=== PATIENT | female | born 1955 | race Caucasian/White ===

== ENCOUNTER → 2019-09-13 13:07 | Outpatient (BNVA) | payer MEDICARE, MEDICAID, SELFPAY | PROVIDERS: Family Provider Nurse Practitioner Family; PCP Nurse Practitioner Family; Visit Provider Internal Medicine Rheumatology | DX: M33.20 Polymyositis, organ involvement unspecified (principal); B99.9 Unspecified infectious disease; J44.9 Chronic obstructive pulmonary disease, unspecified; Z87.891 Personal history of nicotine dependence; I12.9 Hypertensive chronic kidney disease with stage 1 through stage 4 chronic kidney disease, or unspecified chronic kidney disease; N18.9 Chronic kidney disease, unspecified | CPT/HCPCS: 36415; 80053; 82085; 82550; 82553; 82784; 85007; 85027; 85651; 86140; 99214 ==

== ENCOUNTER 2019-09-26 10:09 | Outpatient (CLI) | payer MEDICARE, MEDICAID, SELFPAY ==
--- NOTE | 2019-09-26 10:22 | CT_ITS ---
WS: [id number] CT scan of the chest, lung windows, inspiration and expiration, additional prone imaging. 09/26/2019 Clinical Data: SHORTNESS OF BREATH Comparison: CT chest, 03/15/2019. DLP: 269.[address] scans at [facility] use at least one of these dose optimization techniques: automat ed exposure control; mA and/or kV adjustment per patient size (includes targeted exams where dose is matched to clinical indication); or iterative reconstruction. Findings: There are atelectatic changes at both lung bases and groundglass infiltrate in the right middle lobe. There are changes of chronic lung disease with restriction of airflow during expiration. No large ma sses or nodules are seen. There are no effusions, pneumonia or pneumothorax. Trachea bifurcates into the bronchi. The heart size is normal. The thoracic aorta shows calcification in the wall. There is c alcification in the left coronary artery. No pericardial effusion is seen. There is a hiatal hernia. Vertebroplasty contrast is seen in the T10, T11 and T12 vertebral bodies. The upper abdomen is not re markable. CT/CT chest wo con [id number] Impression: 1. Chronic lung changes at both bases and groundglass infiltrate in the right m iddle lobe which have been seen before. 2. Airflow restriction during expiration.
== END 2019-09-26 10:10 | disposition home or self-care (01) ==
LOC: RAD 10:16
PROVIDERS: Family Provider Nurse Practitioner Family; PCP Nurse Practitioner Family; Visit Provider Internal Medicine Critical Care Medicine
DX: R91.8 Other nonspecific abnormal finding of lung field (principal); R06.02 Shortness of breath
CPT/HCPCS: 71250

== ENCOUNTER → 2019-10-03 17:34 | Outpatient (BNVA) | payer MEDICARE, MEDICAID, SELFPAY | PROVIDERS: Visit Provider Nurse Practitioner Family | DX: R19.7 Diarrhea, unspecified (principal) | CPT/HCPCS: 80053; 85025 ==

== ENCOUNTER → 2019-10-04 10:32 | Outpatient (BNVA) | payer MEDICARE, MEDICAID, SELFPAY | PROVIDERS: Visit Provider Nurse Practitioner Family | DX: R19.7 Diarrhea, unspecified (principal) | CPT/HCPCS: 87493; 87505 ==

== ENCOUNTER 2019-11-01 07:00 | Outpatient (CLI) | payer MEDICARE, MEDICAID, SELFPAY ==
--- NOTE | 2019-11-01 16:15 | PFTS_ITS ---
Date of Study:11/01/2019 Date of Dictation: MECHANICS: Forced vital capacity (FVC) is normal. Forced expiratory volume in one second (FEV1) is normal. FEV1/FVC is reduced. FLOW VOLUME LOOP: Reduced flow at all lung volumes with scooping. LUNG VOLUMES: The total lung volume and residual volumes were not measured. DIFFUSING CAPACITY FOR CARBON MONOXIDE: Mildly reduced. INTERPRETATION: The pulmonary function tests are consistent with mild airflow obstruction. The gas exchange is moderately reduced. MTDD
== END 2019-11-01 07:01 | disposition home or self-care (01) ==
LOC: RT 07:02
PROVIDERS: Family Provider Nurse Practitioner Family; Visit Provider Internal Medicine Critical Care Medicine
DX: J43.9 Emphysema, unspecified (principal)
CPT/HCPCS: 94010; 94729

== ENCOUNTER → 2019-11-02 14:15 | Outpatient (BNVA) | payer MEDICARE, MEDICAID, SELFPAY | PROVIDERS: Family Provider Nurse Practitioner Family; Visit Provider Nurse Practitioner Family | DX: R05 Cough (principal); J44.9 Chronic obstructive pulmonary disease, unspecified; E84.9 Cystic fibrosis, unspecified; R06.02 Shortness of breath | CPT/HCPCS: 71046; 81003; 85025; 87804 ==

== ENCOUNTER 2019-11-15 09:30 | Outpatient (CLI) | payer MEDICARE, MEDICAID, SELFPAY ==
[2019-11-15 10:06] LABS: Creatine Phosphokinase 273 U/L (26-192)
[2019-11-15 10:44] LABS: Erythrocyte Sedimentation Rate 18 mm/hr (0-15)
[2019-11-16 11:31] LABS: Aldolase 3.6 U/L (< OR = 8.1)
== END 2019-11-15 09:31 | disposition home or self-care (01) ==
LOC: LAB 09:35
PROVIDERS: Family Provider Nurse Practitioner Family; PCP Nurse Practitioner Family; Visit Provider Internal Medicine Critical Care Medicine
DX: M33.20 Polymyositis, organ involvement unspecified (principal); R06.02 Shortness of breath; R09.89 Other specified symptoms and signs involving the circulatory and respiratory systems; I10 Essential (primary) hypertension; J44.9 Chronic obstructive pulmonary disease, unspecified; N18.9 Chronic kidney disease, unspecified
CPT/HCPCS: 36415; 82085; 82550; 85651; 86141

== ENCOUNTER → 2019-11-16 16:32 | Outpatient (BNVA) | payer MEDICARE, MEDICAID, SELFPAY | PROVIDERS: Family Provider Nurse Practitioner Family; PCP Nurse Practitioner Family; Visit Provider Nurse Practitioner Family | DX: R09.89 Other specified symptoms and signs involving the circulatory and respiratory systems (principal); J32.9 Chronic sinusitis, unspecified | CPT/HCPCS: 87400 ==

== ENCOUNTER 2019-12-29 16:06 | Outpatient (CLI) | payer MEDICARE, MEDICAID, SELFPAY ==
--- NOTE | 2019-12-29 16:30 | USCV_ITS ---
Shanita Saleh Age: 64 Gender: F : 1955 Exam Date: 12/29/2019 16:12 Ordering Phys: Jimbo Watkins MD Technologist: Exam Location: [facility] [place] Indication: SOB BP: 114 / 56 HR: 70 Rhythm: Sinus Technical Quality: Good MEASUREMENTS (Male / Female) Normal Values 2D ECHO LV Diastolic Diameter PLAX 4.2 cm 4.2 - 5.9 / 3.9 - 5.3 cm LV Systolic Diameter PLAX 2.2 cm IVS Diastolic Thickness 0.9 cm 0.6 - 1.0 / 0.6 - 0.9 cm IVS Systolic Thickness 1.4 cm LVPW Diastolic Thickness 0.9 cm 0.6 - 1.0 / 0.6 - 0.9 cm LVPW Systolic Thickness 1.3 cm LVOT Diameter 2.0 cm LV Ejection Fraction 2D Teich 79.3 % LV Ejection Fraction MOD 2C 79.1 % LV Ejection Fraction 2C AL 81.5 % LA Diameter 3.0 cm LA Width 3.1 cm LA Height 5.1 cm RA Width 3.6 cm RA Height 4.8 cm Aorta at Sinotubular Diameter 2.8 cm M-MODE LV Diastolic Diameter MM 5.3 cm 4.2 - 5.9 / 3.9 - 5.3 cm LV Systolic Diameter MM 3.3 cm LV Ejection Fraction MM Teich 67.6 % IVS Diastolic Thickness MM 0.8 cm 0.6 - 1.0 / 0.6 - 0.9 cm IVS Systolic Thickness MM 1.4 cm LVPW Diastolic Thickness MM 1.0 cm 0.6 - 1.0 / 0.6 - 0.9 cm LVPW Systolic Thickness MM 1.3 cm Aortic Annulus Diameter 2.5 cm LA Ao Ratio MM 1.2 MV E Point Septal Separation 0.3 cm DOPPLER AV Peak Velocity 149.0 cm/s LVOT Peak Velocity 79.0 cm/s AV Area Cont Eq vti 1.7 cm squared AV Area Cont Eq pk 1.7 cm squared MV Area PHT 2.7 cm squared Mitral E to A Ratio 0.8 MV E' Velocity 11.0 cm/s Mitral E to MV E' Ratio 8.2 Mitral E to LV E' Lateral Ratio 7.0 Mitral E to LV E' Septal Ratio 10.1 TR Peak Velocity 207.9 cm/s TR Peak Gradient 17.3 mmHg TR Mean Velocity 155.6 cm/s TR Mean Gradient 10.4 mmHg TR Velocity Time Integral 53.2 cm TV Peak E Velocity 52.0 cm/s Right Atrial Pressure 3.0 mmHg Pulmonary Artery Systolic Pressu 20.3 mmHg PV Peak Velocity 93.0 cm/s RV Acceleration Time 0.1 s RV Ejection Time 0.3 s RV AcT/ET 0.5 FINDINGS Left Ventricle Normal left ventricular cavity size. Normal left ventricular systolic function. No regional wall motion abnormalities. Left ventricular ejection fraction is estimated at 67 %. Grade I/IV diastolic dysfunction (abnormal relaxation filling pattern), normal to mildly elevated filling pressures. Right Ventricle The right ventricle is normal in size and function. Right Atrium The right atrium is normal in size. Left Atrium Mildly increased left atrial size. Mitral Valve Structurally normal mitral valve without significant stenosis or prolapse. There is no mitral regurgitation. Aortic Valve Mild aortic valve calcification. No aortic valve stenosis. No aortic valve regurgitation. Tricuspid Valve Trace tricuspid valve regurgitation. Pulmonic Valve Structurally normal pulmonic valve without significant stenosis. There is no pulmonic regurgitation. Pericardium Normal pericardium without effusion. Aorta Normal ascending aorta dimension. CONCLUSIONS 1-Normal left ventricular cavity size. Normal left ventricular systolic function. No regional wall motion abnormalities. Left ventricular ejection fraction is estimated at 67 %. Grade I/IV diastolic dysfunction (abnormal relaxation filling pattern), normal to mildly elevated filling pressures. 2-There is no pericardial effusion. 3-Trace tricuspid valve regurgitation. 4-Right atrial pressure is around 5 mm of mercury. 5-No significant change since the prior echocardiogram study of 02/07/2018. Rhiannon Eastman MD (Electronically Signed) Final Date: 29 Dec 2019 17:38 S
== END 2019-12-29 16:07 | disposition home or self-care (01) ==
LOC: RAD 16:08
PROVIDERS: Family Provider Nurse Practitioner Family; PCP Nurse Practitioner Family; Visit Provider Internal Medicine Critical Care Medicine
DX: R06.02 Shortness of breath (principal); I07.1 Rheumatic tricuspid insufficiency
CPT/HCPCS: 93306

== ENCOUNTER → 2020-01-03 11:50 | Outpatient (BNVA) | payer MEDICARE, MEDICAID, SELFPAY | PROVIDERS: Family Provider Nurse Practitioner Family; PCP Nurse Practitioner Family; Visit Provider Nurse Practitioner Family | DX: M81.0 Age-related osteoporosis without current pathological fracture (principal) | CPT/HCPCS: 80048 ==

== ENCOUNTER → 2020-03-21 08:42 | Outpatient (BNVA) | payer MEDICARE, MEDICAID, SELFPAY | PROVIDERS: Family Provider Nurse Practitioner Family; PCP Nurse Practitioner Family; Visit Provider Internal Medicine | DX: M33.20 Polymyositis, organ involvement unspecified (principal); M81.0 Age-related osteoporosis without current pathological fracture; J44.9 Chronic obstructive pulmonary disease, unspecified; Z87.891 Personal history of nicotine dependence; E55.9 Vitamin D deficiency, unspecified | CPT/HCPCS: 36415; 80053; 81003; 82550; 84100; 85025; 85651; 86140; 99214 ==

== ENCOUNTER → 2020-04-16 08:00 | Outpatient (BNVA) | payer MEDICARE, MEDICAID, SELFPAY | PROVIDERS: Family Provider Nurse Practitioner Family; PCP Nurse Practitioner Family; Visit Provider Nurse Practitioner Family | DX: I10 Essential (primary) hypertension (principal); K21.9 Gastro-esophageal reflux disease without esophagitis; M81.0 Age-related osteoporosis without current pathological fracture; L30.9 Dermatitis, unspecified; J44.9 Chronic obstructive pulmonary disease, unspecified; Z68.25 Body mass index [BMI] 25.0-25.9, adult; F17.211 Nicotine dependence, cigarettes, in remission | CPT/HCPCS: 80053; 80061; 84443; 85025 ==

== ENCOUNTER 2020-04-22 10:01 | Emergency (ER) | payer MEDICARE, MEDICAID, SELFPAY ==
[2020-04-22 10:04] VITALS: BP 153/68; PULSE 65; RESP 16; TEMP 36.8; O2SAT 95; BMI 25.6
--- NOTE | 2020-04-22 10:35 | XRR_ITS ---
PROCEDURE INFORMATION: Exam: XR Lumbosacral Spine, 2 or 3 Views Exam date and time: 04/22/2020 11:07 AM Age: 64 years old Clinical indication: Low back pain; Prior surgery; Surgery type: Kypho; Patient HX: Mid back pain after jumping TECHNIQUE: Imaging protocol: XR of the lumbosacral spine, 2 or 3 views. COMPARISON: MRI Lumbar Spine w/o [id number] 09/03/2016 3:21 PM FINDINGS: Vertebrae: Severe diffuse degenerative disc disease reflected as severe decrease in disc space height and anterior endplate osteophytosis. No spondylolisthesis No pars defect. Multi-level facet hypertrophic changes. Compression fracture involving L2 and likely L1 and T12. Prior vertebroplasty T11-T10 and T9. Soft tissues: Unremarkable. XR/XR lumbar spine 2-3V* [id number] IMPRESSION: Severe degenerative disc disease. Numerous compression fractures as described above.
--- NOTE | 2020-04-22 10:35 | XRR_ITS ---
PROCEDURE INFORMATION: Exam: XR Thoracic Spine, 3 Views Exam date and time: 04/22/2020 11:07 AM Age: 64 years old Clinical indication: Pain in thoracic spine; Other: Not specified; Prior surgery; Surgery type: Kypho; Patient HX: Mid back pain after jumping TECHNIQUE: Imaging protocol: XR of the thoracic spine, 3 views. COMPARISON: No relevant prior studies available. FINDINGS: Vertebrae: The alignment is normal. . Degenerative changes, mild, throughout much of the thoracic spine No subluxation-no perched or jumped facets. The facets are without acute process. Mild compression fracture involving the anterior and middle columns of T12. Prior vertebroplasty T11, T10 and T9. Mild compression fractures involving the anterior columns of T8 and T7 and likely T6. Soft tissues: Unremarkable. XR/XR thoracic spine 3V* [id number] IMPRESSION: Mild compression fracture involving the anterior and middle columns of T12. Prior vertebroplasty T11, T10 and T9. Mild compression fractures involving the anterior columns of T8 and T7 and likely T6. Consider CT or MRI if indicated.
--- NOTE | 2020-04-22 10:44 | ED_ITS ---
HPI - Back Pain/Injury General: Chief Complaint: Back Pain/Injury Stated Complaint: RIGHT RIB AND BACK PAIN Time Seen by Provider: 04/22/20 10:05 History of Present Illness: HPI Narrative: 64-year-old female who presents emergency room with complete night of severe back pain. She was playing with her daughter yesterday and crouched behind an object while they are playing hide and seek type game she jumped up to surprise the granddaughter and when she walked away experienced severe lower back pain in the lumbar region pain is worse with any movement it did not improve overnight she is complaining of severe muscle spasms as well she did take a cyclobenzaprine before she came in she has a known history of osteoporosis and has had compression fractures treated with kyphoplasty in the past. MD elicited complaint: back pain Pertinent past history: prior back pain Onset (ago): hour(s) Timing: constant Severity: severe Similar Symptoms Previously: Yes Quality: stabbing Location: lumbar spine Radiation: none Exacerbating factors: movement Relieving factors: immobilization Context: other (Crouching down and standing suddenly) Associated symptoms: Reports difficulty walking; Deny abdominal pain, arthralgias, chills, change in bowel habits, dysuria, fatigue, fecal incontinence, fever(s), hematuria, myalgias, nausea, numbness, syncope, tingling/numbness/burning, urinary frequency, urinary urgency, vomiting or weakness Work related injury: No Review of Systems Const: Denies: fever(s), chills or fatigue ENMT: Denies: throat pain, ear or mastoid pain, nasal discharge or nasal congestion Card: Denies: syncope Resp: Denies: dyspnea, productive cough or non-productive cough GI: Denies: abdominal pain, nausea, vomiting, fecal incontinence or change in bowel habits : Denies: dysuria, urinary urgency or hematuria Skin/Breast: Denies: rash or pruritus Neuro: Reports: difficulty walking PFSH ED PFSH: Medical History Age related osteoporosis Anxiety CKD (chronic kidney disease) Compression fx, lumbar spine Compression fx, thoracic spine COPD (chronic obstructive pulmonary disease) Diverticulitis Generalized osteoarthritis GERD (gastroesophageal reflux disease) Hypertension Immunosuppression Medication monitoring encounter Osteoporosis Osteoporosis Polymyositis PUD (peptic ulcer disease) Surgical History H/O colonoscopy 2017 H/O wrist surgery History of appendectomy History of back surgery History of lumpectomy of both breasts History of tubal ligation Family History Father Hypertension Cancer Alzheimer disease Mother Hypertension Dementia Grandmother Cancer Sister Cancer Social History Smoking and tobacco status: former smoker Quit status (tobacco): has quit using tobacco Year quit tobacco: 2009 - 1.5 x 35 Years Second hand smoke exposure: No Alcohol intake: never Lives independently: Yes Household members: spouse Marital status: Number of children: 2 Current occupational status: retired History of recent travel: No Current gender identity: Female Physical Exam Const: COMMON NORMALS: no acute distress GENERAL APPEARANCE: cooperative and comfortable ORIENTATION/CONSCIOUSNESS: Yes awake, Yes oriented to person, Yes oriented to place and Yes oriented to time HENMT: COMMON NORMALS: normocephalic, atraumatic and hearing grossly normal b ilaterally HEAD & SCALP: normocephalic and atraumatic Eye: COMMON NORMALS: Equal, round and reactive pupils present, EOMs intact bilaterally, conjunctivae normal and no scleral icterus CONJUNCTIVA: Yes conjunctivae normal PUPIL: Yes Equal, round and reactive pupils present Neck/C-Spine: COMMON NORMALS: full ROM, no lymphadenopathy, supple and no JVD Lymph: LYMPHATIC: no lymphadenopathy noted and no lymphedema noted Resp: COMMON NORMALS: normal respiratory effort, No retractions, No use of accessory muscles and clear to auscultation bilaterally AUSCULTATION: clear to auscultation bilaterally Cardio: COMMON NORMALS: no JVD, regular rate, regular rhythm and No murmurs present (Cardio) RATE: regular rate RHYTHM: regular rhythm GI: COMMON NORMALS: Soft to palpation and No hepatosplenomegaly present AUSCULTATION: Yes normoactive bowel sounds PALPATION: Yes Soft to palpation, No Tenderness to palpation present (GI), No Guarding due to palpation present (GI) and Yes No hepatosplenomegaly present Extremity: COMMON NORMALS: normal to inspection, capillary refill normal, no clubbing, cyanosis or edema, no calf tenderness and no pedal edema Neuro: SENSORIUM/ORIENTATION: Yes oriented to person, Yes oriented to place and Yes oriented to time Skin: COMMON NORMALS: no rashes or lesions noted GENERAL SKIN EXAM: no rashes or lesions noted Course Vital Signs: Vital signs: Vital Signs Temperature 98.3 F 04/22/20 10:04 Pulse Rate 87 04/22/20 12:49 Respiratory Rate 18 04/22/20 12:49 Blood Pressure 153/68 04/22/20 12:49 Pulse Oximetry 94 04/22/20 12:49 MDM - Back Pain/Injury MDM Narrative: Medical decision making narrative: Plain films are a few areas are suspicious for acute compression fracture versus old compression fracture CT does not show anything acute reviewed with the patient treat her back pain follow-up with her primary care doctor return if has problems Discharge Plan Discharge Patient Disposition: Home Clinical Impression: Back pain Condition: Stable Prescriptions: New hydrocodone-acetaminophen 5-325 mg tablet 1 tab PO Q6H PRN (Reason: pain) Qty: 20 RF: 0 diclofenac sodium 75 mg tablet,delayed release (DR/EC) 75 mg PO Q12H PRN (Reason: pain) Qty: 20 RF: 0 cyclobenzaprine 10 mg tablet 10 mg PO TID PRN (Reason: muscle spasm) Qty: 30 RF: 0 No Action metoprolol tartrate 25 mg tablet 25 mg PO BID Qty: 60 RF: 5 methylprednisolone [Medrol (Derrick)] 4 mg tablets,dose pack See Rx Instructions PO PER PKG DIR Qty: 21 RF: 0 cyclobenzaprine 5 mg tablet 5 mg PO QID PRN (Reason: Muscle Spasm) RF: 0 albuterol sulfate [ProAir HFA] 90 mcg/actuation HFA aerosol inhaler 2 puff INHALATION QID PRN (Reason: shortness of breath) RF: 0 Rituxan 10 mg/mL concentrate See Rx Instructions .ROUTE .COMPLEX RF: 0 folic acid 1 mg tablet 1 mg PO DAILY RF: 0 aspirin [Adult Aspirin Regimen] 81 mg tablet,delayed release (DR/EC) 81 mg PO DAILY RF: 0 albuterol sulfate 2.5 mg /3 mL (0.083 %) solution for nebulization 2.5 mg INHALATION Q4H PRN (Reason: shortness of breath or wheezing) Qty: 180 RF: 0 Anoro Ellipta 62.5-25 mcg/actuation blister with device 1 inh INHALATION DAILY Qty: 60 RF: 3 Claritin 10 mg Tablet 10 mg PO DAILY RF: 0 Probiotic 1 cap PO QPM RF: 0 Vitamin D3 1 tab PO DAILY RF: 0 triamcinolone acetonide 0.1 % cream 1 applic TOPICAL BID RF: 0 pantoprazole 40 mg tablet,delayed release (DR/EC) 40 mg PO BID RF: 0 losartan 25 mg tablet 25 mg PO DAILY RF: 0 fluticasone propionate 50 mcg/actuation spray,suspension 1 spray intranasal BID PRN (Reason: unknown) RF: 0 Prolia 60 mg/mL syringe See Rx Instructions .ROUTE .COMPLEX RF: 0 Multiple Vitamins Tablet 1 tab PO DAILY RF: 0 Discharge Orders: Discharge Order (Routine); Ordered 04/22/20 Ordered By: Marcelino Payton Referrals: Mercedez Loco FNP [Primary Care Provider] - Discharge Diet: Usual diet Discharge Activity: Increase activity as tolerated Discharge Date/Time: 04/22/20 12:50 Coding Level of Care Code ED Workers Compensation Consultant for Chg Fwd Exam Comprehensive
[2020-04-22 10:53] VITALS: RESP 18; O2SAT 94
[2020-04-22] MEDS: morphine 4 mg/mL SDV 1 mL 6 MG IVP (10:53)
[2020-04-22] MEDS: ondansetron 2 mg/ML SDV 2 mL 4 MG IVP (10:54)
--- NOTE | 2020-04-22 11:45 | CT_ITS ---
WS: [id number] CT THORACIC SPINE TECHNIQUE: Noncontrast CT of the thoracic spine with coronal and sagittal reformatted images. CLINICAL INFORMATION: new compression fractures COMPARISON: CT 6 6016 and September 21, 2016 DLP: 1183.[address] scans at [facility] use at least one of these dose optimization techniques: automat ed exposure control; mA and/or kV adjustment per patient size (includes targeted exams where dose is matched to clinical indication); or iterative reconstruction. FINDINGS: Moderate thoracic kyphosis. Mild thoracic curve. Thoracic curve convex left. Prior vertebroplasty latha nges T9, T10, T11 with anterior wedging chronic compression unchanged. Chronic anterior wedging at T6 , T7, and T8 unchanged. No high-grade central canal stenosis. Mild compression superior endplate T12 unchanged Subsegmental atelectasis in the lung bases. Moderate chronic emphysematous changes. Thoracic aortic c alcification. Small esophageal hiatal hernia. CT/CT thoracic spin wo con* [id number] IMPRESSION: 1. Moderate thoracic kyphosis with chronic vertebroplasty changes at T9-T11 un changed. 2. Chronic anterior wedging at T6-T8 unchanged. 3. No new thoracic compression fractures. 4. Mild compression superior endplate T12 unchanged
--- NOTE | 2020-04-22 11:46 | CT_ITS ---
WS: [id number] CT LUMBAR SPINE TECHNIQUE: Noncontrast CT of the lumbar spine with coronal and sagittal reformatted images. CLINICAL INFORMATION: pain - compression fractures COMPARISON: MRI 1 DLP: 2156.[address] scans at [facility] use at least one of these dose optimization techniques: automat ed exposure control; mA and/or kV adjustment per patient size (includes targeted exams where dose is matched to clinical indication); or iterative reconstruction. FINDINGS: Mild lumbar curve. No high-grade central canal stenosis. Mild compression superior endplates T12 L1,L 2, L3 and L5 unchanged from previous. No new compression fractures. L1-L2: Normal. L2-L3: Normal. L3-L4: Mild annular bulging with slight effacement of ventral thecal sac. Spinal canal and foramen ar e patent. Moderate facet arthropathy ligament flavum hypertrophy. L4-L5: Mild annular bulging with mild central canal stenosis. Mild left and no significant right fora quentin narrowing. Mild to moderate central canal stenosis with moderate facet arthropathy. Ligament fl avum hypertrophy. L5-S1: Mild annular bulging eccentric to the left. Slight encroachment on the left S1 nerve root. Mil d left foraminal narrowing. Visualized pelvic bony structures: Normal. Paravertebral soft tissues: Normal. Notified Marcelino Payton DO at 04/22/2020 12:[address]/CT lumbar spine wo con* [id number] IMPRESSION: 1. No new lumbar compression fractures. 2. Mild/moderate central canal stenosis L4-5 due to disc bulging with facet ar thropathy and ligament flavum hypertrophy. 3. Mild left L4-5 foraminal narrowing. 4. Disc bulge L5-S1 slightly contacts the left S1 nerve root.
[2020-04-22 12:49] VITALS: BP 153/68; PULSE 87; RESP 18; O2SAT 94
== END 2020-04-22 12:50 | disposition home or self-care (01) ==
PROVIDERS: Emergency Provider Family Medicine; PCP Nurse Practitioner Family
DX: M54.9 Dorsalgia, unspecified (principal); Z79.82 Long term (current) use of aspirin; J44.9 Chronic obstructive pulmonary disease, unspecified; I10 Essential (primary) hypertension; Z87.891 Personal history of nicotine dependence
CPT/HCPCS: 12345; 72072; 72100; 72128; 72131; 96374; 96375; 99281; 99283; J2270; J2405

== ENCOUNTER → 2020-05-09 13:04 | Outpatient (BNVA) | payer MEDICARE, MEDICAID, SELFPAY | PROVIDERS: PCP Nurse Practitioner Family; Visit Provider Internal Medicine | DX: M33.20 Polymyositis, organ involvement unspecified (principal); Z79.899 Other long term (current) drug therapy; M81.0 Age-related osteoporosis without current pathological fracture; E55.9 Vitamin D deficiency, unspecified | CPT/HCPCS: 36415; 80053; 82550; 85025; 85651; 86140; 99214 ==

== ENCOUNTER 2020-05-13 09:23 | Outpatient (CLI) | payer MEDICARE, MEDICAID, SELFPAY ==
[2020-05-13 09:30] VITALS: BP 137/72; PULSE 58; RESP 16; TEMP 36.6; O2SAT 97
[2020-05-13] MEDS: acetaminophen 325 mg Tablet 975 MG PO (09:58)
[2020-05-13] MEDS: diphenhydrAMINE 25 mg Capsule PO (09:58)
[2020-05-13] MEDS: rituximab 1,000 MG in sodium chloride 0.9% 250 ML, primary tubing onc 1 EACH 70 MG IV (10:13)
--- NOTE | 2020-05-13 10:13 | PC.NURSE ---
Rituxan infusion started at rate per orders. Will increase rate per orders and as pt tolerates.
--- NOTE | 2020-05-13 12:19 | PC.NURSE ---
1200 Assisted to restroom and back to recliner after restroom. Denies complaints. Pt brought snacks and drink. Offered drinks and minerva crackers.
[2020-05-13 15:25] VITALS: BP 144/75; PULSE 76; RESP 16; O2SAT 96
== END 2020-05-13 09:24 | disposition home or self-care (01) ==
LOC: RHEOACUTE 09:26
PROVIDERS: PCP Nurse Practitioner Family; Visit Provider Internal Medicine
DX: M33.20 Polymyositis, organ involvement unspecified (principal)
CPT/HCPCS: 96365; 96366; 96375; J2930; J7050; J9312

== ENCOUNTER → 2020-05-22 10:39 | Outpatient (BNVA) | payer MEDICARE, MEDICAID, SELFPAY | PROVIDERS: PCP Nurse Practitioner Family; Visit Provider Nurse Practitioner Family | DX: E03.9 Hypothyroidism, unspecified (principal) | CPT/HCPCS: 84439; 84443; 84481 ==

== ENCOUNTER 2020-05-28 08:41 | Outpatient (CLI) | payer MEDICARE, MEDICAID, SELFPAY ==
[2020-05-28 09:00] VITALS: BP 146/70; PULSE 62; RESP 16; TEMP 36.6; O2SAT 98
[2020-05-28] MEDS: acetaminophen 325 mg Tablet 975 MG PO (09:19)
[2020-05-28] MEDS: diphenhydrAMINE 25 mg Capsule PO (09:19)
[2020-05-28] MEDS: rituximab 1,000 MG in sodium chloride 0.9% 250 ML, primary tubing onc 1 EACH 70 MG IV (09:32)
--- NOTE | 2020-05-28 09:33 | PC.NURSE ---
Rituxan infusion started at 13ml/hr for 30 min. Will increase rate per orders.
--- NOTE | 2020-05-28 09:34 | PC.NURSE ---
Prior to infusion screened pt for COVID 19 exposure. Denied. Discussed she is at risk for infection and COVID 19 due to Rituxan. Pt verbalized understanding.
--- NOTE | 2020-05-28 11:59 | PC.NURSE ---
Restly with eyes closed. Resp even and unlabored. Continuing to increase rate every 30 min per orders. Offered pt bathroom break, declines at this time.
--- NOTE | 2020-05-28 12:15 | PC.NURSE ---
Assisted to restroom and back. Denies c/o pain or needs. Drink given. Pt has snacks she brought.
[2020-05-28 15:00] VITALS: BP 129/66; PULSE 92; RESP 16; O2SAT 95
== END 2020-05-28 08:42 | disposition home or self-care (01) ==
LOC: RHEOACUTE 08:42
PROVIDERS: PCP Nurse Practitioner Family; Visit Provider Internal Medicine Rheumatology
DX: M33.21 Polymyositis with respiratory involvement (principal); M33.20 Polymyositis, organ involvement unspecified
CPT/HCPCS: 96365; 96366; 96375; J2930; J7050; J9312

== ENCOUNTER → 2020-08-01 08:46 | Outpatient (BNVA) | payer MEDICARE, MEDICAID, SELFPAY | PROVIDERS: PCP Nurse Practitioner Family; Visit Provider Internal Medicine | DX: M33.20 Polymyositis, organ involvement unspecified (principal); Z79.899 Other long term (current) drug therapy; M81.0 Age-related osteoporosis without current pathological fracture; Z87.891 Personal history of nicotine dependence | CPT/HCPCS: 36415; 80053; 81003; 82550; 84100; 85025; 85651; 86140; 99214 ==

== ENCOUNTER 2020-09-06 08:13 | Outpatient (CLI) | payer MEDICARE, MEDICAID, SELFPAY ==
[2020-09-06 08:41] VITALS: BMI 27.3
--- NOTE | 2020-09-06 08:42 | ECG_ITS ---
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 Interpretive Statements NAME OF STUDY: EXERCISE SESTAMIBI STRESS TEST INDICATION: [Chest Pain] EXERCISE DATA: The patient was exercised by Zain protocol. Baseline heart rate was 92 beats per minute. Baseline blood pressure was 172/98 millimeters of mercury. Target heart rate was 130 beats per minute. Maximum heart rate achieved was 155 bpm, which was 101% of the maximum predicted heart rate. Maximum blood pressure was 249/66 millimeters of mercury. Total exercise time was 5 minutes 30 seconds. Maximum METs achieved was 7, maximum VO2 was 24.5 the reason for ending the test was completion of protocol and target heart rate achieved. The patient complained of shortness of breath during the stress test, which then resolved at the end of the test. ELECTROCARDIOGRAM: BASELINE: Showed sinus rhythm, normal axis, no significant ST-T changes at the baseline noted. [] EXERCISE: At the peak exercise level, [] horizontal ST depressions were seen in inferior leads at exercise levels. [] RECOVERY: During the recovery period, heart rate dropped appropriately. No significant ST-T changes in the recovery suggestive of ischemia noted. [] CONCLUSION: 1. Exercise capacity good 2. Heart rate response was appropriate 3. Blood pressure response was hypertensive 4. Symptoms not suggestive of ischemia. 5. Electrocardiogram portion of the stress test suggested possible ischemia. Nuclear perfusion images and report will be finalized separately. Correlation between the two is needed. Electronically Signed On 09-14-2020 10:16:08 PARCEL POST ORDER CLERK by Arnulfo Deal M.D. [email or web address]
--- NOTE | 2020-09-06 08:42 | NMCV_ITS ---
NM jr perf SPECT r/s* [id number] Shanita Saleh Age: 65 Gender: F : 1955 Exam Date: 09/06/2020 09:26 Ordering Phys: Arnulfo Deal M.D ([email or web address]) Technologist: NASRIN Simental Exam Location: [facility] Indications: CHEST PAIN STRESS TEST Please see separate stress test report in [facility] for full findings IMAGE PROTOCOL Rest/Stress 1 Exercise Day Radiopharmaceutical Dose (mCi) Administration Site Administered by Rest: Tc-99m 10.8 IV NASRIN Vasquez Sestamibi Stress:Tc-99m 32.4 IV NASRIN Simental Sestamigem Rest: 06-Sep-2020 60 Discovery 630 Stress: 06-Sep-2020 30 Discovery 630 Radiopharmaceutical was injected at 98 % maximum heart rate. Images obtained in supine and prone position. SPECT RESULTS Technical Quality: Excellent Raw Data Analysis: Normal Image Corrections: No attenuation or motion correction applied Summed Stress Score: 1 Summed Rest Score: 3 Summed Difference Score: 0 PERFUSION FINDINGS There is homogenous uptake of radiotracer throughout the myocardium. Normal myocardial perfusion imaging with no evidence of ischemia. FUNCTIONAL RESULTS (calculated via Gated SPECT) Stress Image LV EF (%): 93 Stress EDV (mL):46 TID: 0.7 Stress ESV (mL):3 FUNCTIONAL FINDINGS: There is normal left ventricular systolic function. IMPRESSIONS 1. Normal myocardial perfusion imaging without any evidence of ischemia. 2. Normal LV systolic function. Arnulfo Deal MD (Electronically Signed) Final Date: 07 September 2020 18:26 S
[2020-09-06 10:25] VITALS: BP 174/95; PULSE 96
== END 2020-09-06 08:14 | disposition home or self-care (01) ==
LOC: RAD 08:19 → CDL 08:37
PROVIDERS: PCP Nurse Practitioner Family; Visit Provider Internal Medicine
DX: R07.9 Chest pain, unspecified (principal)
CPT/HCPCS: 78452; 93017; A9500

== ENCOUNTER → 2020-09-23 09:01 | Outpatient (BNVA) | payer MEDICARE, MEDICAID, SELFPAY | PROVIDERS: PCP Nurse Practitioner Family; Visit Provider Internal Medicine | DX: M33.20 Polymyositis, organ involvement unspecified (principal); Z79.899 Other long term (current) drug therapy; Z11.1 Encounter for screening for respiratory tuberculosis; Z11.59 Encounter for screening for other viral diseases; M81.0 Age-related osteoporosis without current pathological fracture; M15.9 Polyosteoarthritis, unspecified; Z87.891 Personal history of nicotine dependence; M32.9 Systemic lupus erythematosus, unspecified | CPT/HCPCS: 36415; 71046; 80053; 81003; 82306; 82550; 83735; 84100; 85025; 85651; 86480; 86704; 86803; 87340; 99214; J1030 ==

== ENCOUNTER 2020-09-23 11:02 | Outpatient (CLI) | payer MEDICARE, MEDICAID, SELFPAY ==
--- NOTE | 2020-09-23 11:15 | XR_ITS ---
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 The lungs are hyperinflated and clear. Heart size is normal. The mediastinum is not widened. Signs of vertebral plasty involving several lower thoracic vertebra. XR/XR chest 2V* [id number] IMPRESSION: 1. Pulmonary hyperinflation which may indicate obstructive lung disease. No acu te cardiopulmonary finding.
== END 2020-09-23 11:03 | disposition home or self-care (01) ==
LOC: RAD 11:13
PROVIDERS: PCP Nurse Practitioner Family; Visit Provider Internal Medicine
DX: Z79.899 Other long term (current) drug therapy (principal); M33.20 Polymyositis, organ involvement unspecified; M32.9 Systemic lupus erythematosus, unspecified
CPT/HCPCS: 71046; 80053; 81003; 82306; 82550; 83735; 84100; 85025; 85651; 86480; 86704; 86803; 87340

== ENCOUNTER → 2020-09-27 09:16 | Outpatient (BNVA) | payer MEDICARE, MEDICAID, SELFPAY | PROVIDERS: PCP Nurse Practitioner Family; Visit Provider Internal Medicine | DX: M33.20 Polymyositis, organ involvement unspecified (principal); Z79.899 Other long term (current) drug therapy; Z51.81 Encounter for therapeutic drug level monitoring | CPT/HCPCS: 86160 ==

== ENCOUNTER 2020-10-13 10:10 | Emergency (ER) | payer MEDICARE, MEDICAID, SELFPAY ==
[2020-10-13 10:24] VITALS: BP 141/89; PULSE 70; RESP 18; TEMP 36.8; O2SAT 99; BMI 27.8
--- NOTE | 2020-10-13 10:33 | XRR_ITS ---
PROCEDURE INFORMATION: Exam: XR Chest, 1 View Exam date and time: 10/13/2020 10:57 AM Age: 65 years old Clinical indication: Other: Not feeling well; Additional info: Chest pain TECHNIQUE: Imaging protocol: XR of the chest Views: 1 view. COMPARISON: CR XR chest 2V* [id number] 09/23/2020 11:26 AM FINDINGS: Lungs: Unremarkable. No consolidation. Pleural spaces: Unremarkable. No pleural effusion. No pneumothorax. Heart/Mediastinum: Unremarkable. No cardiomegaly. Bones/joints: Patient has undergone 3 levels of vertebroplasty in the thoracic spine. XR/XR chest 1V portable [id number] IMPRESSION: No acute findings.
--- NOTE | 2020-10-13 10:33 | ECG_ITS ---
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 Measurements Intervals [place] Rate: 57 P: 13 AR: 136 QRS: 23 QRSD: 67 T: 16 QT: 417 QTc: 407 Interpretive Statements SINUS BRADYCARDIA No previous ECG available for comparison Electronically Signed On 10-13-2020 15:20:42 SENIOR MATERIALS SCIENTIST by Rena Victoria M.D. [id number]
--- NOTE | 2020-10-13 10:48 | W.ED.GENADLT ---
HPI - General Adult General: Chief complaint: General Medical Stated complaint: general unwellness Time Seen by Provider: 10/13/20 10:42 History of Present Illness: HPI narrative: Presents the ER today because she started feeling bad yesterday. She has had this noted come this weekend and will get caught at home. Since she states that she usually gets steroid to help her with her COPD and she felt that she might need that because she took a couple puffs on her inhaler yesterday and it helped her. She says she just feels weak muscles ache she denies fever chills diarrhea has felt little nauseous. Relates that her granddaughter that usually lives with them tested positive last week has left the house so she would work around them. Patient denies loss of taste or smell. Denies headache. Are sore throat. Patient is an immunosuppressed patient treated for polymyositis. Denies chest pain. Does have chronic joint and muscle pain. MD complaint: Malaise Onset (ago): day(s) (Since yesterday) Severity: mild Severity scale (1-10): 1 Quality: aching Associated symptoms: Reports malaise and nausea; Deny chest pain, dyspnea, headache(s) or rash Review of Systems Narrative: Did have positive Covid exposure greater than week ago Const: Reports: malaise Eyes: Denies: change in vision or blurry vision ENMT: Denies: throat pain or nasal congestion Card: Denies: chest pain or dyspnea on exertion Resp: Denies: dyspnea, productive cough or non-productive cough GI: Reports: nausea Musc: Reports: other (Myalgias); Denies: extremity pain Skin/Breast: Denies: rash Neuro: Denies: headache(s) Psych: Denies: anxiety or depression Luis/Lymph: Denies: easy bruising PFSH ED PFSH: Medical History Age related osteoporosis Anxiety CKD (chronic kidney disease) Compression fx, lumbar spine Compression fx, thoracic spine COPD (chronic obstructive pulmonary disease) Diverticulitis Family history of melanoma Generalized osteoarthritis GERD (gastroesophageal reflux disease) Hypertension Immunosuppression Medication monitoring encounter Osteoporosis Osteoporosis Polymyositis PUD (peptic ulcer disease) Surgical History H/O colonoscopy 2016 H/O wrist surgery History of appendectomy History of back surgery History of lumpectomy of both breasts History of tubal ligation Family History Father Hypertension Cancer Alzheimer disease Mother Hypertension Dementia Grandmother Cancer Sister Cancer Social History Smoking and tobacco status: former smoker Quit status (tobacco): has quit using tobacco Year quit tobacco: 2009 - 1.5 PPD x 35 Years Second hand smoke exposure: No Alcohol intake: never Lives independently: Yes Household members: spouse Marital status: Number of children: 2 Current occupational status: retired and disabled History of recent travel: No Current gender identity: Female Physical Exam Const: COMMON NORMALS: no acute distress, average body habitus and patient oriented x3 HENMT: COMMON NORMALS: normocephalic HEAD & SCALP: normal to inspection and normocephalic FACE & SINUS: normal facial exam Eye: COMMON NORMALS: conjunctivae normal GENERAL EYE: appearance normal, both eyes and all related structures CONJUNCTIVA: Yes conjunctivae normal Neck/C-Spine: COMMON NORMALS: no JVD Chest: COMMONS NORMALS: normal inspection of the chest Resp: COMMON NORMALS: normal respiratory effort and clear to auscultation bilaterally AUSCULTATION: clear to auscultation bilaterally Cardio: COMMON NORMALS: no JVD, regular rate and regular rhythm RATE: regular rate RHYTHM: regular rhythm GI: COMMON NORMALS: Normal to inspection, nondistended, normoactive bowel sounds present Extremity: COMMON NORMALS: normal to inspection and full ROM Neuro: COMMON NORMALS: patient oriented x3 Course Vital Signs: Vital signs: Vital Signs Temperature 98.2 F 10/13/20 10:24 Pulse Rate 65 10/13/20 12:17 Respiratory Rate 18 10/13/20 12:17 Blood Pressure 157/76 10/13/20 12:17 Pulse Oximetry 98 10/13/20 12:17 MDM - General Adult MDM Narrative: Medical decision making narrative: Patient's work-up showed normal CBC BMP x-ray. Patient is feeling better says now that he thinks she just got anxious and that she is a flareup of her poliomyelitis. Covid was negative. Did administer 125 Solu-Medrol. 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 Lab Data: Labs: Lab Results 10/13/20 10/13/20 10/13/20 Range/Units 10:47 10:47 10:47 WBC 8.1 (4.0-10.0) 10^3/ uL RBC 5.22 (4.1-5.3) 10^6/u L Hgb 13.7 (11.5-15.3) g/dL Hct 43.8 (37.0-47.0) % MCV 83.9 (81-99) fL MCH 26.2 L (28.0-34.0) pg MCHC 31.3 (30.0-36.0) g/dL RDW 13.9 (12.1-15.1) % Plt Count 278 (130-400) 10^3/c mm MPV 10.2 (7.4-10.4) fL Neut % (Auto) 49.1 % Lymph % (Auto) 37.3 % [place] % (Auto) 8.3 % Eos % (Auto) 4.1 % Baso % (Auto) 1.0 % Neut # (Auto) 3.95 (1.8-7.7) 10^3/u L Lymph # (Auto) 3.0 (0.8-4.8) 10^3/u L [place] # (Auto) 0.7 (0.2-0.9) 10^3/u L Eos # (Auto) 0.3 (0.0-0.8) 10^3/u L Baso # (Auto) 0.1 (0.0-0.1) 10^3/u L Nucleated RBC % (a uto) 0 % Nucleated RBCs # 0.0 /100WBC PT 13.90 (12.1-14.9) SECO NDS INR 1.04 (0.8-1.2) APTT 28.5 (23.9-36.7) SECO NDS Sodium 139 (136-145) mmol/L Potassium 4.2 (3.5-5.1) mmol/L Chloride 106 (98-107) mmol/L Carbon Dioxide 24 (22-29) mmol/L Anion Gap 13.2 (5-19) BUN 12 (8-23) mg/dL Creatinine 0.8 (0.5-0.9) mg/dL GFR Calculation 71.5 L (90-130) mL/min Glucose 86 (65-115) mg/dL Calculated Osmolal ity 287 (285-295) mOsm/k g Calcium 9.5 (8.5-10.5) mg/dL Total Bilirubin 0.3 (0.15-1.2) mg/dL AST 21 (0-32) U/L ALT 17 (0-33) U/L Alkaline Phosphata se 61 (35-105) IU/L Troponin T Gen 5 n g/L (0-10) ng/L NT-Pro-B Natriuret Pep 148 H (0-125) pg/mL Total Protein 6.7 (6.6-8.7) g/dL Albumin 4.4 (3.5-5.2) g/dL Globulin 2.3 (1.3-4.6) g/dL SARS-CoV-2 Ag (Rap id) (Negative) 10/13/20 10/13/20 Range/Units 10:47 10:54 WBC (4.0-10.0) 10^3/ uL RBC (4.1-5.3) 10^6/u L Hgb (11.5-15.3) g/dL Hct (37.0-47.0) % MCV (81-99) fL MCH (28.0-34.0) pg MCHC (30.0-36.0) g/dL RDW (12.1-15.1) % Plt Count (130-400) 10^3/c mm MPV (7.4-10.4) fL Neut % (Auto) % Lymph % (Auto) % [place] % (Auto) % Eos % (Auto) % Baso % (Auto) % Neut # (Auto) (1.8-7.7) 10^3/u L Lymph # (Auto) (0.8-4.8) 10^3/u L [place] # (Auto) (0.2-0.9) 10^3/u L Eos # (Auto) (0.0-0.8) 10^3/u L Baso # (Auto) (0.0-0.1) 10^3/u L Nucleated RBC % (a uto) % Nucleated RBCs # /100WBC PT (12.1-14.9) SECO NDS INR (0.8-1.2) APTT (23.9-36.7) SECO NDS Sodium (136-145) mmol/L Potassium (3.5-5.1) mmol/L Chloride (98-107) mmol/L Carbon Dioxide (22-29) mmol/L Anion Gap (5-19) BUN (8-23) mg/dL Creatinine (0.5-0.9) mg/dL GFR Calculation (90-130) mL/min Glucose (65-115) mg/dL Calculated Osmolal ity (285-295) mOsm/k g Calcium (8.5-10.5) mg/dL Total Bilirubin (0.15-1.2) mg/dL AST (0-32) U/L ALT (0-33) U/L Alkaline Phosphata se (35-105) IU/L Troponin T Gen 5 n g/L 9 (0-10) ng/L NT-Pro-B Natriuret Pep (0-125) pg/mL Total Protein (6.6-8.7) g/dL Albumin (3.5-5.2) g/dL Globulin (1.3-4.6) g/dL SARS-CoV-2 Ag (Rap id) Negative (Negative) Discharge Plan Discharge Patient Disposition: Home Clinical Impression: Polymyositis, Close exposure to 2019 novel coronavirus Condition: Stable Prescriptions: No Action cyclobenzaprine 5 mg tablet 10 mg PO TID PRN (Reason: Muscle Spasm) RF: 0 albuterol sulfate [ProAir HFA] 90 mcg/actuation HFA aerosol inhaler 2 puff INHALATION QID PRN (Reason: shortness of breath) RF: 0 Rituxan 10 mg/mL concentrate See Rx Instructions .ROUTE .COMPLEX RF: 0 folic acid 1 mg tablet 1 mg PO QAM RF: 0 aspirin [Adult Aspirin Regimen] 81 mg tablet,delayed release (DR/EC) 81 mg PO QAM RF: 0 albuterol sulfate 2.5 mg /3 mL (0.083 %) solution for nebulization 2.5 mg INHALATION Q4H PRN (Reason: shortness of breath or wheezing) Qty: 180 RF: 0 Probiotic 1 cap PO QPM RF: 0 Vitamin D3 1 tab PO QPM RF: 0 fluticasone propionate 50 mcg/actuation spray,suspension 1 - 2 spray intranasal DAILY PRN (Reason: Allergy Symptoms) RF: 0 Vitamin C 500 mg Tablet 500 mg PO DAILY RF: 0 pantoprazole 40 mg tablet,delayed release (DR/EC) 40 mg PO BID RF: 0 losartan 25 mg tablet 25 mg PO QPM RF: 0 metoprolol tartrate 25 mg tablet 25 mg PO BID RF: 0 Voltaren 1 % gel 2 g topical QID PRN (Reason: Pain) RF: 0 Anoro Ellipta 62.5-25 mcg/actuation blister with device 1 inh inhalation DAILY RF: 0 Discharge Orders: Discharge ED (Routine); Ordered 10/13/20 Ordered By: Phil Roy Referrals: Mercedez Loco FNP [Primary Care Provider] - Discharge Diet: Usual diet Discharge Activity: Increase activity as tolerated Patient Instructions: Myalgia Activity Restrictions/Additional Instructions: Follow-up your primary care provider as necessary. Take your medication that you are prescribed as directed by your primary care provider and spray gun operator. Follow back up as needed. Quarantine for at least another 4 to 5 days due to your Covid exposure. Coding Level of Care Code ED Rn Maternal Child for Sloaneg Fwd Exam Comprehensive
[2020-10-13] MEDS: sodium chloride 0.9% 500 ML IV (10:50)
[2020-10-13 11:11] LABS: Basophils # 0.1 10^3/uL (0.0-0.1); Eosinophils # 0.3 10^3/uL (0.0-0.8); Eosinophils % 4.1 %; Hematocrit 43.8 % (37.0-47.0); Hemoglobin 13.7 g/dL (11.5-15.3); Lymphocytes % 37.3 %; Mean Corpuscular HGB Conc 31.3 g/dL (30.0-36.0); Mean Corpuscular Hemoglobin 26.2 pg (28.0-34.0); Mean Corpuscular Volume 83.9 fL (81-99); Mean Platelet Volume 10.2 fL (7.4-10.4); Monocytes # 0.7 10^3/uL (0.2-0.9); Monocytes % 8.3 %; Neutrophils # 3.95 10^3/uL (1.8-7.7); Neutrophils % 49.1 %; Nucleated Red Blood Cells % 0 %; Platelet Count 278 10^3/cmm (130-400); Red Blood Count 5.22 10^6/uL (4.1-5.3); Red Cell Distribution Width 13.9 % (12.1-15.1); White Blood Count 8.1 10^3/uL (4.0-10.0)
[2020-10-13 11:26] LABS: Troponin T (5th) Once 9 ng/L (0-10)
[2020-10-13 11:33] LABS: INR 1.04 (0.8-1.2)
[2020-10-13 11:34] LABS: Alanine Aminotransferase 17 U/L (0-33); Albumin Level 4.4 g/dL (3.5-5.2); Alkaline Phosphatase 61 IU/L (35-105); Anion Gap 13.2 (5-19); Aspartate Amino Transferase 21 U/L (0-32); Blood Urea Nitrogen 12 mg/dL (8-23); Calcium 9.5 mg/dL (8.5-10.5); Carbon Dioxide 24 mmol/L (22-29); Chloride 106 mmol/L (98-107); Globulin 2.3 g/dL (1.3-4.6); Glomerular Filtration Rate 71.5 mL/min (90-130); Glucose 86 mg/dL (65-115); NT Pro B Type Natriuretic Pept 148 pg/mL (0-125); Osmolality Calculated 287 mOsm/kg (285-295); Partial Thromboplastin Time 28.5 SECONDS (23.9-36.7); Potassium 4.2 mmol/L (3.5-5.1); Sodium 139 mmol/L (136-145); Total Bilirubin 0.3 mg/dL (0.15-1.2); Total Protein 6.7 g/dL (6.6-8.7)
[2020-10-13 11:42] LABS: SARS Covid-2 Antigen Negative (Negative)
[2020-10-13 12:17] VITALS: BP 157/76; PULSE 65; RESP 18; O2SAT 98
== END 2020-10-13 12:20 | disposition home or self-care (01) ==
PROVIDERS: Emergency Medicine; Emergency Provider Nurse Practitioner Family; PCP Nurse Practitioner Family
DX: M33.20 Polymyositis, organ involvement unspecified (principal); J44.9 Chronic obstructive pulmonary disease, unspecified; I10 Essential (primary) hypertension; Z87.891 Personal history of nicotine dependence; Z79.82 Long term (current) use of aspirin; R07.9 Chest pain, unspecified
CPT/HCPCS: 71045; 80053; 83880; 84484; 85025; 85610; 85730; 87426; 93005; 96361; 96374; 99283; J2930; J7040

== ENCOUNTER → 2020-10-29 14:48 | Outpatient (BNVA) | payer MEDICARE, MEDICAID, SELFPAY | PROVIDERS: PCP Nurse Practitioner Family; Visit Provider Internal Medicine | DX: M33.20 Polymyositis, organ involvement unspecified (principal); D89.9 Disorder involving the immune mechanism, unspecified; Z79.899 Other long term (current) drug therapy; M81.0 Age-related osteoporosis without current pathological fracture; R06.00 Dyspnea, unspecified; Z87.891 Personal history of nicotine dependence | CPT/HCPCS: 36415; 80053; 81003; 82550; 85025; 85651; 86140; 99214 ==

== ENCOUNTER 2020-10-29 16:02 | Outpatient (CLI) | payer MEDICARE, MEDICAID, SELFPAY ==
[2020-10-29 16:34] LABS: Basophils # 0.1 10^3/uL (0.0-0.1); Eosinophils # 0.4 10^3/uL (0.0-0.8); Eosinophils % 4.9 %; Hematocrit 41.1 % (37.0-47.0); Hemoglobin 12.9 g/dL (11.5-15.3); Lymphocytes # 3.8 10^3/uL (0.8-4.8); Lymphocytes % 46.9 %; Mean Corpuscular HGB Conc 31.4 g/dL (30.0-36.0); Mean Corpuscular Hemoglobin 26.8 pg (28.0-34.0); Mean Corpuscular Volume 85.3 fL (81-99); Mean Platelet Volume 9.6 fL (7.4-10.4); Monocytes # 0.7 10^3/uL (0.2-0.9); Monocytes % 9.2 %; Neutrophils # 3.04 10^3/uL (1.8-7.7); Neutrophils % 37.8 %; Nucleated Red Blood Cells % 0 %; Platelet Count 281 10^3/cmm (130-400); Red Blood Count 4.82 10^6/uL (4.1-5.3); Red Cell Distribution Width 14.2 % (12.1-15.1)
[2020-10-29 16:34] LABS: Add Urine Microscopic? NO
[2020-10-29 16:46] LABS: Bilirubin Urine Neg (Negative); Blood Urine Neg (Negative); Glucose Urine UA Norm (Normal); Ketones Urine Negative (Negative); Leukocyte Esterase Urine Negative (Negative); Nitrate Urine Negative (Negative); Protein Urine Neg (Negative); Urine Appearance Clear (CLEAR); Urine Color Straw (Yellow); Urobilinogen Urine Norm (Negative); pH Urine 7 (5-7)
[2020-10-29 16:54] LABS: Alanine Aminotransferase 17 U/L (0-33); Albumin Level 4.1 g/dL (3.5-5.2); Alkaline Phosphatase 52 IU/L (35-105); Aspartate Amino Transferase 22 U/L (0-32); Blood Urea Nitrogen 14 mg/dL (8-23); Calcium 9.1 mg/dL (8.5-10.5); Carbon Dioxide 25 mmol/L (22-29); Chloride 106 mmol/L (98-107); Globulin 2.6 g/dL (1.3-4.6); Glomerular Filtration Rate 55.3 mL/min (90-130); Glucose 90 mg/dL (65-115); Osmolality Calculated 290 mOsm/kg (285-295); Sodium 140 mmol/L (136-145); Total Bilirubin 0.2 mg/dL (0.15-1.2); Total Protein 6.7 g/dL (6.6-8.7)
[2020-10-29 17:54] LABS: Erythrocyte Sedimentation Rate 14 mm/hr (0-15)
[2020-10-29 18:01] LABS: Creatine Phosphokinase 381 U/L (26-192)
== END 2020-10-29 16:03 | disposition home or self-care (01) ==
PROVIDERS: PCP Nurse Practitioner Family; Visit Provider Internal Medicine
DX: M33.20 Polymyositis, organ involvement unspecified (principal); D86.9 Sarcoidosis, unspecified
CPT/HCPCS: 36415; 80053; 81003; 82550; 85025; 85651; 86140

== ENCOUNTER 2020-11-27 06:33 | Outpatient (CLI) | payer MEDICARE, MEDICAID, SELFPAY ==
[2020-11-27] MEDS: sodium chloride 0.9% 250 ML 75 ML IV (10:40)
[2020-11-27] MEDS: acetaminophen 325 mg Tablet 650 MG PO (10:40)
[2020-11-27] MEDS: diphenhydrAMINE 50 mg/mL SDV 1mL 25 MG IV (10:50)
[2020-11-27 11:14] VITALS: BP 134/70; PULSE 67; RESP 16; TEMP 36.7; O2SAT 95
[2020-11-27 11:33] VITALS: BP 121/62; PULSE 61; RESP 16; TEMP 36.7; O2SAT 98
[2020-11-27 11:53] LABS: Basophils # 0.1 10^3/uL (0.0-0.1); Basophils % 1.1 %; Eosinophils # 0.5 10^3/uL (0.0-0.8); Eosinophils % 5.7 %; Hematocrit 42.1 % (37.0-47.0); Hemoglobin 12.9 g/dL (11.5-15.3); Lymphocytes # 3.8 10^3/uL (0.8-4.8); Lymphocytes % 46.7 %; Mean Corpuscular HGB Conc 30.6 g/dL (30.0-36.0); Mean Corpuscular Hemoglobin 26.3 pg (28.0-34.0); Mean Corpuscular Volume 85.7 fL (81-99); Mean Platelet Volume 10.3 fL (7.4-10.4); Monocytes # 0.7 10^3/uL (0.2-0.9); Monocytes % 8.6 %; Neutrophils # 3.08 10^3/uL (1.8-7.7); Neutrophils % 37.7 %; Nucleated Red Blood Cells % 0 %; Platelet Count 323 10^3/cmm (130-400); Red Blood Count 4.91 10^6/uL (4.1-5.3); Red Cell Distribution Width 13.5 % (12.1-15.1); White Blood Count 8.2 10^3/uL (4.0-10.0)
[2020-11-27 12:33] VITALS: BP 123/63; PULSE 74; RESP 16; TEMP 36.3; O2SAT 96
[2020-11-27 14:49] VITALS: BP 123/61; PULSE 82; RESP 16; TEMP 37.2; O2SAT 95
== END 2020-11-27 06:34 | disposition home or self-care (01) ==
LOC: ONCMED 06:36
PROVIDERS: PCP Nurse Practitioner Family; Visit Provider Internal Medicine
DX: M33.20 Polymyositis, organ involvement unspecified (principal)
CPT/HCPCS: 85025; 96365; 96366; 96375; J1200; J2930; J7040; J7050; J9312

== ENCOUNTER 2020-12-11 07:54 | Outpatient (CLI) | payer MEDICARE, MEDICAID, SELFPAY ==
[2020-12-11] MEDS: acetaminophen 325 mg Tablet 975 MG PO (09:40)
[2020-12-11 09:45] VITALS: BP 105/69; PULSE 56; RESP 18; TEMP 36.9; O2SAT 98
[2020-12-11] MEDS: diphenhydrAMINE 50 mg/mL SDV 1mL 25 MG IVP (09:45)
[2020-12-11] MEDS: sodium chloride 0.9% 250 ML 75 ML IV (09:45)
[2020-12-11] MEDS: rituximab 1,000 MG in sodium chloride 0.9% 250 ML, primary tubing onc 1 EACH 40 MG IV (09:50)
[2020-12-11 10:07] LABS: Basophils # 0.1 10^3/uL (0.0-0.1); Basophils % 1.6 %; Eosinophils # 0.5 10^3/uL (0.0-0.8); Eosinophils % 7.2 %; Hematocrit 40.6 % (37.0-47.0); Hemoglobin 12.8 g/dL (11.5-15.3); Lymphocytes # 2.7 10^3/uL (0.8-4.8); Lymphocytes % 39.2 %; Mean Corpuscular HGB Conc 31.5 g/dL (30.0-36.0); Mean Corpuscular Hemoglobin 26.8 pg (28.0-34.0); Mean Corpuscular Volume 84.9 fL (81-99); Monocytes # 0.7 10^3/uL (0.2-0.9); Monocytes % 9.9 %; Neutrophils # 2.83 10^3/uL (1.8-7.7); Neutrophils % 41.8 %; Nucleated Red Blood Cells % 0 %; Platelet Count 289 10^3/cmm (130-400); Red Blood Count 4.78 10^6/uL (4.1-5.3); Red Cell Distribution Width 13.6 % (12.1-15.1); White Blood Count 6.8 10^3/uL (4.0-10.0)
[2020-12-11 10:20] VITALS: BP 100/56; PULSE 63; RESP 16; TEMP 36.9; O2SAT 93
[2020-12-11 10:31] LABS: Alanine Aminotransferase 18 U/L (0-33); Albumin Level 3.8 g/dL (3.5-5.2); Alkaline Phosphatase 54 IU/L (35-105); Anion Gap 14.1 (5-19); Aspartate Amino Transferase 25 U/L (0-32); Blood Urea Nitrogen 14 mg/dL (8-23); Calcium 8.5 mg/dL (8.5-10.5); Carbon Dioxide 22 mmol/L (22-29); Chloride 108 mmol/L (98-107); Globulin 2.1 g/dL (1.3-4.6); Glomerular Filtration Rate 62.5 mL/min (90-130); Glucose 99 mg/dL (65-115); Osmolality Calculated 291 mOsm/kg (285-295); Phosphorus 3.8 mg/dL (2.5-4.5); Potassium 4.1 mmol/L (3.5-5.1); Sodium 140 mmol/L (136-145); Total Bilirubin 0.3 mg/dL (0.15-1.2); Total Protein 5.9 g/dL (6.6-8.7)
[2020-12-11 11:55] VITALS: BP 101/58; PULSE 56; RESP 18; TEMP 36.9; O2SAT 98
[2020-12-11 12:30] VITALS: BP 100/58; PULSE 61; RESP 17; TEMP 36.7; O2SAT 97
[2020-12-11 12:49] LABS: Add Urine Microscopic? NO; Charge for UA Resulting for Rev
[2020-12-11 12:57] LABS: Creatine Phosphokinase 604 U/L (26-192)
[2020-12-11 12:59] VITALS: BP 102/60; PULSE 58; RESP 17; TEMP 36.8; O2SAT 96
[2020-12-11 13:27] LABS: Bilirubin Urine Neg (Negative); Blood Urine Neg (Negative); Glucose Urine UA Norm (Normal); Ketones Urine Negative (Negative); Leukocyte Esterase Urine Negative (Negative); Nitrate Urine Negative (Negative); Protein Urine Neg (Negative); Specific Gravity, Urine 1.005 (1.005-1.030); Urine Appearance Clear (CLEAR); Urine Color Straw (Yellow); Urobilinogen Urine Norm (Negative); pH Urine 6.5 (5-7)
== END 2020-12-11 07:55 | disposition home or self-care (01) ==
LOC: ONCMED 08:01
PROVIDERS: Internal Medicine; PCP Nurse Practitioner Family; Visit Provider Internal Medicine Medical Oncology
DX: M33.20 Polymyositis, organ involvement unspecified; D89.9 Disorder involving the immune mechanism, unspecified; D86.9 Sarcoidosis, unspecified; Z79.899 Other long term (current) drug therapy; Z79.52 Long term (current) use of systemic steroids
CPT/HCPCS: 80053; 81003; 82550; 84100; 85025; 96365; 96366; 96375; J1200; J2930; J7050; J9312

== ENCOUNTER 2020-12-16 10:34 | Outpatient (CLI) | payer MEDICARE, MEDICAID, SELFPAY ==
--- NOTE | 2020-12-16 11:00 | MR_ITS ---
WS: [id number] MRI HEAD WITH CONTRAST WITH ATTENTION TO THE INTERNAL AUDITORY CANALS TECHNIQUE: Sagittal T1, T2 axial, T2 axial flair, axial susceptibility weighted imaging, axial diffus ion weighted images, and coronal T2 images were obtained. Pre and post T1 axial and post T1 coronal i mages. ADC and FSPGR images. Post gadolinium images with attention to the internal auditory canals. A xial fiesta imaging. CLINICAL INFORMATION: DIZZINESS AND GIDDINESS COMPARISON: None. FINDINGS: No evidence of restricted diffusion to suggest acute ischemia. Ventricular system and basal cisterns are patent. Moderate small vessel changes. Moderate parenchymal volume loss. Normal posterior fossa. Normal vascular flow voids at the skull base. No extra-axial fluid collections. No evidence of mass o r mass effect. Retention cyst right maxillary sinus. Mastoid air cells are well aerated. Paranasal sinuses are well aerated. No hemosiderin on the susceptibly weighted images. Proximal 7th and 8th cranial nerves are normal in appearance. Normal trigeminal nerve root entry zone s. No evidence of enhancing IAC or CP angle mass. Normal optic chiasm and pituitary infundibulum. Nor mal cavernous sinuses and Meckel's cave. No abnormal parenchymal enhancement. Normal dural venous sinuses. MR/MR iac's wo/w con* [id number] IMPRESSION: 1. No evidence of restricted diffusion to suggest acute ischemia. 2. Proximal 7th and 8th cranial nerves are normal in appearance. 3. No evidence of enhancing IAC or CP angle mass. Normal trigeminal nerve root entry zones. 4. Moderate small vessel changes. Moderate parenchymal volume loss. 5. Paranasal sinuses are well aerated. Retention cyst right maxillary sinus me asuring 1.5 CM. 6. Mastoid air cells well aerated. 7. No hemosiderin on the susceptibility weighted images.
[2020-12-16 11:12] LABS: Blood Urea Nitrogen 17 mg/dL (8-23); Glomerular Filtration Rate 55.3 mL/min (90-130)
[2020-12-16] MEDS: gadobenate dimeglumine 20 mL vial IV (12:05)
== END 2020-12-16 10:35 | disposition home or self-care (01) ==
LOC: RADSHAW 10:39
PROVIDERS: PCP Nurse Practitioner Family; Visit Provider Otolaryngology
DX: R42 Dizziness and giddiness (principal)
CPT/HCPCS: 36415; 70553; 82565; 84520; A9577

== ENCOUNTER → 2020-12-17 08:47 | Outpatient (BNVA) | payer MEDICARE, MEDICAID, SELFPAY | PROVIDERS: PCP Nurse Practitioner Family; Visit Provider Internal Medicine | DX: M33.20 Polymyositis, organ involvement unspecified (principal); D89.9 Disorder involving the immune mechanism, unspecified; Z87.891 Personal history of nicotine dependence | CPT/HCPCS: 99214 ==

== ENCOUNTER 2020-12-24 14:43 | Outpatient (CLI) | payer MEDICARE, MEDICAID, SELFPAY ==
--- NOTE | 2020-12-24 14:46 | MM_ITS ---
WS: [id number] BILATERAL SCREENING DIGITAL MAMMOGRAM WITH CAD HISTORY: SCREENING COMPARISON: 12/08/2018 and 08/05/2017 Bilateral CC and MLO views submitted. Computer aided detection analyzed. Breast composition: There are scattered areas of fibroglandular density. No suspicious masses, microc alcifications or architectural distortion. Benign calcifications within each breast. MM/[place] [id number] IMPRESSION: BI-RADS: 2-Benign FOLLOW UP: 1 Year Follow-up
== END 2020-12-24 14:44 | disposition home or self-care (01) ==
LOC: RADSHAW 14:46
PROVIDERS: PCP Nurse Practitioner Family; Visit Provider Nurse Practitioner Family
DX: Z12.31 Encounter for screening mammogram for malignant neoplasm of breast (principal)
CPT/HCPCS: 77067

== ENCOUNTER → 2020-12-31 08:41 | Outpatient (BNVA) | payer MEDICARE, MEDICAID, SELFPAY | PROVIDERS: PCP Nurse Practitioner Family; Visit Provider Internal Medicine | DX: D89.9 Disorder involving the immune mechanism, unspecified (principal); D86.9 Sarcoidosis, unspecified | CPT/HCPCS: 36415; 80053; 82550; 82552; 84100; 85025; 85651 ==

== ENCOUNTER 2021-01-22 06:00 | Outpatient (RCR) | payer MEDICARE, MEDICAID, SELFPAY | END 2021-01-27 23:59 | disposition home or self-care (01) | LOC: APT 06:00 | PROVIDERS: PCP Nurse Practitioner Family; Referring Provider Otolaryngology; Visit Provider Otolaryngology | DX: H81.10 Benign paroxysmal vertigo, unspecified ear (principal) | CPT/HCPCS: 97110; 97163; 97530 ==

== ENCOUNTER → 2021-01-23 10:21 | Outpatient (BNVA) | payer MEDICARE, MEDICAID, SELFPAY | PROVIDERS: PCP Nurse Practitioner Family; Visit Provider Internal Medicine | DX: M33.20 Polymyositis, organ involvement unspecified (principal); R25.2 Cramp and spasm; Z87.891 Personal history of nicotine dependence | CPT/HCPCS: 99214 ==

== ENCOUNTER 2021-01-28 06:00 | Outpatient (RCR) | payer MEDICARE, MEDICAID, SELFPAY | END 2021-02-26 23:59 | disposition home or self-care (01) | LOC: APT 06:00 | PROVIDERS: PCP Nurse Practitioner Family; Referring Provider Otolaryngology; Visit Provider Otolaryngology | DX: H81.10 Benign paroxysmal vertigo, unspecified ear (principal) | CPT/HCPCS: 97110; 97112 ==

== ENCOUNTER 2021-02-24 14:00 | Outpatient (CLI) | payer MEDICARE, MEDICAID, SELFPAY ==
--- NOTE | 2021-02-24 14:45 | XR_ITS ---
WS: [id number] DEXA (DUAL ENERGY X-RAY ABSORPTIOMETRY) Bone mineral density was performed using a SureFire machine. HISTORY: M33.20 - Polymyositis, organ involvement unspecified COMPARISON: 02/22/2019 Lumbar spine BMD (L1-L4): 1.031 g/cm2 T score: -1.2 Z score: 0.0 Total hip BMD: Left: 0.903 g/cm2. T score: -0.8 Z score: 0.2 Right: 0.918 g/cm2. T score: -0.7 Z score: 0.3 10 year probability of a major osteoporotic fracture is 26%. Compared to the prior study from 02/22/2019. Lumbar spine bone mineral density has increased by 5.9%. Bilateral hips bone mineral density has increased by 1.7%. XR/XR DEXA axial skeleton* [id number] IMPRESSION: OSTEOPENIA based upon the WHO classification for females. Significant improvement in bone mineral density in the lumbar spine since the p rior study.
== END 2021-02-24 14:01 | disposition home or self-care (01) ==
LOC: RADWPI 14:04
PROVIDERS: PCP Nurse Practitioner Family; Visit Provider Internal Medicine
DX: M33.20 Polymyositis, organ involvement unspecified (principal)
CPT/HCPCS: 77080

== ENCOUNTER → 2021-03-14 15:29 | Outpatient (BNVA) | payer MEDICARE, MEDICAID, SELFPAY | PROVIDERS: PCP Nurse Practitioner Family; Visit Provider Nurse Practitioner Family | DX: R10.9 Unspecified abdominal pain (principal); K57.92 Diverticulitis of intestine, part unspecified, without perforation or abscess without bleeding | CPT/HCPCS: 81000 ==

== ENCOUNTER 2021-03-26 10:50 | Outpatient (CLI) | payer MEDICARE, MEDICAID, SELFPAY ==
[2021-03-26 11:15] LABS: Add Urine Microscopic? NO; Charge for UA Resulting for Rev
[2021-03-26 11:20] LABS: Bilirubin Urine Neg (Negative); Blood Urine Neg (Negative); Glucose Urine UA Norm (Normal); Ketones Urine Negative (Negative); Leukocyte Esterase Urine Negative (Negative); Nitrate Urine Negative (Negative); Protein Urine Neg (Negative); Urine Appearance Clear (CLEAR); Urine Color Yellow (Yellow); Urobilinogen Urine Norm (Negative); pH Urine 6 (5-7)
[2021-03-26 11:21] LABS: Basophils # 0.1 10^3/uL (0.0-0.1); Basophils % 0.6 %; Eosinophils # 0.5 10^3/uL (0.0-0.8); Eosinophils % 3.9 %; Hemoglobin 13.1 g/dL (11.5-15.3); Lymphocytes # 3.7 10^3/uL (0.8-4.8); Lymphocytes % 30.9 %; Mean Corpuscular HGB Conc 31.2 g/dL (30.0-36.0); Mean Corpuscular Hemoglobin 26.7 pg (28.0-34.0); Mean Corpuscular Volume 85.7 fL (81-99); Mean Platelet Volume 9.8 fL (7.4-10.4); Monocytes # 0.9 10^3/uL (0.2-0.9); Monocytes % 7.8 %; Neutrophils # 6.71 10^3/uL (1.8-7.7); Neutrophils % 56.2 %; Nucleated Red Blood Cells % 0 %; Platelet Count 331 10^3/cmm (130-400); Red Cell Distribution Width 13.9 % (12.1-15.1); White Blood Count 11.9 10^3/uL (4.0-10.0)
[2021-03-26 11:54] LABS: Alanine Aminotransferase 14 U/L (0-33); Albumin Level 3.7 g/dL (3.5-5.2); Alkaline Phosphatase 54 IU/L (35-105); Anion Gap 13.1 (5-19); Aspartate Amino Transferase 20 U/L (0-32); Blood Urea Nitrogen 13 mg/dL (8-23); Calcium 8.5 mg/dL (8.5-10.5); Carbon Dioxide 26 mmol/L (22-29); Chloride 103 mmol/L (98-107); Globulin 2.5 g/dL (1.3-4.6); Glomerular Filtration Rate 62.5 mL/min (90-130); Glucose 96 mg/dL (65-115); Osmolality Calculated 286 mOsm/kg (285-295); Potassium 4.1 mmol/L (3.5-5.1); Sodium 138 mmol/L (136-145); Total Bilirubin 0.2 mg/dL (0.15-1.2); Total Protein 6.2 g/dL (6.6-8.7)
== END 2021-03-26 10:51 | disposition home or self-care (01) ==
LOC: ONCMED 10:54
PROVIDERS: PCP Nurse Practitioner Family; Visit Provider Internal Medicine
DX: M33.20 Polymyositis, organ involvement unspecified (principal)
CPT/HCPCS: 36415; 80053; 81003; 85025

== ENCOUNTER 2021-03-31 06:12 | Outpatient (CLI) | payer MEDICARE, MEDICAID, SELFPAY ==
[2021-03-31 08:52] VITALS: BP 149/85; PULSE 73; RESP 18; TEMP 36.6; O2SAT 97
[2021-03-31] MEDS: sodium chloride 0.9% 500 ML 75 ML IV (09:52)
[2021-03-31] MEDS: diphenhydrAMINE 25 mg Capsule PO (09:53)
[2021-03-31] MEDS: acetaminophen 325 mg Tablet 650 MG PO (09:53)
[2021-03-31] MEDS: rituximab 1,000 MG in sodium chloride 0.9% 250 ML, primary tubing onc 1 EACH 90 MG IV (10:01)
[2021-03-31 10:29] VITALS: BP 140/69; PULSE 57; RESP 18; TEMP 36.5; O2SAT 98
[2021-03-31 10:58] VITALS: BP 151/79; PULSE 57; RESP 18; TEMP 36.4; O2SAT 96
[2021-03-31 12:20] VITALS: BP 141/71; PULSE 81; RESP 18; TEMP 36.3; O2SAT 96
== END 2021-03-31 06:13 | disposition home or self-care (01) ==
PROVIDERS: PCP Nurse Practitioner Family; Referring Provider Internal Medicine; Visit Provider Internal Medicine
DX: M33.20 Polymyositis, organ involvement unspecified (principal)
CPT/HCPCS: 96365; 96366; 96375; J2930; J7040; J7050; J9312

== ENCOUNTER 2021-04-14 06:01 | Outpatient (CLI) | payer MEDICARE, MEDICAID, SELFPAY ==
[2021-04-14 09:00] VITALS: BP 148/81; PULSE 65; RESP 18; TEMP 36.6; O2SAT 96
[2021-04-14] MEDS: sodium chloride 0.9% 250 ML 75 ML IV (09:12)
[2021-04-14] MEDS: acetaminophen 325 mg Tablet 650 MG PO (09:27)
[2021-04-14] MEDS: diphenhydrAMINE 50 mg/mL SDV 1mL 25 MG IVP (09:28)
[2021-04-14] MEDS: rituximab 1,000 MG in sodium chloride 0.9% 250 ML, primary tubing onc 1 EACH 50 MG IV (09:42)
[2021-04-14 10:10] VITALS: BP 109/64; PULSE 60; RESP 18; TEMP 36.5; O2SAT 94
[2021-04-14 10:41] VITALS: BP 124/67; PULSE 66; RESP 16; TEMP 36.1; O2SAT 95
[2021-04-14 11:12] VITALS: BP 113/69; PULSE 68; RESP 18; TEMP 36.3; O2SAT 95
[2021-04-14 11:41] VITALS: BP 137/71; PULSE 69; RESP 18; TEMP 36.2; O2SAT 96
[2021-04-14 12:13] VITALS: BP 133/79; PULSE 76; RESP 18; TEMP 36.9; O2SAT 96
== END 2021-04-14 06:02 | disposition home or self-care (01) ==
PROVIDERS: PCP Nurse Practitioner Family; Referring Provider Internal Medicine; Visit Provider Internal Medicine
DX: M33.20 Polymyositis, organ involvement unspecified (principal)
CPT/HCPCS: 96365; 96366; 96375; J1200; J2930; J7050; J9312

== ENCOUNTER → 2021-04-16 09:02 | Outpatient (BNVA) | payer MEDICARE, MEDICAID, SELFPAY | PROVIDERS: PCP Nurse Practitioner Family; Visit Provider Nurse Practitioner Family | DX: R30.0 Dysuria (principal) | CPT/HCPCS: 81000 ==

== ENCOUNTER → 2021-04-17 08:13 | Outpatient (BNVA) | payer MEDICARE, MEDICAID, SELFPAY | PROVIDERS: PCP Nurse Practitioner Family; Visit Provider Internal Medicine | DX: M33.20 Polymyositis, organ involvement unspecified (principal); J44.9 Chronic obstructive pulmonary disease, unspecified; Z51.81 Encounter for therapeutic drug level monitoring; D89.9 Disorder involving the immune mechanism, unspecified; Z87.891 Personal history of nicotine dependence | CPT/HCPCS: 36415; 80053; 82550; 82784; 84100; 85025; 85651; 86140; 99214 ==

== ENCOUNTER 2021-04-17 10:12 | Outpatient (CLI) | payer MEDICARE, MEDICAID, SELFPAY ==
[2021-04-17 10:47] LABS: Basophils # 0.1 10^3/uL (0.0-0.1); Basophils % 0.9 %; Eosinophils # 0.4 10^3/uL (0.0-0.8); Hematocrit 44.8 % (37.0-47.0); Hemoglobin 13.8 g/dL (11.5-15.3); Lymphocytes # 3.4 10^3/uL (0.8-4.8); Lymphocytes % 29.2 %; Mean Corpuscular HGB Conc 30.8 g/dL (30.0-36.0); Mean Corpuscular Hemoglobin 26.6 pg (28.0-34.0); Mean Corpuscular Volume 86.3 fl (81-99); Mean Platelet Volume 9.8 fL (7.4-10.4); Monocytes % 8.3 %; Neutrophils # 6.64 10^3/uL (1.8-7.7); Neutrophils % 57.8 %; Nucleated Red Blood Cells % 0 %; Platelet Count 289 10^3/cmm (130-400); Red Blood Count 5.19 10^6/uL (4.1-5.3); Red Cell Distribution Width 14.3 % (12.1-15.1); White Blood Count 11.5 10^3/uL (4.0-10.0)
[2021-04-17 11:11] LABS: Alanine Aminotransferase 17 U/L (0-33); Alkaline Phosphatase 63 IU/L (35-105); Anion Gap 17.4 (5-19); Aspartate Amino Transferase 15 U/L (0-32); Blood Urea Nitrogen 12 mg/dL (8-23); C Reactive Protein 3.7 mg/L (0.0-4.9); Calcium 9.2 mg/dL (8.5-10.5); Carbon Dioxide 25 mmol/L (22-29); Chloride 101 mmol/L (98-107); Creatine Phosphokinase 298 U/L (26-192); Globulin 2.9 g/dL (1.3-4.6); Glomerular Filtration Rate 62.5 mL/min (90-130); Glucose 99 mg/dL (65-115); Immunoglobulin IGA 153 mg/dL (70-400); Immunoglobulin IGG 602 mg/dL (700-1600); Immunoglobulin IGM 25 mg/dL (40-230); Osmolality Calculated 288 mOsm/kg (285-295); Phosphorus 3.7 mg/dL (2.5-4.5); Potassium 4.4 mmol/L (3.5-5.1); Sodium 139 mmol/L (136-145); Total Bilirubin 0.2 mg/dL (0.15-1.2); Total Protein 6.9 g/dL (6.6-8.7)
[2021-04-17 12:10] LABS: Erythrocyte Sedimentation Rate 12 mm/hr (0-15)
== END 2021-04-17 10:13 | disposition home or self-care (01) ==
PROVIDERS: PCP Nurse Practitioner Family; Visit Provider Internal Medicine
DX: M33.20 Polymyositis, organ involvement unspecified (principal)
CPT/HCPCS: 36415; 80053; 82550; 82784; 84100; 85025; 85651; 86140

== ENCOUNTER → 2021-04-28 09:02 | Outpatient (BNVA) | payer MEDICARE, MEDICAID, SELFPAY | PROVIDERS: PCP Nurse Practitioner Family; Visit Provider Nurse Practitioner Family | DX: N39.0 Urinary tract infection, site not specified (principal); R31.9 Hematuria, unspecified | CPT/HCPCS: 81003; 87077; 87086; 87184 ==

== ENCOUNTER → 2021-05-16 10:42 | Outpatient (BNVA) | payer MEDICARE, MEDICAID, SELFPAY | PROVIDERS: PCP Nurse Practitioner Family; Visit Provider Nurse Practitioner Family | DX: J40 Bronchitis, not specified as acute or chronic (principal); N30.00 Acute cystitis without hematuria; J06.9 Acute upper respiratory infection, unspecified | CPT/HCPCS: 71046; 81000; 85025 ==

== ENCOUNTER 2021-06-08 23:23 | Inpatient (IN) | payer MEDICARE, MEDICAID, SELFPAY ==
[2021-06-08 23:33] VITALS: BP 146/79; PULSE 113; RESP 22; TEMP 38.3; O2SAT 96; BMI 28.6
[2021-06-09] VITALS (15 sets, daily range): BP systolic 110–138; BP diastolic 60–87; PULSE 79–114; RESP 16–20; TEMP 36.6–37.6; O2SAT 91–97
--- NOTE | 2021-06-09 00:06 | XRR_ITS ---
PROCEDURE INFORMATION: Exam: XR Chest Exam date and time: 06/09/2021 12:06 AM Age: 65 years old Clinical indication: Dyspnea and fever; Additional info: SOB fever TECHNIQUE: Imaging protocol: XR of the chest. Views: 1 view. COMPARISON: CR XR chest 2V* [id number] 05/16/2021 10:45 AM FINDINGS: Lungs: Hazy left basilar opacity which could be secondary to atelectasis or pneumonia. Pleural spaces: Unremarkable. No pleural effusion. No pneumothorax. Heart/Mediastinum: Unremarkable. No cardiomegaly. Bones/joints: Unremarkable. Other findings: Multilevel kyphoplasty has been performed. XR/XR chest 1V portable [id number] IMPRESSION: Hazy left basilar opacity which could be secondary to atelectasis or pneumonia. Radiation Dose CTDIVOL = (mGy): DLP = (mGy-cm)
--- NOTE | 2021-06-09 00:07 | ECG_ITS ---
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 Measurements Intervals [place] Rate: 108 P: 50 MT: 143 QRS: 53 QRSD: 70 T: 46 QT: 297 QTc: 399 Interpretive Statements SINUS TACHYCARDIA MODERATE ST DEPRESSION [0.05+ mV ST DEPRESSION] Compared to ECG 10/13/2020 11:35:38 ST (T wave) deviation now present Sinus bradycardia no longer present Electronically Signed On 06-09-2021 14:24:40 CDT by Arnulfo Deal M.D. [id number]
[2021-06-09 00:38] LABS: Basophils # 0.1 10^3/uL (0.0-0.1); Basophils % 0.3 %; Eosinophils # 0.2 10^3/uL (0.0-0.8); Hematocrit 37.8 % (37.0-47.0); Lymphocytes # 2.8 10^3/uL (0.8-4.8); Lymphocytes % 18.8 %; Mean Corpuscular HGB Conc 31.7 g/dL (30.0-36.0); Mean Corpuscular Hemoglobin 27.1 pg (28.0-34.0); Mean Corpuscular Volume 85.5 fl (81-99); Mean Platelet Volume 11.1 fL (7.4-10.4); Monocytes # 0.9 10^3/uL (0.2-0.9); Monocytes % 6.2 %; Neutrophils # 10.89 10^3/uL (1.8-7.7); Neutrophils % 73.2 %; Nucleated Red Blood Cells % 0 %; Platelet Count 235 10^3/cmm (130-400); Red Blood Count 4.42 10^6/uL (4.1-5.3); Red Cell Distribution Width 14.6 % (12.1-15.1); White Blood Count 14.9 10^3/uL (4.0-10.0)
[2021-06-09] MEDS: sodium chloride 0.9% 500 ML IV (00:39)
[2021-06-09 00:42] LABS: INR 0.91 (0.8-1.2)
[2021-06-09 00:44] LABS: Partial Thromboplastin Time 28.1 SECONDS (23.9-36.7)
[2021-06-09 00:46] LABS: D Dimer 0.83 ug/mIFEU (0-0.59)
[2021-06-09 00:51] LABS: Lactate (Lactic Acid level) 1.6 mmol/L (0.5-2.2)
[2021-06-09 01:02] LABS: NT Pro B Type Natriuretic Pept 141 pg/mL (0-125); Procalcitonin 0.06 ng/mL (0-0.5)
[2021-06-09 01:03] LABS: SARS Covid-2 Antigen Negative (Negative)
[2021-06-09 01:03] LABS: Slide Review Slide Review Perform
[2021-06-09 01:14] LABS: Alanine Aminotransferase 19 U/L (0-33); Albumin Level 3.5 g/dL (3.5-5.2); Alkaline Phosphatase 52 IU/L (35-105); Anion Gap 16.7 (5-19); Aspartate Amino Transferase 19 U/L (0-32); Blood Urea Nitrogen 11 mg/dL (8-23); C Reactive Protein 23.5 mg/L (0.0-4.9); Calcium 8.2 mg/dL (8.5-10.5); Carbon Dioxide 19 mmol/L (22-29); Chloride 106 mmol/L (98-107); Globulin 2.3 g/dL (1.3-4.6); Glomerular Filtration Rate 71.5 mL/min (90-130); Glucose 96 mg/dL (65-115); Osmolality Calculated 285 mOsm/kg (285-295); Potassium 3.7 mmol/L (3.5-5.1); Sodium 138 mmol/L (136-145); Total Bilirubin 0.3 mg/dL (0.15-1.2); Total Protein 5.8 g/dL (6.6-8.7)
[2021-06-09] MEDS: acetaminophen 500 mg Tablet 1000 MG PO (02:16)
--- NOTE | 2021-06-09 02:23 | ED_ITS ---
HPI - Fever General: Chief Complaint: Fever Stated Complaint: SOB Time Seen by Provider: 06/08/21 23:44 History of Present Illness: HPI Narrative: 65-year-old female who says that she has had respiratory symptoms for a couple of weeks now. She has been treated twice as an outpatient with injections of corticosteroid, and azithromycin twice. She finished her first azithromycin pack, and has had 2 doses of the next pack. She began to get a fever last night, of 102 at home. She was having chills and aches she is still somewhat short of breath and coughing. She notes a history of COPD as well although she does not use oxygen. She is not requiring oxygen now. MD elicited complaint: fever and malaise Onset (ago): hour(s) Measured temperature: 102 F Context: sick contacts (Grandchildren a while back) Exacerbating factors: nothing Relieving factors: acetaminophen Associated symptoms: Reports chills, cough, myalgias, nasal congestion, nausea, rhinorrhea and short of breath; Deny abdominal pain, flank pain, chest pain, confusion, diarrhea, dysuria, headache(s) or stiffness Treatments prior to arrival fever: acetaminophen Review of Systems Const: Reports: chills ENMT: Reports: nasal congestion Card: Denies: chest pain GI: Reports: nausea; Denies: abdominal pain or diarrhea : Denies: flank pain or dysuria Neuro: Denies: headache(s) or confusion PFSH ED PFSH: Medical History Age related osteoporosis Anxiety CKD (chronic kidney disease) Compression fx, lumbar spine Compression fx, thoracic spine COPD (chronic obstructive pulmonary disease) Diverticulitis Family history of melanoma Generalized osteoarthritis GERD (gastroesophageal reflux disease) High risk medication use Hypertension Immunosuppression Medication monitoring encounter Osteoporosis Osteoporosis Polymyositis PUD (peptic ulcer disease) Surgical History H/O colonoscopy 2016 H/O wrist surgery History of appendectomy History of back surgery History of lumpectomy of both breasts History of tubal ligation Family History Father Hypertension Cancer Alzheimer disease Mother Hypertension Dementia Grandmother Cancer Sister Cancer Social History Smoking and tobacco status: former smoker Quit status (tobacco): has quit using tobacco Year quit tobacco: 2009 - 1.5 PPD x 35 Years Second hand smoke exposure: No Alcohol intake: never Caregiver/support person: Yes Lives independently: Yes Household members: spouse Marital status: Number of children: 2 Current occupational status: retired and disabled History of recent travel: No Current gender identity: Female Special gonsalo needs: No Agree to transfusion: Yes Physical Exam Const: COMMON NORMALS: no acute distress, patient oriented x3 and alert GENERAL APPEARANCE: ill appearing (Mildly ill); not frail appearing HENMT: COMMON NORMALS: normocephalic and atraumatic HEAD & SCALP: normocephalic and atraumatic Eye: COMMON NORMALS: Equal, round and reactive pupils present and EOMs intact bilaterally PUPIL: Yes Equal, round and reactive pupils present Chest: COMMONS NORMALS: normal inspection of the chest Resp: COMMON NORMALS: normal respiratory effort, No use of accessory muscles and clear to auscultation bilaterally AUSCULTATION: clear to auscultation bilaterally Cardio: COMMON NORMALS: regular rate and regular rhythm RATE: regular rate RHYTHM: regular rhythm GI: COMMON NORMALS: Normal to inspection, nondistended, normoactive bowel sounds present and Soft to palpation PALPATION: Yes Soft to palpation Neuro: COMMON NORMALS: patient oriented x3 SENSORIUM/ORIENTATION: Yes alert Course Vital Signs: Vital signs: Vital Signs Temperature 99.7 F H 06/09/21 01:17 Pulse Rate 114 H 06/09/21 01:17 Respiratory Rate 18 06/09/21 01:17 Blood Pressure 138/82 06/09/21 01:17 Pulse Oximetry 95 06/09/21 01:17 MDM - Fever MDM Narrative: Medical decision making narrative: 65-year-old female with a fever. She is not requiring oxygen. Her white blood cell count is 14.9 but without left shift. Bicarbonate level is 19. Other labs are benign. Chest x- ray shows likely infiltrate in the left base obscuring the heart border. She is only been treated with Zithromax it appears. She is on prednisone therapy for polymyositis. I would tend to widen her coverage a bit. Her COVID-19 rapid test is negative. PCR is pending. She will be allowed home on Levaquin 750 mg. Lab Data: Labs: Lab Results 06/08/21 06/08/21 06/08/21 23:48 23:48 23:48 WBC 14.9 10^3/uL H 10 ^3/uL (4.0-10.0) RBC 4.42 10^6/uL 10^6 /uL (4.1-5.3) Hgb 12.0 g/dL g/dL (11.5-15.3) Hct 37.8 % % (37.0-47.0) MCV 85.5 fl fl (81-99) MCH 27.1 pg L pg (28.0-34.0) MCHC 31.7 g/dL g/dL (30.0-36.0) RDW 14.6 % % (12.1-15.1) Plt Count 235 10^3/cmm 10^3 /cmm (130-400) MPV 11.1 fL H fL (7.4-10.4) Neut % (Auto) 73.2 % % Lymph % (Auto) 18.8 % % [place] % (Auto) 6.2 % % Eos % (Auto) 1.0 % % Baso % (Auto) 0.3 % % Neut # (Auto) 10.89 10^3/uL H 1 0^3/uL (1.8-7.7) Lymph # (Auto) 2.8 10^3/uL 10^3/ uL (0.8-4.8) [place] # (Auto) 0.9 10^3/uL 10^3/ uL (0.2-0.9) Eos # (Auto) 0.2 10^3/uL 10^3/ uL (0.0-0.8) Baso # (Auto) 0.1 10^3/uL 10^3/ uL (0.0-0.1) Nucleated RBC % (a uto) 0 % % Nucleated RBCs # 0.0 /100WBC /100W BC PT 12.60 SECONDS SEC ONDS (12.1-14.9) INR 0.91 (0.8-1.2) APTT 28.1 SECONDS SECO NDS (23.9-36.7) D-Dimer 0.83 ug/mIFEU H u g/mIFEU (0-0.59) Sodium 138 mmol/L mmol/L (136-145) Potassium 3.7 mmol/L mmol/L (3.5-5.1) Chloride 106 mmol/L mmol/L (98-107) Carbon Dioxide 19 mmol/L L mmol/ L (22-29) Anion Gap 16.7 (5-19) BUN 11 mg/dL mg/dL (8-23) Creatinine 0.8 mg/dL mg/dL (0.5-0.9) GFR Calculation 71.5 mL/min L mL/ min (90-130) Glucose 96 mg/dL mg/dL (65-115) Calculated Osmolal ity 285 mOsm/kg mOsm/ kg (285-295) Lactate Calcium 8.2 mg/dL L mg/dL (8.5-10.5) Total Bilirubin 0.3 mg/dL mg/dL (0.15-1.2) AST 19 U/L U/L (0-32) ALT 19 U/L U/L (0-33) Alkaline Phosphata se 52 IU/L IU/L (35-105) C-Reactive Protein 23.5 mg/L H mg/L (0.0-4.9) NT-Pro-B Natriuret Pep 141 pg/mL H pg/mL (0-125) Total Protein 5.8 g/dL L g/dL (6.6-8.7) Albumin 3.5 g/dL g/dL (3.5-5.2) Globulin 2.3 g/dL g/dL (1.3-4.6) Procalcitonin 0.06 ng/mL ng/mL (0-0.5) Urine Color Urine Appearance Urine pH Ur Specific Gravit y Urine Protein Urine Glucose (UA) Urine Ketones Urine Blood Urine Nitrate Urine Bilirubin Prot Sulfosalicyli c Acd Urine Urobilinogen Ur Leukocyte Alissa ase SARS-CoV-2 Ag (Rap id) 06/08/21 06/09/21 06/09/21 23:48 00:36 01:54 WBC RBC Hgb Hct MCV MCH MCHC RDW Plt Count MPV Neut % (Auto) Lymph % (Auto) [place] % (Auto) Eos % (Auto) Baso % (Auto) Neut # (Auto) Lymph # (Auto) [place] # (Auto) Eos # (Auto) Baso # (Auto) Nucleated RBC % (a uto) Nucleated RBCs # PT INR APTT D-Dimer Sodium Potassium Chloride Carbon Dioxide Anion Gap BUN Creatinine GFR Calculation Glucose Calculated Osmolal ity Lactate 1.6 mmol/L mmol/L (0.5-2.2) Calcium Total Bilirubin AST ALT Alkaline Phosphata se C-Reactive Protein NT-Pro-B Natriuret Pep Total Protein Albumin Globulin Procalcitonin Urine Color Straw (Yellow) Urine Appearance Clear (CLEAR) Urine pH 8 H (5-7) Ur Specific Gravit y 1.010 (1.005-1.030) Urine Protein Neg (Negative) Urine Glucose (UA) Norm (Normal) Urine Ketones Negative (Negative) Urine Blood Neg (Negative) Urine Nitrate Negative (Negative) Urine Bilirubin Neg (Negative) Prot Sulfosalicyli c Acd Negative (Negative) Urine Urobilinogen Norm mg/dL mg/dL (Negative) Ur Leukocyte Alissa ase Negative (Negative) SARS-CoV-2 Ag (Rap id) Negative (Negative) Discharge Plan Discharge Patient Disposition: Home Clinical Impression: Community acquired pneumonia Qualifiers: Laterality: left Lung location: lower lobe of lung Qualified Code(s): J18.9 - Pneumonia, unspecified organism Condition: Stable Prescriptions: No Action albuterol sulfate [ProAir HFA] 90 mcg/actuation HFA aerosol inhaler 2 puff INHALATION QID PRN (Reason: shortness of breath) Qty: 8.5 RF: 0 albuterol sulfate 2.5 mg /3 mL (0.083 %) solution for nebulization 2.5 mg INHALATION Q4H PRN (Reason: shortness of breath or wheezing) Qty: 180 RF: 0 cyclobenzaprine 5 mg tablet 10 mg PO TID PRN (Reason: Muscle Spasm) RF: 0 Rituxan 10 mg/mL concentrate See Rx Instructions .ROUTE .COMPLEX RF: 0 folic acid 1 mg tablet 1 mg PO QAM RF: 0 aspirin [Adult Aspirin Regimen] 81 mg tablet,delayed release (DR/EC) 81 mg PO QAM RF: 0 prednisone 1 mg tablet 1 mg PO DAILY Qty: 60 RF: 1 fluticasone propionate 50 mcg/actuation spray,suspension 1 - 2 spray intranasal DAILY PRN (Reason: Allergy Symptoms) 30 Days Qty: 16 RF: 6 azithromycin [Zithromax] 250 mg tablet See Rx Instructions PO .COMPLEX Qty: 6 RF: 0 Anoro Ellipta 62.5-25 mcg/actuation blister with device See Rx Instructions .ROUTE .COMPLEX Qty: 60 RF: 3 pantoprazole 40 mg tablet,delayed release (DR/EC) See Rx Instructions .ROUTE .COMPLEX Qty: 60 RF: 3 prednisone 5 mg tablet See Rx Instructions PO DAILY Qty: 60 RF: 2 metoprolol tartrate 25 mg tablet See Rx Instructions .ROUTE .COMPLEX Qty: 60 RF: 2 losartan 25 mg tablet See Rx Instructions .ROUTE .COMPLEX Qty: 30 RF: 2 Probiotic 1 cap PO QPM RF: 0 Vitamin D3 1 tab PO QPM RF: 0 Voltaren 1 % gel 2 g topical QID PRN (Reason: Pain) RF: 0 Discharge Orders: Discharge ED (Routine); Ordered 06/09/21 Ordered By: Angel Simons Referrals: Mercedez Loco FNP [Primary Care Provider] - Discharge Diet: Advance as tolerated Discharge Activity: Increase activity as tolerated Patient Instructions: Pneumonia (ED) Activity Restrictions/Additional Instructions: Your rapid COVID-19 test is negative in the ER, but your PCR is pending. You will be called with those results. You should quarantine at home until results are back and are deemed negative. If result is positive, consult with your doctor about whether or not monoclonal antibody infusion is indicated for you. Your antibiotic coverage has been widened for pneumonia. Return to the emergency room for fever despite 2-3 doses of antibiotics, worsening shortness of breath vomiting liquids or medications, chest discomfort, or other concerning symptoms. Coding Level of Care Code ED In Flight Refueling System Repairer for Tito Fwmarylou Exam Detailed
[2021-06-09 02:28] LABS: Add Urine Microscopic? NO; Charge for UA Resulting for Rev
[2021-06-09 02:33] LABS: Bilirubin Urine Neg (Negative); Blood Urine Neg (Negative); Glucose Urine UA Norm (Normal); Ketones Urine Negative (Negative); Leukocyte Esterase Urine Negative (Negative); Nitrate Urine Negative (Negative); Protein Urine Neg (Negative); Sulfosalicylic Acid Urine Negative (Negative); Urine Appearance Clear (CLEAR); Urine Color Straw (Yellow); Urobilinogen Urine Norm (Negative); pH Urine 8 (5-7)
[2021-06-09] MEDS: levoFLOXacin 750 mg Tablet PO (03:04)
--- NOTE | 2021-06-09 03:40 | CTR_ITS ---
PROCEDURE INFORMATION: Exam: CTA Chest With Contrast Exam date and time: 06/09/2021 3:40 AM Age: 65 years old Clinical indication: Nausea; Fever; Prior surgery; Surgery date: 6+ months; Surgery type: Appy; Additional info: Fever, SOB, abd pain TECHNIQUE: Imaging protocol: Computed tomographic angiography of the chest with contrast. 3D rendering (Not supervised by radiologist): MIP and/or 3D reconstructed images were created by the technologist. Radiation optimization: All CT scans at this facility use at least one of these dose optimization techniques: automated exposure control; mA and/or kV adjustment per patient size (includes targeted exams where dose is matched to clinical indication); or iterative reconstruction. Contrast material: OMN I350; Contrast volume: 95 ml; Contrast route: INTRAVENOUS (IV); COMPARISON: CT chest wo con [id number] 09/26/2019 11:09 AM RADIATION DOSE METRICS: Total DLP (mGy-cm): 1465.56 FINDINGS: Pulmonary arteries: Poor pulmonary artery bolus concentration, less than 180 Hounsfield units, prevents evaluation for pulmonary embolism. Aorta: No aortic dissection. Other arteries: There is moderate atherosclerotic disease. Lungs: Bibasilar opacities concerning for pneumonia. Pleural spaces: Unremarkable. No pneumothorax. No pleural effusion. Heart: Unremarkable. No cardiomegaly. No pericardial effusion. Lymph nodes: Unremarkable. No enlarged lymph nodes. Bones/joints: T9-T11 kyphoplasty has been performed. Stable superior endplate compression deformity at T12 and L1. Soft tissues: Unremarkable. Other findings: The examination is limited by patient motion. Mild emphysema. IMPRESSION: 1. The examination is limited by patient motion. 2. Study nondiagnostic for pulmonary embolism, due to poor pulmonary arterial bolus concentration, less than 180 Hounsfield units. Contrast injection will need to be repeated, to exclude pulmonary embolism. 3. No aortic dissection. 4. Mild emphysema. 5. Bibasilar opacities concerning for pneumonia. PROCEDURE INFORMATION: Exam: CT Abdomen And Pelvis With Contrast Exam date and time: 06/09/2021 3:40 AM Age: 65 years old Clinical indication: Nausea; Fever; Prior surgery; Surgery date: 6+ months; Surgery type: Appy; Additional info: Fever, SOB, abd pain TECHNIQUE: Imaging protocol: Computed tomography of the abdomen and pelvis with contrast. Radiation optimization: All CT scans at this facility use at least one of these dose optimization techniques: automated exposure control; mA and/or kV adjustment per patient size (includes targeted exams where dose is matched to clinical indication); or iterative reconstruction. Contrast material: OMN I350; Contrast volume: 95 ml; Contrast route: INTRAVENOUS (IV); COMPARISON: 1. CT chest wo con [id number] 09/26/2019 11:09 AM 2. CR XR lumbar spine 2-3V* [id number] 04/22/2020 10:52:19 AM RADIATION DOSE METRICS: Total DLP (mGy-cm): 1465.56 FINDINGS: Lungs: The lung bases are clear. No effusion Liver: Liver is normal. Gallbladder and bile ducts: Gallbladder is normal. Pancreas: Pancreas is normal. Spleen: Spleen is normal. Adrenal glands: Adrenals are normal. Kidneys and ureters: Kidneys are normal. Stomach and bowel: Unremarkable. No obstruction. No mucosal thickening. Appendix: No evidence of appendicitis. Intraperitoneal space: Unremarkable. No free air. No significant fluid collection. Vasculature: There is moderate atherosclerotic disease. Lymph nodes: Unremarkable. No enlarged lymph nodes. Urinary bladder: Unremarkable as visualized. Reproductive: Unremarkable as visualized. Bones/joints: Stable superior endplate compression deformity at L3 and L2. Soft tissues: Unremarkable. CT/CT angio chest w abd pel w con IMPRESSION: No cause for acute pain is identified. Radiation Dose CTDIVOL = (mGy): DLP = 1465.56~1465.56 (mGy-cm)
[2021-06-09] MEDS: ondansetron 2 mg/ML SDV 2 mL 4 MG IVP (04:05)
[2021-06-09] MEDS: pantoprazole 40 mg SDV IVP (04:06)
[2021-06-09] MEDS: iohexol 350 mg/mL 100 mL Btl IV (04:08)
[2021-06-09] MEDS: piperacillin-tazobactam 4.5 GM in sodium chloride 0.9% (plus) 50 ML IV (04:10)
--- NOTE | 2021-06-09 08:06 | PM.HP ---
Providers/Chief Complaint Admitting Physician: Ivania Gil MD Primary Care Provider: KEYONNA Myers Chief Complaint: SOB History of Present Illness Shanita Saleh is a 65 year old female polymyositis, COPD, osteoporosis currently on rituximab infusions and prednisone daily 7.5 mg p.o. daily. She has had upper respiratory symptoms going back to mid April, approximately 3 weeks. Describes cough with minimal expectoration shortness of breath and occasional blood-streaked sputum. She has been treated with outpatient antibiotics, unsure which ones and presumptive steroids for COPD exacerbation without significant relief in symptoms. She presented to the ER today after she developed fever up to 102 Fahrenheit. Has vague abdominal discomfort, no diarrhea nausea or vomiting. Review of Systems General: Reports: 10 or more systems reviewed and unremarkable except in HPI and below Const: Denies: fever(s), chills or body aches Eyes: Denies: change in vision, blurry vision or photophobia ENMT: Reports: hoarseness; Denies: throat pain, enlarged tonsils, odynophagia or nasal congestion Card: Denies: chest pain, palpitations, irregular heart rhythm, edema, swelling of feet/ankles, lightheadedness, pre-syncope, dyspnea on exertion or orthopnea Resp: Denies: dyspnea, productive cough, non-productive cough, wheezing, stridor, pain on inspiration, change in phlegm color, hemoptysis or chest congestion GI: Denies: abdominal pain, nausea, vomiting, hematemesis, coffee ground emesis, dysphagia, heartburn, diarrhea, constipation, GI cramping, change in stool character, hematochezia or melena : Denies: flank pain, difficulty voiding, dysuria, urinary frequency, urinary urgency, urinary hesitancy or hematuria Musc: Denies: neck pain, back pain, extremity pain, joint swelling, joint warmth or deformity Neuro: Denies: headache(s), numbness in extremities, weakness in extremities, sensory changes, difficulty walking, frequent falls, dizziness, vertigo, behavioral changes, Slurred speech present or seizure-like activity Psych: Denies: anxiety, depression, suicidal ideation or homicidal ideation Endo: Denies: polyuria, polydipsia, tired all the time, cold intolerance or hot flashes Luis/Lymph: Denies: easy bruising or easy bleeding Medications/Allergies Home Medications Medication Instructions Recorded Confirmed Last Taken Type aspirin 81 mg tablet,delayed 81 mg PO QAM 09/04/19 06/09/21 06/08/21 History release cyclobenzaprine 5 mg tablet 5 mg PO TID PRN tab 09/04/19 06/09/21 04/22/20 08:00 History folic acid 1 mg tablet 1 mg PO QAM 09/04/19 06/09/21 06/08/21 History rituximab 10 mg/mL See Rx Instructions .ROUTE 09/04/19 06/09/21 Unknown History concentrate,intravenous .COMPLEX ml Probiotic 1 cap PO QPM 04/22/20 06/09/21 06/07/21 History Vitamin D3 1 tab PO QPM 04/22/20 06/09/21 06/07/21 History diclofenac sodium [Voltaren] 2 g TOPICAL QID PRN 10/13/20 06/09/21 Unknown History albuterol sulfate 2.5 mg INHALATION Q4H PRN #180 ml 05/16/21 06/09/21 06/08/21 Rx albuterol sulfate 90 mcg/actuation 2 puff INHALATION QID PRN #8.5 g 05/16/21 06/09/21 06/08/21 Rx aerosol inhaler fluticasone propionate 50 1 - 2 spray INTRANASAL DAILY PRN 06/04/21 06/09/21 Unknown Rx mcg/actuation nasal 30 Days #16 g spray,suspension losartan 25 mg PO DAILY 06/09/21 06/09/21 06/08/21 History metoprolol tartrate 25 mg PO BID 06/09/21 06/09/21 06/08/21 History multivitamin 1 tab PO DAILY 06/09/21 06/09/21 06/08/21 History pantoprazole 40 mg PO BID 06/09/21 06/09/21 06/08/21 History umeclidinium-vilanterol [Anoro 1 inh INHALATION DAILY 06/09/21 06/09/21 06/08/21 History Ellipta] Allergies Allergy/AdvReac Type Severity Reaction Status Date / Time azathioprine Allergy Intermediate ALGY-Difficulty Verified 06/04/21 09:59 Breathing nitrofurantoin Allergy Intermediate ALGY-Hives Verified 06/04/21 09:59 [From Macrobid] cephalexin Allergy Unknown ALGY-Hives Verified 06/04/21 09:59 lisinopril AdvReac Severe ADR-Cough Verified 06/04/21 09:59 PFSH Acute PFSH: Medical History Age related osteoporosis Anxiety CKD (chronic kidney disease) Compression fx, lumbar spine Compression fx, thoracic spine COPD (chronic obstructive pulmonary disease) Diverticulitis Family history of melanoma Generalized osteoarthritis GERD (gastroesophageal reflux disease) High risk medication use Hypertension Immunosuppression Medication monitoring encounter Osteoporosis Osteoporosis Polymyositis PUD (peptic ulcer disease) Surgical History H/O colonoscopy 2016 H/O wrist surgery History of appendectomy History of back surgery History of lumpectomy of both breasts History of tubal ligation Family History Father Hypertension Cancer Alzheimer disease Mother Hypertension Dementia Grandmother Cancer Sister Cancer Social History Smoking and tobacco status: former smoker Quit status (tobacco): has quit using tobacco Year quit tobacco: 2008 - 1.5 PPD x 35 Years Second hand smoke exposure: No Alcohol intake: never Caregiver/support person: Yes Lives independently: Yes Household members: spouse Marital status: Number of children: 2 Current occupational status: retired and disabled History of recent travel: No Current gender identity: Female Special gonsalo needs: No Agree to transfusion: Yes Vitals/I&O/Wt Last Vital Signs Temp 98.1 F 06/09/21 05:54 Pulse 103 H 06/09/21 05:54 Resp 20 H 06/09/21 05:54 BP 126/75 06/09/21 05:54 Pulse Ox 94 06/09/21 05:54 06/08/21 06/09/21 06/09/21 22:59 06:59 14:59 Intake Total 550 / 550 Balance 550 / 550 Weight last 48 hrs Weight 78.018 kg Physical Exam Narrative: EXAM NARRATIVE: General: No acute distress, AO x3 HEENT: PERRLA, pupils bilaterally equal and reactive, pallors not present Chest: Normal vesicular breath sounds, no added sounds, equal good air entry bilaterally CVS: S1-S2 regular, no murmurs, no tachycardia, no gallops, no rubs Abdomen: Soft, nontender, no organomegaly, bowel sounds present Neuro: No focal deficits, no facial deformity, AO x3, power 5/5 in all limbs Data : 06/08/21 23:48 06/08/21 23:48 Micro: Microbiology 06/09/21 04:06 Blood Culture - Preliminary Blood SPECIMEN COLLECTED 06/09/21 03:45 Blood Culture - Preliminary Blood SPECIMEN COLLECTED A&P Assessment and plan (1) Community acquired pneumonia: Status: Acute Qualifiers: Laterality: left Lung location: lower lobe of lung Qualified Code(s): J18.9 - Pneumonia, unspecified organism Additional A&P Information Patient presenting to patient has been treated with outpatient antibiotics and steroids without any clinical change in symptoms. Of note patient is on immunosuppressive therapy with rituximab and prednisone 7.5 mg p.o. daily. Additionally has new oxygen requirement. Upon exertion in the ER her sats were noted to drop down to 87 to 88% with tachycardia alongside. CTA of the chest inconclusive for PE today. Does show bilateral lower lobes infiltrates which are concerning for pneumonia. Empiric Zosyn and azithromycin for treatment of pneumonia Check blood culture, sputum Gram stain and culture, bacterial antigen, urine Legionella antigen Given that patient is on lymphodepleting therapy with Rituxan, other differentials to consider in this case would be possible PJP pneumonia. It appears she did have a screening negative QuantiFERON in August 2020 prior to initiation of therapy and given acuity of symptoms currently lower suspicion for tuberculosis. Serum beta D glucan and LDH screen, pneumocystis PCR from induced sputum. CT abdomen pelvis without any acute abnormalities Check UA, review of past urine culture shows patient has had ESBL E. coli UTI. Was susceptible to Zosyn therefore we will continue empiric coverage with the same. Attestations Medical Necessity Statement*: Greater than 2 midnights admission is anticipated for the evaluation of fever and pneumonia in immunocompromised patient Coding Level of Care Code Acute Line Painting Machine Operator for Tito Fwd Diagnoses Community acquired pneumonia J18.9 Laterality: left Lung location: lower lobe of lung
[2021-06-09 09:24] LABS: Lactate Dehydrogenase 523 U/L (135-214)
[2021-06-09] MEDS: losartan 50 mg Tablet 25 MG PO (09:28)
[2021-06-09] MEDS: azithromycin 250 mg Tablet 500 MG PO (09:28)
[2021-06-09] MEDS: pantoprazole DR 40 mg Tablet PO (09:28)
[2021-06-09] MEDS: enoxaparin 40 mg/0.4 mL Syringe SUBCUT (09:29)
[2021-06-09] MEDS: metoprolol tartrate 25 mg Tablet PO ×2 (09:34→21:26)
[2021-06-09] MEDS: piperacillin-tazobactam 3.375 GM in sodium chloride 0.9% (plus) 50 ML IV ×2 (09:35→17:28)
[2021-06-09] MEDS: ipratropium-albuterol 3 mL Neb INHALATION ×3 (10:03→20:44)
[2021-06-09] MEDS: budesonide 0.5 mg/2 mL Neb INHALATION ×2 (10:03→20:44)
[2021-06-09 11:21] LABS: Add Urine Microscopic? NO; Charge for UA Resulting for Rev
[2021-06-09 11:29] LABS: Bilirubin Urine Neg (Negative); Blood Urine Neg (Negative); Glucose Urine UA Norm (Normal); Ketones Urine Negative (Negative); Leukocyte Esterase Urine Negative (Negative); Nitrate Urine Negative (Negative); Protein Urine Neg (Negative); Specific Gravity, Urine 1.005 (1.005-1.030); Sulfosalicylic Acid Urine Negative (Negative); Urine Appearance Clear (CLEAR); Urine Color Yellow (Yellow); Urobilinogen Urine Norm (Negative); pH Urine 8 (5-7)
[2021-06-09 12:57] LABS: Base Excess VBG -1.3 mmol/L (-3.0-3.0); Blood Gas Allen Test Pos; HCO3 VBG 22.2 mmol/L (24-28); PCO2 VBG 32.8 mmHg (41-51); PO2 VBG 64.5 mmHg (25-40); Venous Blood Gas Hematocrit 40.1 % (37-47); pH VBG 7.44 (7.32-7.42)
[2021-06-09 12:59] LABS: Blood Gas Operator Identificat ED; Blood Gas Sample Type Venous
[2021-06-09 13:04] LABS: Urine Random Sodium 36 mmol/L
[2021-06-09 13:45] LABS: Ammonia 28 umol/L (11-51)
--- NOTE | 2021-06-09 17:31 | PC.RESP ---
PULMONARY REHAB INFORMATION SENT TO PATIENT.
--- NOTE | 2021-06-09 17:35 | PC.RESP ---
PULMONARY REHAB INFORMATION SENT TO PATIENT.
--- NOTE | 2021-06-09 19:03 | PC.NURSE ---
Report to Дмитрий COBB at this time.
[2021-06-10] VITALS (13 sets, daily range): BP systolic 108–144; BP diastolic 61–79; PULSE 70–88; RESP 16–20; TEMP 36.6–37; O2SAT 88–98
[2021-06-10] MEDS: piperacillin-tazobactam 3.375 GM in sodium chloride 0.9% (plus) 50 ML IV ×2 (01:30→11:13)
[2021-06-10] MEDS: ipratropium-albuterol 3 mL Neb INHALATION ×3 (03:11→15:27)
[2021-06-10] MEDS: aspirin 81 mg EC Tablet PO (05:44)
[2021-06-10 06:38] LABS: Basophils # 0.1 10^3/uL (0.0-0.1); Basophils % 0.5 %; Eosinophils # 0.6 10^3/uL (0.0-0.8); Eosinophils % 4.6 %; Hematocrit 44.9 % (37.0-47.0); Hemoglobin 13.5 g/dL (11.5-15.3); Lymphocytes % 23.5 %; Mean Corpuscular HGB Conc 30.1 g/dL (30.0-36.0); Mean Corpuscular Hemoglobin 26.6 pg (28.0-34.0); Mean Corpuscular Volume 88.6 fl (81-99); Monocytes # 0.6 10^3/uL (0.2-0.9); Neutrophils # 8.48 10^3/uL (1.8-7.7); Neutrophils % 65.8 %; Nucleated Red Blood Cells % 0 %; Platelet Count 281 10^3/cmm (130-400); Red Blood Count 5.07 10^6/uL (4.1-5.3); Red Cell Distribution Width 14.7 % (12.1-15.1); White Blood Count 12.9 10^3/uL (4.0-10.0)
[2021-06-10 07:23] LABS: Alanine Aminotransferase 18 U/L (0-33); Albumin Level 3.8 g/dL (3.5-5.2); Alkaline Phosphatase 72 IU/L (35-105); Anion Gap 14.1 (5-19); Aspartate Amino Transferase 18 U/L (0-32); Blood Urea Nitrogen 11 mg/dL (8-23); Calcium 8.6 mg/dL (8.5-10.5); Carbon Dioxide 21 mmol/L (22-29); Chloride 105 mmol/L (98-107); Globulin 3.1 g/dL (1.3-4.6); Glomerular Filtration Rate 55.3 mL/min (90-130); Glucose 103 mg/dL (65-115); Osmolality Calculated 282 mOsm/kg (285-295); Potassium 4.1 mmol/L (3.5-5.1); Sodium 136 mmol/L (136-145); Total Bilirubin 0.5 mg/dL (0.15-1.2); Total Protein 6.9 g/dL (6.6-8.7)
[2021-06-10] MEDS: azithromycin 250 mg Tablet 500 MG PO (07:59)
[2021-06-10] MEDS: losartan 50 mg Tablet 25 MG PO (07:59)
[2021-06-10] MEDS: pantoprazole DR 40 mg Tablet PO (07:59)
[2021-06-10] MEDS: enoxaparin 40 mg/0.4 mL Syringe SUBCUT (07:59)
[2021-06-10] MEDS: metoprolol tartrate 25 mg Tablet PO (07:59)
[2021-06-10] MEDS: budesonide 0.5 mg/2 mL Neb INHALATION (09:09)
--- NOTE | 2021-06-10 16:01 | P.PN_ITS ---
Vitals/I&O/Wt Last Vital Signs Temp 97.9 F 06/10/21 12:00 Pulse 84 06/10/21 15:33 Resp 17 06/10/21 15:27 BP 128/79 06/10/21 12:00 Pulse Ox 94 06/10/21 15:27 06/10/21 06/10/21 06/10/21 06:59 14:59 22:59 Intake Total 50 / 650 300 / 300 Output Total 550 / 950 Balance -500 / -300 300 / 300 Weight last 48 hrs Weight 78.018 kg Data : 06/10/21 06:15 06/10/21 06:15 Micro: Microbiology 06/09/21 04:06 Blood Culture - Preliminary Blood NEGATIVE TO DATE 06/09/21 03:45 Blood Culture - Preliminary Blood NEGATIVE TO DATE 06/09/21 11:00 Legionella Urinary Antigen - Final Urine,Clean Catch 06/09/21 11:00 Bacterial Antigens - Final Urine,Clean Catch Coding Level of Care Code Acute Instructional Technology Director for Tito Luke
[2021-06-10 16:20] LABS: Coronavirus Test Green County Not Detected
--- NOTE | 2021-06-10 17:11 | P.DS_ITS ---
Discharge Providers Date of Admission: 06/09/21 05:23 Date of Discharge: June 10, 2021 Attending Provider at Admission: Ivania Gil MD Attending Provider at Discharge: Simi Hamilton MD Primary Care Provider: KEYONNA Myers Diagnoses at Discharge Discharge Diagnosis (1) Community acquired pneumonia: Status: Acute Qualifiers: Laterality: left Lung location: lower lobe of lung Qualified Code(s): J18.9 - Pneumonia, unspecified organism Reason for Visit Reason for Visit: SOB Hospital Course Hospital Course Shanita Saleh is a 65 year old female polymyositis, COPD, osteoporosis currently on rituximab infusions and prednisone daily 7.5 mg p.o. daily. She has had upper respiratory symptoms going back to mid April, approximately 3 weeks. Describes cough with minimal expectoration shortness of breath and occasional blood-streaked sputum. She has been treated with outpatient antibiotics, unsure which ones and presumptive steroids for COPD exacerbation without significant relief in symptoms. She presented to the ER today after she developed fever up to 102 Fahrenheit. Has vague abdominal discomfort, no diarrhea nausea or vomiting. Hospital Course Patient was admitted for community-acquired pneumonia. She was treated with outpatient antibiotics and steroids without change in clinical symptoms on admission. She was on rituximab and prednisone 7.5 mg daily. Also she was requiring oxygen while in the hospital. She did require oxygen overnight around 2 L but during the day she was able to saturate well on room air. She qualified for home oxygen at discharge. CT of chest with inconclusive for PE. It did show bilateral lower lobe infiltrates concerning for pneumonia. D-dimer was 0.83 which can be secondary due to her age as well. Suspicion for PE was very low and therefore CTA was not repeated. Bacterial antigen urine Legionella antigen were negative. She was placed on azithromycin and Zosyn due to past urine culture showing the patient was susceptible to Zosyn for ESBL E. coli UTI. Patient improved significantly by next day. She kept requesting to go home. Patient looks a lot better. She remained afebrile during hospital stay. After discussion with the patient it was decided that she will be discharged. She was discharged on azithromycin and levofloxacin. She was to follow-up with her primary care physician and also her special tester Dr. Watkins. She was also asked to come back to the ED if she felt worse or had any other new fevers or more sputum production. Of note on admission she was producing greenish sputum which had cleared up to clear by due to of admission. Patient was discharged in very stable condition. Physical Exam Narrative: EXAM NARRATIVE: General: No acute distress, AO x3 HEENT: PERRLA, pupils bilaterally equal and reactive, pallors not present Chest: Normal vesicular breath sounds, no added sounds, equal good air entry bilaterally, clear to auscultation bilaterally. CVS: S1-S2 regular, no murmurs, no tachycardia, no gallops, no rubs Abdomen: Soft, nontender, no organomegaly, bowel sounds present Neuro: No focal deficits, Discharge Data Data Completed and Pending: Completed Studies During Hospitalization Category Date Time Status CT angio chest w abd pel w con Urge nt Cat Scan 06/09/21 03:40 Completed XR chest 1V lucho ble [id number] Urgent Exams 06/09/21 00:06 Completed Pending at discharge Category Date Time Status Blood Culture Sta t Lab 06/09/21 04:06 Results Fungitell Glucan Assay Routine Lab 06/09/21 07:41 Received Pneumocystis jiro veci Qual PCR Rout ine Lab 06/09/21 08:17 Uncollected Sputum Culture an d Gram Stain Routi ne Lab 06/09/21 08:17 Uncollected Venous Blood Gas Routine Lab 06/09/21 12:48 Results Labs from last 24 hours 06/10/21 06/10/21 06/09/21 06:15 06:15 00:36 WBC 12.9 H RBC 5.07 Hgb 13.5 Hct 44.9 MCV 88.6 MCH 26.6 L MCHC 30.1 RDW 14.7 Plt Count 281 MPV 10.0 Neut % (Auto) 65.8 Lymph % (Auto) 23.5 [place] % (Auto) 5.0 Eos % (Auto) 4.6 Baso % (Auto) 0.5 Neut # (Auto) 8.48 H Lymph # (Auto) 3.0 [place] # (Auto) 0.6 Eos # (Auto) 0.6 Baso # (Auto) 0.1 Nucleated RBC % (a uto) 0 Nucleated RBCs # 0.0 Sodium 136 Potassium 4.1 Chloride 105 Carbon Dioxide 21 L Anion Gap 14.1 BUN 11 Creatinine 1.0 H GFR Calculation 55.3 L Glucose 103 Calculated Osmolal ity 282 L Calcium 8.6 Total Bilirubin 0.5 AST 18 ALT 18 Alkaline Phosphata se 72 Total Protein 6.9 Albumin 3.8 Globulin 3.1 Nasal/Oral COVID-1 9 PCR Not detected Vitals: Last Vital Signs Temp 97.9 F 06/10/21 12:00 Pulse 84 06/10/21 15:33 Resp 17 06/10/21 15:27 BP 128/79 06/10/21 12:00 Pulse Ox 94 06/10/21 15:27 Discharge Plan Discharge Patient Disposition: Home Condition: Stable Prescriptions: New azithromycin 500 mg tablet 500 mg PO DAILY 5 Days RF: 0 levofloxacin 750 mg tablet 750 mg PO DAILY 7 Days RF: 0 Continued albuterol sulfate [ProAir HFA] 90 mcg/actuation HFA aerosol inhaler 2 puff INHALATION QID PRN (Reason: shortness of breath) Qty: 8.5 RF: 0 cyclobenzaprine 5 mg tablet 5 mg PO TID PRN (Reason: Muscle Spasm) RF: 0 Rituxan 10 mg/mL concentrate See Rx Instructions .ROUTE .COMPLEX RF: 0 folic acid 1 mg tablet 1 mg PO QAM RF: 0 aspirin [Adult Aspirin Regimen] 81 mg tablet,delayed release (DR/EC) 81 mg PO QAM RF: 0 fluticasone propionate 50 mcg/actuation spray,suspension 1 - 2 spray intranasal DAILY PRN (Reason: Allergy Symptoms) 30 Days Qty: 16 RF: 6 Probiotic 1 cap PO QPM RF: 0 Vitamin D3 1 tab PO QPM RF: 0 multivitamin Tablet 1 tab PO DAILY RF: 0 losartan 25 mg tablet 25 mg PO DAILY RF: 0 metoprolol tartrate 25 mg tablet 25 mg PO BID RF: 0 Anoro Ellipta 62.5-25 mcg/actuation blister with device 1 inh inhalation DAILY RF: 0 diclofenac sodium [Voltaren] 1 % gel 2 g topical QID PRN (Reason: Pain) RF: 0 No Action albuterol sulfate 2.5 mg /3 mL (0.083 %) solution for nebulization 2.5 mg INHALATION Q4H PRN (Reason: shortness of breath or wheezing) Qty: 180 RF: 4 pantoprazole 40 mg tablet,delayed release (DR/EC) See Rx Instructions .ROUTE .COMPLEX Qty: 60 RF: 3 Discharge Orders: Discharge Order (Routine); Ordered 06/10/21 Ordered By: Simi Joy Other Ambulatory Orders: DME: Oxygen (Order) Location: None Selected Ordered By: Simi Hamilton Referrals: Mercedez Loco FNP [Primary Care Provider] - 06/19/21 10:00 am Jimbo Watkins MD [Physician] - 06/18/21 11:00 am (Please call tomorrow to schedule a follow-up appointment. ) Discharge Diet: Advance as tolerated Discharge Activity: Increase activity as tolerated Patient Instructions: Azithromycin (By mouth), Levofloxacin (By mouth), Pneumonia (ED), Opioid Safety Activity Restrictions/Additional Instructions: Discharge Attestations Time Spent in Discharge Care*: greater than 30 min Specific Discharge Activities: educating patient, documenting/other paperwork and evaluating patient/reviewing data Quality Metrics Clinical Quality Measures During this hospital stay, did patient experience: None Coding Level of Care Code Acute g FW [place] note Diagnoses Community acquired pneumonia J18.9 Laterality: left Lung location: lower lobe of lung
--- NOTE | 2021-06-10 19:16 | PC.NURSE ---
IV removed intact. Patient tolerated well. Patient is A&Ox3. Respirations even and non-labored on 2 liters by NC. Reviewed patient's discharge with patient and granddaughter. Patient and granddaughter verbalized understanding of discharge instructions. Patient wheel chaired to her private car at this time.
--- NOTE | 2021-06-12 11:27 | PC.SOCIAL ---
discharge follow up call made, spoke with patient. patient reports yesterday was rough but today i'm much better patient is taking azithromycin and levofloxacin daily as directed. patient is using o2 @ 2L with sats of 98%. patient has follow up appointments with dr. patel and Rachel Loco and she is aware of those appointment dates and times. patient denies and concerns.
[2021-06-14 21:16] LABS: Fungitell 1-3-B Glucan Assay <31 pg/mL; Interpretation NEGATIVE
== END 2021-06-10 17:15 | disposition home or self-care (01) | DRG 194 ==
LOC: ER 06-09 04:26 → MEDSURG 06-09 05:24
PROVIDERS: Admitting Provider Student in an Organized Health Care Education/Training Program; Emergency Provider Emergency Medicine; PCP Nurse Practitioner Family; Visit Provider Internal Medicine
DX: J18.9 Pneumonia, unspecified organism (principal); D84.821 Immunodeficiency due to drugs; J44.0 Chronic obstructive pulmonary disease with (acute) lower respiratory infection; M33.20 Polymyositis, organ involvement unspecified; Z79.899 Other long term (current) drug therapy; Z79.52 Long term (current) use of systemic steroids; M81.0 Age-related osteoporosis without current pathological fracture; F41.9 Anxiety disorder, unspecified; I12.9 Hypertensive chronic kidney disease with stage 1 through stage 4 chronic kidney disease, or unspecified chronic kidney disease; N18.9 Chronic kidney disease, unspecified; K21.9 Gastro-esophageal reflux disease without esophagitis; Z87.11 Personal history of peptic ulcer disease; Z87.891 Personal history of nicotine dependence; Z87.440 Personal history of urinary (tract) infections; Z79.51 Long term (current) use of inhaled steroids; Z79.82 Long term (current) use of aspirin
CPT/HCPCS: 36415; 71045; 71275; 74177; 80053; 81003; 82140; 82803; 83605; 83615; 83880; 84145; 84300; 85025; 85378; 85610; 85730; 86140; 86403; 87040; 87426; 87449; 87635; 93005; 94640; 96365; 96372; 96375; 99285; C9113; J1650; J2405; J2543; J7040; J7626; Q0144; Q9967

== ENCOUNTER → 2021-06-23 13:40 | Outpatient (BNVA) | payer MEDICARE, MEDICAID, SELFPAY | PROVIDERS: PCP Nurse Practitioner Family; Visit Provider Internal Medicine | DX: M33.20 Polymyositis, organ involvement unspecified (principal); M81.0 Age-related osteoporosis without current pathological fracture; Z87.310 Personal history of (healed) osteoporosis fracture; Z87.891 Personal history of nicotine dependence | CPT/HCPCS: 99214 ==

== ENCOUNTER → 2021-07-22 09:09 | Outpatient (BNVA) | payer MEDICARE, MEDICAID, SELFPAY | PROVIDERS: PCP Nurse Practitioner Family; Visit Provider Internal Medicine | DX: M33.20 Polymyositis, organ involvement unspecified (principal); M81.0 Age-related osteoporosis without current pathological fracture; D89.9 Disorder involving the immune mechanism, unspecified | CPT/HCPCS: 80053; 81000; 82550; 84100; 85025; 85651; 86140 ==

== ENCOUNTER → 2021-07-31 16:49 | Outpatient (BNVA) | payer MEDICARE, MEDICAID, SELFPAY | PROVIDERS: PCP Nurse Practitioner Family; Visit Provider Nurse Practitioner Family | DX: J40 Bronchitis, not specified as acute or chronic (principal) | CPT/HCPCS: 71046; 87635 ==

== ENCOUNTER → 2021-08-01 15:09 | Outpatient (BNVA) | payer MEDICARE, MEDICAID, SELFPAY | PROVIDERS: PCP Nurse Practitioner Family; Visit Provider Nurse Practitioner Family | DX: Z20.822 Contact with and (suspected) exposure to COVID-19 (principal) | CPT/HCPCS: 87635 ==

== ENCOUNTER → 2021-08-12 13:16 | Outpatient (BNVA) | payer MEDICARE, MEDICAID, SELFPAY | PROVIDERS: PCP Nurse Practitioner Family; Visit Provider Nurse Practitioner Family | DX: N30.01 Acute cystitis with hematuria (principal) | CPT/HCPCS: 81003; 87077; 87086; 87184 ==

== ENCOUNTER → 2021-09-22 12:58 | Outpatient (BNVA) | payer MEDICARE, MEDICAID, SELFPAY | PROVIDERS: PCP Nurse Practitioner Family; Visit Provider Internal Medicine | DX: M33.20 Polymyositis, organ involvement unspecified (principal); J44.9 Chronic obstructive pulmonary disease, unspecified; K57.92 Diverticulitis of intestine, part unspecified, without perforation or abscess without bleeding; Z51.81 Encounter for therapeutic drug level monitoring; Z87.891 Personal history of nicotine dependence; M25.762 Osteophyte, left knee | CPT/HCPCS: 73560; 80053; 81003; 82550; 82553; 85025; 85651; 86140; 99214 ==

== ENCOUNTER 2021-09-22 15:00 | Outpatient (CLI) | payer MEDICARE, MEDICAID, SELFPAY ==
--- NOTE | 2021-09-22 15:07 | XR_ITS ---
WS: [id number] Left knee, AP and lateral views, 09/22/2021 Clinical Data: M33.20 - Polymyositis, organ involvement unspecified Comparison: Left knee, 03/10/2017. Findings: No fractures or dislocations are seen. The joint spaces show minimal medial joint compartment narrowi ng.. The patella is intact. The soft tissues are unremarkable. XR/XR knee LT 1-2V [id number] Impression: Minimal narrowing of the medial joint compartment of the left knee. Kellgren-Reji Classification: grade 2 (minimal): definite osteophytes and p ossible joint space narrowing
[2021-09-22 16:17] LABS: Basophils # 0.1 10^3/uL (0.0-0.1); Basophils % 0.5 %; Eosinophils # 0.1 10^3/uL (0.0-0.8); Eosinophils % 0.8 %; Hematocrit 42.6 % (37.0-47.0); Hemoglobin 13.1 g/dL (11.5-15.3); Lymphocytes # 3.4 10^3/uL (0.8-4.8); Lymphocytes % 23.8 %; Mean Corpuscular HGB Conc 30.8 g/dL (30.0-36.0); Mean Corpuscular Hemoglobin 26.4 pg (28.0-34.0); Mean Corpuscular Volume 85.7 fl (81-99); Mean Platelet Volume 9.8 fL (7.4-10.4); Monocytes # 0.9 10^3/uL (0.2-0.9); Monocytes % 6.2 %; Neutrophils % 68.3 %; Nucleated Red Blood Cells % 0 %; Platelet Count 302 10^3/cmm (130-400); Red Blood Count 4.97 10^6/uL (4.1-5.3); White Blood Count 14.1 10^3/uL (4.0-10.0)
[2021-09-22 16:27] LABS: Alanine Aminotransferase 18 U/L (0-33); Albumin Level 3.9 g/dL (3.5-5.2); Alkaline Phosphatase 54 IU/L (35-105); Aspartate Amino Transferase 19 U/L (0-32); Blood Urea Nitrogen 11 mg/dL (8-23); C Reactive Protein 14.2 mg/L (0.0-4.9); Calcium 9.3 mg/dL (8.5-10.5); Carbon Dioxide 21 mmol/L (22-29); Chloride 104 mmol/L (98-107); Creatine Phosphokinase 207 U/L (26-192); Globulin 2.6 g/dL (1.3-4.6); Glomerular Filtration Rate 83.2 mL/min (90-130); Glucose 93 mg/dL (65-115); Osmolality Calculated 289 mOsm/kg (285-295); Sodium 140 mmol/L (136-145); Total Bilirubin 0.4 mg/dL (0.15-1.2); Total Protein 6.5 g/dL (6.6-8.7)
[2021-09-22 16:29] LABS: Erythrocyte Sedimentation Rate 16 mm/hr (0-15)
[2021-09-22 18:09] LABS: CKMB 5.2 ng/mL (0-5.34)
== END 2021-09-22 15:01 | disposition home or self-care (01) ==
LOC: RAD 15:03
PROVIDERS: PCP Nurse Practitioner Family; Visit Provider Internal Medicine
DX: M33.20 Polymyositis, organ involvement unspecified (principal); M25.762 Osteophyte, left knee
CPT/HCPCS: 73560; 80053; 81003; 82550; 82553; 85025; 85651; 86140

== ENCOUNTER 2021-09-29 09:38 | Inpatient (IN) | payer MEDICARE, MEDICAID, SELFPAY ==
[2021-09-29 10:23] VITALS: BP 150/82; PULSE 87; RESP 24; TEMP 36.9; O2SAT 95; BMI 29.1
[2021-09-29 11:31] LABS: Basophils # 0.1 10^3/uL (0.0-0.1); Basophils % 0.4 %; Eosinophils # 0.3 10^3/uL (0.0-0.8); Eosinophils % 1.5 %; Hematocrit 47.7 % (37.0-47.0); Hemoglobin 14.6 g/dL (11.5-15.3); Lymphocytes # 4.1 10^3/uL (0.8-4.8); Lymphocytes % 21.1 %; Mean Corpuscular HGB Conc 30.6 g/dL (30.0-36.0); Mean Corpuscular Hemoglobin 26.8 pg (28.0-34.0); Mean Corpuscular Volume 87.7 fl (81-99); Mean Platelet Volume 9.6 fL (7.4-10.4); Monocytes # 1.1 10^3/uL (0.2-0.9); Monocytes % 5.6 %; Neutrophils % 70.9 %; Nucleated Red Blood Cells % 0 %; Platelet Count 297 10^3/cmm (130-400); Red Blood Count 5.44 10^6/uL (4.1-5.3); Red Cell Distribution Width 14.1 % (12.1-15.1); White Blood Count 19.3 10^3/uL (4.0-10.0)
[2021-09-29 11:49] LABS: Alanine Aminotransferase 22 U/L (0-33); Albumin Level 4.3 g/dL (3.5-5.2); Alkaline Phosphatase 69 IU/L (35-105); Aspartate Amino Transferase 23 U/L (0-32); Blood Urea Nitrogen 13 mg/dL (8-23); Calcium 9.6 mg/dL (8.5-10.5); Carbon Dioxide 20 mmol/L (22-29); Chloride 103 mmol/L (98-107); Globulin 2.2 g/dL (1.3-4.6); Glomerular Filtration Rate 62.3 mL/min (90-130); Glucose 70 mg/dL (65-115); Osmolality Calculated 285 mOsm/kg (285-295); Sodium 138 mmol/L (136-145); Total Bilirubin 0.3 mg/dL (0.15-1.2); Total Protein 6.5 g/dL (6.6-8.7)
[2021-09-29 11:50] LABS: Anion Gap 19.2 (5-19); Potassium 4.2 mmol/L (3.5-5.1)
--- NOTE | 2021-09-29 11:56 | CT_ITS ---
WS: [id number] CT ABDOMEN PELVIS TECHNIQUE: Contrast-enhanced CT of the abdomen and pelvis with coronal and sagittal reformatted image s. CLINICAL INFORMATION: sebastien abd pain COMPARISON: and June 09, 2021 DLP: 1661.[address] scans at [facility] use at least one of these dose optimization techniques: automated e xposure control; mA and/or kV adjustment per patient size (includes targeted exams where dose is matc hed to clinical indication); or iterative reconstruction. FINDINGS: Diffuse fatty infiltration of the liver. Normal portal vein and splenic vein. Normal gallbladder. Nor mal spleen. Small esophageal hiatal hernia. Bibasilar atelectasis. Normal pancreatic parenchymal enha ncement. Adrenal glands are normal. No hydronephrosis in either kidney. Normal caliber abdominal aorta. Aortic calcification. Celiac and SMA appear patent. No periaortic lym phadenopathy. Small fat-containing umbilical hernia. Diffuse thickening with inflammatory stranding about the sigmo id colon compatible with acute diverticulitis. Surrounding induration in the pelvic fat. Pelvic varic osities. No evidence of drainable abscess or fluid collection. Recommend follow-up to resolution. Sma ll amount of free fluid in the pelvis. Prior vertebroplasty changes in the lower thoracic spine at T9, T10, and T11. Mild chronic appearing compression superior endplates at L1, L2, L3, and L5 unchanged from previous. CT/CT abdomen pelvis w con* [id number] IMPRESSION: 1. Diffuse thickening with inflammatory stranding and edema involving the mid sigmoid colon compatible with acute diverticulitis. Recommend follow-up to reso lution. 2. Small amount of fluid adjacent to the sigmoid colon and free fluid in the p gutierrez. No evidence of drainable abscess or fluid collection. 3. Tiny fat-containing umbilical hernia. 4. Small esophageal hiatal hernia. 5. No other acute findings. Notified Davin Holman MD at 09/29/2021 1:34 PM.
[2021-09-29 12:17] VITALS: RESP 16
[2021-09-29] MEDS: sodium chloride 0.9% 1,000 ML 999 ML IV (12:17)
[2021-09-29] MEDS: famotidine 20 mg/2 mL INJ IVP (12:17)
[2021-09-29] MEDS: morphine 4 mg/mL SDV 1 mL 2 MG IVP (12:17)
--- NOTE | 2021-09-29 12:36 | XR_ITS ---
WS: [id number] XR chest 1V portable [id number] REASON FOR EXAM: chest pain FINDINGS: The chest is unchanged compared to 07/31/2021. Moderate tortuosity the thoracic aorta without aneurysmal dilatation. Heart at the upper limits of no rmal in size. Calcified granulomatous disease bilaterally without acute pulmonary parenchymal or pleural abnormalit y noted. Vertebral plasty multiple levels lower thoracic spine. XR/XR chest 1V portable [id number] IMPRESSION: No acute abnormality.
--- NOTE | 2021-09-29 12:36 | ECG_ITS ---
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
--- NOTE | 2021-09-29 12:46 | ED_ITS ---
HPI - General Adult General: Chief complaint: Abdominal Pain Stated complaint: PAIN IN LOWER ABD Time Seen by Provider: 09/29/21 11:55 History of Present Illness: Patient is a 58-year-old female with history of polymyositis, diverticulitis, appendectomy who presents the emergency room for evaluation of acute onset of lower quadrant princess pain since this morning and streaks of blood in the stool. Patient tells me that around 230 this morning patient developed having intermittent lower abdominal pain. Patient went back to sleep and woke up at 730 this morning with severe lower quadrant pain. Patient denies any fever but reports chills, has endorsed nausea without vomiting. She has not tolerated p.o. this morning. Patient denies any diarrhea, melena hematochezia. Patient is not on any anticoagulation. Patient noted mild streaks of blood in the stool. Patient is concerned that she may have diverticulitis as she has had multiple bouts of diverticulitis in the past. She is due for a polymyositis infusion with rheumatology tomorrow morning. She was evaluated in the emergency room, patient tells me that she had mild intermittent sharp chest pain on the left side that started 30 minutes ago. She is currently chest pain-free. Denies any shortness of breath, exertional chest pain, pleuritic chest pain, leg swelling, personal history of VTE, smoking, drug use, or prior cardiac hx. Onset: earlier today Duration: 10 hrs Location:home Severity:moderate Associated symptoms: Reports nausea; Deny chest pain, dyspnea, rash, palpitations or vomiting Review of Systems Const: Denies: fever(s) or chills Eyes: Denies: change in vision ENMT: Denies: mouth pain Card: Denies: chest pain or palpitations Resp: Denies: dyspnea or non-productive cough GI: Reports: abdominal pain (+lower abdominal pain), nausea and other (+bloody stool); Denies: vomiting or diarrhea : Denies: dysuria Musc: Denies: extremity pain Skin/Breast: Denies: rash or new lesions Neuro: Denies: weakness in extremities Psych: Reports: other (Normal mood) Luis/Lymph: Denies: easy bruising PFSH ED PFSH: Medical History Age related osteoporosis Anxiety CKD (chronic kidney disease) Compression fx, lumbar spine Compression fx, thoracic spine COPD (chronic obstructive pulmonary disease) Diverticulitis Family history of melanoma Generalized osteoarthritis GERD (gastroesophageal reflux disease) High risk medication use Hypertension Immunosuppression Medication monitoring encounter Osteoporosis Osteoporosis Polymyositis PUD (peptic ulcer disease) Surgical History H/O colonoscopy 2016 H/O wrist surgery History of appendectomy History of back surgery History of lumpectomy of both breasts History of tubal ligation Family History Father Hypertension Cancer Alzheimer disease Mother Hypertension Dementia Grandmother Cancer Sister Cancer Social History Quit status (tobacco): has quit using tobacco Year quit tobacco: 2009 - 1.5 PPD x 35 Years Second hand smoke exposure: No Alcohol intake: never Caregiver/support person: Yes Lives independently: Yes Household members: spouse Marital status: Number of children: 2 Current occupational status: retired and disabled History of recent travel: No Current gender identity: Female Special gonsalo needs: No Agree to transfusion: Yes Physical Exam Const: COMMON NORMALS: alert HENMT: COMMON NORMALS: atraumatic HEAD & SCALP: atraumatic MOUTH: moist mucous membranes not abnormal Eye: COMMON NORMALS: EOMs intact bilaterally and conjunctivae normal CO NJUNCTIVA: Yes conjunctivae normal Neck/C-Spine: COMMON NORMALS: full ROM and supple Resp: COMMON NORMALS: normal respiratory effort and clear to auscultation bilaterally AUSCULTATION: clear to auscultation bilaterally Cardio: COMMON NORMALS: regular rate RATE: regular rate GI: COMMON NORMALS: Soft to palpation PALPATION: Yes Soft to palpation OTHER: Moderate focal TTP to the hypogastric area. NO guarding rebound, guarding, rigidity. No CVA tenderness to percussion. Neg Mott/Neg McBurney's point tenderness, no suprabupic tenderness to palpation. +Guaiac negative brown stool on rectal exam today Extremity: COMMON NORMALS: full ROM Neuro: SENSORIUM/ORIENTATION: Yes alert MOTOR EXAM: No Abnormal motor strength present and Other motor observations present (no focal motor deficits) Psych: COMMON NORMALS: speech normal SPEECH: Yes normal speech MOOD & AFFECT: Yes euthymic mood Course Vital Signs: Vital signs: Vital Signs Temperature 98.5 F 09/29/21 10:23 Pulse Rate 86 09/29/21 14:17 Respiratory Rate 16 09/29/21 14:17 Blood Pressure 98/60 09/29/21 14:17 Pulse Oximetry 94 09/29/21 14:17 MDM - General Adult Medical Decision Making 66 F w/ hx of diverticulitis, prior appendectomy presenting to the emergency room with complaints of hypogastric abdominal pain x1 day. On exam, patient has moderate tenderness in the hypogastric area. Patient is noted to have white count of 19.8. CT of the pelvis showed uncomplicated diverticulitis. She received Zofran, Zosyn, IVF and pain control in the emergency room with significant improvement. On reassessment, patient is able to tolerate p.o. at 1:48 PM. Patient received Zosyn in the emergency room. I performed a shared decision making with patient for admission vs discharge with close followup. Given the patient has moderate pain with white count of 19K, patient can be admitted to hospital for IV antibio tics. However upon hearing this, patient tells me she would like to go home with antibiotics with close follow-up. Upon eating food, patient had significant vomiting and abdominal pain. Patient agrees with plan for admission. Dispositio: admission Lab Data : 09/29/21 11:21 09/29/21 11:21 Radiology Impressions Abdomen/Pelvis CT 09/29/21 11:56 IMPRESSION: 1. Diffuse thickening with inflammatory stranding and edema involving the mid sigmoid colon compatible with acute diverticulitis. Recommend follow-up to resolution. 2. Small amount of fluid adjacent to the sigmoid colon and free fluid in the pelvis. No evidence of drainable abscess or fluid collection. 3. Tiny fat-containing umbilical hernia. 4. Small esophageal hiatal hernia. 5. No other acute findings. Notified Davin Holman MD at 09/29/2021 1:34 PM. Chest X-Ray 09/29/21 12:36 IMPRESSION: No acute abnormality. Laboratory Results WBC 19.3 10^3/uL (4.0-10.0) H 09/29/21 11:21 RBC 5.44 10^6/uL (4.1-5.3) H 09/29/21 11:21 Hgb 14.6 g/dL (11.5-15.3) 09/29/21 11:21 Hct 47.7 % (37.0-47.0) H 09/29/21 11:21 MCV 87.7 fl (81-99) 09/29/21 11:21 MCH 26.8 pg (28.0-34.0) L 09/29/21 11:21 MCHC 30.6 g/dL (30.0-36.0) 09/29/21 11:21 RDW 14.1 % (12.1-15.1) 09/29/21 11:21 Plt Count 297 10^3/cmm (130-400) 09/29/21 11:21 MPV 9.6 fL (7.4-10.4) 09/29/21 11:21 Neut % (Auto) 70.9 % 09/29/21 11:21 Lymph % (Auto) 21.1 % 09/29/21 11:21 Tama % (Auto) 5.6 % 09/29/21 11:21 Eos % (Auto) 1.5 % 09/29/21 11:21 Baso % (Auto) 0.4 % 09/29/21 11:21 Neut # (Auto) 13.70 10^3/uL (1.8-7.7) H 09/29/21 11:21 Lymph # (Auto) 4.1 10^3/uL (0.8-4.8) 09/29/21 11:21 [place]ama # (Auto) 1.1 10^3/uL (0.2-0.9) H 09/29/21 11:21 Eos # (Auto) 0.3 10^3/uL (0.0-0.8) 09/29/21 11:21 Baso # (Auto) 0.1 10^3/uL (0.0-0.1) 09/29/21 11:21 Nucleated RBC % (auto) 0 % 09/29/21 11: Nucleated RBCs # 0.0 /100WBC 09/29/21 11:21 PT 13.00 SECONDS (12.1-14.9) 09/29/21 13:13 INR 0.95 (0.8-1.2) 09/29/21 13:13 APTT 25.4 SECONDS (23.9-36.7) 09/29/21 13:13 Sodium 138 mmol/L (136-145) 09/29/21 11:21 Potassium 4.2 mmol/L (3.5-5.1) 09/29/21 11:21 Chloride 103 mmol/L (98-107) 09/29/21 11:21 Carbon Dioxide 20 mmol/L (22-29) L 09/29/21 11:21 Anion Gap 19.2 (5-19) H 09/29/21 11:21 BUN 13 mg/dL (8-23) 09/29/21 11:21 Creatinine 0.9 mg/dL (0.5-0.9) 09/29/21 11:21 GFR Calculation 62.3 mL/min (90-130) L 09/29/21 11:21 Glucose 70 mg/dL (65-115) 09/29/21 11:21 Calculated Osmolality 285 mOsm/kg (285-295) 09/29/21 11:21 Calcium 9.6 mg/dL (8.5-10.5) 09/29/21 11:21 Total Bilirubin 0.3 mg/dL (0.15-1.2) 09/29/21 11:21 AST 23 U/L (0-32) 09/29/21 11:21 ALT 22 U/L (0-33) 09/29/21 11:21 Alkaline Phosphatase 69 IU/L (35-105) 09/29/21 11:21 Troponin T Baseline 13 ng/L (0-10) H 09/29/21 13:13 Total Protein 6.5 g/dL (6.6-8.7) L 09/29/21 11:21 Albumin 4.3 g/dL (3.5-5.2) 09/29/21 11:21 Globulin 2.2 g/dL (1.3-4.6) 09/29/21 11:21 Urine Color Yellow (Yellow) 09/29/21 12:00 Urine Appearance Clear (CLEAR) 09/29/21 12:00 Urine pH 7 (5-7) 09/29/21 12:00 Ur Specific [place] 1.010 (1.005-1.030) 09/29/21 12:00 Urine Protein Neg (Negative) 09/29/21 12:00 Urine Glucose (UA) Norm (Normal) 09/29/21 12:00 Urine Ketones Negative (Negative) 09/29/21 12:00 Urine Blood Neg (Negative) 09/29/21 12:00 Urine Nitrate Negative (Negative) 09/29/21 12:00 Urine Bilirubin Neg (Negative) 09/29/21 12:00 Urine Urobilinogen Norm mg/dL (Negative) 09/29/21 12:00 Ur Leukocyte Esterase Negative (Negative) 09/29/21 12:00 Imaging Data Other Imaging: [facility] [address] [place] [address] CT Scan Report Signed Patient: Shanita Saleh Unit #: [id number] : 1955 Age/Sex: 66 / F ADM Date: 09/29/21 Loc: ER Room/Bed: Attending Dr: Ordering Provider/Ordering MD: Davin Holman MD Date of Service: 09/29/21 Procedure(s): CT abdomen pelvis w con* [id number] Accession Number(s): [id number] Report Number: [id number] WS: [id number] CT ABDOMEN PELVIS TECHNIQUE: Contrast-enhanced CT of the abdomen and pelvis with coronal and sagittal reformatted images. CLINICAL INFORMATION: loewr abd pain COMPARISON: and June 09, 2021 DLP: 1661.[address] [facility] use at least one of these dose optimization techniques: automated exposure control; mA and/or kV adjustment per patient size (includes targeted exams where dose is matched to clinical indication); or iterative reconstruction. FINDINGS: Diffuse fatty infiltration of the liver. Normal portal vein and splenic vein. Normal gallbladder. Normal spleen. Small esophageal hiatal hernia. Bibasilar atelectasis. Normal pancreatic parenchymal enhancement. Adrenal glands are normal. No hydronephrosis in either kidney. Normal caliber abdominal aorta. Aortic calcification. Celiac and SMA appear patent. No periaortic lymphadenopathy. Small fat-containing umbilical hernia. Diffuse thickening with inflammatory stranding about the sigmoid colon compatible with acute diverticulitis. Surrounding induration in the pelvic fat. Pelvic varicosities. No evidence of drainable abscess or fluid collection. Recommend follow-up to resolution. Small amount of free fluid in the pelvis. Prior vertebroplasty changes in the lower thoracic spine at T9, T10, and T11. Mild chronic appearing compression superior endplates at L1, L2, L3, and L5 unchanged from previous. CT/CT abdomen pelvis w con* [id number] IMPRESSION: ? 1.? Diffuse thickening with inflammatory stranding and edema involving the mid sigmoid colon compatible with acute diverticulitis. Recommend follow-up to resolution. 2.? Small amount of fluid adjacent to the sigmoid colon and free fluid in the pelvis. No evidence of drainable abscess or fluid collection. 3.? Tiny fat-containing umbilical hernia. 4.? Small esophageal hiatal hernia. 5.? No other acute findings. ? Notified Davin Holman MD at 09/29/2021 1:34 PM. ? ? Dictated By: Richard Patton MD Signed By: Richard Patton MD Signed Date/Time: 09/29/21 1334 DD/ [address] [address] XRay Report Signed Patient: Shanita Saleh Unit #: [id number] : 1955 Age/Sex: 66 / F ADM Date: 09/29/21 Loc: ER Room/Bed: Attending Dr: Ordering Provider/Ordering MD: Davin Holman MD Date of Service: 09/29/21 Procedure(s): XR chest 1V portable [id number] Accession Number(s): [id number] Report Number: [id number] WS: [id number] XR chest 1V portable [id number] REASON FOR EXAM: chest pain FINDINGS: The chest is unchanged compared to 07/31/2021. Moderate tortuosity the thoracic aorta without aneurysmal dilatation. Heart at the upper limits of normal in size. Calcified granulomatous disease bilaterally without acute pulmonary parenchymal or pleural abnormality noted. Vertebral plasty multiple levels lower thoracic spine. XR/XR chest 1V portable [id number] IMPRESSION: No acute abnormality. ? ? Dictated By: Pernell Floyd Jr, MD Signed By: Pernell Floyd Jr, MD Signed Date/Time: 09/29/21 1317 Discharge Plan Discharge Patient Disposition: Admitted As Inpatient Clinical Impression: Abdominal pain, Diverticulitis, Nausea & vomiting Condition: Stable Discharge Diet: Advance as tolerated Discharge Activity: Increase activity as tolerated Coding Level of Care Code ED Broke Beater Operator for Tito Fwd Exam Comprehensive
[2021-09-29] MEDS: iohexol 300 mg/mL 100 mL Btl IV (13:04)
[2021-09-29] MEDS: lidocaine 2% viscous 15 ML, aluminum-mag hydrox-simethicon 30 ML, sucralfate oral liq 1 GM PO (13:28)
[2021-09-29 13:32] LABS: Add Urine Microscopic? NO; Charge for UA Resulting for Rev
[2021-09-29 13:35] LABS: INR 0.95 (0.8-1.2)
[2021-09-29 13:36] LABS: Bilirubin Urine Neg (Negative); Blood Urine Neg (Negative); Glucose Urine UA Norm (Normal); Ketones Urine Negative (Negative); Leukocyte Esterase Urine Negative (Negative); Nitrate Urine Negative (Negative); Protein Urine Neg (Negative); Urine Appearance Clear (CLEAR); Urine Color Yellow (Yellow); Urobilinogen Urine Norm (Negative); pH Urine 7 (5-7)
[2021-09-29 13:36] LABS: Partial Thromboplastin Time 25.4 SECONDS (23.9-36.7)
[2021-09-29 13:51] LABS: Troponin(5th) Baseline 13 ng/L (0-10)
[2021-09-29] MEDS: piperacillin-tazobactam 4.5 GM in sodium chloride 0.9% (plus) 50 ML IV (13:53)
[2021-09-29 14:17] VITALS: BP 98/60; PULSE 86; RESP 16; O2SAT 94
--- NOTE | 2021-09-29 16:58 | PM.HP ---
Providers/Chief Complaint Admitting Physician: Keenan Duarte MD Primary Care Provider: KEYONNA Myers Chief Complaint: PAIN IN LOWER ABD History of Present Illness Shanita Saleh is a 66 year old female with past medical history of COPD, polymyositis on Rituxan, osteoporosis, hypertension on 10 mg of prednisone daily presented to the hospital today with ongoing abdominal pain and diarrhea since today morning. Patient states she was having abdominal pain last night as well. She had a similar episode around a week ago. She has been on multiple antibiotics for last 2 months for possible pneumonia, COPD, kidney infection. In the ER patient was about to be discharged but when try to eat started having vomiting again along with presyncope so decision was made to admit. Review of Systems General: Reports: 10 or more systems reviewed and unremarkable except in HPI and below Const: Denies: fever(s), chills, body aches, change in appetite, change in weight, malaise, night sweats, diaphoresis, change in sleep pattern, daytime sleepiness or snoring Eyes: Denies: change in vision, blurry vision, photophobia, eye discomfort or eye discharge ENMT: Denies: throat pain, enlarged tonsils, hoarseness, mouth pain, oral sores, dry mouth, tinnitus, nasal congestion or post nasal drip Card: Denies: chest pain, palpitations, irregular heart rhythm, edema, swelling of feet/ankles, lightheadedness, syncope, pre-syncope, dyspnea on exertion, orthopnea, leg pain with exertion or acrocyanosis Resp: Denies: dyspnea, productive cough, non-productive cough, wheezing, stridor, pain on inspiration, change in phlegm color, hemoptysis or chest congestion GI: Denies: abdominal pain, nausea, vomiting, hematemesis, coffee ground emesis, dysphagia, heartburn, diarrhea, constipation, bloating, GI cramping, change in bowel habits, pain on defecation, hematochezia or melena : Denies: flank pain, dysuria, urinary frequency, urinary urgency, urinary hesitancy, nocturia or hematuria Musc: Denies: neck pain, back pain, extremity pain, joint pain, joint swelling, joint redness, joint stiffness or limited range of motion Neuro: Denies: headache(s), numbness in extremities, weakness in extremities, sensory changes, lack of coordination, difficulty walking, frequent falls, dizziness, vertigo, confusion, Slurred speech present, difficulty communicating thoughts or seizure-like activity Psych: Denies: anxiety, depression, mood swings, panic attacks, hopelessness or irritability Endo: Denies: polyuria, polydipsia, tired all the time, cold intolerance, excessive sweating, flushing or heat intolerance Luis/Lymph: Denies: easy bruising or easy bleeding All/Imm: Denies: tongue swelling, facial swelling or acute wheezing Medications/Allergies Home Medications Medication Instructions Recorded Confirmed Last Taken Type aspirin 81 mg tablet,delayed 81 mg PO QAM 09/04/19 09/29/21 06/08/21 History release (Adult Aspirin Regimen) cyclobenzaprine 5 mg tablet 5 mg PO TID PRN tab 09/04/19 09/29/21 04/22/20 08:00 History folic acid 1 mg tablet 1 mg PO QAM 09/04/19 09/29/21 06/08/21 History rituximab 10 mg/mL See Rx Instructions .ROUTE 09/04/19 09/29/21 Unknown History concentrate,intravenous (Rituxan) .COMPLEX ml Probiotic 1 cap PO QPM 04/22/20 09/29/21 06/07/21 History albuterol sulfate 90 mcg/actuation 2 puff INHALATION QID PRN #8.5 g 05/16/21 09/29/21 06/08/21 Rx aerosol inhaler (ProAir HFA) fluticasone propionate 50 1 - 2 spray INTRANASAL DAILY PRN 06/04/21 09/29/21 Unknown Rx mcg/actuation nasal 30 Days #16 g spray,suspension albuterol sulfate 2.5 mg (3 mL) INHALATION Q4H PRN 06/11/21 09/29/21 Unknown Rx #180 ml Vitamin D3 1 tab PO BID 06/18/21 09/29/21 Unknown History losartan 50 mg tablet 50 mg PO DAILY #90 tab 07/23/21 09/29/21 Unknown Rx prednisone 10 mg tablet 10 mg PO DAILY #30 tab 08/25/21 09/29/21 Unknown Rx lidocaine HCl 4 % topical cream 1 applic TOPICAL BID 09/22/21 09/29/21 Unknown History (Aspercreme (lidocaine HCl)) metoprolol tartrate 25 mg tablet 25 mg PO BID 09/29/21 09/29/21 Unknown History pantoprazole 40 mg tablet,delayed 40 mg PO BID 09/29/21 09/29/21 Unknown History release umeclidinium 62.5 mcg-vilanterol 1 inh INHALATION DAILY 09/29/21 09/29/21 Unknown History 25 mcg/actuation powdr for inhalation (Anoro Ellipta) Allergies Allergy/AdvReac Type Severity Reaction Status Date / Time azathioprine Allergy Intermediate ALGY-Difficulty Verified 09/29/21 16:09 Breathing nitrofurantoin Allergy Intermediate ALGY-Hives Verified 09/29/21 16:09 [From Macrobid] cephalexin Allergy Unknown ALGY-Hives Verified 09/29/21 16:09 lisinopril AdvReac Severe ADR-Cough Verified 09/29/21 16:09 PFSH Acute PFSH: Medical History (Updated 09/29/21 @ 17:00 by Keenan Duarte MD) Age related osteoporosis Anxiety Cellulitis of left lower extremity CKD (chronic kidney disease) Community acquired pneumonia Compression fx, lumbar spine Compression fx, thoracic spine COPD (chronic obstructive pulmonary disease) Diverticulitis Family history of melanoma Generalized osteoarthritis GERD (gastroesophageal reflux disease) High risk medication use Hypertension Immunosuppression Leg cramps Medication monitoring encounter Osteoporosis Osteoporosis Polymyositis PUD (peptic ulcer disease) Surgical History H/O colonoscopy 2016 H/O wrist surgery History of appendectomy History of back surgery History of lumpectomy of both breasts History of tubal ligation Family History Father Hypertension Cancer Alzheimer disease Mother Hypertension Dementia Grandmother Cancer Sister Cancer Social History Quit status (tobacco): has quit using tobacco Year quit tobacco: 2009 - 1.5 PPD x 35 Years Second hand smoke exposure: No Alcohol intake: never Caregiver/support person: Yes Lives independently: Yes Household members: spouse Marital status: Number of children: 2 Current occupational status: retired and disabled History of recent travel: No Current gender identity: Female Special gonsalo needs: No Agree to transfusion: Yes Vitals/I&O/Wt Last Vital Signs Temp 98.5 F 09/29/21 10:23 Pulse 86 01/31/22 14:17 Resp 16 09/29/21 14:17 BP 98/60 09/29/21 14:17 Pulse Ox 94 09/29/21 14:17 Weight last 48 hrs Weight 79.379 kg Physical Exam Narrative: EXAM NARRATIVE: General: No acute distress, AO x3, dehydrated HEENT: PERR, pupils bilaterally equal and reactive Chest: Normal vesicular breath sounds, no added sounds, equal good air entry bilaterally CVS: S1-S2 regular, no murmurs, no tachycardia, no gallops, no rubs Abdomen: Soft, tender in lower quadrant no organomegaly, bowel sounds present and sluggish Neuro: No focal deficits, no facial deformity, AO x3, power 5/5 in all limbs Data : 09/29/21 11:21 09/29/21 11:21 Other Labs: Radiology Impressions Abdomen/Pelvis CT 09/29/21 11:56 IMPRESSION: 1. Diffuse thickening with inflammatory stranding and edema involving the mid sigmoid colon compatible with acute diverticulitis. Recommend follow-up to resolution. 2. Small amount of fluid adjacent to the sigmoid colon and free fluid in the pelvis. No evidence of drainable abscess or fluid collection. 3. Tiny fat-containing umbilical hernia. 4. Small esophageal hiatal hernia. 5. No other acute findings. Notified Davin Holman MD at 09/29/2021 1:34 PM. Chest X-Ray 09/29/21 12:36 IMPRESSION: No acute abnormality. Laboratory Results WBC 19.3 10^3/uL (4.0-10.0) H 09/29/21 11:21 RBC 5.44 10^6/uL (4.1-5.3) H 09/29/21 11:21 Hgb 14.6 g/dL (11.5-15.3) 09/29/21 11:21 Hct 47.7 % (37.0-47.0) H 09/29/21 11:21 MCV 87.7 fl (81-99) 09/29/21 11:21 MCH 26.8 pg (28.0-34.0) L 09/29/21 11:21 MCHC 30.6 g/dL (30.0-36.0) 09/29/21 11:21 RDW 14.1 % (12.1-15.1) 09/29/21 11:21 Plt Count 297 10^3/cmm (130-400) 09/29/21 11:21 MPV 9.6 fL (7.4-10.4) 09/29/21 11:21 Neut % (Auto) 70.9 % 09/29/21 11:21 Lymph % (Auto) 21.1 % 09/29/21 11:21 [place] % (Auto) 5.6 % 09/29/21 11:21 Eos % (Auto) 1.5 % 09/29/21 11:21 Baso % (Auto) 0.4 % 09/29/21 11:21 Neut # (Auto) 13.70 10^3/uL (1.8-7.7) H 09/29/21 11:21 Lymph # (Auto) 4.1 10^3/uL (0.8-4.8) 09/29/21 11:21 [place]inch # (Auto) 1.1 10^3/uL (0.2-0.9) H 09/29/21 11:21 Eos # (Auto) 0.3 10^3/uL (0.0-0.8) 09/29/21 11:21 Baso # (Auto) 0.1 10^3/uL (0.0-0.1) 09/29/21 11:21 Nucleated RBC % (auto) 0 % 09/29/21 11: Nucleated RBCs # 0.0 /100WBC 09/29/21 11:21 PT 13.00 SECONDS (12.1-14.9) 09/29/21 13:13 INR 0.95 (0.8-1.2) 09/29/21 13:13 APTT 25.4 SECONDS (23.9-36.7) 09/29/21 13:13 Sodium 138 mmol/L (136-145) 09/29/21 11:21 Potassium 4.2 mmol/L (3.5-5.1) 09/29/21 11:21 Chloride 103 mmol/L (98-107) 09/29/21 11:21 Carbon Dioxide 20 mmol/L (22-29) L 09/29/21 11:21 Anion Gap 19.2 (5-19) H 09/29/21 11:21 BUN 13 mg/dL (8-23) 09/29/21 11:21 Creatinine 0.9 mg/dL (0.5-0.9) 09/29/21 11:21 GFR Calculation 62.3 mL/min (90-130) L 09/29/21 11:21 Glucose 70 mg/dL (65-115) 09/29/21 11:21 Calculated Osmolality 285 mOsm/kg (285-295) 09/29/21 11:21 Calcium 9.6 mg/dL (8.5-10.5) 09/29/21 11:21 Total Bilirubin 0.3 mg/dL (0.15-1.2) 09/29/21 11:21 AST 23 U/L (0-32) 09/29/21 11:21 ALT 22 U/L (0-33) 09/29/21 11:21 Alkaline Phosphatase 69 IU/L (35-105) 09/29/21 11:21 Troponin T Baseline 13 ng/L (0-10) H 09/29/21 13:13 Total Protein 6.5 g/dL (6.6-8.7) L 09/29/21 11:21 Albumin 4.3 g/dL (3.5-5.2) 09/29/21 11:21 Globulin 2.2 g/dL (1.3-4.6) 09/29/21 11:21 Urine Color Yellow (Yellow) 09/29/21 12:00 Urine Appearance Clear (CLEAR) 09/29/21 12:00 Urine pH 7 (5-7) 09/29/21 12:00 Ur Specific [place] 1.010 (1.005-1.030) 09/29/21 12:00 Urine Protein Neg (Negative) 09/29/21 12:00 Urine Glucose (UA) Norm (Normal) 09/29/21 12:00 Urine Ketones Negative (Negative) 09/29/21 12:00 Urine Blood Neg (Negative) 09/29/21 12:00 Urine Nitrate Negative (Negative) 09/29/21 12:00 Urine Bilirubin Neg (Negative) 09/29/21 12:00 Urine Urobilinogen Norm mg/dL (Negative) 09/29/21 12:00 Ur Leukocyte Esterase Negative (Negative) 09/29/21 12:00 A&P Assessment and plan (1) Abdominal pain: Status: Acute (2) Diverticulitis: Status: Acute (3) Nausea & vomiting: Status: Acute (4) Polymyositis: Status: Acute (5) Immunosuppression: Status: Acute (6) Hypertension: Status: Acute Qualifiers: Hypertension type: essential hypertension Qualified Code(s): I10 - Essential (primary) hypertension (7) Anxiety: Status: Acute Plan Diverticulitis: D5 NS at 75 cc/h. NPO except meds. Advance diet gradually. For now continue Zosyn. De-escalate antibiotics as per culture results. Most likely once able to take oral can discharge on oral antibiotics. Check blood culture, pro-Armando, stool studies. Check MRSA swab, lactate. Discussed CT scan with radiology. No concern for perforation. If patient does not improve should consider repeat CT scan to rule out developing abscess. Hematochezia: Hemodynamically stable. Repeat CBC in a.m. Check iron panel Continue to monitor. Hypertension: Goal blood pressure less than 140/90 mmHg. Continue with metoprolol. Hold losartan for now. Polymyositis with immunosuppression: Follows up with rheumatology. On Rituxan and chronic steroids. Continue home dose of steroids for now. Continue other chronic medication. Check TSH, lipid panel, A1c. COPD Full code. For except meds. Protonix for PUD prophylaxis. SCDs for DVT prophylaxis. Hold off on pharmacological prophylaxis given possible hematochezia. Attestations Medical Necessity Statement*: Admission for more than 2 midnights for management of diverticulitis in immunocompromised, inability to take oral intake because of nausea and vomiting. Time Spent in Patient Care: Greater than 35 minutes Coding Level of Care Code Acute Supervisor Baking for [facility] Diagnoses Abdominal pain R10.9 Diverticulitis K57.92 Nausea & vomiting R11.2 Polymyositis M33.20 Immunosuppression D89.9 Hypertension I10 Hypertension type: essential hypertension Anxiety F41.9
[2021-09-29 17:15] LABS: Troponin 5 2HR 12.73 ng/L (0-10)
[2021-09-29 17:16] LABS: Troponin 5 2HR Delta -0.27 ABS# (0-10)
[2021-09-29 17:49] LABS: Thyroid Stimulating Hormone 1.75 uIU/mL (0.27-4.20)
[2021-09-29 18:40] LABS: Procalcitonin 0.23 ng/mL (0-0.5)
[2021-09-29 18:44] LABS: Lactic Sepsis W/Reflex 0.7 mmol/L (0.5-2.2)
[2021-09-29 18:51] LABS: Iron 17 ug/dL (37-145); Percent Saturation 6.1 % (20-50); Total Iron Binding Capacity 276 mcg/dl; Unsaturated Iron Binding 259 ug/dL (112-347)
[2021-09-29 20:55] VITALS: BP 117/53; PULSE 98; RESP 18; TEMP 37.3; O2SAT 96
[2021-09-29] MEDS: dextrose 5%-sod chloride 0.9% 1,000 ML 50 ML IV (23:36)
[2021-09-29] MEDS: pantoprazole DR 40 mg Tablet PO (23:45)
[2021-09-29] MEDS: metoprolol tartrate 25 mg Tablet PO (23:45)
[2021-09-29] MEDS: piperacillin-tazobactam 3.375 GM in sodium chloride 0.9% (plus) 50 ML IV (23:48)
[2021-09-30] VITALS (7 sets, daily range): BP systolic 98–135; BP diastolic 62–66; PULSE 78–96; RESP 17–18; TEMP 36.6–36.9; O2SAT 90–92
[2021-09-30] MEDS: ondansetron 2 mg/ML SDV 2 mL 4 MG IVP (00:02)
[2021-09-30] MEDS: acetaminophen 325 mg Tablet 650 MG PO (00:02)
[2021-09-30] MEDS: ipratropium-albuterol 3 mL Neb INHALATION ×2 (03:00→09:33)
[2021-09-30 04:43] LABS: Basophils # 0.1 10^3/uL (0.0-0.1); Basophils % 0.4 %; Eosinophils # 0.4 10^3/uL (0.0-0.8); Hematocrit 40.5 % (37.0-47.0); Hemoglobin 12.2 g/dL (11.5-15.3); Lymphocytes # 2.3 10^3/uL (0.8-4.8); Lymphocytes % 19.2 %; Mean Corpuscular HGB Conc 30.1 g/dL (30.0-36.0); Mean Corpuscular Hemoglobin 26.3 pg (28.0-34.0); Mean Corpuscular Volume 87.3 fl (81-99); Mean Platelet Volume 9.6 fL (7.4-10.4); Monocytes # 0.9 10^3/uL (0.2-0.9); Monocytes % 7.3 %; Neutrophils % 69.7 %; Nucleated Red Blood Cells % 0 %; Platelet Count 297 10^3/cmm (130-400); Red Blood Count 4.64 10^6/uL (4.1-5.3); Red Cell Distribution Width 14.2 % (12.1-15.1); White Blood Count 11.9 10^3/uL (4.0-10.0)
[2021-09-30 04:57] LABS: Estmated Average Glucose 120; Hemoglobin A1C 5.8 % (4.0-6.0)
[2021-09-30 05:08] LABS: Alanine Aminotransferase 14 U/L (0-33); Albumin Level 3.2 g/dL (3.5-5.2); Alkaline Phosphatase 57 IU/L (35-105); Anion Gap 13.9 (5-19); Aspartate Amino Transferase 16 U/L (0-32); Blood Urea Nitrogen 14 mg/dL (8-23); Calcium 8.1 mg/dL (8.5-10.5); Carbon Dioxide 22 mmol/L (22-29); Chloride 104 mmol/L (98-107); Chol HDL Ratio 3.64 mg/dL (0.0-4.40); Cholesterol 182 mg/dL (0-200); Globulin 2.4 g/dL (1.3-4.6); Glomerular Filtration Rate 55.1 mL/min (90-130); Glucose 114 mg/dL (65-115); HDL Cholesterol 50 mg/dL (60-100); LDL Cholesterol Calculated 113 mg/dL (50-129); Osmolality Calculated 283 mOsm/kg (285-295); Potassium 3.9 mmol/L (3.5-5.1); Sodium 136 mmol/L (136-145); Total Bilirubin 0.9 mg/dL (0.15-1.2); Total Protein 5.6 g/dL (6.6-8.7); Triglycerides 93 mg/dL (0-150); VLDL Cholestrol Calculation 19 mg/dL (0-30)
[2021-09-30] MEDS: folic acid 1 mg Tablet PO (06:57)
[2021-09-30] MEDS: aspirin 81 mg EC Tablet PO (06:57)
--- NOTE | 2021-09-30 07:03 | PC.NURSE ---
Patient give verbal authorization to speak with Diana Quiroga [phone]
[2021-09-30] MEDS: metoprolol tartrate 25 mg Tablet PO (09:01)
[2021-09-30] MEDS: pantoprazole DR 40 mg Tablet PO (09:01)
[2021-09-30] MEDS: predniSONE 10 mg Tablet PO (09:01)
[2021-09-30] MEDS: piperacillin-tazobactam 3.375 GM in sodium chloride 0.9% (plus) 50 ML IV (09:02)
--- NOTE | 2021-09-30 10:15 | DCPLANNER ---
insurance office manager had message to schedule a follow up appointment for patient with primary care physician. When reviewing patients chart, welfare case worker noticed that patient was admitted to hospital. insurance office manager did not make a follow up appointment for patient due to patient being admitted.
--- NOTE | 2021-09-30 13:44 | P.DS_ITS ---
Discharge Providers Date of Admission: 09/29/21 14:34 Date of Discharge: September 30, 2021 Attending Provider at Admission: Keenan Duarte MD Attending Provider at Discharge: Syed Giang MD Primary Care Provider: KEYONNA Myers Diagnoses at Discharge Discharge Diagnosis (1) Abdominal pain: Status: Acute (2) Diverticulitis: Status: Acute (3) Nausea & vomiting: Status: Acute (4) Polymyositis: Status: Acute (5) Immunosuppression: Status: Acute (6) Hypertension: Status: Acute Qualifiers: Hypertension type: essential hypertension Qualified Code(s): I10 - Essential (primary) hypertension (7) Anxiety: Status: Acute Reason for Visit Reason for Visit: PAIN IN LOWER ABD Hospital Course Hospital Course Shanita Saleh is a 66 year old female with past medical history of COPD, polymyositis on Rituxan, osteoporosis, hypertension on 10 mg of prednisone daily presented to the hospital today with ongoing abdominal pain and diarrhea since today morning Patient was unable to [facility] for acute diverticulitis, CT scan of the abdomen pelvis showed 1.? Diffuse thickening with inflammatory stranding and edema involving the mid sigmoid colon compatible with acute diverticulitis. Recommend follow-up to resolution. 2.? Small amount of fluid adjacent to the sigmoid colon and free fluid in the pelvis. No evidence of drainable abscess or fluid collection. -Discussed with radiology, no radiographic evidence of karlie perforation -Kept n.p.o., IV fluids, Zosyn for antibiotic coverage, clinically monitored -Patient clinically improved, remained afebrile, passing gas from below, abdominal distention improved, she is clinically feeling better -Advance to clear liquid diet, tolerating well -Discharged home on Augmentin for seven remaining days, to advance diet slowly, GI soft diet, follow-up with general surgery in a month, start high-fiber diet in the month -Patient was advised if she were to have recurrent abdominal pain, fevers go to the emergency room Physical Exam Const: COMMON NORMALS: no acute distress and patient oriented x3 Resp: COMMON NORMALS: normal respiratory effort, No retractions, No use of accessory muscles and clear to auscultation bilaterally AUSCULTATION: clear to auscultation bilaterally Cardio: COMMON NORMALS: regular rate, regular rhythm, S1 normal heart sound present and S2 normal heart sound present RATE: regular rate RHYTHM: regular rhythm HEART SOUNDS: S1 normal heart sound present and S2 normal heart sound present GI: COMMON NORMALS: Normal to inspection, nondistended, normoactive bowel sounds present, Soft to palpation, non-tender, No hepatosplenomegaly present and no masses PALPATION: Yes Soft to palpation and Yes No hepatosplenomegaly present Extremity: COMMON NORMALS: capillary refill normal, no clubbing, cyanosis or edema, no calf tenderness and no pedal edema Neuro: COMMON NORMALS: patient oriented x3 Psych: COMMON NORMALS: mental status grossly normal Discharge Data Studies Completed and Pending Completed Studies During Hospitalization Category Date Time Status CT abdomen pelvis w con* [id number] Urgent Cat Scan 09/29/21 11:56 Completed XR chest 1V portable [id number] Stat Exams 09/29/21 12:36 Completed Pending at discharge Category Date Time Status Blood Culture Stat Lab 09/29/21 18:00 Results Clostridioides Difficile PCR Routine Lab 09/29/21 17:07 Ordered Enteric Bacterial Panel by PCR Routine Lab 09/29/21 17:07 Ordered Enteric Parasite Panel by PCR Routine Lab 09/29/21 17:07 Ordered Immunochemical Fecal OCB Routine Lab 09/29/21 22:10 Ordered Lactoferrin Routine Lab 09/29/21 17:07 Ordered MRSA by PCR Routine Lab 09/29/21 17:07 Uncollected Radiology Impressions Abdomen/Pelvis CT 09/29/21 11:56 IMPRESSION: 1. Diffuse thickening with inflammatory stranding and edema involving the mid sigmoid colon compatible with acute diverticulitis. Recommend follow-up to resolution. 2. Small amount of fluid adjacent to the sigmoid colon and free fluid in the pelvis. No evidence of drainable abscess or fluid collection. 3. Tiny fat-containing umbilical hernia. 4. Small esophageal hiatal hernia. 5. No other acute findings. Notified Davin Holman MD at 09/29/2021 1:34 PM. Chest X-Ray 09/29/21 12:36 IMPRESSION: No acute abnormality. Laboratory Results WBC 11.9 10^3/uL (4.0-10.0) H 09/30/21 04:31 RBC 4.64 10^6/uL (4.1-5.3) 09/30/21 04:31 Hgb 12.2 g/dL (11.5-15.3) 09/30/21 04:31 Hct 40.5 % (37.0-47.0) 09/30/21 04:31 MCV 87.3 fl (81-99) 09/30/21 04:31 MCH 26.3 pg (28.0-34.0) L 09/30/21 04:31 MCHC 30.1 g/dL (30.0-36.0) 09/30/21 04:31 RDW 14.2 % (12.1-15.1) 09/30/21 04:31 Plt Count 297 10^3/cmm (130-400) 09/30/21 04:31 MPV 9.6 fL (7.4-10.4) 09/30/21 04:31 Neut % (Auto) 69.7 % 09/30/21 04:31 Lymph % (Auto) 19.2 % 09/30/21 04:31 [place] % (Auto) 7.3 % 09/30/21 04:31 Eos % (Auto) 3.0 % 09/30/21 04:31 Baso % (Auto) 0.4 % 09/30/21 04:31 Neut # (Auto) 8.30 10^3/uL (1.8-7.7) H 09/30/21 04:31 Lymph # (Auto) 2.3 10^3/uL (0.8-4.8) 09/30/21 04:31 [place] # (Auto) 0.9 10^3/uL (0.2-0.9) 09/30/21 04:31 Eos # (Auto) 0.4 10^3/uL (0.0-0.8) 09/30/21 04:31 Baso # (Auto) 0.1 10^3/uL (0.0-0.1) 09/30/21 04:31 Nucleated RBC % (auto) 0 % 09/30/21 04:31 Nucleated RBCs # 0.0 /100WBC 09/30/21 04:31 PT 13.00 SECONDS (12.1-14.9) 09/29/21 13:13 INR 0.95 (0.8-1.2) 09/29/21 13:13 APTT 25.4 SECONDS (23.9-36.7) 09/29/21 13:13 Sodium 136 mmol/L (136-145) 09/30/21 04:31 Potassium 3.9 mmol/L (3.5-5.1) 09/30/21 04:31 Chloride 104 mmol/L (98-107) 09/30/21 04:31 Carbon Dioxide 22 mmol/L (22-29) 09/30/21 04:31 Anion Gap 13.9 (5-19) 09/30/21 04:31 BUN 14 mg/dL (8-23) 09/30/21 04:31 Creatinine 1.0 mg/dL (0.5-0.9) H 09/30/21 04:31 GFR Calculation 55.1 mL/min (90-130) L 09/30/21 04:31 Glucose 114 mg/dL (65-115) 09/30/21 04:31 Estimat Average Glucose 120 09/30/21 04:31 Hemoglobin A1c 5.8 % (4.0-6.0) 09/30/21 04:31 Calculated Osmolality 283 mOsm/kg (285-295) L 09/30/21 04:31 Lactic Acid 0.7 mmol/L (0.5-2.2) 09/29/21 18:00 Calcium 8.1 mg/dL (8.5-10.5) L 09/30/21 04:31 Iron 17 ug/dL (37-145) L 09/29/21 16:45 TIBC 276 mcg/dl 09/29/21 16:45 % Saturation 6.1 % (20-50) L 09/29/21 16:45 Unsat Iron Binding 259 ug/dL (112-347) 09/29/21 16:45 Total Bilirubin 0.9 mg/dL (0.15-1.2) 09/30/21 04:31 AST 16 U/L (0-32) 09/30/21 04:31 ALT 14 U/L (0-33) 09/30/21 04:31 Alkaline Phosphatase 57 IU/L (35-105) 09/30/21 04:31 Troponin T Baseline 13 ng/L (0-10) H 09/29/21 13:13 Troponin T 120 Minute 12.73 ng/L (0-10) H 09/29/21 16:45 Delta Troponin T -0.27 ABS# (0-10) L 09/29/21 16:45 Total Protein 5.6 g/dL (6.6-8.7) L 09/30/21 04:31 Albumin 3.2 g/dL (3.5-5.2) L 09/30/21 04:31 Globulin 2.4 g/dL (1.3-4.6) 09/30/21 04:31 Triglycerides 93 mg/dL (0-150) 09/30/21 04:31 Cholesterol 182 mg/dL (0-200) 09/30/21 04:31 LDL Cholesterol, Calc 113 mg/dL (50-129) 09/30/21 04:31 Total VLDL Cholesterol 19 mg/dL (0-30) 09/30/21 04:31 HDL Cholesterol 50 mg/dL (60-100) L 09/30/21 04:31 Cholesterol/HDL Ratio 3.64 mg/dL (0.0-4.40) 09/30/21 04:31 Procalcitonin 0.23 ng/mL (0-0.5) 09/29/21 16:45 TSH 1.75 uIU/mL (0.27-4.20) 09/29/21 16:45 Urine Color Yellow (Yellow) 09/29/21 12:00 Urine Appearance Clear (CLEAR) 09/29/21 12:00 Urine pH 7 (5-7) 09/29/21 12:00 Ur Specific [place] 1.010 (1.005-1.030) 09/29/21 12:00 Urine Protein Neg (Negative) 09/29/21 12:00 Urine Glucose (UA) Norm (Normal) 09/29/21 12:00 Urine Ketones Negative (Negative) 09/29/21 12:00 Urine Blood Neg (Negative) 09/29/21 12:00 Urine Nitrate Negative (Negative) 09/29/21 12:00 Urine Bilirubin Neg (Negative) 09/29/21 12:00 Urine Urobilinogen Norm mg/dL (Negative) 09/29/21 12:00 Ur Leukocyte Esterase Negative (Negative) 09/29/21 12:00 Vitals Last Vital Signs Temp 97.9 F 09/30/21 12:00 Pulse 81 09/30/21 12:00 Resp 18 09/30/21 12:00 BP 98/62 09/30/21 12:00 Pulse Ox 90 09/30/21 12:00 Discharge Plan Discharge Patient Disposition: Home Condition: Stable Prescriptions: New Augmentin 875-125 mg tablet 1 tab PO Q12H 7 Days Qty: 14 0RF Continued albuterol sulfate [ProAir HFA] 90 mcg/actuation HFA aerosol inhaler 2 puff INHALATION QID PRN (Reason: shortness of breath) Qty: 8.5 0RF cyclobenzaprine 5 mg tablet 5 mg PO TID PRN (Reason: Muscle Spasm) 0RF Rituxan 10 mg/mL concentrate See Rx Instructions .ROUTE .COMPLEX 0RF Rx Instructions: pt states she got in may 2020-suppose to get every 6 months folic acid 1 mg tablet 1 mg PO QAM 0RF aspirin [Adult Aspirin Regimen] 81 mg tablet,delayed release (DR/EC) 81 mg PO QAM 0RF fluticasone propionate 50 mcg/actuation spray,suspension 1 - 2 spray intranasal DAILY PRN (Reason: Allergy Symptoms) 30 Days Qty: 16 6RF lidocaine HCl [Aspercreme (lidocaine HCl)] 4 % cream 1 applic topical BID 0RF albuterol sulfate 2.5 mg /3 mL (0.083 %) solution for nebulization 2.5 mg INHALATION Q4H PRN (Reason: shortness of breath or wheezing) Qty: 180 4RF losartan 50 mg tablet 50 mg PO DAILY Qty: 90 3RF prednisone 10 mg tablet 10 mg PO DAILY Qty: 30 3RF Rx Instructions: take 1 tab daily Probiotic 1 cap PO QPM 0RF Vitamin D3 1 tab PO BID 0RF pantoprazole 40 mg tablet,delayed release (DR/EC) 40 mg PO BID 0RF metoprolol tartrate 25 mg tablet 25 mg PO BID 0RF Anoro Ellipta 62.5-25 mcg/actuation blister with device 1 inh inhalation DAILY 0RF Discharge Orders: Discharge Order (Routine); Ordered 09/30/21 Ordered By: Syed Giang Referrals: Camilo Driscoll MD [Physician] - 1 month Mercedez Loco FNP [Primary Care Provider] - Discharge Diet: Advance as tolerated Discharge Activity: Increase activity as tolerated Patient Instructions: Diverticulitis (ED), Abdominal Pain (ED), Opioid Safety Activity Restrictions/Additional Instructions: Please come back if you have any worsening abdominal pain, fever or chills, nausea or vomiting, diarrhea, blood in the stool, inability hold down liquid or solids, or any new concerning complaints. Discharge Attestations Time Spent in Discharge Care*: less than 30 min Quality Metrics Clinical Quality Measures [ No reported AMI, CVA or VTE this stay] Coding Level of Care Code Acute Chg FW DC note Diagnoses Abdominal pain R10.9 Diverticulitis K57.92 Nausea & vomiting R11.2 Polymyositis M33.20 Immunosuppression D89.9 Hypertension I10 Hypertension type: essential hypertension Anxiety F41.9
--- NOTE | 2021-09-30 15:10 | PC.NURSE ---
IV removed at this time. Patient tolerated well. Patient is A&Ox3. Respirations even and non-labored on room air. Reviewed patient's discharge with patient and at this time. Patient verbalized understanding of follow up appointments and medications. Patient wheel chaired to private car.
== END 2021-09-30 15:15 | disposition home or self-care (01) | DRG 392 ==
LOC: ER 13:46 → ER IP 17:20 → MEDSURG 20:54
PROVIDERS: Physician Assistant; Admitting Provider Student in an Organized Health Care Education/Training Program; Emergency Provider Emergency Medicine; PCP Nurse Practitioner Family; Visit Provider Family Medicine
DX: K57.32 Diverticulitis of large intestine without perforation or abscess without bleeding (principal); M33.20 Polymyositis, organ involvement unspecified; D84.821 Immunodeficiency due to drugs; F41.9 Anxiety disorder, unspecified; J44.9 Chronic obstructive pulmonary disease, unspecified; M81.0 Age-related osteoporosis without current pathological fracture; I12.9 Hypertensive chronic kidney disease with stage 1 through stage 4 chronic kidney disease, or unspecified chronic kidney disease; N18.9 Chronic kidney disease, unspecified; K27.9 Peptic ulcer, site unspecified, unspecified as acute or chronic, without hemorrhage or perforation; K21.9 Gastro-esophageal reflux disease without esophagitis; Z79.899 Other long term (current) drug therapy; Z87.891 Personal history of nicotine dependence; Z79.52 Long term (current) use of systemic steroids; Z79.82 Long term (current) use of aspirin
CPT/HCPCS: 36415; 71045; 74177; 80053; 80061; 81003; 83036; 83540; 83550; 83605; 84145; 84443; 84484; 85025; 85610; 85730; 86403; 87040; 93005; 94640; 96365; 96375; 99285; J2270; J2405; J2543; J3490; J7030; J7512; Q9967

== ENCOUNTER → 2021-10-30 10:09 | Outpatient (BNVA) | payer MEDICARE, MEDICAID, SELFPAY | PROVIDERS: PCP Nurse Practitioner Family; Visit Provider Internal Medicine | DX: M33.20 Polymyositis, organ involvement unspecified (principal); Z79.899 Other long term (current) drug therapy; N39.0 Urinary tract infection, site not specified | CPT/HCPCS: 80053; 81003; 82550; 85025; 85651; 86140; 87077; 87086; 87184 ==

== ENCOUNTER → 2021-11-06 09:13 | Outpatient (BNVA) | payer MEDICARE, MEDICAID, SELFPAY | PROVIDERS: PCP Nurse Practitioner Family; Visit Provider Nurse Practitioner Family | DX: N39.0 Urinary tract infection, site not specified (principal) | CPT/HCPCS: 87077; 87086; 87184 ==

== ENCOUNTER → 2021-11-12 08:07 | Outpatient (BNVA) | payer MEDICARE, MEDICAID, SELFPAY | PROVIDERS: PCP Nurse Practitioner Family; Visit Provider Internal Medicine Critical Care Medicine | DX: J44.9 Chronic obstructive pulmonary disease, unspecified (principal); M33.20 Polymyositis, organ involvement unspecified; Z87.891 Personal history of nicotine dependence; K21.9 Gastro-esophageal reflux disease without esophagitis; I10 Essential (primary) hypertension; N18.9 Chronic kidney disease, unspecified | CPT/HCPCS: 99214 ==

== ENCOUNTER → 2021-11-17 13:48 | Outpatient (BNVA) | payer MEDICARE, MEDICAID, SELFPAY | PROVIDERS: PCP Nurse Practitioner Family; Visit Provider Internal Medicine | DX: J44.9 Chronic obstructive pulmonary disease, unspecified (principal); F41.9 Anxiety disorder, unspecified; Z87.891 Personal history of nicotine dependence | CPT/HCPCS: 99214 ==

== ENCOUNTER → 2021-11-19 08:31 | Outpatient (BNVA) | payer MEDICARE, MEDICAID, SELFPAY | PROVIDERS: PCP Nurse Practitioner Family; Visit Provider Internal Medicine | DX: M33.20 Polymyositis, organ involvement unspecified (principal); J44.9 Chronic obstructive pulmonary disease, unspecified; M81.0 Age-related osteoporosis without current pathological fracture; Z79.899 Other long term (current) drug therapy; Z87.19 Personal history of other diseases of the digestive system; Z51.81 Encounter for therapeutic drug level monitoring; Z87.891 Personal history of nicotine dependence; J06.9 Acute upper respiratory infection, unspecified; N39.0 Urinary tract infection, site not specified | CPT/HCPCS: 80053; 81003; 82550; 85025; 85651; 86140; 99214 ==

== ENCOUNTER 2021-11-19 11:40 | Outpatient (CLI) | payer MEDICARE, MEDICAID, SELFPAY ==
[2021-11-19 12:12] LABS: Add Urine Microscopic? NO; Charge for UA Resulting for Rev
[2021-11-19 12:18] LABS: Basophils # 0.1 10^3/uL (0.0-0.1); Basophils % 0.6 %; Eosinophils # 0.1 10^3/uL (0.0-0.8); Eosinophils % 1.1 %; Hematocrit 42.1 % (37.0-47.0); Lymphocytes % 25.2 %; Mean Corpuscular HGB Conc 30.9 g/dL (30.0-36.0); Mean Corpuscular Hemoglobin 26.8 pg (28.0-34.0); Mean Corpuscular Volume 86.8 fl (81-99); Mean Platelet Volume 9.9 fL (7.4-10.4); Monocytes # 0.5 10^3/uL (0.2-0.9); Monocytes % 4.5 %; Nucleated Red Blood Cells % 0 %; Platelet Count 323 10^3/cmm (130-400); Red Blood Count 4.85 10^6/uL (4.1-5.3)
[2021-11-19 12:52] LABS: Bilirubin Urine Neg (Negative); Blood Urine Neg (Negative); Glucose Urine UA Norm (Normal); Ketones Urine Negative (Negative); Leukocyte Esterase Urine Negative (Negative); Nitrate Urine Negative (Negative); Protein Urine Neg (Negative); Urine Appearance Clear (CLEAR); Urine Color Straw (Yellow); Urobilinogen Urine Norm (Negative); pH Urine 7 (5-7)
[2021-11-19 12:53] LABS: Alanine Aminotransferase 18 U/L (0-33); Alkaline Phosphatase 55 IU/L (35-105); Anion Gap 14.7 (5-19); Aspartate Amino Transferase 19 U/L (0-32); Blood Urea Nitrogen 12 mg/dL (8-23); Calcium 9.4 mg/dL (8.5-10.5); Carbon Dioxide 24 mmol/L (22-29); Chloride 106 mmol/L (98-107); Creatine Phosphokinase 223 U/L (26-192); Globulin 2.8 g/dL (1.3-4.6); Glomerular Filtration Rate 71.3 mL/min (90-130); Glucose 92 mg/dL (65-115); Osmolality Calculated 291 mOsm/kg (285-295); Potassium 3.7 mmol/L (3.5-5.1); Sodium 141 mmol/L (136-145); Total Bilirubin 0.2 mg/dL (0.15-1.2); Total Protein 6.8 g/dL (6.6-8.7)
[2021-11-19 13:23] LABS: Erythrocyte Sedimentation Rate 18 mm/hr (0-15)
== END 2021-11-19 11:41 | disposition home or self-care (01) ==
LOC: LAB 11:44
PROVIDERS: PCP Nurse Practitioner Family; Visit Provider Internal Medicine
DX: J06.9 Acute upper respiratory infection, unspecified (principal); M33.20 Polymyositis, organ involvement unspecified; N39.0 Urinary tract infection, site not specified; Z87.19 Personal history of other diseases of the digestive system
CPT/HCPCS: 80053; 81003; 82550; 85025; 85651; 86140

== ENCOUNTER 2021-11-20 06:00 | Outpatient (CLI) | payer MEDICARE, MEDICAID, SELFPAY | END 2021-11-20 06:01 | disposition home or self-care (01) | LOC: LAB 11-23 09:24 | PROVIDERS: PCP Nurse Practitioner Family; Visit Provider Internal Medicine | DX: Z87.19 Personal history of other diseases of the digestive system (principal) | CPT/HCPCS: 83630; 87493 ==

== ENCOUNTER 2021-11-27 09:25 | Outpatient (CLI) | payer MEDICARE, MEDICAID, SELFPAY ==
[2021-11-27 09:53] VITALS: BP 181/81; PULSE 58; RESP 18; TEMP 36.7; O2SAT 97
[2021-11-27 10:05] LABS: Basophils # 0.1 10^3/uL (0.0-0.1); Basophils % 0.6 %; Eosinophils # 0.2 10^3/uL (0.0-0.8); Eosinophils % 2.4 %; Hematocrit 42.4 % (37.0-47.0); Hemoglobin 12.9 g/dL (11.5-15.3); Lymphocytes % 41.1 %; Mean Corpuscular HGB Conc 30.4 g/dL (30.0-36.0); Mean Corpuscular Hemoglobin 26.6 pg (28.0-34.0); Mean Corpuscular Volume 87.4 fl (81-99); Mean Platelet Volume 10.2 fL (7.4-10.4); Monocytes # 0.9 10^3/uL (0.2-0.9); Neutrophils # 4.47 10^3/uL (1.8-7.7); Neutrophils % 46.4 %; Nucleated Red Blood Cells % 0 %; Platelet Count 326 10^3/cmm (130-400); Red Blood Count 4.85 10^6/uL (4.1-5.3); Red Cell Distribution Width 14.4 % (12.1-15.1); White Blood Count 9.6 10^3/uL (4.0-10.0)
[2021-11-27] MEDS: acetaminophen 325 mg Tablet 650 MG PO (10:10)
[2021-11-27] MEDS: sodium chloride 0.9% 250 ML 50 ML IV (10:12)
[2021-11-27 10:13] LABS: Alanine Aminotransferase 14 U/L (0-33); Albumin Level 4.1 g/dL (3.5-5.2); Alkaline Phosphatase 56 IU/L (35-105); Anion Gap 14.1 (5-19); Aspartate Amino Transferase 19 U/L (0-32); Blood Urea Nitrogen 13 mg/dL (8-23); Calcium 9.3 mg/dL (8.5-10.5); Carbon Dioxide 22 mmol/L (22-29); Chloride 107 mmol/L (98-107); Globulin 2.2 g/dL (1.3-4.6); Glomerular Filtration Rate 62.3 mL/min (90-130); Glucose 85 mg/dL (65-115); Osmolality Calculated 287 mOsm/kg (285-295); Potassium 4.1 mmol/L (3.5-5.1); Sodium 139 mmol/L (136-145); Total Bilirubin 0.2 mg/dL (0.15-1.2); Total Protein 6.3 g/dL (6.6-8.7)
[2021-11-27] MEDS: diphenhydrAMINE 50 mg/mL SDV 1mL 25 MG IV (10:13)
[2021-11-27] MEDS: rituximab 1,000 MG in sodium chloride 0.9% 250 ML, primary tubing onc 1 EACH 50 MG IV (10:21)
[2021-11-27 10:50] VITALS: BP 147/70; PULSE 65; RESP 18; TEMP 36.2; O2SAT 94
[2021-11-27 11:24] VITALS: BP 150/76; PULSE 64; RESP 18; TEMP 36.5; O2SAT 95
[2021-11-27 11:49] VITALS: BP 161/70; PULSE 68; RESP 18; TEMP 36.3; O2SAT 93
[2021-11-27 12:20] VITALS: BP 148/75; PULSE 68; RESP 18; TEMP 36.8; O2SAT 94
[2021-11-27 13:13] VITALS: BP 162/75; PULSE 76; RESP 18; TEMP 36.5; O2SAT 93
== END 2021-11-27 09:26 | disposition home or self-care (01) ==
PROVIDERS: PCP Nurse Practitioner Family; Referring Provider Internal Medicine; Visit Provider Internal Medicine Medical Oncology
DX: D50.9 Iron deficiency anemia, unspecified (principal); M33.20 Polymyositis, organ involvement unspecified; Z79.899 Other long term (current) drug therapy
CPT/HCPCS: 80053; 85025; 86140; 96365; 96366; 96375; J1200; J2930; J7050; J9312

== ENCOUNTER 2021-12-02 11:59 | Outpatient (CLI) | payer MEDICARE, MEDICAID, SELFPAY ==
--- NOTE | 2021-12-02 13:30 | CT_ITS ---
WS: [id number] CT ABDOMEN AND PELVIS WITH AND WITHOUT CONTRAST HISTORY: K57.92 - Diverticulitis of intestine, part unspecified, TECHNIQUE: Unenhanced 5 mm axial imaging first performed through the abdomen. Post contrast imaging t hrough the abdomen and pelvis. Oral contrast has been provided. Sagittal and coronal reformats are s ubmitted. All CT scans at [facility] use at least one of these dose optimization techniques: automated exposure control; mA and/or kV adjustment per patient size (includes targeted exams where d ose is matched to clinical indication); or iterative reconstruction. CONTRAST: Omnipaque 300; 95 mL IV. DLP: 2084.43 mGy.cm COMPARISON: 09/29/2021 Mild chronic emphysematous changes at the lung bases. Scarring at the RIGHT lung base. Heart is vineet l size. Small hiatal hernia. Liver is normal size. There are a few scattered too small to characteriz e hypodensities. Portal vein is normal. Pancreas and spleen and adrenal glands are normal. Normal gal lbladder. No renal obstruction. No solid mass. Moderate atherosclerotic changes throughout the abdomi nal aorta. No aneurysm. Calcified plaque continues into the iliac arteries. No ascites or adenopathy. Small umbilical hernia. Umbilical hernia contains fat only. Stomach is minimally distended. No small bowel obstruction. Prior appendectomy. In the descending col on there is mild diffuse wall thickening with several diverticula throughout the sigmoid. The area of inflammation and diverticulitis noted on the prior study of 09/29/2019 has resolved. Significant impr ovement. Again noted are the diverticula. No abscess or free air identified. Urinary bladder is well distended. There is a small amount of air in the urinary bladder. Uterus is a trophic. Prior kyphoplasty at T10 and T11. Very mild anterior wedging of T12, L1 and L3. CT/CT abdomen pelvis wo/w [id number] IMPRESSION: 1. Interval resolution of the recently described acute diverticulitis involvin g the sigmoid colon. 2. Mild diffuse wall thickening involving the descending and sigmoid colon. No residual acute inflammation. 3. There is a tiny amount of air in the urinary bladder. The etiology of this air is not certain. Correlate with recent bladder catheterization. Alternative differentials to consider are air producing organisms and enteric fistula. 4. Small hiatal hernia. 5. Prior cholecystectomy.
[2021-12-02] MEDS: iohexol 300 mg/mL 100 mL Btl IV (13:53)
[2021-12-02] MEDS: iohexol 300 mg/mL 50 mL Btl PO (13:53)
== END 2021-12-02 12:00 | disposition home or self-care (01) ==
LOC: RAD 12:04
PROVIDERS: PCP Nurse Practitioner Family; Visit Provider Internal Medicine
DX: R10.9 Unspecified abdominal pain (principal); K57.32 Diverticulitis of large intestine without perforation or abscess without bleeding; M33.20 Polymyositis, organ involvement unspecified; K44.9 Diaphragmatic hernia without obstruction or gangrene
CPT/HCPCS: 74178

== ENCOUNTER 2021-12-11 09:46 | Outpatient (CLI) | payer MEDICARE, MEDICAID, SELFPAY ==
[2021-12-11 10:10] VITALS: BP 160/91; PULSE 71; RESP 18; TEMP 36.7; O2SAT 98
[2021-12-11] MEDS: acetaminophen 325 mg Tablet 650 MG PO (10:20)
[2021-12-11] MEDS: sodium chloride 0.9% 250 ML 50 ML IV (10:22)
[2021-12-11] MEDS: diphenhydrAMINE 50 mg/mL SDV 1mL 25 MG IV (10:23)
[2021-12-11] MEDS: rituximab 1,000 MG in sodium chloride 0.9% 250 ML, primary tubing onc 1 EACH 50 MG IV (10:33)
[2021-12-11 10:58] VITALS: BP 117/68; PULSE 60; RESP 18; TEMP 36.4; O2SAT 93
[2021-12-11 11:31] VITALS: BP 118/70; PULSE 66; RESP 18; TEMP 36.4; O2SAT 95
[2021-12-11 11:57] VITALS: BP 123/71; PULSE 68; RESP 18; TEMP 36.5; O2SAT 95
[2021-12-11 12:30] VITALS: BP 113/53; PULSE 74; RESP 18; TEMP 36.4; O2SAT 94
[2021-12-11 13:16] VITALS: BP 158/76; PULSE 80; RESP 18; TEMP 36.4; O2SAT 95
== END 2021-12-11 09:47 | disposition home or self-care (01) ==
PROVIDERS: PCP Nurse Practitioner Family; Referring Provider Internal Medicine; Visit Provider Internal Medicine
DX: M33.22 Polymyositis with myopathy (principal)
CPT/HCPCS: 96365; 96366; 96375; J1200; J2930; J7050; J9312

== ENCOUNTER 2021-12-15 19:02 | Emergency (ER) | payer MEDICARE, MEDICAID, SELFPAY ==
--- NOTE | 2021-12-15 19:07 | XRR_ITS ---
PROCEDURE INFORMATION: Exam: XR Right Forearm Exam date and time: 12/15/2021 7:12 PM Age: 66 years old Clinical indication: Pain and injury or trauma; Other: Dog bite; Arm, lower; Right; Lower or forearm; Injury date: 12/15/21; Injury details: PT complains of pain on the lateral side of radius near the styloid process TECHNIQUE: Imaging protocol: XR Right forearm. Views: 2 views. COMPARISON: No relevant prior studies available. FINDINGS: Bones/joints: Normal. Soft tissues: Normal. XR/XR forearm RT 2V [id number] IMPRESSION: No acute findings.
[2021-12-15 19:22] VITALS: BP 198/89; PULSE 77; RESP 18; TEMP 36.4; O2SAT 96; BMI 28.9
--- NOTE | 2021-12-15 19:22 | W.ED.UPPEXIN ---
HPI - Extremity Injury (Upper) General: Chief Complaint: Animal Bite Stated Complaint: Dog bite-RT forearm Time Seen by Provider: 12/15/21 19:22 History of Present Illness: 66-year-old female was watching her daughter's dog when it became excited and bit patient on the right forearm when she was weed eating. Patient has a 2-1/2 cm laceration to the ulnar side of the right lower arm. Patient reports that the dog's vaccinations are up-to-date. Dog appeared well. Dog was just brought in by the loud sound of the weedeater. Review of Systems General: Reports: 10 or more systems reviewed and unremarkable except in HPI and below Card: Denies: chest pain Resp: Denies: dyspnea Musc: Reports: extremity pain Skin/Breast: Reports: new lesions PFSH ED PFSH: Medical History Age related osteoporosis Anxiety Cellulitis of left lower extremity CKD (chronic kidney disease) Community acquired pneumonia Compression fx, lumbar spine Compression fx, thoracic spine COPD (chronic obstructive pulmonary disease) Diverticulitis Family history of melanoma Generalized osteoarthritis GERD (gastroesophageal reflux disease) High risk medication use Hypertension Immunosuppression Leg cramps Medication monitoring encounter Osteoporosis Osteoporosis Polymyositis PUD (peptic ulcer disease) Surgical History H/O colonoscopy 2016 H/O wrist surgery History of appendectomy History of back surgery History of lumpectomy of both breasts History of tubal ligation Family History Father Hypertension Cancer Alzheimer disease Mother Hypertension Dementia Grandmother Cancer Sister Cancer Social History Smoking and tobacco status: former smoker Quit status (tobacco): has quit using tobacco Year quit tobacco: 2008 - 1.5 PPD x 35 Years Second hand smoke exposure: No Alcohol intake: never Caregiver/support person: Yes Lives independently: Yes Household members: spouse Marital status: Number of children: 2 Current occupational status: retired and disabled History of recent travel: No Current gender identity: Female Special gonsalo needs: No Agree to transfusion: Yes Physical Exam Const: COMMON NORMALS: alert HENMT: COMMON NORMALS: normocephalic HEAD & SCALP: normocephalic Neck/C-Spine: COMMON NORMALS: full ROM Resp: COMMON NORMALS: normal respiratory effort and clear to auscultation bilaterally AUSCULTATION: clear to auscultation bilaterally Cardio: COMMON NORMALS: regular rate RATE: regular rate Extremity: RIGHT UPPER EXTREMITY: Yes lower arm (Normal range of motion, 2-1/2 cm laceration) Right lower arm: Yes inspection, Yes palpation and Yes neurovascular exam Neuro: SENSORIUM/ORIENTATION: Yes alert Psych: COMMON NORMALS: cooperative Skin: TRAUMA: laceration (Right lower forearm) linear and involves subcutaneous tissue Procedures Laceration Laceration 1: Site: upper extremity Side (If applicable): right Size (cm): 2.5 Description: linear Local Anesthetic: lidocaine 1% Amount of anesthesia used (mL): 2 Pre-repair: wound explored, irrigated extensively and deep structures intact Skin layer closed with: nylon Size (cm): 5-0 Number of sutures: 5 Technique: simple, interrupted (3) and horizontal mattress (2) Course Vital Signs: Vital signs: Vital Signs Temperature 97.5 F L 12/15/21 19:22 Pulse Rate 77 12/15/21 19:50 Respiratory Rate 16 12/15/21 19:50 Blood Pressure 198/89 12/15/21 19:50 Pulse Oximetry 96 12/15/21 19:50 MDM - Extremity Injury (Upper) Medical Decision Making Patient comes in today for injury to the right lower forearm. Patient sustained a dog bite to the arm. There was a family pet. Immunizations are up-to-date on the pet. Patient knows that her tetanus was greater than 5 years. On exam is 2 and half centimeter laceration to the right lower forearm. Differential diagnosis includes but not limited to dog bite, laceration bite, foreign body, need for prophylaxis tetanus. No foreign body or fracture was noted within the wound. Wound was irrigated thoroughly. Patient was placed on Augmentin 1 tablet twice a day for 7 days. Wound was closed with sutures loosely. Patient's tetanus was updated. X-ray of the wound area noted no fractures. Patient reported understanding of care, and need for follow-up. Lab Data Radiology Impressions Forearm X-Ray 12/15/21 19:07 IMPRESSION: No acute findings. Discharge Plan Discharge Patient Disposition: Home Clinical Impression: Dog bite Qualifiers: Encounter type: initial encounter Qualified Code(s): W54.0XXA - Bitten by dog, initial encounter Laceration of forearm Qualifiers: Encounter type: initial encounter Laterality: right Qualified Code(s): S51.811A - Laceration without foreign body of right forearm, initial encounter Condition: Stable Prescriptions: New amoxicillin-pot clavulanate 875-125 mg tablet 1 tab PO BID Qty: 14 0RF No Action albuterol sulfate [ProAir HFA] 90 mcg/actuation HFA aerosol inhaler 2 puff INHALATION QID PRN (Reason: shortness of breath) Qty: 8.5 0RF Trelegy Ellipta 100-62.5-25 mcg blister with device 1 inh inhalation DAILY 30 Days Qty: 60 3RF B12 Active 1,000 mcg tablet,chewable 1,000 mcg PO DAILY Qty: 30 0RF cyclobenzaprine 5 mg tablet 5 mg PO TID PRN (Reason: Muscle Spasm) 0RF folic acid 1 mg tablet 1 mg PO QAM 0RF aspirin [Adult Aspirin Regimen] 81 mg tablet,delayed release (DR/EC) 81 mg PO QAM 0RF fluticasone propionate 50 mcg/actuation spray,suspension 1 - 2 spray intranasal DAILY PRN (Reason: Allergy Symptoms) 30 Days Qty: 16 6RF lidocaine HCl [Aspercreme (lidocaine HCl)] 4 % cream 1 applic topical BID 0RF albuterol sulfate 2.5 mg /3 mL (0.083 %) solution for nebulization 2.5 mg INHALATION Q4H PRN (Reason: shortness of breath or wheezing) Qty: 180 4RF pantoprazole 40 mg tablet,delayed release (DR/EC) 40 mg PO BID Qty: 60 5RF metoprolol tartrate 25 mg tablet See Rx Instructions .ROUTE .COMPLEX Qty: 60 5RF Dose Instruction: TAKE ONE TABLET BY MOUTH TWICE DAILY Rx Instructions: TAKE ONE TABLET BY MOUTH TWICE DAILY prednisone 10 mg tablet 10 mg PO DAILY Qty: 30 3RF Rx Instructions: take 1 tab daily losartan 50 mg tablet 100 mg PO DAILY Qty: 90 3RF Probiotic 1 cap PO QPM 0RF Vitamin D3 1 tab PO BID 0RF Discharge Orders: Discharge ED (Routine); Ordered 12/15/21 Ordered By: Polo Cortes Referrals: Beronica,Mercedez, MACHINE IRONER [Primary Care Provider] - Discharge Diet: Usual diet Discharge Activity: Increase activity as tolerated Patient Instructions: Animal Bite (ED), Wound Care (General) Activity Restrictions/Additional Instructions: Keep wound clean and dry. Sutures need to come out in 7 days. Follow-up with primary care in 1 week for recheck. Return to ER for worsening symptoms or new concerns. Coding Level of Care Code ED Merchandise Pickup/Receiving Associate for Tito Luke
[2021-12-15] MEDS: tetanus-dipt-pertussis 0.5 mL SDV IM (19:45)
[2021-12-15] MEDS: amoxicillin-clav 875-125 mg Tablet 1 TAB PO (19:45)
[2021-12-15 19:50] VITALS: BP 198/89; PULSE 77; RESP 16; O2SAT 96
[2021-12-15 20:17] VITALS: RESP 16
== END 2021-12-15 20:18 | disposition home or self-care (01) ==
PROVIDERS: Emergency Provider Nurse Practitioner Family; PCP Nurse Practitioner Family
DX: S51.811A Laceration without foreign body of right forearm, initial encounter (principal); W54.0XXA Bitten by dog, initial encounter; Z23 Encounter for immunization
CPT/HCPCS: 12001; 73090; 90471; 90715; 99283

== ENCOUNTER → 2022-01-14 09:13 | Outpatient (BNVA) | payer MEDICARE, MEDICAID, SELFPAY | PROVIDERS: PCP Nurse Practitioner Family; Referring Provider Nurse Practitioner Family; Visit Provider Nurse Practitioner Family | DX: N30.01 Acute cystitis with hematuria (principal); N39.0 Urinary tract infection, site not specified | CPT/HCPCS: 51798; 81001; 87086; 99203 ==

== ENCOUNTER → 2022-02-11 08:44 | Outpatient (BNVA) | payer MEDICARE, MEDICAID, SELFPAY | PROVIDERS: PCP Nurse Practitioner Family; Visit Provider Internal Medicine | DX: M33.20 Polymyositis, organ involvement unspecified (principal); N39.0 Urinary tract infection, site not specified; Z79.899 Other long term (current) drug therapy; Z51.81 Encounter for therapeutic drug level monitoring; M81.0 Age-related osteoporosis without current pathological fracture | CPT/HCPCS: 80053; 81000; 82550; 82552; 85025; 85651; 86140 ==

== ENCOUNTER → 2022-02-12 08:19 | Outpatient (BNVA) | payer MEDICARE, MEDICAID, SELFPAY | PROVIDERS: PCP Nurse Practitioner Family; Visit Provider Internal Medicine Critical Care Medicine | DX: J44.9 Chronic obstructive pulmonary disease, unspecified (principal); M33.20 Polymyositis, organ involvement unspecified; Z87.891 Personal history of nicotine dependence; K21.9 Gastro-esophageal reflux disease without esophagitis; I10 Essential (primary) hypertension | CPT/HCPCS: 99214 ==

== ENCOUNTER → 2022-02-19 09:03 | Outpatient (BNVA) | payer MEDICARE, MEDICAID, SELFPAY | PROVIDERS: PCP Nurse Practitioner Family; Visit Provider Internal Medicine | DX: M33.20 Polymyositis, organ involvement unspecified (principal); N30.01 Acute cystitis with hematuria; R42 Dizziness and giddiness | CPT/HCPCS: 81003; 99214 ==

== ENCOUNTER → 2022-03-09 13:09 | Outpatient (BNVA) | payer MEDICARE, MEDICAID, SELFPAY | PROVIDERS: PCP Nurse Practitioner Family; Referring Provider Internal Medicine; Visit Provider Nurse Practitioner | DX: H81.10 Benign paroxysmal vertigo, unspecified ear (principal); N30.20 Other chronic cystitis without hematuria | CPT/HCPCS: 99203; 81003; 99204; 99213 ==

== ENCOUNTER 2022-03-25 09:23 | Outpatient (CLI) | payer MEDICARE, MEDICAID, SELFPAY ==
--- NOTE | 2022-03-25 09:46 | MM_ITS ---
WS: [id number] Exam: [place] [id number] Date/Time of Exam: 03/25/2022 9:58 AM Reason For Exam: SCREENING VIEWS: MLO and CC views both breasts. 3D digital tomosynthesis is also included in this exam. Comparison made with prior exam of 12/12/2013, 12/25/2014, 06/05/2016, 08/05/2017, 12/08/2018, 12/24/2020.. Findings: There was no sign of mass, architectural distortion or suspicious calcification in either breast. Sc attered fibroglandular densities MM/[id number] Impression: BI-RADS: 2-Benign FOLLOW-UP: 1 Year Follow-up This mammogram was also analyzed by the Computer Aided Detection System R2 Imag e Shipfitter.
== END 2022-03-25 09:24 | disposition home or self-care (01) ==
LOC: RAD 09:24
PROVIDERS: PCP Nurse Practitioner Family; Visit Provider Nurse Practitioner Family
DX: Z12.31 Encounter for screening mammogram for malignant neoplasm of breast (principal)
CPT/HCPCS: 77063; 77067

== ENCOUNTER 2022-04-06 11:53 | Outpatient (CLI) | payer MEDICARE, MEDICAID, SELFPAY ==
[2022-04-06 12:30] VITALS: BP 129/74; PULSE 66; RESP 18; TEMP 36.4; O2SAT 94
[2022-04-06 12:57] LABS: Basophils # 0.1 10^3/uL (0.0-0.1); Basophils % 0.6 %; Eosinophils # 0.3 10^3/uL (0.0-0.8); Eosinophils % 2.3 %; Hematocrit 42.5 % (37.0-47.0); Hemoglobin 12.9 g/dL (11.5-15.3); Lymphocytes # 2.8 10^3/uL (0.8-4.8); Lymphocytes % 22.9 %; Mean Corpuscular HGB Conc 30.4 g/dL (30.0-36.0); Mean Corpuscular Hemoglobin 25.5 pg (28.0-34.0); Mean Platelet Volume 10.1 fL (7.4-10.4); Monocytes # 0.7 10^3/uL (0.2-0.9); Monocytes % 5.4 %; Neutrophils # 8.42 10^3/uL (1.8-7.7); Neutrophils % 68.3 %; Nucleated Red Blood Cells % 0 %; Platelet Count 303 10^3/cmm (130-400); Red Blood Count 5.06 10^6/uL (4.1-5.3); Red Cell Distribution Width 14.6 % (12.1-15.1); White Blood Count 12.3 10^3/uL (4.0-10.0)
[2022-04-06 13:28] LABS: Alanine Aminotransferase 15 U/L (0-33); Albumin Level 4.1 g/dL (3.5-5.2); Alkaline Phosphatase 60 IU/L (35-105); Anion Gap 16.5 (5-19); Aspartate Amino Transferase 21 U/L (0-32); Blood Urea Nitrogen 12 mg/dL (8-23); Calcium 9.2 mg/dL (8.5-10.5); Carbon Dioxide 24 mmol/L (22-29); Chloride 108 mmol/L (98-107); Globulin 2.2 g/dL (1.3-4.6); Glomerular Filtration Rate 71.3 mL/min (90-130); Glucose 99 mg/dL (65-115); Osmolality Calculated 298 mOsm/kg (285-295); Potassium 4.5 mmol/L (3.5-5.1); Sodium 144 mmol/L (136-145); Total Bilirubin 0.2 mg/dL (0.15-1.2); Total Protein 6.3 g/dL (6.6-8.7)
[2022-04-06] MEDS: sodium chloride 0.9% 250 ML 50 ML IV (13:48)
[2022-04-06] MEDS: acetaminophen 325 mg Tablet 650 MG PO (13:49)
[2022-04-06] MEDS: diphenhydrAMINE 50 mg/mL SDV 1mL 25 MG IVP (13:50)
[2022-04-06] MEDS: rituximab 1,000 MG in sodium chloride 0.9% 250 ML, primary tubing onc 1 EACH 50 MG IV (13:56)
[2022-04-06 14:52] VITALS: BP 129/67; PULSE 65; RESP 18; TEMP 36.2; O2SAT 94
[2022-04-06 16:27] VITALS: BP 154/77; PULSE 75; RESP 18; TEMP 36.6; O2SAT 96
== END 2022-04-06 11:54 | disposition home or self-care (01) ==
LOC: ONCMED 11:54
PROVIDERS: PCP Nurse Practitioner Family; Referring Provider Internal Medicine; Visit Provider Internal Medicine
DX: M33.20 Polymyositis, organ involvement unspecified (principal)
CPT/HCPCS: 80053; 85025; 86140; 96365; 96366; 96375; J1200; J2930; J7050; J9312

== ENCOUNTER 2022-04-20 09:02 | Outpatient (CLI) | payer MEDICARE, MEDICAID, SELFPAY ==
[2022-04-20 09:16] VITALS: BP 133/70; PULSE 65; RESP 18; TEMP 491.1; TEMP 916; O2SAT 95
[2022-04-20] MEDS: sodium chloride 0.9% 250 ML 50 ML IV (09:44)
[2022-04-20] MEDS: acetaminophen 325 mg Tablet 650 MG PO (09:45)
[2022-04-20] MEDS: diphenhydrAMINE 50 mg/mL SDV 1mL 25 MG IVP (09:47)
[2022-04-20] MEDS: rituximab 1,000 MG in sodium chloride 0.9% 250 ML, primary tubing onc 1 EACH 18 MG IV (09:54)
[2022-04-20 10:56] VITALS: BP 114/59; PULSE 60; RESP 16; TEMP 36.8; O2SAT 95
[2022-04-20 12:25] VITALS: BP 119/64; PULSE 65; RESP 16; TEMP 36.7; O2SAT 93
[2022-04-20 14:13] VITALS: BP 134/61; PULSE 83; RESP 16; TEMP 37; O2SAT 95
== END 2022-04-20 09:03 | disposition home or self-care (01) ==
PROVIDERS: PCP Nurse Practitioner Family; Visit Provider Internal Medicine
DX: M33.20 Polymyositis, organ involvement unspecified (principal)
CPT/HCPCS: 96365; 96366; 96375; J1200; J2930; J7050; J9312

== ENCOUNTER 2022-04-23 09:18 | Outpatient (CLI) | payer MEDICARE, MEDICAID, SELFPAY ==
[2022-04-23] MEDS: iohexol 350 mg/mL 100 mL Btl IV (09:57)
--- NOTE | 2022-04-23 10:00 | CT_ITS ---
WS: [id number] CTA HEAD AND NECK TECHNIQUE: Contrast enhanced CTA of the head and neck with coronal and sagittal reformatted images an d maximum intensity projection (MIP) images. NASCET criteria utilized. CLINICAL INFORMATION: R42 - Dizziness and giddiness COMPARISON: None. DLP: 1455.[address] scans at [facility] use at least one of these dose optimization techniques: automated e xposure control; mA and/or kV adjustment per patient size (includes targeted exams where dose is matc hed to clinical indication); or iterative reconstruction. FINDINGS: No evidence of intracranial hemorrhage or mass effect. Moderate small vessel changes with m oderate parenchymal volume loss. Intracranial vascular calcification. Chronic lacunar infarct LEFT th alamus. Chronic lacunar infarct LEFT basal ganglia. Mastoid air cells and paranasal sinuses are well aerated. Normal visualized soft tissues. RIGHT: Moderate calcification of the RIGHT common carotid artery origin which remains patent. Dense C alcification of the RIGHT innominate origin. Moderate calcified atheromatous disease RIGHT carotid bu lb extending into the ICA. ICA stenosis measures 27%. RIGHT ICA is patent to the skull base. Tortuous RIGHT cervical ICA at the skull base. LEFT: Moderate calcification of the LEFT common carotid artery origin which remains patent. LEFT inte rnal carotid artery is patent. Minimal atheromatous disease LEFT carotid bulb. No significant LEFT IC A stenosis. LEFT ICA is patent to the skull base. INTRACRANIAL CTA: LEFT dominant vertebral artery. Smaller but patent RIGHT vertebral artery with mild segmental stenosi s with calcification. Both vertebral arteries are patent to the basilar junction. Normal vascularity to the LEFT ENVIRONMENTAL SCIENCE PROGRAM DIRECTOR territory. Persistent RIGHT ENVIRONMENTAL SCIENCE PROGRAM DIRECTOR. Both ICAs are patent at the skull base. Mild cavernous carotid calcification with tortuosity. Hypopla stic RIGHT A1 segment. Normal vascularity to the ARIELLE and LEFT MCA territory. No flow-limiting stenosi s or aneurysm. Densely calcified plaque RIGHT proximal subclavian artery with severe stenosis just proximal to the v ertebral artery origin. This can be further evaluated with ultrasound to evaluate for subclavian stea l. Distal subclavian artery remains patent. Moderate calcified atheromatous disease of the LEFT subclavian artery origin and proximal subclavian artery which remain patent. CT/CT angio headneck* [id number] IMPRESSION: 1. RIGHT proximal ICA stenosis measures 27% 2. No significant LEFT ICA stenosis. 3. LEFT dominant vertebral artery. Both vertebral arteries are patent. 4. No flow-limiting intracranial stenosis. Normal [place] of [place]. 5. Hypoplastic RIGHT A1 segment. Persistent RIGHT ENVIRONMENTAL SCIENCE PROGRAM DIRECTOR. 6. Densely calcified plaque RIGHT proximal subclavian artery with severe steno sis just proximal to the vertebral artery origin. This can be further evaluated with ultrasound to evaluate for subclavian steal. Distal subclavian artery rem ains patent. 7. Moderate stenosis LEFT subclavian artery origin which remains patent. 8. No other remarkable findings.
== END 2022-04-23 09:19 | disposition home or self-care (01) ==
LOC: RAD 09:20
PROVIDERS: PCP Nurse Practitioner Family; Visit Provider Nurse Practitioner
DX: R42 Dizziness and giddiness (principal); R09.89 Other specified symptoms and signs involving the circulatory and respiratory systems; I65.21 Occlusion and stenosis of right carotid artery; I70.90 Unspecified atherosclerosis
CPT/HCPCS: 70496; 70498

== ENCOUNTER → 2022-04-27 10:33 | Outpatient (BNVA) | payer MEDICARE, MEDICAID, SELFPAY | PROVIDERS: PCP Nurse Practitioner Family; Visit Provider Nurse Practitioner Family | DX: R30.0 Dysuria (principal); N30.01 Acute cystitis with hematuria; I10 Essential (primary) hypertension; J44.9 Chronic obstructive pulmonary disease, unspecified | CPT/HCPCS: 81003; 87077; 87086; 87184 ==

== ENCOUNTER → 2022-05-18 13:37 | Outpatient (BNVA) | payer MEDICARE, MEDICAID, SELFPAY | PROVIDERS: PCP Nurse Practitioner Family; Visit Provider Internal Medicine | DX: I12.9 Hypertensive chronic kidney disease with stage 1 through stage 4 chronic kidney disease, or unspecified chronic kidney disease (principal); N18.9 Chronic kidney disease, unspecified; Z87.891 Personal history of nicotine dependence; J44.9 Chronic obstructive pulmonary disease, unspecified; M79.672 Pain in left foot; M79.671 Pain in right foot | CPT/HCPCS: 99214 ==

== ENCOUNTER → 2022-05-19 10:29 | Outpatient (BNVA) | payer MEDICARE, MEDICAID, SELFPAY | PROVIDERS: PCP Nurse Practitioner Family; Visit Provider Internal Medicine | DX: R42 Dizziness and giddiness; R09.89 Other specified symptoms and signs involving the circulatory and respiratory systems; M81.0 Age-related osteoporosis without current pathological fracture; M33.20 Polymyositis, organ involvement unspecified; N30.01 Acute cystitis with hematuria; Z79.52 Long term (current) use of systemic steroids | CPT/HCPCS: 36415; 73620; 80053; 82306; 82533; 82550; 82728; 83540; 83735; 84100; 84443; 84550; 85025; 85651; 86140; 86200; 86431; 99214 ==

== ENCOUNTER → 2022-06-01 10:46 | Outpatient (BNVA) | payer MEDICARE, MEDICAID, SELFPAY | PROVIDERS: PCP Nurse Practitioner Family; Referring Provider Nurse Practitioner Family; Visit Provider Podiatrist Foot & Ankle Surgery | DX: I83.90 Asymptomatic varicose veins of unspecified lower extremity (principal); M21.621 Bunionette of right foot; M21.622 Bunionette of left foot | CPT/HCPCS: 99203 ==

== ENCOUNTER → 2022-06-09 15:28 | Outpatient (BNVA) | payer MEDICARE, MEDICAID, SELFPAY | PROVIDERS: PCP Nurse Practitioner Family; Visit Provider Nurse Practitioner Family | DX: N30.01 Acute cystitis with hematuria (principal); N30.20 Other chronic cystitis without hematuria | CPT/HCPCS: 81003; 87086; 99213 ==

== ENCOUNTER → 2022-06-11 08:46 | Outpatient (BNVA) | payer MEDICARE, MEDICAID, SELFPAY | PROVIDERS: PCP Nurse Practitioner Family; Visit Provider Internal Medicine Critical Care Medicine | DX: J44.9 Chronic obstructive pulmonary disease, unspecified (principal); M33.20 Polymyositis, organ involvement unspecified; Z87.891 Personal history of nicotine dependence | CPT/HCPCS: 99213 ==

== ENCOUNTER 2022-06-12 18:25 | Emergency (ER) | payer MEDICARE, MEDICAID, SELFPAY ==
[2022-06-12 18:29] VITALS: BP 192/83; PULSE 76; RESP 16; TEMP 36.6; O2SAT 100; BMI 26.6
--- NOTE | 2022-06-12 18:35 | ECG_ITS ---
[facility] Test Date: 2022-06-12 Pat Name: Shanita Saleh Department: Room: Gender: Female Slasher Hand: : 1955 Requested By: Kaya Veras Order Number: [id number] Raheem MD: Arnulfo Deal M.D. Measurements Intervals [place] Rate: 65 P: 50 MS: 162 QRS: 34 QRSD: 76 T: -1 QT: 406 QTc: 422 Interpretive Statements SINUS RHYTHM Compared to ECG 09/29/2021 12:03:11 No significant changes Electronically Signed On 06-14-2022 22:02:52 CDT by Arnulfo Deal M.D. [id number]
--- NOTE | 2022-06-12 18:38 | XRR_ITS ---
PROCEDURE INFORMATION: Exam: XR Chest Exam date and time: 06/12/2022 6:52 PM Age: 66 years old Clinical indication: Other: Weakness; Additional info: Cp TECHNIQUE: Imaging protocol: Radiologic exam of the chest. Views: 1 view. COMPARISON: CR XR chest 1V portable [id number] 09/29/2021 1:01 PM FINDINGS: Lungs: Unremarkable. No consolidation. Pleural spaces: Unremarkable. No pleural effusion. No pneumothorax. Heart/Mediastinum: Unremarkable. No cardiomegaly. Bones/joints: Vertebroplasty findings lower thoracic spine. XR/XR chest 1V portable [id number] IMPRESSION: No acute findings.
--- NOTE | 2022-06-12 18:39 | W.ED.CHESTPA ---
HPI - Chest Pain General: Chief Complaint: Chest Pain Stated Complaint: SOB, chest pain Source: patient and EMS Mode of arrival: EMS Limitations: no limitations History of Present Illness: 66-year-old female who states that throughout the day she is just not felt well. She thought she may have COVID and flu she states she just felt very tired fatigued has had body aches. States she had discomfort across her arms some nausea mild dyspnea. Patient denies any chest pain to me she sent here from the clinic with concern of acute coronary syndrome she did get nitro and aspirin at the clinic states she feels improved here she had no vomiting has had some nausea. Denies any abdominal pain. Associated symptoms: Reports nausea; Deny dyspnea Review of Systems Const: Reports: body aches and fatigue Eyes: Denies: blurry vision or eye discomfort ENMT: Denies: throat pain or dental pain Card: Denies: chest pain Resp: Denies: dyspnea GI: Reports: nausea : Denies: dysuria Musc: Reports: back pain Skin/Breast: Denies: rash Neuro: Denies: headache(s) Psych: Denies: depression Luis/Lymph: Denies: easy bruising All/Imm: Denies: urticaria PFSH ED PFSH: Medical History Age related osteoporosis Anxiety Carotid bruit Cellulitis of left lower extremity CKD (chronic kidney disease) Community acquired pneumonia Compression fx, lumbar spine Compression fx, thoracic spine COPD (chronic obstructive pulmonary disease) Diverticulitis Family history of melanoma Generalized osteoarthritis GERD (gastroesophageal reflux disease) High risk medication use Hypertension Immunosuppression Leg cramps Medication monitoring encounter Osteoporosis Polymyositis Polymyositis PUD (peptic ulcer disease) Surgical History H/O colonoscopy 2016 H/O wrist surgery History of appendectomy History of back surgery History of lumpectomy of both breasts History of tubal ligation Family History Father , at age 84 Hypertension Cancer Prostate cancer and Kidney cancer Alzheimer disease Mother , at age 82 Hypertension Dementia Grandmother , unknown age of Cancer Breast Cancer Sister Cancer Kidney Social History Smoking and tobacco status: former smoker Quit status (tobacco): has quit using tobacco Year quit tobacco: 2009 - 1.5 PPD x 35 Years Second hand smoke exposure: No Alcohol intake: never Caregiver/support person: Yes Lives independently: Yes Household members: spouse Marital status: Marital status details: 54 years Number of children: 2 Current occupational status: retired and disabled History of recent travel: No Current gender identity: Female Special gonsalo needs: No Agree to transfusion: Yes Physical Exam Const: COMMON NORMALS: no acute distress, patient oriented x3 and healthy appearing HENMT: COMMON NORMALS: normocephalic and atraumatic HEAD & SCALP: normocephalic and atraumatic Eye: COMMON NORMALS: Equal, round and reactive pupils present and EOMs intact bilaterally PUPIL: Yes Equal, round and reactive pupils present Neck/C-Spine: COMMON NORMALS: full ROM and supple Chest: COMMONS NORMALS: normal inspection of the chest and normal palpation of entire chest wall Resp: COMMON NORMALS: normal respiratory effort, No retractions, No use of accessory muscles and clear to auscultation bilaterally AUSCULTATION: clear to auscultation bilaterally Cardio: COMMON NORMALS: regular rate, regular rhythm and No murmurs present (Cardio) RATE: regular rate RHYTHM: regular rhythm GI: COMMON NORMALS: Normal to inspection, nondistended, normoactive bowel sounds present, Soft to palpation, non-tender and no masses PALPATION: Yes Soft to palpation Extremity: COMMON NORMALS: normal to inspection and full ROM Neuro: COMMON NORMALS: patient oriented x3, moves all extremities and no focal motor deficits Psych: COMMON NORMALS: mental status grossly normal, Normal thought process present and cooperative THOUGHT PROCESS: Normal thought process present Skin: COMMON NORMALS: no rashes or lesions noted and no wounds GENERAL SKIN EXAM: no rashes or lesions noted Course Vital Signs: Vital signs: Vital Signs Temperature 97.9 F 06/12/22 18:29 Pulse Rate 67 06/12/22 20:00 Respiratory Rate 19 H 06/12/22 20:00 Blood Pressure 135/69 06/12/22 20:00 Pulse Oximetry 95 06/12/22 20:00 Oxygen Delivery Me thod 06/12/22 19:00 MDM - Chest Pain Medical Decision Making Patient presents here with multiple symptoms including some fatigue not feeling well along with some arm pain patient had some mild chest pain but mainly pain was in her arms her EKGs and troponins here are normal no signs acute 20 syndrome other blood works normal she feels improved here she is stable for discharge she is to follow-up with PCP and return if worsening she understands agrees to plan. Lab Data : 06/12/22 19:25 06/12/22 19:25 Radiology Impressions Chest X-Ray 06/12/22 18:38 IMPRESSION: No acute findings. Laboratory Results WBC 10.0 10^3/uL (4.0-10.0) 06/12/22 19:25 RBC 4.95 10^6/uL (4.1-5.3) 06/12/22 19: Hgb 12.6 g/dL (11.5-15.3) 06/12/22 19: Hct 41.2 % (37.0-47.0) 06/12/22 19:25 MCV 83.2 fl (81-99) 06/12/22 19: MCH 25.5 pg (28.0-34.0) L 06/12/22 19:25 MCHC 30.6 g/dL (30.0-36.0) 06/12/22 19: RDW 14.7 % (12.1-15.1) 06/12/22 19: Plt Count 332 10^3/cmm (130-400) 06/12/22 19:25 MPV 9.9 fL (7.4-10.4) 06/12/22 19: Neut % (Auto) 44.3 % 06/12/22 19: Lymph % (Auto) 41.7 % 06/12/22 19:25 [place] % (Auto) 8.5 % 06/12/22 19:25 Eos % (Auto) 4.2 % 06/12/22 19:25 Baso % (Auto) 0.9 % 06/12/22 19: Neut # (Auto) 4.44 10^3/uL (1.8-7.7) 06/12/22 19:25 Lymph # (Auto) 4.2 10^3/uL (0.8-4.8) 06/12/22 19:25 [place] # (Auto) 0.9 10^3/uL (0.2-0.9) 06/12/22 19:25 Eos # (Auto) 0.4 10^3/uL (0.0-0.8) 06/12/22 19:25 Baso # (Auto) 0.1 10^3/uL (0.0-0.1) 06/12/22 19:25 Nucleated RBC % (auto) 0 % 06/12/22 19:25 Nucleated RBCs # 0.0 /100WBC 06/12/22 19:25 Sodium 133 mmol/L (136-145) L 06/12/22 19:25 Potassium 3.8 mmol/L (3.5-5.1) 06/12/22 19:25 Chloride 101 mmol/L (98-107) 06/12/22 19:25 Carbon Dioxide 20 mmol/L (22-29) L 06/12/22 19:25 Anion Gap 15.8 (5-19) 06/12/22 19:25 BUN 8 mg/dL (8-23) 06/12/22 19:25 Creatinine 0.8 mg/dL (0.5-0.9) 06/12/22 19:25 GFR Calculation 71.3 mL/min (90-130) L 06/12/22 19:25 Glucose 91 mg/dL (65-115) 06/12/22 19:25 Calculated Osmolality 274 mOsm/kg (285-295) L 06/12/22 19:25 Calcium 9.5 mg/dL (8.5-10.5) 06/12/22 19:25 Total Bilirubin 0.4 mg/dL (0.15-1.2) 06/12/22 19:25 AST 21 U/L (0-32) 06/12/22 19:25 ALT 15 U/L (0-33) 06/12/22 19:25 Alkaline Phosphatase 64 U/L (35-105) 06/12/22 19:25 Troponin T Baseline 9 ng/L (0-10) 06/12/22 19:25 Troponin T 120 Minute 11.47 ng/L (0-10) H 06/12/22 21:14 Delta Troponin T 2.47 ABS# (0-10) 06/12/22 21:14 Total Protein 6.2 g/dL (6.6-8.7) L 06/12/22 19:25 Albumin 4.2 g/dL (3.5-5.2) 06/12/22 19:25 Globulin 2.0 g/dL (1.3-4.6) 06/12/22 19:25 EKG Data EKG 1: I personally reviewed and interpreted this EKG as follows: EKG interpretation date: 06/12/22 EKG interpretation time: 18:35 Interpretation: nsr hr [address] or t wave abnormalities qrs 76 qtc 417 EKG 2: I personally reviewed and interpreted this EKG as follows: EKG interpretation date: 06/12/22 EKG interpretation time: 20:57 Interpretation: nsr hr [address] or t wave abnormalities qrs 73 qtc 425 Discharge Plan Discharge Patient Disposition: Home Clinical Impression: Chest pain Condition: Stable Prescriptions: No Action albuterol sulfate [ProAir HFA] 90 mcg/actuation HFA aerosol inhaler 2 puff INHALATION QID PRN (Reason: shortness of breath) Qty: 8.5 0RF meclizine 25 mg tablet 25 mg PO DAILY PRN B12 Active 1,000 mcg tablet,chewable 1,000 mcg PO DAILY Qty: 30 0RF cyclobenzaprine 5 mg tablet 5 mg PO TID PRN (Reason: Muscle Spasm) folic acid 1 mg tablet 1 mg PO QAM aspirin [Adult Aspirin Regimen] 81 mg tablet,delayed release (DR/EC) 81 mg PO QAM fluticasone propionate 50 mcg/actuation spray,suspension 1 - 2 spray intranasal DAILY PRN (Reason: Allergy Symptoms) 30 Days Qty: 16 6RF lidocaine HCl [Aspercreme (lidocaine HCl)] 4 % cream 1 applic topical BID methenamine hippurate 1 gram tablet 1 g PO BID (DME) oxygen @ 2L per n/c See Rx Instructions .Route .MEDSUPPLY Qty: 1 0RF Rx Instructions: please supply conserving device, portable and concentrator magnesium oxide [MagOx] 400 mg (241.3 mg magnesium) tablet 400 mg PO DAILY 90 Days Qty: 90 1RF prednisone 5 mg tablet 5 mg PO DAILY Qty: 90 0RF Rx Instructions: part of taper ascorbate calcium (vitamin C) 500 mg tablet 500 mg PO DAILY Trelegy Ellipta 100-62.5-25 mcg blister with device 1 inh inhalation DAILY 30 Days Qty: 60 3RF losartan 50 mg tablet 100 mg PO DAILY Qty: 90 3RF scopolamine base [Transderm-Scop] 1 mg over 3 days patch 3 day 1 patch transdermal Q3D Qty: 10 5RF Rx Instructions: Replace patch every 3 days albuterol sulfate 2.5 mg /3 mL (0.083 %) solution for nebulization See Rx Instructions .ROUTE .COMPLEX Qty: 120 11RF Dose Instruction: USE 1 VIAL IN NEBULIZER 4 TIMES DAILY - And As Needed Rx Instructions: USE 1 VIAL IN NEBULIZER 4 TIMES DAILY - And As Needed metoprolol tartrate 25 mg tablet See Rx Instructions .ROUTE .COMPLEX Qty: 60 0RF Dose Instruction: TAKE ONE TABLET BY MOUTH TWICE DAILY Rx Instructions: TAKE ONE TABLET BY MOUTH TWICE DAILY pantoprazole 40 mg tablet,delayed release (DR/EC) See Rx Instructions .ROUTE .COMPLEX Qty: 60 0RF Dose Instruction: TAKE ONE TABLET BY MOUTH TWICE DAILY Rx Instructions: TAKE ONE TABLET BY MOUTH TWICE DAILY Probiotic 1 cap PO QPM Vitamin D3 1 tab PO BID Discharge Orders: Discharge ED (Routine); Ordered 06/12/22 Ordered By: Kaya Veras Referrals: Jasmin Petit NP [Primary Care Provider] - 1-3 days Discharge Diet: Advance as tolerated Discharge Activity: Resume usual activity Patient Instructions: Chest Pain (ED) Coding Level of Care Code ED Senior Hr Business Partner for Tito Fwd Exam Comprehensive
[2022-06-12 19:00] VITALS: BP 171/98; PULSE 74; RESP 17; O2SAT 93
[2022-06-12] MEDS: sodium chloride 0.9% 1,000 ML 999 ML IV (19:29)
[2022-06-12 19:30] VITALS: BP 136/72; PULSE 65; RESP 25; O2SAT 96
[2022-06-12] MEDS: ondansetron 2 mg/ML SDV 2 mL 4 MG IVP (19:30)
[2022-06-12 19:51] LABS: Basophils # 0.1 10^3/uL (0.0-0.1); Basophils % 0.9 %; Eosinophils # 0.4 10^3/uL (0.0-0.8); Eosinophils % 4.2 %; Hematocrit 41.2 % (37.0-47.0); Hemoglobin 12.6 g/dL (11.5-15.3); Lymphocytes # 4.2 10^3/uL (0.8-4.8); Lymphocytes % 41.7 %; Mean Corpuscular HGB Conc 30.6 g/dL (30.0-36.0); Mean Corpuscular Hemoglobin 25.5 pg (28.0-34.0); Mean Corpuscular Volume 83.2 fl (81-99); Mean Platelet Volume 9.9 fL (7.4-10.4); Monocytes # 0.9 10^3/uL (0.2-0.9); Monocytes % 8.5 %; Neutrophils # 4.44 10^3/uL (1.8-7.7); Neutrophils % 44.3 %; Nucleated Red Blood Cells % 0 %; Platelet Count 332 10^3/cmm (130-400); Red Blood Count 4.95 10^6/uL (4.1-5.3); Red Cell Distribution Width 14.7 % (12.1-15.1)
[2022-06-12 20:00] VITALS: BP 135/69; PULSE 67; RESP 19; O2SAT 95
[2022-06-12 20:14] LABS: Alanine Aminotransferase 15 U/L (0-33); Albumin Level 4.2 g/dL (3.5-5.2); Alkaline Phosphatase 64 U/L (35-105); Anion Gap 15.8 (5-19); Aspartate Amino Transferase 21 U/L (0-32); Blood Urea Nitrogen 8 mg/dL (8-23); Calcium 9.5 mg/dL (8.5-10.5); Carbon Dioxide 20 mmol/L (22-29); Chloride 101 mmol/L (98-107); Creatinine Clr Calc Pharmacy 67.1819; Glomerular Filtration Rate 71.3 mL/min (90-130); Glucose 91 mg/dL (65-115); Osmolality Calculated 274 mOsm/kg (285-295); Potassium 3.8 mmol/L (3.5-5.1); Sodium 133 mmol/L (136-145); Total Bilirubin 0.4 mg/dL (0.15-1.2); Total Protein 6.2 g/dL (6.6-8.7)
[2022-06-12 20:15] LABS: Troponin(5th) Baseline 9 ng/L (0-10)
--- NOTE | 2022-06-12 20:38 | ECG_ITS ---
[facility] Test Date: 2022-06-12 Pat Name: Shanita Saleh Department: Room: Gender: Female Wire Dropper: : 1955 Requested By: Kaya Veras Order Number: [id number] Raheem MD: Arnulfo Deal M.D. Measurements Intervals [place] Rate: 67 P: 53 SD: 157 QRS: 44 QRSD: 73 T: 15 QT: 410 QTc: 434 Interpretive Statements SINUS RHYTHM Compared to ECG 06/12/2022 18:35:56 No significant changes Electronically Signed On 06-14-2022 22:11:33 CDT by Arnulfo Deal M.D. [id number]
[2022-06-12 21:40] LABS: Troponin 5 2HR 11.47 ng/L (0-10)
[2022-06-12 21:43] LABS: Troponin 5 2HR Delta 2.47 ABS# (0-10)
== END 2022-06-12 21:58 | disposition home or self-care (01) ==
PROVIDERS: Emergency Provider Emergency Medicine; PCP Nurse Practitioner Family
DX: R07.9 Chest pain, unspecified (principal); Z79.82 Long term (current) use of aspirin; Z87.891 Personal history of nicotine dependence; J44.9 Chronic obstructive pulmonary disease, unspecified; I10 Essential (primary) hypertension
CPT/HCPCS: 36415; 71045; 80053; 84484; 85025; 93005; 96374; 99285; J2405; J7030

== ENCOUNTER 2022-06-23 09:02 | Outpatient (CLI) | payer MEDICARE, MEDICAID, SELFPAY ==
--- NOTE | 2022-06-23 09:30 | CT_ITS ---
WS: [id number] LDCT LUNG CANCER SCREENING TECHNIQUE: Noncontrast CT of the chest with coronal and sagittal reformatted images. CLINICAL INFORMATION: Lung cancer screenin COMPARISON: None. DLP: 69.30 mGy.cm DIvol: Mean CTDIvol: 1.60 (mGy) All CT scans at [facility] use at least one of these dose optimization techniques: automat ed exposure control; mA and/or kV adjustment per patient size (includes targeted exams where dose is matched to clinical indication); or iterative reconstruction. FINDINGS: Mild chronic emphysematous changes. Bibasilar atelectasis. Calcified granuloma RIGHT lower lobe. Dense aortic calcification. Coronary calcification. Normal caliber thoracic aorta. Adrenal glands are normal. Small esophageal hiatal hernia. No mediastinal or hilar lymphadenopathy. No axillary lymphadenopathy. Prior kyphoplasty changes in the lower thoracic spine. Moderate thoracic kyphosis. CT/CT lung screening [id number] IMPRESSION: LUNG-RADS: 1-Negative FOLLOW UP: 12 Month: Continue annual screening with LDCT
== END 2022-06-23 09:03 | disposition home or self-care (01) ==
LOC: RAD 09:05
PROVIDERS: PCP Nurse Practitioner Family; Visit Provider Internal Medicine Critical Care Medicine
DX: Z12.2 Encounter for screening for malignant neoplasm of respiratory organs (principal); F17.200 Nicotine dependence, unspecified, uncomplicated; Z87.891 Personal history of nicotine dependence
CPT/HCPCS: 71271

== ENCOUNTER → 2022-07-02 09:59 | Outpatient (BNVA) | payer MEDICARE, MEDICAID, SELFPAY | PROVIDERS: PCP Nurse Practitioner Family; Visit Provider Nurse Practitioner Family | DX: R07.9 Chest pain, unspecified (principal) | CPT/HCPCS: 99213; 99214 ==

== ENCOUNTER 2022-07-20 14:36 | Outpatient (CLI) | payer MEDICARE, MEDICAID, SELFPAY ==
--- NOTE | 2022-07-20 15:00 | USCV_ITS ---
Shanita Saleh Age: 66 Gender: F : 1955 Exam Date: 07/20/2022 15:05 Ordering Phys: Arnulfo Deal M.D ([email or web address]) Technologist: CT Exam Location: [facility] [place] Indication: leg pain Risk Factors: Previous Vascular Surgery: RIGHT LEFT BP: 117.0 / 61.00 BP: 125.0/ 65.00 0 0 Waveform Velocity (cm/s) Velocity (cm/s) Waveform Triphasic 163.5 Iliac Prox 106.8 Triphasic Triphasic 143.0 Iliac Mid 99.4 Triphasic Triphasic 141.1 Iliac Distal 119.7 Triphasic Triphasic 102.0 CABLE SPLICER HELPER 108.4 Triphasic Triphasic 120.7 SFA Prox 221.0 Triphasic Triphasic 102.6 SFA Mid 111.9 Triphasic Triphasic 121.2 SFA Dist 83.8 Triphasic Triphasic 52.6 POP 70.2 Triphasic Triphasic 85.0 FUNDS DEVELOPMENT DIRECTOR 70.2 Triphasic Triphasic 79.0 DPA 76.4 Triphasic 1.0 JAMARCUS 1.0 FINDINGS Minimal plaques and intimal thickening in the iliac and femoral arteries bilaterally Normal arterial Doppler waveforms and near normal Doppler flow velocities. Resting JAMARCUS 1.0 on both sides CONCLUSIONS Normal resting ABIs bilaterally Normal arterial Doppler waveforms and velocities bilaterally No evidence of any significant arterial obstruction, based on the above findings. Dr Rena Victoria MD [facility] (Electronically Signed) Final Date: 20 July 2022 20:18 S
== END 2022-07-20 14:37 | disposition home or self-care (01) ==
LOC: RAD 14:38
PROVIDERS: PCP Nurse Practitioner Family; Visit Provider Internal Medicine
DX: R09.89 Other specified symptoms and signs involving the circulatory and respiratory systems (principal); M79.605 Pain in left leg; M79.604 Pain in right leg
CPT/HCPCS: 93925

== ENCOUNTER → 2022-08-05 08:58 | Outpatient (BNVA) | payer MEDICARE, MEDICAID, SELFPAY | PROVIDERS: PCP Nurse Practitioner Family; Referring Provider Internal Medicine; Visit Provider Internal Medicine | DX: E27.40 Unspecified adrenocortical insufficiency (principal); R42 Dizziness and giddiness | CPT/HCPCS: 99204 ==

== ENCOUNTER → 2022-08-10 11:53 | Outpatient (BNVA) | payer MEDICARE, MEDICAID, SELFPAY | PROVIDERS: PCP Nurse Practitioner Family; Visit Provider Nurse Practitioner Family | DX: K52.9 Noninfective gastroenteritis and colitis, unspecified (principal); J01.00 Acute maxillary sinusitis, unspecified | CPT/HCPCS: 80053 ==

== ENCOUNTER 2022-09-08 08:52 | Outpatient (CLI) | payer MEDICARE, MEDICAID, SELFPAY ==
[2022-09-08 09:18] VITALS: BP 158/75; PULSE 64; RESP 18; TEMP 36.6; O2SAT 97
[2022-09-08] MEDS: sodium chloride 0.9% 250 ML 50 ML IV (09:35)
[2022-09-08] MEDS: acetaminophen 325 mg Tablet 650 MG PO (09:36)
[2022-09-08] MEDS: diphenhydrAMINE 50 mg/mL SDV 1mL 25 MG IVP (09:37)
[2022-09-08 09:40] LABS: Basophils # 0.1 10^3/uL (0.0-0.1); Basophils % 0.6 %; Eosinophils # 0.3 10^3/uL (0.0-0.8); Hematocrit 44.5 % (37.0-47.0); Hemoglobin 13.5 g/dL (11.5-15.3); Lymphocytes # 4.2 10^3/uL (0.8-4.8); Lymphocytes % 38.6 %; Mean Corpuscular HGB Conc 30.3 g/dL (30.0-36.0); Mean Corpuscular Hemoglobin 25.8 pg (28.0-34.0); Mean Corpuscular Volume 85.1 fl (81-99); Mean Platelet Volume 10.2 fL (7.4-10.4); Monocytes % 8.7 %; Neutrophils % 48.4 %; Nucleated Red Blood Cells % 0 %; Platelet Count 337 10^3/cmm (130-400); Red Blood Count 5.23 10^6/uL (4.1-5.3); Red Cell Distribution Width 14.6 % (12.1-15.1)
[2022-09-08] MEDS: rituximab 1,000 MG in sodium chloride 0.9% 250 ML, primary tubing onc 1 EACH 37.5 MG IV (09:47)
[2022-09-08 10:06] LABS: Alanine Aminotransferase 18 U/L (0-33); Alkaline Phosphatase 65 U/L (35-105); Aspartate Amino Transferase 23 U/L (0-32); Blood Urea Nitrogen 9 mg/dL (8-23); Calcium 9.6 mg/dL (8.5-10.5); Carbon Dioxide 23 mmol/L (22-29); Chloride 108 mmol/L (98-107); Globulin 2.3 g/dL (1.3-4.6); Glomerular Filtration Rate 71.1 mL/min (90-130); Glucose 95 mg/dL (65-115); Osmolality Calculated 292 mOsm/kg (285-295); Sodium 142 mmol/L (136-145); Total Bilirubin 0.2 mg/dL (0.15-1.2); Total Protein 6.3 g/dL (6.6-8.7)
[2022-09-08 10:38] VITALS: BP 125/63; PULSE 73; RESP 18; TEMP 36.6; O2SAT 95
[2022-09-08 11:41] VITALS: BP 132/62; PULSE 73; RESP 18; TEMP 36.7; O2SAT 95
[2022-09-08 13:07] VITALS: BP 137/72; PULSE 84; RESP 18; TEMP 36.8; O2SAT 97
== END 2022-09-08 08:53 | disposition home or self-care (01) ==
LOC: ONCMED 08:52
PROVIDERS: PCP Nurse Practitioner Family; Visit Provider Internal Medicine
DX: M33.20 Polymyositis, organ involvement unspecified (principal); Z79.899 Other long term (current) drug therapy
CPT/HCPCS: 80053; 85025; 86140; 96365; 96366; 96375; J1200; J2930; J7050; J9312

== ENCOUNTER → 2022-09-10 10:11 | Outpatient (BNVA) | payer MEDICARE, MEDICAID, SELFPAY | PROVIDERS: PCP Nurse Practitioner Family; Visit Provider Internal Medicine | DX: E27.40 Unspecified adrenocortical insufficiency (principal); R42 Dizziness and giddiness; I95.1 Orthostatic hypotension | CPT/HCPCS: 99214 ==

== ENCOUNTER → 2022-09-14 14:54 | Outpatient (BNVA) | payer MEDICARE, MEDICAID, SELFPAY | PROVIDERS: PCP Nurse Practitioner Family; Visit Provider Urology | DX: N30.20 Other chronic cystitis without hematuria (principal) | CPT/HCPCS: 81003; 99213 ==

== ENCOUNTER 2022-10-04 11:51 | Inpatient (IN) | payer MEDICARE, MEDICAID, SELFPAY ==
[2022-10-04] VITALS (11 sets, daily range): BP systolic 108–137; BP diastolic 56–82; PULSE 70–92; RESP 17–22; TEMP 36.6–37.1; O2SAT 90–100; BMI 27.1
--- NOTE | 2022-10-04 12:17 | ECG_ITS ---
[facility] Test Date: 2022-10-04 Pat Name: Shanita Saleh Department: Room: Gender: Female Manager Local: : 1955 Requested By: Marcelino Everett Order Number: [id number] Raheem MD: Karrie Armstrong M.D. Measurements Intervals [place] Rate: 73 P: 52 [place]: 142 QRS: 40 QRSD: 67 T: 29 QT: 364 QTc: 404 Interpretive Statements SINUS RHYTHM Compared to ECG 06/12/2022 20:57:15 No significant changes Electronically Signed On 10-05-2022 20:53:11 OBGYN NURSE by Karrie Armstrong M.D. [id number]
--- NOTE | 2022-10-04 12:28 | XRR_ITS ---
PROCEDURE INFORMATION: Exam: XR Chest Exam date and time: 10/04/2022 1:00 PM Age: 67 years old Clinical indication: Other: Pre op assessment TECHNIQUE: Imaging protocol: Radiologic exam of the chest. Views: 1 view. COMPARISON: CT lung screening [id number] 06/23/2022 9:31 AM FINDINGS: Lungs: Bibasilar atelectasis versus infiltrate. Emphysematous changes. Pleural spaces: Unremarkable. No pleural effusion. No pneumothorax. Heart/Mediastinum: Cardiomegaly. Bones/joints: Unremarkable. XR/XR chest 1V portable [id number] IMPRESSION: 1. Bibasilar atelectasis versus infiltrate. 2. Emphysematous changes. 3. Cardiomegaly.
[2022-10-04 12:41] LABS: Basophils # 0.1 10^3/uL (0.0-0.1); Basophils % 0.5 %; Eosinophils % 0.1 %; Hematocrit 44.6 % (37.0-47.0); Hemoglobin 13.8 g/dL (11.5-15.3); Lymphocytes # 2.4 10^3/uL (0.8-4.8); Lymphocytes % 21.6 %; Mean Corpuscular HGB Conc 30.9 g/dL (30.0-36.0); Mean Corpuscular Hemoglobin 25.7 pg (28.0-34.0); Mean Corpuscular Volume 82.9 fl (81-99); Mean Platelet Volume 9.3 fL (7.4-10.4); Monocytes # 0.8 10^3/uL (0.2-0.9); Monocytes % 7.1 %; Neutrophils # 7.53 10^3/uL (1.8-7.7); Neutrophils % 68.3 %; Nucleated Red Blood Cells % 0 %; Platelet Count 346 10^3/cmm (130-400); Red Blood Count 5.38 10^6/uL (4.1-5.3); Red Cell Distribution Width 14.5 % (12.1-15.1)
[2022-10-04 13:02] LABS: Lactic Sepsis W/Reflex 1.2 mmol/L (0.5-2.2)
[2022-10-04 13:03] LABS: Albumin Level 3.8 g/dL (3.5-5.2); Alkaline Phosphatase 59 U/L (35-105); Chloride 98 mmol/L (98-107); Potassium 3.8 mmol/L (3.5-5.1)
[2022-10-04] MEDS: acetaminophen 500 mg Tablet 1000 MG PO (13:12)
[2022-10-04] MEDS: sodium chloride 0.9% 1,000 ML 999 ML IV (13:14)
--- NOTE | 2022-10-04 13:15 | W.ED.FEVER ---
HPI - Fever General: Chief Complaint: Fever Stated Complaint: High fever, week, sob, and feeling sick. Time Seen by Provider: 10/04/22 12:13 Source: patient Mode of arrival: ambulatory Limitations: no limitations History of Present Illness: This 67-year-old female presents to the ER for evaluation of fever and chills that started 3 days ago. Last night, her temperature was 101.4 and this morning it is 101.6. Patient notes that she had COVID about 2 weeks ago and shortly after that had a sinus infection for which she was treated with antibiotics. She has minimal cough of no concern and denies dysuria. Patient has a history of polymyositis and notes that a week before getting COVID, she had therapy for her polymyositis which she believes is an immunosuppressant. She has nausea but no vomiting. She denies chest pain, shortness of breath, diarrhea or any other pertinent symptoms. Associated symptoms: Reports chills; Deny chest pain, dysuria or headache(s) Review of Systems Const: Reports: fever(s), chills and body aches Eyes: Denies: change in vision or eye discharge ENMT: Denies: throat pain, dental pain or nasal discharge Card: Denies: chest pain or lightheadedness : Denies: dysuria Musc: Reports: other (Generalized muscle aches) Neuro: Denies: headache(s) or weakness in extremities Psych: Denies: depression Luis/Lymph: Denies: easy bruising All/Imm: Denies: urticaria, tongue swelling or facial swelling PFSH ED PFSH: Medical History Age related osteoporosis Anxiety Carotid bruit Cellulitis of left lower extremity CKD (chronic kidney disease) Community acquired pneumonia Compression fx, lumbar spine Compression fx, thoracic spine COPD (chronic obstructive pulmonary disease) Diverticulitis Family history of melanoma Generalized osteoarthritis GERD (gastroesophageal reflux disease) High risk medication use Hypertension Immunosuppression Leg cramps Medication monitoring encounter Osteoporosis Polymyositis Polymyositis PUD (peptic ulcer disease) Surgical History H/O colonoscopy 2016 H/O wrist surgery History of appendectomy History of back surgery History of lumpectomy of both breasts History of tubal ligation Family History Father , at age 84 Hypertension Cancer Prostate cancer and Kidney cancer Alzheimer disease Mother , at age 82 Hypertension Dementia Grandmother , unknown age of Cancer Breast Cancer Sister Cancer Kidney Social History Smoking and tobacco status: former smoker Quit status (tobacco): has quit using tobacco Year quit tobacco: 2009 - 1.5 PPD x 35 Years Second hand smoke exposure: No Alcohol intake: never Caregiver/support person: Yes Lives independently: Yes Household members: spouse Marital status: Marital status details: 54 years Number of children: 2 Current occupational status: retired and disabled History of recent travel: No Current gender identity: Female Special gonsalo needs: No Agree to transfusion: Yes Physical Exam Const: COMMON NORMALS: no acute distress, patient oriented x3, no limitations and alert HENMT: COMMON NORMALS: normocephalic HEAD & SCALP: normocephalic Eye: COMMON NORMALS: EOMs intact bilaterally Neck/C-Spine: COMMON NORMALS: full ROM and supple Chest: COMMONS NORMALS: normal inspection of the chest Resp: COMMON NORMALS: normal respiratory effort, No retractions, No use of accessory muscles and clear to auscultation bilaterally AUSCULTATION: clear to auscultation bilaterally Cardio: COMMON NORMALS: regular rate, regular rhythm and No murmurs present (Cardio) RATE: regular rate RHYTHM: regular rhythm GI: COMMON NORMALS: Normal to inspection, nondistended, normoactive bowel sounds present and non-tender : COMMON NORMALS: Yes no CVA tenderness BLADDER/KIDNEY EXAM: Yes no CVA tenderness Back/Pelvis: COMMON NORMALS: no CVA tenderness and no thoracic nor lumbar tenderness Extremity: GENERAL: Yes normal exam except as noted Neuro: COMMON NORMALS: patient oriented x3 and no focal motor deficits SENSORIUM/ORIENTATION: Yes alert Psych: COMMON NORMALS: mental status grossly normal and cooperative Course Vital Signs: Vital signs: Vital Signs Temperature 98.4 F 10/04/22 12:04 Pulse Rate 86 10/04/22 14:38 Respiratory Rate 22 H 10/04/22 12:04 Blood Pressure 116/82 10/04/22 14:38 Pulse Oximetry 96 10/04/22 14:38 Oxygen Delivery Me thod 10/04/22 14:38 MDM - Fever Medical Decision Making Medical decision making: Patient presents with fever and chills that started 3 to 4 days ago. She reports temperatures of 101.6 at home. Here in the ER, she is afebrile because she had taken some Tylenol prior to arrival. Chest x-ray is suggestive of bibasilar atelectasis versus infiltrates. Given her age and the degree of fever, she will be admitted for IV antibiotics for pneumonia. Case discussed with Dr. Muniz who accepted patient for admission. Lab Data 10/04/22 12:29 10/04/22 12:29 Radiology Impressions Chest X-Ray 10/04/22 12:28 IMPRESSION: 1. Bibasilar atelectasis versus infiltrate. 2. Emphysematous changes. 3. Cardiomegaly. Laboratory Results WBC 11.0 10^3/uL (4.0-10.0) H 10/04/22 12:29 RBC 5.38 10^6/uL (4.1-5.3) H 10/04/22 12:29 Hgb 13.8 g/dL (11.5-15.3) 10/04/22 12: Hct 44.6 % (37.0-47.0) 10/04/22 12: MCV 82.9 fl (81-99) 10/04/22 12: MCH 25.7 pg (28.0-34.0) L 10/04/22 12: MCHC 30.9 g/dL (30.0-36.0) 10/04/22 12: RDW 14.5 % (12.1-15.1) 10/04/22 12: Plt Count 346 10^3/cmm (130-400) 10/04/22 12: MPV 9.3 fL (7.4-10.4) 10/04/22 12: Neut % (Auto) 68.3 % 10/04/22 12: Lymph % (Auto) 21.6 % 10/04/22 12: [place] % (Auto) 7.1 % 10/04/22 12: Eos % (Auto) 0.1 % 10/04/22 12:29 Baso % (Auto) 0.5 % 10/04/22 12:29 Neut # (Auto) 7.53 10^3/uL (1.8-7.7) 10/04/22 12: Lymph # (Auto) 2.4 10^3/uL (0.8-4.8) 10/04/22 12: [place] # (Auto) 0.8 10^3/uL (0.2-0.9) 10/04/22 12: Eos # (Auto) 0.0 10^3/uL (0.0-0.8) 10/04/22 12: Baso # (Auto) 0.1 10^3/uL (0.0-0.1) 10/04/22 12: Nucleated RBC % (auto) 0 % 10/04/22 12: Nucleated RBCs # 0.0 /100WBC 10/04/22 12: Sodium 129 mmol/L (136-145) L 10/04/22 12: Potassium 3.8 mmol/L (3.5-5.1) 10/04/22 12: Chloride 98 mmol/L (98-107) 10/04/22 12: Carbon Dioxide 20 mmol/L (22-29) L 10/04/22 12: Anion Gap 16.8 (5-19) 10/04/22 12: BUN 9 mg/dL (8-23) 10/04/22 12: Creatinine 1.0 mg/dL (0.5-0.9) H 10/04/22 12: GFR Calculation 55.0 mL/min (90-130) L 10/04/22 12: Glucose 104 mg/dL (65-115) 10/04/22 12: Calculated Osmolality 267 mOsm/kg (285-295) L 10/04/22 12: Lactic Acid 1.2 mmol/L (0.5-2.2) 10/04/22 12: Calcium 8.8 mg/dL (8.5-10.5) 10/04/22 12: Total Bilirubin 0.3 mg/dL (0.15-1.2) 10/04/22 12:29 AST 18 U/L (0-32) 10/04/22 12: ALT 13 U/L (0-33) 10/04/22 12:29 Alkaline Phosphatase 59 U/L (35-105) 10/04/22 12:29 Total Protein 6.7 g/dL (6.6-8.7) 10/04/22 12:29 Albumin 3.8 g/dL (3.5-5.2) 10/04/22 12:29 Globulin 2.7 g/dL (1.3-4.6) 10/04/22 12:29 Urine Color Straw (Yellow) 10/04/22 13:20 Urine Appearance Clear (CLEAR) 10/04/22 13:20 Urine pH 7 (5-7) 10/04/22 13:20 Ur Specific [place] 1.000 (1.005-1.030) L 10/04/22 13:20 Urine Protein Neg (Negative) 10/04/22 13:20 Urine Glucose (UA) Norm (Normal) 10/04/22 13:20 Urine Ketones Negative (Negative) 10/04/22 13:20 Urine Blood Neg (Negative) 10/04/22 13:20 Urine Nitrate Negative (Negative) 10/04/22 13:20 Urine Bilirubin Neg (Negative) 10/04/22 13:20 Urine Urobilinogen Norm mg/dL (Negative) 10/04/22 13:20 Ur Leukocyte Esterase Negative (Negative) 10/04/22 13:20 Influenza Type A Ag negative (Negative) 10/04/22 11:50 Influenza Type B Ag negative (Negative) 10/04/22 11:50 SARS-CoV-2 Ag (Rapid) negative (Negative) 10/04/22 11:50 Discharge Plan Discharge Patient Disposition: Admitted As Inpatient Clinical Impression: Fever, Pneumonia Condition: Stable Coding Level of Care Code ED Acid Tester for Tito Fwd Exam Comprehensive
[2022-10-04 13:24] LABS: Alanine Aminotransferase 13 U/L (0-33); Anion Gap 16.8 (5-19); Aspartate Amino Transferase 18 U/L (0-32); Blood Urea Nitrogen 9 mg/dL (8-23); Calcium 8.8 mg/dL (8.5-10.5); Carbon Dioxide 20 mmol/L (22-29); Globulin 2.7 g/dL (1.3-4.6); Glucose 104 mg/dL (65-115); Osmolality Calculated 267 mOsm/kg (285-295); Sodium 129 mmol/L (136-145); Total Bilirubin 0.3 mg/dL (0.15-1.2); Total Protein 6.7 g/dL (6.6-8.7)
[2022-10-04 13:32] LABS: Add Urine Microscopic? NO; Charge for UA Resulting for Rev
[2022-10-04 13:37] LABS: Bilirubin Urine Neg (Negative); Blood Urine Neg (Negative); Glucose Urine UA Norm (Normal); Ketones Urine Negative (Negative); Leukocyte Esterase Urine Negative (Negative); Nitrate Urine Negative (Negative); Protein Urine Neg (Negative); Urine Appearance Clear (CLEAR); Urine Color Straw (Yellow); Urobilinogen Urine Norm (Negative); pH Urine 7 (5-7)
[2022-10-04 14:42] LABS: SARS Covid-2 Antigen negative (Negative)
[2022-10-04 14:43] LABS: Influenza A by IFA negative (Negative); Influenza B by IFA negative (Negative)
[2022-10-04] MEDS: levofloxacin-dextrose 5 % 750 MG/150 ML PREMIX 100 MG IV (15:04)
--- NOTE | 2022-10-04 15:29 | P.HP_ITS ---
Providers/Chief Complaint Admitting Physician: Nando Muniz MD Primary Care Provider: Jasmin Petit NP Chief Complaint: High fever, week, sob, and feeling sick. 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 antibiotics as outpatient,came in today with chief complaint of generalized weakness, generalized body pain, worsening fatigue, shortness of breath, fever at home since yesterday maximum noted Tmax of 101.6, denied any cough, nausea vomiting, abdominal pain, diarrhea. X-ray chest has shown: Bibasilar atelectasis versus infiltrate. Chronic emphysematous changes. Pertinent labs: WBC 11, H&H 13/44 , PLT : 346 , serum sodium 129 , serum potassium 3.8, BUN and serum creatinine:1/0.9 , Urinalysis is clean She received 1 dose of levofloxacin IV in the ER. Review of Systems General: Reports: 10 or more systems reviewed and unremarkable except in HPI and below Const: Reports: fever(s), chills, body aches and change in appetite; Denies: diaphoresis Card: Reports: dyspnea on exertion; Denies: palpitations, edema, swelling of feet/ankles, orthopnea or leg pain with exertion Resp: Reports: dyspnea and productive cough; Denies: wheezing or pain on inspiration GI: Denies: abdominal pain, nausea, vomiting, diarrhea or constipation : Denies: flank pain Musc: Denies: back pain, extremity pain or extremity swelling Neuro: Denies: headache(s), difficulty walking or confusion Medications/Allergies Home Medications Medication Instructions Recorded Confirmed Last Taken Type aspirin 81 mg tablet,delayed 81 mg PO QAM 09/04/19 10/04/22 10/04/22 History release (Adult Aspirin Regimen) folic acid 1 mg tablet 1 mg PO QAM 09/04/19 10/04/22 10/04/22 History Probiotic 1 cap PO QPM 04/22/20 10/04/22 10/03/22 History albuterol sulfate 90 mcg/actuation 2 puff inhalation QID PRN 05/16/21 10/04/22 06/08/21 Rx aerosol inhaler (ProAir HFA) shortness of breath #8.5 grams fluticasone propionate 50 1 - 2 spray intranasal DAILY PRN 06/04/21 10/04/22 Unknown Rx mcg/actuation nasal Allergy Symptoms 30 days #16 grams spray,suspension lidocaine HCl 4 % topical cream 1 applic topical BID PRN Pain 09/22/21 10/04/22 Unknown History (Aspercreme (lidocaine HCl)) mecobalamin (vitamin B12) 1,000 1,000 mcg PO DAILY #30 tabs 11/19/21 10/04/22 10/04/22 Rx mcg chewable tablet (B12 Active) losartan 50 mg tablet 100 mg PO DAILY #90 tabs 03/04/22 10/04/22 10/04/22 Rx oxygen @ 2L per n/c #1 ea 04/15/22 10/04/22 Unknown Rx albuterol sulfate 2.5 mg/3 mL See Rx Instructions .Route 04/30/22 10/04/22 Unknown Rx (0.083 %) solution for nebulization .COMPLEX #120 vials amlodipine 2.5 mg tablet 2.5 mg PO DAILY #90 tabs 07/02/22 10/04/22 Unknown Rx fluticasone fur. 100 mcg-umeclid 1 inh inhalation DAILY 30 days #60 07/14/22 10/04/22 10/04/22 Rx 62.5 mcg-vilant 25 mcg ea inhalat.powder (Trelegy Ellipta) loperamide 2 mg capsule (Imodium 2 mg PO Q4H PRN loose stool #30 08/10/22 10/04/22 Unknown Rx A-D) caps cefdinir 300 mg capsule 300 mg PO BID 10 days #20 caps 10/01/22 10/04/22 10/04/22 Rx prednisone 5 mg tablet 7.5 mg PO DAILY 10/03/22 10/04/22 10/04/22 History cholecalciferol (vitamin D3) 25 25 mcg PO QPM 10/04/22 10/04/22 10/03/22 History mcg (1,000 unit) capsule (Vitamin D3) metoprolol tartrate 25 mg tablet 25 mg PO BID 10/04/22 10/04/22 10/04/22 History pantoprazole 40 mg tablet,delayed 40 mg PO BID 10/04/22 10/04/22 10/04/22 History release Allergies Allergy/AdvReac Type Severity Reaction Status Date / Time azathioprine Allergy Intermediate ALGY-Difficulty Verified 10/03/22 10:37 Breathing nitrofurantoin Allergy Intermediate ALGY-Hives Verified 10/03/22 10:37 [From Macrobid] cephalexin Allergy Unknown ALGY-Hives Verified 10/03/22 10:37 lisinopril AdvReac Severe ADR-Cough Verified 10/03/22 10:37 PFSH Acute PFSH: Medical History Age related osteoporosis Anxiety Carotid bruit Cellulitis of left lower extremity CKD (chronic kidney disease) Community acquired pneumonia Compression fx, lumbar spine Compression fx, thoracic spine COPD (chronic obstructive pulmonary disease) Diverticulitis Family history of melanoma Generalized osteoarthritis GERD (gastroesophageal reflux disease) High risk medication use Hypertension Immunosuppression Leg cramps Medication monitoring encounter Osteoporosis Polymyositis Polymyositis PUD (peptic ulcer disease) Surgical History H/O colonoscopy 2016 H/O wrist surgery History of appendectomy History of back surgery History of lumpectomy of both breasts History of tubal ligation Family History Father , at age 84 Hypertension Cancer Prostate cancer and Kidney cancer Alzheimer disease Mother , at age 82 Hypertension Dementia Grandmother , unknown age of Cancer Breast Cancer Sister Cancer Kidney Social History Smoking and tobacco status: former smoker Quit status (tobacco): has quit using tobacco Year quit tobacco: 2009 - 1.5 PPD x 35 Years Second hand smoke exposure: No Alcohol intake: never Caregiver/support person: Yes Lives independently: Yes Household members: spouse Marital status: Marital status details: 54 years Number of children: 2 Current occupational status: retired and disabled History of recent travel: No Current gender identity: Female Special gonsalo needs: No Agree to transfusion: Yes Vitals/I&O/Wt Last Vital Signs Temp 98.4 F 10/04/22 12:04 Pulse 77 10/04/22 15:00 Resp 22 H 10/04/22 12:04 BP 108/67 10/04/22 15:00 Pulse Ox 94 10/04/22 15:00 O2 Del Method 10/04/22 14:38 10/04/22 10/04/22 10/04/22 06:59 14:59 22:59 Intake Total 1000 / 1000 Balance 1000 / 1000 Weight last 48 hrs Weight 74.026 kg Physical Exam Const: COMMON NORMALS: patient oriented x3 HENMT: COMMON NORMALS: normocephalic and atraumatic HEAD & SCALP: normocephalic and atraumatic Resp: COMMON NORMALS: clear to auscultation bilaterally EFFORT & INSPECTION: Yes symmetric chest movement AUSCULTATION: clear to auscultation bilaterally Cardio: COMMON NORMALS: regular rate, regular rhythm, S1 normal heart sound present, S2 normal heart sound present, No gallops present (Cardio), No murmurs present (Cardio), No rub (Cardio) and Peripheral pulses 2+ throughout RATE: regular rate RHYTHM: regular rhythm HEART SOUNDS: S1 normal heart sound present and S2 normal heart sound present PERIPHERAL PULSES: Peripheral pulses 2+ throughout GI: COMMON NORMALS: Normal to inspection, nondistended, normoactive bowel sounds present, Soft to palpation, non-tender, No hepatosplenomegaly present and no masses AUSCULTATION: Yes normoactive bowel sounds PALPATION: Yes Soft to palpation and Yes No hepatosplenomegaly present RECTAL EXAM: deferred Extremity: COMMON NORMALS: no clubbing, cyanosis or edema and no pedal edema Neuro: COMMON NORMALS: patient oriented x3 Data 10/04/22 12:29 10/04/22 12:29 Micro: Microbiology 10/04/22 12:56 Blood Culture - Preliminary Blood SPECIMEN COLLECTED 10/04/22 12:51 Blood Culture - Preliminary Blood SPECIMEN COLLECTED A&P Assessment and plan (1) Fever: (2) Pneumonia: (3) Orthostasis: (4) Dizziness: (5) COPD (chronic obstructive pulmonary disease): Qualifiers: COPD type: unspecified COPD Qualified Code(s): J44.9 - Chronic obstructive pulmonary disease, unspecified Plan Shanita Saleh is a 67 year old female with past medical history of 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 antibiotics as outpatient,came in today with chief complaint of generalized weakness, generalized body pain, worsening fatigue, shortness of breath, fever at home since yesterday maximum noted Tmax of 101.6, denied any cough, nausea vomiting, abdominal pain, diarrhea. Currently she is being managed for. Assessment: Fever Possible pneumonia Hypovolemic hyponatremia History of polymyositis History of COPD History of recent COVID-19 Chronic orthostatic hypotension Chronic dizziness Chronic immunosuppressant use Plan: Follow blood culture Urine culture A.m. cortisol TSH Given her immunocompromise status, and history of recent rituximab infusion, will plan to keep her on broad-spectrum antibiotics for now, antibiotics can be tailored depending upon the clinical course and culture results. We will bolus her with 1 L normal saline, followed by maintenance IV fluids, patient appears dry, has hypovolemic hyponatremia She is chronically on prednisone at home, for now we will keep her on hydrocortisone IV twice daily Can be later transitioned to prednisone home dose. For history of COPD: Currently not in exacerbation: Albuterol inhaler as needed. Supplemental oxygen as needed Fall precaution Orthostatic vital signs check CODE STATUS: Full code DVT prophylaxis on Lovenox Attestations Medical Necessity Statement*: Patient is to be in hospital for management of possible pneumonia fever need for IV antibiotics.Anticipated length of stay: Greater than 2 midnightS Coding Level of Care Code Acute Code for [facility] Diagnoses Fever R50.9 Pneumonia J18.9 Orthostasis I95.1 Dizziness R42 COPD (chronic obstructive pulmonary disease) J44.9 COPD type: unspecified COPD
--- NOTE | 2022-10-04 15:47 | USR_ITS ---
PROCEDURE INFORMATION: Exam: US Duplex Bilateral Extracranial Arteries, Carotid Arteries Exam date and time: 10/04/2022 5:04 PM Age: 67 years old Clinical indication: Syncope and collapse; Additional info: Recurrent dizziness TECHNIQUE: Imaging protocol: Real-time Duplex ultrasound scan of the bilateral carotid and vertebral arteries combining sandoval scale, color Doppler and spectral waveform analysis. Bilateral exam. Exam focused on the carotid arteries. COMPARISON: CT angio headneck* [id number] 04/23/2022 9:45 AM FINDINGS: Right common carotid artery: Peak systolic velocity of the proximal right common carotid artery is elevated at 182 cm/s corresponding to between 50 and 69% stenosis. Right internal carotid artery: Unremarkable. No occlusion or stenosis. Waveforms are normal. Right ICA/CCA ratio: Within normal limits. Right external carotid artery: No stenosis in the origin. Right vertebral artery: Retrograde flow. Left common carotid artery: Unremarkable. No occlusion or stenosis. Waveforms are normal. Left internal carotid artery: Visually there appears to be mild atherosclerotic plaque in the bilateral common carotid and internal carotid arteries. Left ICA/CCA ratio: Within normal limits. Left external carotid artery: No stenosis in the origin. Left vertebral artery: Unremarkable. Antegrade flow. US/CV carotid duplex BI* [id number] IMPRESSION: 1. Peak systolic velocity of the proximal right common carotid artery is elevated at 182 cm/s corresponding to between 50 and 69% stenosis. 2. There is retrograde flow in the right vertebral artery. 3. Visually there appears to be mild atherosclerotic plaque in the bilateral common carotid and internal carotid arteries. REFERENCES: SRU CRITERIA. The degree of internal carotid artery stenosis is based on criteria defined by the Society of Radiologists in Ultrasound (SRU). Normal is no stenosis. Mild is less than 50% stenosis. Moderate is 50-69% stenosis. Severe is greater than 69% stenosis to near occlusion. Near occlusion is a markedly narrowed lumen. Total occlusion is no detectable patent lumen.
[2022-10-04] MEDS: enoxaparin 40 mg/0.4 mL Syringe SUBCUT (18:10)
[2022-10-04] MEDS: vancomycin 1,000 MG in sodium chloride 0.9% 250 ML 250 MG IV (18:13)
[2022-10-04] MEDS: sodium chloride 0.9% 1,000 ML 100 ML IV (18:22)
[2022-10-04] MEDS: hydrocortisone 100 mg/2 mL SDV 50 MG IVP (18:23)
[2022-10-04] MEDS: pantoprazole DR 40 mg Tablet PO (18:24)
[2022-10-04] MEDS: sodium chloride 0.9% 500 ML 999 ML IV (18:24)
[2022-10-04] MEDS: metroNIDAZOLE IV 500 MG/100 ML PREMIX 100 MG IV (20:14)
[2022-10-04] MEDS: aztreonam 1,000 MG in sodium chloride 0.9% (plus) 50 ML 100 MG IV (21:27)
[2022-10-04] MEDS: acetaminophen 325 mg Tablet 650 MG PO (23:17)
[2022-10-05] VITALS (7 sets, daily range): BP systolic 132–171; BP diastolic 77–94; PULSE 65–102; RESP 16–18; TEMP 36.6–36.8; O2SAT 94–98
[2022-10-05] MEDS: sodium chloride 0.9% 1,000 ML 100 ML IV (03:59)
[2022-10-05 04:58] LABS: Basophils % 0.5 %; Eosinophils % 0.2 %; Hematocrit 41.1 % (37.0-47.0); Hemoglobin 12.7 g/dL (11.5-15.3); Lymphocytes % 46.6 %; Mean Corpuscular HGB Conc 30.9 g/dL (30.0-36.0); Mean Corpuscular Hemoglobin 25.7 pg (28.0-34.0); Mean Corpuscular Volume 83.2 fl (81-99); Mean Platelet Volume 9.1 fL (7.4-10.4); Monocytes # 0.7 10^3/uL (0.2-0.9); Monocytes % 10.6 %; Neutrophils # 2.53 10^3/uL (1.8-7.7); Neutrophils % 39.6 %; Nucleated Red Blood Cells % 0 %; Platelet Count 307 10^3/cmm (130-400); Red Blood Count 4.94 10^6/uL (4.1-5.3); Red Cell Distribution Width 14.6 % (12.1-15.1); White Blood Count 6.4 10^3/uL (4.0-10.0)
[2022-10-05] MEDS: folic acid 1 mg Tablet PO (05:20)
[2022-10-05] MEDS: aspirin 81 mg EC Tablet PO (05:20)
[2022-10-05] MEDS: metroNIDAZOLE IV 500 MG/100 ML PREMIX 100 MG IV (05:20)
[2022-10-05 05:30] LABS: Cortisol Random 2.43 ug/dL (2.47-19.5)
[2022-10-05 05:32] LABS: NT Pro B Type Natriuretic Pept 262 pg/mL (0-125); Procalcitonin 0.05 ng/mL (0-0.5); Thyroid Stimulating Hormone 2.18 uIU/mL (0.27-4.20)
[2022-10-05 05:43] LABS: Alanine Aminotransferase 11 U/L (0-33); Albumin Level 3.4 g/dL (3.5-5.2); Alkaline Phosphatase 46 U/L (35-105); Anion Gap 11.4 (5-19); Aspartate Amino Transferase 14 U/L (0-32); Blood Urea Nitrogen 8 mg/dL (8-23); Carbon Dioxide 21 mmol/L (22-29); Chloride 107 mmol/L (98-107); Globulin 2.1 g/dL (1.3-4.6); Glomerular Filtration Rate 71.1 mL/min (90-130); Glucose 97 mg/dL (65-115); Osmolality Calculated 280 mOsm/kg (285-295); Potassium 3.4 mmol/L (3.5-5.1); Sodium 136 mmol/L (136-145); Total Bilirubin 0.2 mg/dL (0.15-1.2); Total Protein 5.5 g/dL (6.6-8.7)
[2022-10-05] MEDS: hydrocortisone 100 mg/2 mL SDV 50 MG IVP (05:51)
[2022-10-05] MEDS: pantoprazole DR 40 mg Tablet PO (09:09)
[2022-10-05] MEDS: aztreonam 1,000 MG in sodium chloride 0.9% (plus) 50 ML 100 MG IV (09:12)
[2022-10-05] MEDS: losartan 50 mg Tablet 100 MG PO (11:03)
[2022-10-05] MEDS: metoprolol tartrate 25 mg Tablet PO (11:04)
--- NOTE | 2022-10-05 13:50 | P.DS_ITS ---
Discharge Providers Date of Admission: 10/04/22 14:50 Date of Discharge: October 05, 2022 Attending Provider at Admission: Nando Muniz MD Attending Provider at Discharge: Keenan Duarte MD Primary Care Provider: Jasmin Petit NP Diagnoses at Discharge Discharge Diagnosis (1) Fever: Status: Acute (2) Pneumonia: Status: Acute (3) Orthostasis: Status: Acute (4) Dizziness: Status: Acute (5) COPD (chronic obstructive pulmonary disease): Status: Acute Qualifiers: COPD type: unspecified COPD Qualified Code(s): J44.9 - Chronic obstructive pulmonary disease, unspecified Reason for Visit Reason for Visit: High fever, week, sob, and feeling sick. 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 she was recently diagnosed with COVID 19 , and completed the course of Paxlovid as outpatient, thereafter she was also managed for sinusitis, was on p.o. antibiotics as outpatient,came in today with chief complaint of generalized weakness, generalized body pain, worsening fatigue, shortness of breath, fever at home since yesterday maximum noted Tmax of 101.6, denied any cough, nausea vomiting, abdominal pain, diarrhea. X-ray chest has shown:?Bibasilar atelectasis versus infiltrate.? Chronic emphysematous changes. Pertinent labs: WBC 11, H&H 13/44 , PLT : 346 , serum sodium 129 , serum potassium 3.8, BUN and serum creatinine:1/0.9 , Urinalysis is clean She received 1 dose of levofloxacin IV in the ER. Hospital Course Hospital Course Patient was admitted to the hospital for further evaluation and management of hypoxia in setting of possible COPD exacerbation secondary to recent COVID-19 versus pneumonia. She was started on broad-spectrum antibiotics. On admission she was found to be slightly dehydrated for which she was started on IV fluids. She was also started on nebulization treatment along with IV steroids. Patient responded well to the treatment and is back to her baseline oxygen supplementation both at rest and on exertion. She has been discharged in hemodynamically stable condition after home O2 evaluation has been done on oral antibiotics and steroids for the next 1 week. Physical Exam Const: COMMON NORMALS: patient oriented x3 HENMT: COMMON NORMALS: normocephalic and atraumatic HEAD & SCALP: normocephalic and atraumatic Resp: COMMON NORMALS: clear to auscultation bilaterally EFFORT & INSPECTION: Yes symmetric chest movement AUSCULTATION: clear to auscultation bilaterally Cardio: COMMON NORMALS: regular rate, regular rhythm, S1 normal heart sound present, S2 normal heart sound present, No gallops present (Cardio), No murmurs present (Cardio), No rub (Cardio) and Peripheral pulses 2+ throughout RATE: regular rate RHYTHM: regular rhythm HEART SOUNDS: S1 normal heart sound present and S2 normal heart sound present PERIPHERAL PULSES: Peripheral pulses 2+ throughout GI: COMMON NORMALS: Normal to inspection, nondistended, normoactive bowel sounds present, Soft to palpation, non-tender, No hepatosplenomegaly present and no masses AUSCULTATION: Yes normoactive bowel sounds PALPATION: Yes Soft to palpation and Yes No hepatosplenomegaly present RECTAL EXAM: deferred Extremity: COMMON NORMALS: no clubbing, cyanosis or edema and no pedal edema Neuro: COMMON NORMALS: patient oriented x3 Discharge Data Studies Completed and Pending Completed Studies During Hospitalization Category Date Time Status XR chest 1V portable [id number] Stat Exams 10/04/22 12:28 Completed CV carotid duplex BI* [id number] Routine Ultrasound 10/04/22 15:47 Completed Pending at discharge Category Date Time Status Blood Culture Stat Lab 10/04/22 12:56 Results Complete Blood Count w/Auto AM LABS Lab 10/06/22 04:00 Ordered Complete Blood Count w/Auto AM LABS Lab 10/07/22 04:00 Ordered Comprehensive Metabolic Panel AM LABS Lab 10/06/22 04:00 Ordered Comprehensive Metabolic Panel AM LABS Lab 10/07/22 04:00 Ordered Vancomycin Trough Timed Lab 10/07/22 17:30 Ordered Radiology Impressions Chest X-Ray 10/04/22 12:28 IMPRESSION: 1. Bibasilar atelectasis versus infiltrate. 2. Emphysematous changes. 3. Cardiomegaly. Carotid Doppler Study 10/04/22 15:47 IMPRESSION: 1. Peak systolic velocity of the proximal right common carotid artery is elevated at 182 cm/s corresponding to between 50 and 69% stenosis. 2. There is retrograde flow in the right vertebral artery. 3. Visually there appears to be mild atherosclerotic plaque in the bilateral common carotid and internal carotid arteries. REFERENCES: SRU CRITERIA. The degree of internal carotid artery stenosis is based on criteria defined by the Society of Radiologists in Ultrasound (SRU). Normal is no stenosis. Mild is less than 50% stenosis. Moderate is 50-69% stenosis. Severe is greater than 69% stenosis to near occlusion. Near occlusion is a markedly narrowed lumen. Total occlusion is no detectable patent lumen. Laboratory Results WBC 6.4 10^3/uL (4.0-10.0) 10/05/22 04:40 RBC 4.94 10^6/uL (4.1-5.3) 10/05/22 04:40 Hgb 12.7 g/dL (11.5-15.3) 10/05/22 04:40 Hct 41.1 % (37.0-47.0) 10/05/22 04:40 MCV 83.2 fl (81-99) 10/05/22 04:40 MCH 25.7 pg (28.0-34.0) L 10/05/22 04:40 MCHC 30.9 g/dL (30.0-36.0) 10/05/22 04:40 RDW 14.6 % (12.1-15.1) 10/05/22 04:40 Plt Count 307 10^3/cmm (130-400) 10/05/22 04:40 MPV 9.1 fL (7.4-10.4) 10/05/22 04:40 Neut % (Auto) 39.6 % 10/05/22 04:40 Lymph % (Auto) 46.6 % 10/05/22 04:40 [place] % (Auto) 10.6 % 10/05/22 04:40 Eos % (Auto) 0.2 % 10/05/22 04:40 Baso % (Auto) 0.5 % 10/05/22 04:40 Neut # (Auto) 2.53 10^3/uL (1.8-7.7) 10/05/22 04:40 Lymph # (Auto) 3.0 10^3/uL (0.8-4.8) 10/05/22 04:40 [place] # (Auto) 0.7 10^3/uL (0.2-0.9) 10/05/22 04:40 Eos # (Auto) 0.0 10^3/uL (0.0-0.8) 10/05/22 04:40 Baso # (Auto) 0.0 10^3/uL (0.0-0.1) 10/05/22 04:40 Nucleated RBC % (auto) 0 % 10/05/22 04:40 Nucleated RBCs # 0.0 /100WBC 10/05/22 04:40 Sodium 136 mmol/L (136-145) 10/05/22 04:40 Potassium 3.4 mmol/L (3.5-5.1) L 10/05/22 04:40 Chloride 107 mmol/L (98-107) 10/05/22 04:40 Carbon Dioxide 21 mmol/L (22-29) L 10/05/22 04:40 Anion Gap 11.4 (5-19) 10/05/22 04:40 BUN 8 mg/dL (8-23) 10/05/22 04:40 Creatinine 0.8 mg/dL (0.5-0.9) 10/05/22 04:40 GFR Calculation 71.1 mL/min (90-130) L 10/05/22 04:40 Glucose 97 mg/dL (65-115) 10/05/22 04:40 Calculated Osmolality 280 mOsm/kg (285-295) L 10/05/22 04:40 Lactic Acid 1.2 mmol/L (0.5-2.2) 10/04/22 12:29 Calcium 8.0 mg/dL (8.5-10.5) L 10/05/22 04:40 Phosphorus 3.0 mg/dL (2.5-4.5) 10/05/22 04:40 Magnesium 2.0 mg/dL (1.7-2.3) 10/05/22 04:40 Total Bilirubin 0.2 mg/dL (0.15-1.2) 10/05/22 04:40 AST 14 U/L (0-32) 10/05/22 04:40 ALT 11 U/L (0-33) 10/05/22 04:40 Alkaline Phosphatase 46 U/L (35-105) 10/05/22 04:40 NT-Pro-B Natriuret Pep 262 pg/mL (0-125) H 10/05/22 04:40 Total Protein 5.5 g/dL (6.6-8.7) L 10/05/22 04:40 Albumin 3.4 g/dL (3.5-5.2) L 10/05/22 04:40 Globulin 2.1 g/dL (1.3-4.6) 10/05/22 04:40 Procalcitonin 0.05 ng/mL (0-0.5) 10/05/22 04:40 TSH 2.18 uIU/mL (0.27-4.20) 10/05/22 04:40 Random Cortisol 2.43 ug/dL (2.47-19.5) L 10/05/22 04:40 Urine Color Straw (Yellow) 10/04/22 13:20 Urine Appearance Clear (CLEAR) 10/04/22 13:20 Urine pH 7 (5-7) 10/04/22 13:20 Ur Specific [place] 1.000 (1.005-1.030) L 10/04/22 13:20 Urine Protein Neg (Negative) 10/04/22 13:20 Urine Glucose (UA) Norm (Normal) 10/04/22 13:20 Urine Ketones Negative (Negative) 10/04/22 13:20 Urine Blood Neg (Negative) 10/04/22 13:20 Urine Nitrate Negative (Negative) 10/04/22 13:20 Urine Bilirubin Neg (Negative) 10/04/22 13:20 Urine Urobilinogen Norm mg/dL (Negative) 10/04/22 13:20 Ur Leukocyte Esterase Negative (Negative) 10/04/22 13:20 Influenza Type A Ag negative (Negative) 10/04/22 11:50 Influenza Type B Ag negative (Negative) 10/04/22 11:50 SARS-CoV-2 Ag (Rapid) negative (Negative) 10/04/22 11:50 Vitals Last Vital Signs Temp 98.1 F 10/05/22 11:36 Pulse 102 H 10/05/22 11:36 Resp 18 10/05/22 11:36 BP 132/77 10/05/22 11:36 Pulse Ox 94 10/05/22 13:07 O2 Del Method 10/05/22 11:36 Discharge Plan Discharge Patient Disposition: Home Condition: Stable Prescriptions: New amoxicillin-pot clavulanate [Augmentin] 500-125 mg tablet 1 tab PO Q12H Qty: 14 0RF prednisone 10 mg tablets,dose pack See Taper PO DAILY Qty: 42 0RF Taper: predniSONE 60-10 40 mg Daily for 2 Days and 0 Hour 30 mg Daily for 2 Days and 0 Hour 20 mg Daily for 2 Days and 0 Hour 10 mg Daily for 2 Days and 0 Hour ipratropium-albuterol 0.5 mg-3 mg(2.5 mg base)/3 mL solution for nebulization 3 ml inhalation Q8H Qty: 180 0RF levofloxacin 500 mg tablet 500 mg PO Q24H 7 Days Qty: 7 0RF Continued albuterol sulfate [ProAir HFA] 90 mcg/actuation HFA aerosol inhaler 2 puff INHALATION QID PRN (Reason: shortness of breath) Qty: 8.5 0RF B12 Active 1,000 mcg tablet,chewable 1,000 mcg PO DAILY Qty: 30 0RF folic acid 1 mg tablet 1 mg PO QAM aspirin [Adult Aspirin Regimen] 81 mg tablet,delayed release (DR/EC) 81 mg PO QAM fluticasone propionate 50 mcg/actuation spray,suspension 1 - 2 spray intranasal DAILY PRN (Reason: Allergy Symptoms) 30 Days Qty: 16 6RF lidocaine HCl [Aspercreme (lidocaine HCl)] 4 % cream 1 applic topical BID PRN (Reason: Pain) (DME) oxygen @ 2L per n/c See Rx Instructions .Route .MEDSUPPLY Qty: 1 0RF Rx Instructions: please supply conserving device, portable and concentrator amlodipine 2.5 mg tablet 2.5 mg PO DAILY Qty: 90 3RF prednisone 5 mg tablet 7.5 mg PO DAILY Rx Instructions: part of taper loperamide [Imodium A-D] 2 mg capsule 2 mg PO Q4H PRN (Reason: loose stool) Qty: 30 0RF Rx Instructions: 1 after each loose stool until symptoms resolved;do not exceed 8 mg per 24 hrs losartan 50 mg tablet 100 mg PO DAILY Qty: 90 3RF albuterol sulfate 2.5 mg /3 mL (0.083 %) solution for nebulization See Rx Instructions .ROUTE .COMPLEX Qty: 120 11RF Dose Instruction: USE 1 VIAL IN NEBULIZER 4 TIMES DAILY - And As Needed Rx Instructions: USE 1 VIAL IN NEBULIZER 4 TIMES DAILY - And As Needed Trelegy Ellipta 100-62.5-25 mcg blister with device 1 inh inhalation DAILY 30 Days Qty: 60 4RF Probiotic 1 cap PO QPM pantoprazole 40 mg tablet,delayed release (DR/EC) 40 mg PO BID Vitamin D3 25 mcg (1,000 unit) Capsule 25 mcg PO QPM metoprolol tartrate 25 mg tablet 25 mg PO BID Discontinued cefdinir 300 mg capsule 300 mg PO BID 10 Days Qty: 20 0RF Discharge Orders: Discharge Order (Routine); Ordered 10/05/22 Ordered By: Keenan Duarte Referrals: Jasmin Petit NP [Primary Care Provider] - 7-10 days Discharge Diet: Regular Discharge Activity: Resume usual activity and Increase activity as tolerated Patient Instructions: Opioid Safety Activity Restrictions/Additional Instructions: Continue taking Augmentin and Levaquin which are the antibiotics for next 7 days. Take prednisone taper as directed. Take nebulization treatment with DuoNebs 4 times a day. Continue other inhalers as before. Please follow-up with a primary care provider within next 1 week. Discharge Attestations Time Spent in Discharge Care*: greater than 30 min Quality Metrics Clinical Quality Measures [ No reported AMI, CVA or VTE this stay] Coding Level of Care Code 37532 Total time (in minutes) for Discharge: 35 Diagnoses Fever R50.9 Pneumonia J18.9 Orthostasis I95.1 Dizziness R42 COPD (chronic obstructive pulmonary disease) J44.9 COPD type: unspecified COPD
== END 2022-10-05 14:35 | disposition home or self-care (01) | DRG 190 ==
LOC: ER 15:01 → MEDSURG 15:27
PROVIDERS: Physician Assistant; Admitting Provider Internal Medicine; Emergency Provider Family Medicine; PCP Nurse Practitioner Family; Visit Provider Student in an Organized Health Care Education/Training Program
DX: J44.1 Chronic obstructive pulmonary disease with (acute) exacerbation (principal); J18.9 Pneumonia, unspecified organism; M33.20 Polymyositis, organ involvement unspecified; D84.821 Immunodeficiency due to drugs; E87.1 Hypo-osmolality and hyponatremia; J44.0 Chronic obstructive pulmonary disease with (acute) lower respiratory infection; Z79.899 Other long term (current) drug therapy; H81.10 Benign paroxysmal vertigo, unspecified ear; Z86.16 Personal history of COVID-19; E86.0 Dehydration; Z79.51 Long term (current) use of inhaled steroids; Z79.82 Long term (current) use of aspirin; Z79.52 Long term (current) use of systemic steroids; M81.0 Age-related osteoporosis without current pathological fracture; I12.9 Hypertensive chronic kidney disease with stage 1 through stage 4 chronic kidney disease, or unspecified chronic kidney disease; N18.9 Chronic kidney disease, unspecified; K21.9 Gastro-esophageal reflux disease without esophagitis; Z87.891 Personal history of nicotine dependence; Z87.11 Personal history of peptic ulcer disease
CPT/HCPCS: 36415; 71045; 80053; 81003; 82533; 83605; 83735; 83880; 84100; 84145; 84443; 85025; 87040; 87426; 87804; 93005; 93880; 94760; 96365; 96367; 96372; 99285; J1650; J1720; J1956; J3370; J3490; J7030; J7040; J7050

== ENCOUNTER 2022-10-08 11:20 | Emergency (ER) | payer MEDICARE, MEDICAID, SELFPAY ==
[2022-10-08 11:24] VITALS: BP 142/76; PULSE 96; RESP 16; TEMP 36.9; O2SAT 94
--- NOTE | 2022-10-08 12:27 | XRR_ITS ---
PROCEDURE INFORMATION: Exam: XR Chest Exam date and time: 10/08/2022 12:32 PM Age: 67 years old Clinical indication: Fever and shortness of breath; Patient HX: History--sob, fever, chest burning, HX of covid 3 weeks ago TECHNIQUE: Imaging protocol: Radiologic exam of the chest. Views: 1 view. COMPARISON: CR (CHEST, ) 10/04/2022 1:00 PM FINDINGS: Lungs: There is subsegmental atelectasis in the lung bases along the diaphragm. Pleural spaces: The costophrenic angles are blunted consistent with small pleural effusions. No pneumothorax. Heart/Mediastinum: Unremarkable. No cardiomegaly. Bones/joints: Multilevel vertebroplasty. XR/XR chest 1V portable [id number] IMPRESSION: Small pleural effusions with mild basilar atelectasis.
[2022-10-08 13:53] LABS: Basophils % 0.2 %; Hematocrit 42.9 % (37.0-47.0); Hemoglobin 13.1 g/dL (11.5-15.3); Lymphocytes % 11.4 %; Mean Corpuscular HGB Conc 30.5 g/dL (30.0-36.0); Mean Corpuscular Hemoglobin 25.4 pg (28.0-34.0); Mean Corpuscular Volume 83.1 fl (81-99); Mean Platelet Volume 9.2 fL (7.4-10.4); Monocytes # 0.4 10^3/uL (0.2-0.9); Monocytes % 4.1 %; Neutrophils # 7.42 10^3/uL (1.8-7.7); Neutrophils % 82.7 %; Nucleated Red Blood Cells % 0 %; Platelet Count 269 10^3/cmm (130-400); Red Blood Count 5.16 10^6/uL (4.1-5.3); Red Cell Distribution Width 14.8 % (12.1-15.1)
[2022-10-08 14:20] LABS: Alanine Aminotransferase 31 U/L (0-33); Albumin Level 3.9 g/dL (3.5-5.2); Alkaline Phosphatase 51 U/L (35-105); Anion Gap 17.8 (5-19); Aspartate Amino Transferase 32 U/L (0-32); Blood Urea Nitrogen 9 mg/dL (8-23); Calcium 8.7 mg/dL (8.5-10.5); Carbon Dioxide 20 mmol/L (22-29); Chloride 100 mmol/L (98-107); Globulin 2.5 g/dL (1.3-4.6); Glomerular Filtration Rate 62.1 mL/min (90-130); Glucose 95 mg/dL (65-115); NT Pro B Type Natriuretic Pept 513 pg/mL (0-125); Osmolality Calculated 276 mOsm/kg (285-295); Potassium 3.8 mmol/L (3.5-5.1); Sodium 134 mmol/L (136-145); Total Bilirubin 0.2 mg/dL (0.15-1.2); Total Protein 6.4 g/dL (6.6-8.7)
--- NOTE | 2022-10-08 15:17 | ED_ITS ---
HPI - SOB/Dyspnea General: Chief Complaint: Shortness of Breath/Dyspnea Stated Complaint: SOB, burning in chest, fever Time Seen by Provider: 10/08/22 15:17 Source: patient History of Present Illness: HPI Narrative: 67-year-old female presents with complaints of burning in her chest fever shortness of breath cough. Cough has been nonproductive. She not had any chest pain. No vomiting no diarrhea. MD elicited complaint: shortness of breath and cough Pertinent past history: COPD Timing: constant Exacerbating factors: exertion and coughing Relieving factors: rest and bronchodilators Associated symptoms: Reports chest congestion and cough; Deny abdominal pain, chest pain, diaphoresis, dizziness, extremity pain, fever(s), hemoptysis, lightheadedness, myalgias, nausea, orthopnea, palpitations, paresthesias, polydipsia, polyuria, rash, sense of impending doom, syncope or vomiting Treatment prior to arrival: none Review of Systems Const: Denies: fever(s) or diaphoresis ENMT: Denies: throat pain, ear or mastoid pain, nasal discharge or nasal congestion Card: Denies: chest pain, palpitations, lightheadedness, syncope or orthopnea Resp: Reports: chest congestion; Denies: hemoptysis GI: Denies: abdominal pain, nausea or vomiting : Denies: flank pain, difficulty voiding, dysuria, urinary frequency or urinary urgency Musc: Denies: extremity pain Skin/Breast: Denies: rash or pruritus Neuro: Denies: dizziness Endo: Denies: polyuria or polydipsia PFSH ED PFSH: Medical History Age related osteoporosis Anxiety Carotid bruit Cellulitis of left lower extremity CKD (chronic kidney disease) Community acquired pneumonia Compression fx, lumbar spine Compression fx, thoracic spine COPD (chronic obstructive pulmonary disease) Diverticulitis Family history of melanoma Generalized osteoarthritis GERD (gastroesophageal reflux disease) High risk medication use History of colitis Hypertension Immunosuppression Leg cramps Medication monitoring encounter Osteoporosis Polymyositis Polymyositis PUD (peptic ulcer disease) Recurrent UTI Surgical History H/O colonoscopy 2016 H/O wrist surgery History of appendectomy History of back surgery History of lumpectomy of both breasts History of tubal ligation Family History Father , at age 84 Hypertension Cancer Prostate cancer and Kidney cancer Alzheimer disease Mother , at age 82 Hypertension Dementia Grandmother , unknown age of Cancer Breast Cancer Sister Cancer Kidney Social History Smoking and tobacco status: former smoker Quit status (tobacco): has quit using tobacco Year quit tobacco: 2008 - 1.5 PPD x 35 Years Second hand smoke exposure: No Alcohol intake: never Caregiver/support person: Yes Lives independently: Yes Household members: spouse Marital status: Marital status details: 54 years Number of children: 2 Current occupational status: retired and disabled Current gender identity: Female Special gonsalo needs: No Agree to transfusion: Yes Physical Exam Const: COMMON NORMALS: no acute distress GENERAL APPEARANCE: cooperative and comfortable ORIENTATION/CONSCIOUSNESS: Yes awake, Yes oriented to person, Yes oriented to place and Yes oriented to time HENMT: COMMON NORMALS: normocephalic, atraumatic and hearing grossly normal bilaterally HEAD & SCALP: normocephalic and atraumatic Resp: AUSCULTATION: rhonchi and wheezes Cardio: COMMON NORMALS: regular rate, regular rhythm and No murmurs present (Cardio) RATE: regular rate RHYTHM: regular rhythm GI: COMMON NORMALS: Soft to palpation and No hepatosplenomegaly present AUSCULTATION: Yes normoactive bowel sounds PALPATION: Yes Soft to palpation, No Tenderness to palpation present (GI), No Guarding due to palpation present (GI) and Yes No hepatosplenomegaly present Extremity: COMMON NORMALS: normal to inspection, capillary refill normal, no clubbing, cyanosis or edema, no calf tenderness and no pedal edema Neuro: SENSORIUM/ORIENTATION: Yes oriented to person, Yes oriented to place and Yes oriented to time Skin: COMMON NORMALS: no rashes or lesions noted GENERAL SKIN EXAM: no rashes or lesions noted Course Vital Signs: Vital signs: Vital Signs Temperature 98.4 F 10/08/22 11:24 Pulse Rate 87 10/08/22 16:57 Respiratory Rate 16 10/08/22 16:57 Blood Pressure 148/74 10/08/22 16:57 Pulse Oximetry 95 10/08/22 16:57 Oxygen Delivery Me thod 10/08/22 11:24 MDM - SOB/Dyspnea Medical Decision Making Labs imaging and EKG reviewed as found in the chart. No sign of pneumonia. She does have small pleural effusions. She responded well to treatment in the ER. We will discharge patient home on steroid taper and albuterol. Return if has further problems. Medical Records I reviewed the patient's medical records. Lab Data I reviewed the patient's lab results. 10/08/22 13:40 10/08/22 13:40 Labs/Radiology: Radiology Impressions Chest X-Ray 10/08/22 12:27 IMPRESSION: Small pleural effusions with mild basilar atelectasis. Laboratory Results WBC 9.0 10^3/uL (4.0-10.0) 10/08/22 13:40 RBC 5.16 10^6/uL (4.1-5.3) 10/08/22 13:40 Hgb 13.1 g/dL (11.5-15.3) 10/08/22 13:40 Hct 42.9 % (37.0-47.0) 10/08/22 13:40 MCV 83.1 fl (81-99) 10/08/22 13:40 MCH 25.4 pg (28.0-34.0) L 10/08/22 13:40 MCHC 30.5 g/dL (30.0-36.0) 10/08/22 13:40 RDW 14.8 % (12.1-15.1) 10/08/22 13:40 Plt Count 269 10^3/cmm (130-400) 10/08/22 13:40 MPV 9.2 fL (7.4-10.4) 10/08/22 13:40 Neut % (Auto) 82.7 % 10/08/22 13:40 Lymph % (Auto) 11.4 % 10/08/22 13:40 [place] % (Auto) 4.1 % 10/08/22 13:40 Eos % (Auto) 0.0 % 10/08/22 13:40 Baso % (Auto) 0.2 % 10/08/22 13:40 Neut # (Auto) 7.42 10^3/uL (1.8-7.7) 10/08/22 13:40 Lymph # (Auto) 1.0 10^3/uL (0.8-4.8) 10/08/22 13:40 [place] # (Auto) 0.4 10^3/uL (0.2-0.9) 10/08/22 13:40 Eos # (Auto) 0.0 10^3/uL (0.0-0.8) 10/08/22 13:40 Baso # (Auto) 0.0 10^3/uL (0.0-0.1) 10/08/22 13:40 Nucleated RBC % (auto) 0 % 10/08/22 13:40 Nucleated RBCs # 0.0 /100WBC 10/08/22 13:40 Sodium 134 mmol/L (136-145) L 10/08/22 13:40 Potassium 3.8 mmol/L (3.5-5.1) 10/08/22 13:40 Chloride 100 mmol/L (98-107) 10/08/22 13:40 Carbon Dioxide 20 mmol/L (22-29) L 10/08/22 13:40 Anion Gap 17.8 (5-19) 10/08/22 13:40 BUN 9 mg/dL (8-23) 10/08/22 13:40 Creatinine 0.9 mg/dL (0.5-0.9) 10/08/22 13:40 GFR Calculation 62.1 mL/min (90-130) L 10/08/22 13:40 Glucose 95 mg/dL (65-115) 10/08/22 13:40 Calculated Osmolality 276 mOsm/kg (285-295) L 10/08/22 13:40 Calcium 8.7 mg/dL (8.5-10.5) 10/08/22 13:40 Total Bilirubin 0.2 mg/dL (0.15-1.2) 10/08/22 13:40 AST 32 U/L (0-32) 10/08/22 13:40 ALT 31 U/L (0-33) 10/08/22 13:40 Alkaline Phosphatase 51 U/L (35-105) 10/08/22 13:40 NT-Pro-B Natriuret Pep 513 pg/mL (0-125) H 10/08/22 13:40 Total Protein 6.4 g/dL (6.6-8.7) L 10/08/22 13:40 Albumin 3.9 g/dL (3.5-5.2) 10/08/22 13:40 Globulin 2.5 g/dL (1.3-4.6) 10/08/22 13:40 Discharge Plan Discharge Patient Disposition: Home Clinical Impression: Acute exacerbation of chronic obstructive pulmonary disease Condition: Stable Prescriptions: Discontinued levofloxacin 500 mg tablet 500 mg PO Q24H 7 Days Qty: 7 0RF amoxicillin-pot clavulanate [Augmentin] 500-125 mg tablet 1 tab PO Q12H Qty: 14 0RF No Action albuterol sulfate [ProAir HFA] 90 mcg/actuation HFA aerosol inhaler 2 puff INHALATION QID PRN (Reason: shortness of breath) Qty: 8.5 0RF B12 Active 1,000 mcg tablet,chewable 1,000 mcg PO DAILY Qty: 30 0RF folic acid 1 mg tablet 1 mg PO QAM aspirin [Adult Aspirin Regimen] 81 mg tablet,delayed release (DR/EC) 81 mg PO QAM fluticasone propionate 50 mcg/actuation spray,suspension 1 - 2 spray intranasal DAILY PRN (Reason: Allergy Symptoms) 30 Days Qty: 16 6RF lidocaine HCl [Aspercreme (lidocaine HCl)] 4 % cream 1 applic topical BID PRN (Reason: Pain) (DME) oxygen @ 2L per n/c See Rx Instructions .Route .MEDSUPPLY Qty: 1 0RF Rx Instructions: please supply conserving device, portable and concentrator amlodipine 2.5 mg tablet 2.5 mg PO DAILY Qty: 90 3RF Rx Instructions: PT STATES NOT STARTED OF 10/09/22 prednisone 5 mg tablet 7.5 mg PO DAILY Rx Instructions: part of taper loperamide [Imodium A-D] 2 mg capsule 2 mg PO Q4H PRN (Reason: loose stool) Qty: 30 0RF Rx Instructions: 1 after each loose stool until symptoms resolved;do not exceed 8 mg per 24 hrs Trelegy Ellipta 100-62.5-25 mcg blister with device 1 inh inhalation DAILY 30 Days Qty: 60 4RF pantoprazole 40 mg tablet,delayed release (DR/EC) 40 mg PO BID cholecalciferol (vitamin D3) [Vitamin D3] 25 mcg (1,000 unit) Capsule 25 mcg PO QPM metoprolol tartrate 25 mg tablet 25 mg PO BID prednisone 10 mg tablets,dose pack See Taper PO DAILY Qty: 42 0RF Taper: predniSONE 60-10 40 mg Daily for 2 Days and 0 Hour 30 mg Daily for 2 Days and 0 Hour 20 mg Daily for 2 Days and 0 Hour 10 mg Daily for 2 Days and 0 Hour ipratropium-albuterol 0.5 mg-3 mg(2.5 mg base)/3 mL solution for nebulization 3 ml inhalation Q8H Qty: 180 0RF Flexeril 10 mg Tablet 10 mg PO TID PRN (Reason: Muscle Spasm) promethazine-DM 6.25-15 mg/5 mL syrup 5 - 10 ml PO Q6H PRN (Reason: Cough) Tylenol Ex Str Rapid Release 500 mg Tablet 1,000 mg PO Q4H PRN (Reason: Pain) levofloxacin 500 mg tablet 500 mg PO DAILY Rx Instructions: RX FILLED 10/05/22 7D/S amoxicillin-pot clavulanate 500-125 mg tablet 1 tab PO BID Rx Instructions: RX FILLED 10/05/22 7D/S Probiotic Blend 2 billion cell-50 mg Capsule 1 cap PO DAILY Rx Instructions: give with meal/snack losartan 50 mg tablet 50 mg PO BID albuterol sulfate 2.5 mg /3 mL (0.083 %) solution for nebulization 2.5 mg inhalation QID PRN (Reason: Shortness Of Breath) methenamine hippurate 1 gram tablet 1 g PO BID Discharge Orders: Discharge ED (Routine); Ordered 10/08/22 Ordered By: Marcelino Payton Referrals: Jasmin Petit NP [Primary Care Provider] - Discharge Diet: Usual diet Discharge Activity: Increase activity as tolerated Patient Instructions: Opioid Safety, Pain Management Activity Restrictions/Additional Instructions: You were seen today for complaints of cough mild chest discomfort and low-grade fever. There is no clear infiltrate on your chest x-ray, however your description of symptoms and your exam suggest that there may be an underlying pneumonia. We will put you on a tapering course of steroids use albuterol as needed and a course of doxycycline follow-up with your primary care doctor if symptoms worsen recheck sooner. Coding Level of Care Code ED [employer] for Tito Luke
[2022-10-08 16:57] VITALS: BP 148/74; PULSE 87; RESP 16; O2SAT 95
== END 2022-10-08 16:58 | disposition home or self-care (01) ==
PROVIDERS: Emergency Medicine; Emergency Provider Family Medicine; PCP Nurse Practitioner Family
DX: J44.1 Chronic obstructive pulmonary disease with (acute) exacerbation (principal); Z79.82 Long term (current) use of aspirin; I12.9 Hypertensive chronic kidney disease with stage 1 through stage 4 chronic kidney disease, or unspecified chronic kidney disease; N18.9 Chronic kidney disease, unspecified; Z87.891 Personal history of nicotine dependence
CPT/HCPCS: 36415; 71045; 80053; 83880; 85025; 99284

== ENCOUNTER 2022-10-09 12:36 | Inpatient (IN) | payer MEDICARE, MEDICAID, SELFPAY ==
[2022-10-09] VITALS (13 sets, daily range): BP systolic 89–147; BP diastolic 47–80; PULSE 77–107; RESP 18–23; TEMP 36.7–38.2; O2SAT 91–95
--- NOTE | 2022-10-09 12:51 | ED_ITS ---
HPI - Syncope General: Chief Complaint: General Medical Stated Complaint: Syncope Time Seen by Provider: 10/09/22 12:38 Source: patient, family and EMS Mode of arrival: EMS Limitations: no limitations History of Present Illness: This patient was transported from her home by EMS due to 2 separate episodes of syncope this morning. Initial episode occurred while she was on the toilet. She states that she completed her toileting and then attempted to set up and felt lightheaded and the next thing she knew she woke up on the floor. She apparently hit her nose on some object when she fell but denies any pain. She had a second episode when she was sitting on the couch she felt nauseated and had diaphoresis and then had a short syncopal episode. No seizure activity was observed by family who is present during the separate second episode. She has been recently admitted and discharged at this facility due to COVID-pneumonia. She was also seen in the emergency department yesterday due to shortness of breath. She denies any fevers or chills today. She states she is breathing some better today. She is states she has been faithful to all her medications. She states she has been drinking fluids well and urinating quite a bit. She states that she has had a decreased appetite has been eating some foods. She has had some loose stools but no diarrhea. No melena. No blood in her stools. No history of heart failure or coronary artery disease that she is aware. She is a ex-smoker and has a history of COPD. Prodromal symptoms: lightheaded Witnessed: Yes - by Bystander Context: after urination and standing up Associated symptoms: Reports lightheadedness and nausea; Deny abdominal pain, chest pain, fever(s), headache(s) or vertigo Review of Systems Const: Reports: change in appetite and fatigue; Denies: fever(s) or chills Eyes: Denies: change in vision ENMT: Denies: throat pain, odynophagia, nasal congestion or nasal obstruction Card: Reports: lightheadedness and syncope; Denies: chest pain or palpitations Resp: Reports: non-productive cough GI: Reports: nausea; Denies: abdominal pain, vomiting or diarrhea : Denies: flank pain, difficulty voiding or dysuria Musc: Denies: neck pain, back pain, extremity pain or extremity swelling Skin/Breast: Denies: rash Neuro: Denies: headache(s), numbness in extremities, weakness in extremities, vertigo, confusion, Slurred speech present or seizure-like activity Luis/Lymph: Denies: easy bruising or easy bleeding PFSH ED PFSH: Medical History Age related osteoporosis Anxiety Carotid bruit Cellulitis of left lower extremity CKD (chronic kidney disease) Community acquired pneumonia Compression fx, lumbar spine Compression fx, thoracic spine COPD (chronic obstructive pulmonary disease) Diverticulitis Family history of melanoma Generalized osteoarthritis GERD (gastroesophageal reflux disease) High risk medication use Hypertension Immunosuppression Leg cramps Medication monitoring encounter Osteoporosis Polymyositis Polymyositis PUD (peptic ulcer disease) Surgical History H/O colonoscopy 2016 H/O wrist surgery History of appendectomy History of back surgery History of lumpectomy of both breasts History of tubal ligation Family History Father , at age 84 Hypertension Cancer Prostate cancer and Kidney cancer Alzheimer disease Mother , at age 82 Hypertension Dementia Grandmother , unknown age of Cancer Breast Cancer Sister Cancer Kidney Social History Smoking and tobacco status: former smoker Quit status (tobacco): has quit using tobacco Year quit tobacco: 2008 - 1.5 PPD x 35 Years Second hand smoke exposure: No Alcohol intake: never Caregiver/support person: Yes Lives independently: Yes Household members: spouse Marital status: Marital status details: 54 years Number of children: 2 Current occupational status: retired and disabled History of recent travel: No Current gender identity: Female Special gonsalo needs: No Agree to transfusion: Yes Physical Exam Narrative: EXAM NARRATIVE: Is alert and answers all questions appropriately with goal-directed speech upon my arrival to the examination room. She appears comfortable. Const: COMMON NORMALS: no acute distress, average body habitus, patient o riented x3 and alert GENERAL APPEARANCE: cooperative and comfortable HENMT: COMMON NORMALS: normocephalic, Normal nasal mucous membranes and turbinates present, moist oral mucous membranes and oropharynx normal; external nose not normal (Small abrasion over the bridge of the nose. No deformity, no tenderness) HEAD & SCALP: normocephalic FACE & SINUS: normal facial exam and face symmetric NOSE: Normal nasal mucous membranes and turbi nates present; external nose not normal (Small abrasion over the bridge of the nose. No deformity, no tenderness) TEETH & GINGIVA: Yes edentulous Eye: COMMON NORMALS: Equal, round and reactive pupils present, EOMs intact bilaterally and conjunctivae normal CONJUNCTIVA: Yes conjunctivae normal PUPIL: Yes Equal, round and reactive pupils present Neck/C-Spine: COMMON NORMALS: supple and No carotid bruits CERVICAL SPINE: Yes cervical ROM normal, No Cervical spine tenderness and No step off deformity Chest: COMMONS NORMALS: normal inspection of the chest and normal palpation of entire chest wall Resp: COMMON NORMALS: normal respiratory effort, No retractions and No use of accessory muscles AUSCULTATION: crackles Laterality: bilateral (At bases) Cardio: COMMON NORMALS: regular rate, regular rhythm, No murmurs present (Cardio) and Peripheral pulses 2+ throughout RATE: regular rate RHYTHM: regular rhythm PERIPHERAL PULSES: Peripheral pulses 2+ throughout GI: COMMON NORMALS: Normal to inspection, nondistended, normoactive bowel sounds present, Soft to palpation and non-tender PALPATION: Yes Soft to palpation Back/Pelvis: COMMON NORMALS: thoracic and lumbar spine normal to inspection, no thoracic nor lumbar tenderness and thoraco-lumbar ROM normal Extremity: COMMON NORMALS: normal to inspection, full ROM, capillary refill normal, no calf tenderness and no pedal edema Neuro: COMMON NORMALS: patient oriented x3, moves all extremities, no focal motor deficits and no sensory deficits noted SENSORIUM/ORIENTATION: Yes alert CRANIAL NERVES: Yes CN normal except as noted Course Reevaluation(s): Reevaluation #1: Patient clinical examination essentially remained unchanged. No neurofocal findings. Given her current clinical picture with 2 episodes of syncope, increasing infiltrate on chest x-ray I discussed treatment options with family and their preference would be for her to be admitted for further care. Time: 17:47 Consultations: Consultation #1: Reviewed current presentation with Dr. Simmons attending hospitalist who agreed to place the patient in the hospital. Time: 17:47 Vital Signs: Vital signs: Vital Signs Temperature 98.1 F 10/09/22 12:38 Pulse Rate 86 10/09/22 15:50 Respiratory Rate 18 10/09/22 15:50 Blood Pressure 128/67 10/09/22 15:50 Pulse Oximetry 92 10/09/22 15:50 Oxygen Delivery Me thod 10/09/22 12:38 Oxygen Flow Rate 3 10/09/22 12:38 MDM - Syncope Medical Decision Making This patient returned to the Emergency Department having 2 separate episodes of syncope which clinically suggest more orthostatic rather than other potential etiologies at this time. Her differential because of recent hospitalization and certainly occluded thromboembolic phenomenon, arrhythmia, volume depletion etc. Her work-up included imaging which revealed evidence of increasing infiltrate on her chest CT but no evidence of pulmonary embolus. Initial troponin and EKGs a re reassuring without evidence of ACS etc. Because of her current presentation, recent hospitalization and as well as repeat emergency department visits is prudent and certainly reasonable for us to place her back in the hospital for additional antibiotic treatment, or other therapies as indicated. This was reviewed with the family as well as the attending hospitalist. Medical Records I reviewed the patient's medical records. Lab Data I reviewed the patient's lab results. 10/09/22 13:20 10/09/22 13:20 Radiology Impressions Chest X-Ray 10/09/22 13:01 IMPRESSION: 1. Increasing opacification centered over the RIGHT hilum and extending into the medial RIGHT lower lobe and along the RIGHT minor fissure. Consistent with increasing pneumonia in additional areas of atelectasis. 2. Chronic emphysema. Chest CTA 10/09/22 14:56 IMPRESSION: 1. No evidence for pulmonary embolus. 2. Shallow inspiration with RIGHT lower lobe pneumonia. A few patchy infiltrates in the LEFT lower lobe. 3. Hazy groundglass infiltrates about the RIGHT hilum. 4. Cluster of slightly prominent RIGHT hilar lymph nodes nonspecific but may be reactive. No other acute findings. Laboratory Results WBC 8.5 10^3/uL (4.0-10.0) 10/09/22 13:20 RBC 5.11 10^6/uL (4.1-5.3) 10/09/22 13:20 Hgb 12.8 g/dL (11.5-15.3) 10/09/22 13:20 Hct 41.5 % (37.0-47.0) 10/09/22 13:20 MCV 81.2 fl (81-99) 10/09/22 13:20 MCH 25.0 pg (28.0-34.0) L 10/09/22 13:20 MCHC 30.8 g/dL (30.0-36.0) 10/09/22 13:20 RDW 14.6 % (12.1-15.1) 10/09/22 13:20 Plt Count 257 10^3/cmm (130-400) 10/09/22 13:20 MPV 9.1 fL (7.4-10.4) 10/09/22 13:20 Neut % (Auto) 80.3 % 10/09/22 13:20 Lymph % (Auto) 15.9 % 10/09/22 13:20 [place] % (Auto) 1.3 % 10/09/22 13:20 Eos % (Auto) 0.0 % 10/09/22 13:20 Baso % (Auto) 0.2 % 10/09/22 13:20 Neut # (Auto) 6.84 10^3/uL (1.8-7.7) 10/09/22 13:20 Lymph # (Auto) 1.4 10^3/uL (0.8-4.8) 10/09/22 13:20 [place] # (Auto) 0.1 10^3/uL (0.2-0.9) L 10/09/22 13:20 Eos # (Auto) 0.0 10^3/uL (0.0-0.8) 10/09/22 13:20 Baso # (Auto) 0.0 10^3/uL (0.0-0.1) 10/09/22 13:20 Nucleated RBC % (auto) 0 % 10/09/22 13:20 Nucleated RBCs # 0.0 /100WBC 10/09/22 13:20 D-Dimer 1.57 ug/mIFEU (0-0.59) H 10/09/22 13:20 Sodium 130 mmol/L (136-145) L 10/09/22 13:20 Potassium 3.6 mmol/L (3.5-5.1) 10/09/22 13:20 Chloride 96 mmol/L (98-107) L 10/09/22 13:20 Carbon Dioxide 22 mmol/L (22-29) 10/09/22 13:20 Anion Gap 15.6 (5-19) 10/09/22 13:20 BUN 13 mg/dL (8-23) 10/09/22 13:20 Creatinine 1.0 mg/dL (0.5-0.9) H 10/09/22 13:20 GFR Calculation 55.0 mL/min (90-130) L 10/09/22 13:20 Glucose 117 mg/dL (65-115) H 10/09/22 13:20 Calculated Osmolality 271 mOsm/kg (285-295) L 10/09/22 13:20 Calcium 8.2 mg/dL (8.5-10.5) L 10/09/22 13:20 Magnesium 1.9 mg/dL (1.7-2.3) 10/09/22 13:20 Total Bilirubin 0.3 mg/dL (0.15-1.2) 10/09/22 13:20 AST 24 U/L (0-32) 10/09/22 13:20 ALT 24 U/L (0-33) 10/09/22 13:20 Alkaline Phosphatase 47 U/L (35-105) 10/09/22 13:20 Troponin T Baseline 10 ng/L (0-10) 10/09/22 13:20 Troponin T 120 Minute 8.14 ng/L (0-10) 10/09/22 16:20 Delta Troponin T -1.86 ABS# (0-10) L 10/09/22 16:20 Total Protein 5.7 g/dL (6.6-8.7) L 10/09/22 13:20 Albumin 3.3 g/dL (3.5-5.2) L 10/09/22 13:20 Globulin 2.4 g/dL (1.3-4.6) 10/09/22 13:20 Urine Color Yellow (Yellow) 10/09/22 15:36 Urine Appearance Clear (CLEAR) 10/09/22 15:36 Urine pH 7 (5-7) 10/09/22 15:36 Ur Specific Media 1.005 (1.005-1.030) 10/09/22 15:36 Urine Protein Neg (Negative) 10/09/22 15:36 Urine Glucose (UA) Norm (Normal) 10/09/22 15:36 Urine Ketones Negative (Negative) 10/09/22 15:36 Urine Blood Neg (Negative) 10/09/22 15:36 Urine Nitrate Negative (Negative) 10/09/22 15:36 Urine Bilirubin Neg (Negative) 10/09/22 15:36 Urine Urobilinogen Norm mg/dL (Negative) 10/09/22 15:36 Ur Leukocyte Esterase Negative (Negative) 10/09/22 15:36 EKG Data EKG 1: I personally reviewed and interpreted this EKG as follows: Interpretation: Contemporaneous review of resting EKG reveals a ventricular rate of 81 bpm. Normal AK interval, QRS duration, corrected QT interval. Normal axis. No acute ST-T wave changes noted at this time. Discharge Plan Discharge Patient Disposition: Admitted As Inpatient Clinical Impression: Syncope, Right lower lobe pneumonia, COVID-19 Condition: Stable Prescriptions: No Action albuterol sulfate [ProAir HFA] 90 mcg/actuation HFA aerosol inhaler 2 puff INHALATION QID PRN (Reason: shortness of breath) Qty: 8.5 0RF B12 Active 1,000 mcg tablet,chewable 1,000 mcg PO DAILY Qty: 30 0RF folic acid 1 mg tablet 1 mg PO QAM aspirin [Adult Aspirin Regimen] 81 mg tablet,delayed release (DR/EC) 81 mg PO QAM fluticasone propionate 50 mcg/actuation spray,suspension 1 - 2 spray intranasal DAILY PRN (Reason: Allergy Symptoms) 30 Days Qty: 16 6RF lidocaine HCl [Aspercreme (lidocaine HCl)] 4 % cream 1 applic topical BID PRN (Reason: Pain) (DME) oxygen @ 2L per n/c See Rx Instructions .Route .MEDSUPPLY Qty: 1 0RF Rx Instructions: please supply conserving device, portable and concentrator amlodipine 2.5 mg tablet 2.5 mg PO DAILY Qty: 90 3RF Rx Instructions: PT STATES NOT STARTED OF 10/09/22 prednisone 5 mg tablet 7.5 mg PO DAILY Rx Instructions: part of taper loperamide [Imodium A-D] 2 mg capsule 2 mg PO Q4H PRN (Reason: loose stool) Qty: 30 0RF Rx Instructions: 1 after each loose stool until symptoms resolved;do not exceed 8 mg per 24 hrs Trelegy Ellipta 100-62.5-25 mcg blister with device 1 inh inhalation DAILY 30 Days Qty: 60 4RF pantoprazole 40 mg tablet,delayed release (DR/EC) 40 mg PO BID cholecalciferol (vitamin D3) [Vitamin D3] 25 mcg (1,000 unit) Capsule 25 mcg PO QPM metoprolol tartrate 25 mg tablet 25 mg PO BID prednisone 10 mg tablets,dose pack See Taper PO DAILY Qty: 42 0RF Taper: predniSONE 60-10 40 mg Daily for 2 Days and 0 Hour 30 mg Daily for 2 Days and 0 Hour 20 mg Daily for 2 Days and 0 Hour 10 mg Daily for 2 Days and 0 Hour ipratropium-albuterol 0.5 mg-3 mg(2.5 mg base)/3 mL solution for nebulization 3 ml inhalation Q8H Qty: 180 0RF Flexeril 10 mg Tablet 10 mg PO TID PRN (Reason: Muscle Spasm) promethazine-DM 6.25-15 mg/5 mL syrup 5 - 10 ml PO Q6H PRN (Reason: Cough) Tylenol Ex Str Rapid Release 500 mg Tablet 1,000 mg PO Q4H PRN (Reason: Pain) levofloxacin 500 mg tablet 500 mg PO DAILY Rx Instructions: RX FILLED 10/05/22 7D/S amoxicillin-pot clavulanate 500-125 mg tablet 1 tab PO BID Rx Instructions: RX FILLED 10/05/22 7D/S Probiotic Blend 2 billion cell-50 mg Capsule 1 cap PO DAILY Rx Instructions: give with meal/snack losartan 50 mg tablet 50 mg PO BID albuterol sulfate 2.5 mg /3 mL (0.083 %) solution for nebulization 2.5 mg inhalation QID PRN (Reason: Shortness Of Breath) methenamine hippurate 1 gram tablet 1 g PO BID Referrals: Jasmin Petit NP [Primary Care Provider] - Coding Level of Care Code ED Business Process Representative for [facility]
--- NOTE | 2022-10-09 13:01 | XR_ITS ---
WS: [id number] PORTABLE CHEST HISTORY: syncope COMPARISON: Prior CT 06/23/2022 and radiograph 06/07/2023 Increasing consolidation and opacification centered over the RIGHT hilum and extending along the RIGH T fissure. Increasing opacification along the RIGHT heart. Superimposed changes of emphysema. No pleu ral effusion or pneumothorax. Cardiac size: Normal. Mediastinum/Aorta: Mild atherosclerosis aorta. No osseous abnormality seen. XR/XR chest 1V portable [id number] IMPRESSION: 1. Increasing opacification centered over the RIGHT hilum and extending into t he medial RIGHT lower lobe and along the RIGHT minor fissure. Consistent with i ncreasing pneumonia in additional areas of atelectasis. 2. Chronic emphysema.
--- NOTE | 2022-10-09 13:13 | ECG_ITS ---
[facility] Test Date: 2022-10-09 Pat Name: Shanita Saleh Department: Room: Gender: Female Banquet Lead: : 1955 Requested By: Abhishek Madsen Order Number: [id number] Raheem MD: Olivier Wetzel M.D. Measurements Intervals [place] Rate: 81 P: 24 RI: 145 QRS: 11 QRSD: 89 T: 7 QT: 368 QTc: 428 Interpretive Statements SINUS RHYTHM Compared to ECG 10/04/2022 12:17:07 No significant changes Electronically Signed On 10-09-2022 16:19:42 CLINCHING MACHINE OPERATOR by Olivier Wetzel M.D. [email or web address] [id number]
[2022-10-09 13:30] LABS: Basophils % 0.2 %; Hematocrit 41.5 % (37.0-47.0); Hemoglobin 12.8 g/dL (11.5-15.3); Lymphocytes # 1.4 10^3/uL (0.8-4.8); Lymphocytes % 15.9 %; Mean Corpuscular HGB Conc 30.8 g/dL (30.0-36.0); Mean Corpuscular Volume 81.2 fl (81-99); Mean Platelet Volume 9.1 fL (7.4-10.4); Monocytes # 0.1 10^3/uL (0.2-0.9); Monocytes % 1.3 %; Neutrophils # 6.84 10^3/uL (1.8-7.7); Neutrophils % 80.3 %; Nucleated Red Blood Cells % 0 %; Platelet Count 257 10^3/cmm (130-400); Red Blood Count 5.11 10^6/uL (4.1-5.3); Red Cell Distribution Width 14.6 % (12.1-15.1); White Blood Count 8.5 10^3/uL (4.0-10.0)
[2022-10-09 14:01] LABS: D Dimer 1.57 ug/mIFEU (0-0.59)
[2022-10-09 14:06] LABS: Alanine Aminotransferase 24 U/L (0-33); Albumin Level 3.3 g/dL (3.5-5.2); Alkaline Phosphatase 47 U/L (35-105); Anion Gap 15.6 (5-19); Aspartate Amino Transferase 24 U/L (0-32); Blood Urea Nitrogen 13 mg/dL (8-23); Calcium 8.2 mg/dL (8.5-10.5); Carbon Dioxide 22 mmol/L (22-29); Chloride 96 mmol/L (98-107); Globulin 2.4 g/dL (1.3-4.6); Glucose 117 mg/dL (65-115); Magnesium 1.9 mg/dL (1.7-2.3); Osmolality Calculated 271 mOsm/kg (285-295); Potassium 3.6 mmol/L (3.5-5.1); Sodium 130 mmol/L (136-145); Total Bilirubin 0.3 mg/dL (0.15-1.2); Total Protein 5.7 g/dL (6.6-8.7)
[2022-10-09 14:07] LABS: Troponin(5th) Baseline 10 ng/L (0-10)
--- NOTE | 2022-10-09 14:56 | CT_ITS ---
WS: [id number] CTA OF THE CHEST WITH PULMONARY EMBOLISM PROTOCOL TECHNIQUE: High-resolution contrast enhanced CTA of the chest with coronal and sagittal reformatted i mages with pulmonary embolism protocol. MIP images are also reviewed. CLINICAL INFORMATION: elevated dimer, syncope COMPARISON: CTA chest 06/09/2021 DLP: 314.[address] scans at [facility] use at least one of these dose optimization techniques: automated e xposure control; mA and/or kV adjustment per patient size (includes targeted exams where dose is matc hed to clinical indication); or iterative reconstruction. FINDINGS:Moderate chronic emphysematous changes. New interstitial and air space infiltrates in the RI GHT lower lobe compatible with pneumonia. Trace LEFT pleural fluid. Additional hazy groundglass infil trates in the perihilar RIGHT upper lobe. Focal subpleural nodule or pleural thickening RIGHT upper l obe unchanged from previous. Interstitial infiltrates with atelectasis in the LEFT lower lobe. Shallo w inspiration. Proximal main pulmonary arteries are normal. Normal segmental and subsegmental pulmonary arteries. No evidence of pulmonary embolus. Normal caliber thoracic aorta. Aortic calcification. Mild prominence hilar lymph nodes nonspecific but may be reactive. Bronchovascular thickening along the RIGHT hilum. Adrenal glands are normal. Small esophageal hiatal hernia. Prior postoperative changes kyphoplasty in the lower thoracic spine. Mild thoracic kyphosis. CT/CT angio chest PE protcl [id number] IMPRESSION: 1. No evidence for pulmonary embolus. 2. Shallow inspiration with RIGHT lower lobe pneumonia. A few patchy infiltrat es in the LEFT lower lobe. 3. Hazy groundglass infiltrates about the RIGHT hilum. 4. Cluster of slightly prominent RIGHT hilar lymph nodes nonspecific but may b e reactive. No other acute findings.
--- NOTE | 2022-10-09 15:02 | ECG_ITS ---
[facility] Test Date: 2022-10-09 Pat Name: Shanita Saleh Department: Room: Gender: Female Account Liaison Hospice: : 1955 Requested By: Abhishek Madsen Order Number: [id number] Raheem MD: Olivier Wetzel M.D. Measurements Intervals [place] Rate: 85 P: 48 UT: 145 QRS: 38 QRSD: 74 T: 6 QT: 361 QTc: 430 Interpretive Statements SINUS RHYTHM Compared to ECG 10/09/2022 13:13:17 No significant changes Electronically Signed On 10-09-2022 16:23:12 RECONSIGNMENT CLERK by Olivier Wetzel M.D. [id number]
[2022-10-09] MEDS: iohexol 350 mg/mL 500 mL Btl (per mL) IV (15:28)
[2022-10-09 15:44] LABS: Add Urine Microscopic? NO; Charge for UA Resulting for Rev
[2022-10-09 16:18] LABS: Bilirubin Urine Neg (Negative); Blood Urine Neg (Negative); Glucose Urine UA Norm (Normal); Ketones Urine Negative (Negative); Leukocyte Esterase Urine Negative (Negative); Nitrate Urine Negative (Negative); Protein Urine Neg (Negative); Specific Gravity, Urine 1.005 (1.005-1.030); Urine Appearance Clear (CLEAR); Urine Color Yellow (Yellow); Urobilinogen Urine Norm (Negative); pH Urine 7 (5-7)
[2022-10-09 16:59] LABS: Troponin 5 2HR 8.14 ng/L (0-10)
[2022-10-09 17:19] LABS: Troponin 5 2HR Delta -1.86 ABS# (0-10)
--- NOTE | 2022-10-09 18:00 | PM.HP ---
Providers/Chief Complaint Primary Care Provider: Jasmin Petit NP Chief Complaint: Syncope History of Present Illness Shanita Saleh is a 67 year old female who was recently discharged from the hospital after management of pneumonia she was discharged on antibiotics, qualified for 2 L of oxygen, she has history of polymyositis received prednisone infliximab presented back with syncopal event. Patient is stating that she felt sick to her stomach and passed out when she woke up she did not realize that she had syncopal event, she was confused for a bit, as per the niece she had a bowel movement as well, patient stating that before this event she had a bowel movement. Patient had another syncopal event when was taking care of her trying to adjust her position in the couch. In the ER she was orthostatics negative, she was admitted for syncope work-up She was given antibiotics for bilateral pneumonia No active signs of meningitis She looks dehydrated No signs of sepsis CTA done because of high D-dimer which ruled out PE Review of Systems Const: Reports: fever(s) and chills Eyes: Denies: change in vision ENMT: Denies: throat pain Card: Denies: chest pain Resp: Reports: dyspnea GI: Reports: nausea : Denies: flank pain Musc: Denies: neck pain Skin/Breast: Reports: rash Neuro: Reports: headache(s) Psych: Denies: anxiety Endo: Denies: polyuria Luis/Lymph: Denies: easy bruising All/Imm: Denies: urticaria Medications/Allergies Home Medications Medication Instructions Recorded Confirmed Last Taken Type aspirin 81 mg tablet,delayed 81 mg PO QAM 09/04/19 10/09/22 10/09/22 History release (Adult Aspirin Regimen) folic acid 1 mg tablet 1 mg PO QAM 09/04/19 10/09/22 10/04/22 History albuterol sulfate 90 mcg/actuation 2 puff inhalation QID PRN 05/16/21 10/09/22 06/08/21 Rx aerosol inhaler (ProAir HFA) shortness of breath #8.5 grams fluticasone propionate 50 1 - 2 spray intranasal DAILY PRN 06/04/21 10/09/22 Unknown Rx mcg/actuation nasal Allergy Symptoms 30 days #16 grams spray,suspension lidocaine HCl 4 % topical cream 1 applic topical BID PRN Pain 09/22/21 10/09/22 Unknown History (Aspercreme (lidocaine HCl)) mecobalamin (vitamin B12) 1,000 1,000 mcg PO DAILY #30 tabs 11/19/21 10/09/22 10/04/22 Rx mcg chewable tablet (B12 Active) oxygen @ 2L per n/c #1 ea 04/15/22 10/09/22 Unknown Rx amlodipine 2.5 mg tablet 2.5 mg PO DAILY #90 tabs 07/02/22 10/09/22 Unknown Rx fluticasone fur. 100 mcg-umeclid 1 inh inhalation DAILY 30 days #60 07/14/22 10/09/22 10/09/22 Rx 62.5 mcg-vilant 25 mcg ea inhalat.powder (Trelegy Ellipta) loperamide 2 mg capsule (Imodium 2 mg PO Q4H PRN loose stool #30 08/10/22 10/09/22 Unknown Rx A-D) caps prednisone 5 mg tablet 7.5 mg PO DAILY 10/03/22 10/09/22 10/04/22 History cholecalciferol (vitamin D3) 25 25 mcg PO QPM 10/04/22 10/09/22 2 Days Ago History mcg (1,000 unit) capsule (Vitamin ~10/07/22 D3) metoprolol tartrate 25 mg tablet 25 mg PO BID 10/04/22 10/09/22 10/09/22 History pantoprazole 40 mg tablet,delayed 40 mg PO BID 10/04/22 10/09/22 10/09/22 History release ipratropium 0.5 mg-albuterol 3 mg 3 ml inhalation Q8H #180 mL 10/05/22 10/09/22 10/08/22 Rx (2.5 mg base)/3 mL nebulization soln prednisone 10 mg tablets in a dose See Taper PO DAILY #42 ea 10/05/22 10/09/22 10/09/22 Rx pack 30MG STARTS 20MG 2/ L.acidophil-L.casei-B.bifid-B.longum-FOS 1 cap PO DAILY 10/09/22 10/09/22 2 Days Ago History 2 billion cell-50 mg capsule ~10/07/22 (Probiotic Blend) acetaminophen 500 mg tablet 1,000 mg PO Q4H PRN Pain 10/09/22 10/09/22 Unknown History albuterol sulfate 2.5 mg/3 mL 2.5 mg inhalation QID PRN 10/09/22 10/09/22 Unknown History (0.083 %) solution for nebulization Shortness Of Breath amoxicillin 500 mg-potassium 1 tab PO BID 10/09/22 10/09/22 10/09/22 History clavulanate 125 mg tablet cyclobenzaprine 10 mg tablet 10 mg PO TID PRN Muscle Spasm 10/09/22 10/09/22 Unknown History levofloxacin 500 mg tablet 500 mg PO DAILY 10/09/22 10/09/22 10/08/22 History losartan 50 mg tablet 50 mg PO BID 10/09/22 10/09/22 10/09/22 History methenamine hippurate 1 gram tablet 1 g PO BID 10/09/22 10/09/22 3 Weeks Ago History ~09/18/22 promethazine-DM 6.25 mg-15 mg/5 mL 5 - 10 ml PO Q6H PRN Cough 10/09/22 10/09/22 3 Days Ago History oral syrup ~10/06/22 Allergies Allergy/AdvReac Type Severity Reaction Status Date / Time azathioprine Allergy Intermediate ALGY-Difficulty Verified 10/03/22 10:37 Breathing nitrofurantoin Allergy Intermediate ALGY-Hives Verified 10/03/22 10:37 [From Macrobid] cephalexin Allergy Unknown ALGY-Hives Verified 10/03/22 10:37 lisinopril AdvReac Severe ADR-Cough Verified 10/03/22 10:37 PFSH Acute PFSH: Medical History Age related osteoporosis Anxiety Carotid bruit Cellulitis of left lower extremity CKD (chronic kidney disease) Community acquired pneumonia Compression fx, lumbar spine Compression fx, thoracic spine COPD (chronic obstructive pulmonary disease) Diverticulitis Family history of melanoma Generalized osteoarthritis GERD (gastroesophageal reflux disease) High risk medication use Hypertension Immunosuppression Leg cramps Medication monitoring encounter Osteoporosis Polymyositis Polymyositis PUD (peptic ulcer disease) Surgical History H/O colonoscopy 2016 H/O wrist surgery History of appendectomy History of back surgery History of lumpectomy of both breasts History of tubal ligation Family History Father , at age 84 Hypertension Cancer Prostate cancer and Kidney cancer Alzheimer disease Mother , at age 82 Hypertension Dementia Grandmother , unknown age of Cancer Breast Cancer Sister Cancer Kidney Social History Smoking and tobacco status: former smoker Quit status (tobacco): has quit using tobacco Year quit tobacco: 2008 - 1.5 PPD x 35 Years Second hand smoke exposure: No Alcohol intake: never Caregiver/support person: Yes Lives independently: Yes Household members: spouse Marital status: Marital status details: 54 years Number of children: 2 Current occupational status: retired and disabled History of recent travel: No Current gender identity: Female Special gonsalo needs: No Agree to transfusion: Yes Vitals/I&O/Wt Last Vital Signs Temp 98.1 F 10/09/22 12:38 Pulse 86 10/09/22 15:50 Resp 18 10/09/22 15:50 BP 128/67 10/09/22 15:50 Pulse Ox 92 10/09/22 15:50 O2 Del Method 10/09/22 12:38 O2 Flow Rate 3 10/09/22 12:38 Weight last 48 hrs Weight 73.936 kg Physical Exam Narrative: Patient is awake and alert No sign of meningitis Nonfocal neuro exam Currently on 2 L of oxygen No active rash No signs of chest pain Awake and alert Edema lethargic Clinically looks dehydrated Abdomen soft Lower extremity no edema Appears stated age Data 10/09/22 13:20 10/09/22 13:20 A&P Assessment and plan (1) Syncope: (2) Bilateral pneumonia: (3) COVID-19: (4) Fever: (5) Chronic diarrhea: (6) Dizziness: (7) Adrenal insufficiency: (8) Cold sore: (9) Myalgia: (10) Recurrent UTI: Plan Syncopal events Orthostatics negative Clinically looks dehydrated Orthostatics were done after fluid resuscitation in the ER Requested echo Serial troponin and EKG Bilateral pneumonia Currently on 2 L of oxygen Patient was given antibiotics in the ER no Sepsis Received Levaquin Recurrent UTIs Recurrent dizziness and chronic diarrhea Polymyositis, infliximab and steroid use Adrenal insufficiency Currently hemodynamically stable Full code Cardiac diet DVT prophylaxis on board COVID-19 infection 3 weeks ago Attestations Medical Necessity Statement*: More than 2 midnights anticipated Coding Level of Care Code 88967 Diagnoses Syncope R55 Bilateral pneumonia J18.9 COVID-19 U07.1 Fever R50.9 Chronic diarrhea K52.9 Dizziness R42 Adrenal insufficiency E27.40 Cold sore B00.1 Myalgia M79.10 Recurrent UTI N39.0
--- NOTE | 2022-10-09 19:02 | ECG_ITS ---
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 Measurements Intervals [place] Rate: 92 P: 52 WV: 139 QRS: 39 QRSD: 74 T: 27 QT: 336 QTc: 418 Interpretive Statements SINUS RHYTHM Compared to ECG 10/09/2022 15:32:28 No significant changes Electronically Signed On 10-09-2022 21:57:19 FOREPART LASTER by Arnulfo Deal M.D. [id number]
--- NOTE | 2022-10-09 19:02 | PC.NURSE ---
Bedside report given to Tracy MORAN at this time.
[2022-10-09 20:23] LABS: Troponin 5 6HR 8.12 ng/L (0-10)
[2022-10-09] MEDS: levofloxacin-dextrose 5 % 750 MG/150 ML PREMIX 100 MG IV (20:30)
[2022-10-09] MEDS: sodium chloride 0.9% 1,000 ML 75 ML IV (20:31)
[2022-10-09] MEDS: heparin 5,000 unit/mL INJ 1 mL 5000 UNIT SUBCUT (20:31)
[2022-10-09 20:41] LABS: Vitamin B12 1226 pg/mL (232-1245)
[2022-10-09 21:28] LABS: Glucose Point of Care 142 mg/dL (70-110)
[2022-10-09 21:30] LABS: Troponin 5 6HR Delta 0.02 ng/L (0-12)
[2022-10-09] MEDS: acetaminophen 500 mg Tablet PO (21:30)
[2022-10-10] VITALS (12 sets, daily range): BP systolic 101–146; BP diastolic 57–67; PULSE 74–103; RESP 15–22; TEMP 36.5–38.8; O2SAT 89–95
[2022-10-10] MEDS: acetaminophen 500 mg Tablet PO ×4 (03:43→23:23)
[2022-10-10 05:35] LABS: Basophils % 0.3 %; Hematocrit 40.6 % (37.0-47.0); Hemoglobin 12.7 g/dL (11.5-15.3); Lymphocytes # 2.1 10^3/uL (0.8-4.8); Lymphocytes % 33.3 %; Mean Corpuscular HGB Conc 31.3 g/dL (30.0-36.0); Mean Corpuscular Hemoglobin 25.4 pg (28.0-34.0); Mean Corpuscular Volume 81.2 fl (81-99); Mean Platelet Volume 9.9 fL (7.4-10.4); Monocytes # 0.2 10^3/uL (0.2-0.9); Monocytes % 3.2 %; Neutrophils # 3.83 10^3/uL (1.8-7.7); Neutrophils % 61.9 %; Nucleated Red Blood Cells % 0 %; Platelet Count 266 10^3/cmm (130-400); Red Cell Distribution Width 14.5 % (12.1-15.1); White Blood Count 6.2 10^3/uL (4.0-10.0)
[2022-10-10] MEDS: folic acid 1 mg Tablet PO (05:43)
[2022-10-10] MEDS: aspirin 81 mg EC Tablet PO (05:43)
[2022-10-10 05:55] LABS: Blood Urea Nitrogen 9 mg/dL (8-23); C Reactive Protein 54.6 mg/L (0.0-4.9); Calcium 7.8 mg/dL (8.5-10.5); Carbon Dioxide 19 mmol/L (22-29); Chloride 98 mmol/L (98-107); Glomerular Filtration Rate 71.1 mL/min (90-130); Glucose 98 mg/dL (65-115); Magnesium 1.7 mg/dL (1.7-2.3); Osmolality Calculated 273 mOsm/kg (285-295); Phosphorus 2.2 mg/dL (2.5-4.5); Sodium 132 mmol/L (136-145)
--- NOTE | 2022-10-10 06:00 | USCV_ITS ---
Shanita Saleh Age: 67 Gender: F : 1955 Exam Date: 10/10/2022 09:40 Ordering Phys: Rhiannon Simms MD Technologist: CARMENZA [place] [facility] [place]: [place] BP: / HR: 109 Rhythm: Sinus Technical Quality: Suboptimal MEASUREMENTS (Male / Female) Normal Values 2D ECHO LV Diastolic Diameter PLAX 3.7 cm 4.2 - 5.9 / 3.9 - 5.3 cm LV Systolic Diameter PLAX 2.2 cm IVS Diastolic Thickness 0.9 cm 0.6 - 1.0 / 0.6 - 0.9 cm IVS Systolic Thickness 1.1 cm LVPW Diastolic Thickness 0.8 cm 0.6 - 1.0 / 0.6 - 0.9 cm LVPW Systolic Thickness 1.1 cm LVOT Diameter 2.0 cm LV Ejection Fraction 2D Teich 73.3 % LV Ejection Fraction MOD 2C 71.2 % LV Ejection Fraction 2C AL 72.2 % LA Diameter 4.0 cm M-MODE Aortic Annulus Diameter 3.1 cm LA Ao Ratio MM 1.3 MV E Point Septal Separation 0.4 cm DOPPLER AV Peak Velocity 144.0 cm/s LVOT Peak Velocity 129.0 cm/s AV Area Cont Eq vti 2.6 cm squared AV Area Cont Eq pk 2.7 cm squared MV Area PHT 3.9 cm squared Mitral E to A Ratio 0.8 MV E' Velocity 52.0 cm/s Mitral E to MV E' Ratio 11.9 Mitral E to LV E' Lateral Ratio 9.8 Mitral E to LV E' Septal Ratio 15.2 TR Peak Velocity 325.3 cm/s TR Peak Gradient 42.3 mmHg TV Peak E Velocity 50.0 cm/s Right Atrial Pressure 6.0 mmHg Pulmonary Artery Systolic Pressu 48.3 mmHg PV Peak Velocity 135.0 cm/s FINDINGS Left Ventricle Normal left ventricular cavity size. Mild left ventricular hypertrophy. Normal left ventricular systolic function. Grade I/IV diastolic dysfunction (abnormal relaxation filling pattern), normal to mildly elevated filling pressures. Left ventricular ejection fraction is estimated at 70 %. Right Ventricle Normal right ventricular size and systolic function. Mild pulmonary hypertension, RVSP 48.3 mmHg. Right Atrium The right atrium is normal in size. Left Atrium The left atrium is normal in size. Mitral Valve Structurally normal mitral valve without significant stenosis or prolapse. There is no mitral regurgitation. Aortic Valve Structurally normal aortic valve without significant sclerosis or stenosis. There is no aortic regurgitation. Tricuspid Valve Structurally normal tricuspid valve. Trace tricuspid valve regurgitation. Pulmonic Valve Pulmonic valve not well visualized. Pericardium Normal pericardium without effusion. Aorta Normal ascending aorta dimension. IVC The inferior vena cava appears normal. CONCLUSIONS Normal left ventricular cavity size. Mild left ventricular hypertrophy. Normal left ventricular systolic function. Grade I/IV diastolic dysfunction (abnormal relaxation filling pattern), normal to mildly elevated filling pressures. Left ventricular ejection fraction is estimated at 70 %. Normal right ventricular size and systolic function. Mild pulmonary hypertension, RVSP 48.3 mmHg. No change from the 2 prior studies dictated 12/29/2019 and 02/07/2018 Dr. Olivier Wetzel MD (Electronically Signed) Final Date: 10 October 2022 15:09 S
[2022-10-10 06:06] LABS: Anion Gap 18.7 (5-19)
[2022-10-10 06:07] LABS: Potassium 3.7 mmol/L (3.5-5.1)
[2022-10-10] MEDS: ipratropium-albuterol 3 mL Neb INHALATION ×2 (08:17→14:51)
[2022-10-10] MEDS: predniSONE 5 mg Tablet 7.5 MG PO (09:10)
[2022-10-10] MEDS: metoprolol tartrate 25 mg Tablet PO ×2 (09:11→17:50)
[2022-10-10] MEDS: pantoprazole DR 40 mg Tablet PO ×2 (09:11→17:50)
[2022-10-10] MEDS: losartan 50 mg Tablet PO (09:11)
[2022-10-10] MEDS: heparin 5,000 unit/mL INJ 1 mL 5000 UNIT SUBCUT ×2 (09:12→20:25)
[2022-10-10] MEDS: cyclobenzaprine 10 mg Tablet PO ×2 (10:10→23:24)
--- NOTE | 2022-10-10 11:30 | P.PN_ITS ---
Subjective Subjective: Overnight patient started having fever I have requested blood culture, urinalysis, lactic acid Escalate antibiotics to aztreonam and vancomycin Requested PCP antigen She is immunocompromised. No signs of meningitis this morning Febrile events noted No leukocytosis Does not meet sepsis criteria Vitals/I&O/Wt Last Vital Signs Temp 101.9 F H 10/10/22 08:25 Pulse 95 10/10/22 08:25 Resp 15 10/10/22 08:25 BP 113/62 10/10/22 09:11 Pulse Ox 90 10/10/22 08:25 O2 Del Method 10/10/22 08:25 O2 Flow Rate 2 10/10/22 08:19 10/09/22 10/10/22 10/10/22 22:59 06:59 14:59 Intake Total 720 / 720 1110 / 1830 1000 / 1000 Balance 720 / 720 1110 / 1830 1000 / 1000 Weight last 48 hrs Weight 73.936 kg Physical Exam Narrative: No meningitis Nonfocal neuro exam Patient complaining of chills S1, S2 Currently on 2 L Abdomen soft Lower extremity no edema No abdominal pain Clinically still looks dehydrated Dry mucous membranes Data 10/10/22 04:25 10/10/22 04:25 A&P Assessment and plan (1) Bilateral pneumonia: (2) Syncope: (3) COVID-19: (4) Fever: (5) Immunosuppression: (6) Polymyositis: (7) Myalgia: (8) Chronic cystitis: (9) Chronic diarrhea: Plan Syncope events We will follow-up with echo report Orthostatics negative Febrile events noted overnight Bilateral pneumonia No signs of meningitis Nonfocal neuro exam Patient immunocompromise we will request PCP antigen, escalated antibiotics to v ancomycin and aztreonam Requested blood cultures, urinalysis, patient does have history of chronic c ystitis and diarrhea Will request CT abdomen pelvis CTA did not show PE however high D-dimer noted Repeat COVID PCR We will give her 1 L bolus However not meeting sepsis criteria, Full code Cardiac diet DVT prophylaxis on board Attestations Medical Necessity Statement*: Continue medical management Coding Level of Care Code 92031 Diagnoses Bilateral pneumonia J18.9 Syncope R55 COVID-19 U07.1 Fever R50.9 Immunosuppression D89.9 Polymyositis M33.20 Myalgia M79.10 Chronic cystitis N30.20 Chronic diarrhea K52.9
[2022-10-10] MEDS: vancomycin 1,000 MG in sodium chloride 0.9% 250 ML 250 MG IV ×2 (11:34→23:15)
--- NOTE | 2022-10-10 11:45 | CTR_ITS ---
PROCEDURE INFORMATION: Exam: CT Abdomen And Pelvis Without Contrast Exam date and time: 10/10/2022 3:12 PM Age: 67 years old Clinical indication: Fever TECHNIQUE: Imaging protocol: Computed tomography of the abdomen and pelvis without contrast. Radiation optimization: All CT scans at this facility use at least one of these dose optimization techniques: automated exposure control; mA and/or kV adjustment per patient size (includes targeted exams where dose is matched to clinical indication); or iterative reconstruction. Other protocol: This patient has received 4 known CTs and 0 known cardiac nuclear medicine studies in the 12 months prior to the current study. COMPARISON: CT abdomen pelvis wo/w [id number] 12/02/2021 1:38 PM RADIATION DOSE METRICS: Total DLP (mGy-cm): 664.11 FINDINGS: Lungs: Bibasilar atelectasis with component of either more prominent atelectasis and/or patchy infiltrate right lung base posteriorly. Liver: Normal. No mass. Gallbladder and bile ducts: Hyperdense appearance of the dependent aspect of the gallbladder, sludge with possible small stones. No biliary ductal dilatation. Pancreas: Normal. No ductal dilation. Spleen: Normal. No splenomegaly. Adrenal glands: Normal. No mass. Kidneys and ureters: Normal. No hydronephrosis. Stomach and bowel: Mild scattered sigmoid colon diverticula. No bowel obstruction. No focal inflammatory changes. A tiny rounded calcification suggested within the duodenum adjacent to the gallbladder. Appendix: The appendix is not seen and without CT findings to indicate appendicitis. Likely previous appendectomy which was suggested on prior exam. Intraperitoneal space: Unremarkable. No free air. No significant fluid collection. Vasculature: Diffuse atherosclerotic vascular disease, without aneurysmal dilatation of the abdominal aorta. Lymph nodes: Unremarkable. No enlarged lymph nodes. Urinary bladder: Unremarkable as visualized. Reproductive: Unremarkable as visualized. Bones/joints: Prior vertebroplasties T10-T11. Mild chronic anterior superior endplate wedging of T12, L1, L3, as noted with prior exam. Soft tissues: Small umbilical hernia of fat without bowel content. CT/CT abdomen pelvis wo con [id number] IMPRESSION: 1. Bibasilar atelectasis and with either component of more prominent atelectasis and/or component of patchy infiltrate posterior right lung base. 2. Hyperdense appearance of the dependent aspect of the gallbladder with today's exam, which could indicate hyperdense sludge and/or component of small stones. No significant biliary ductal dilatation. Further evaluation with fasting gallbladder ultrasound could be performed. 3. Small umbilical hernia of fat. 4. Diffuse atherosclerotic vascular disease. 5. Mild scattered sigmoid colon diverticula. No focal inflammatory changes. 6. Chronic bony changes of the spine with prior vertebroplasties T10 and T11.
[2022-10-10 12:16] LABS: Lactate (Lactic Acid level) 1.7 mmol/L (0.5-2.2)
[2022-10-10] MEDS: aztreonam 2,000 MG in sodium chloride 0.9% (plus) 100 ML 200 MG IV (13:00)
[2022-10-10] MEDS: sodium chloride 0.9% 1,000 ML 999 ML IV (13:02)
[2022-10-10] MEDS: ketorolac 30 mg/mL INJ 15 MG IVP (13:08)
[2022-10-10 19:02] LABS: Adenovirus Not Detected (NOT DETECT); Chlamydia Pneumoniae Not Detected (NOT DETECT); Coronavirus 229E,HKU1,NL63,OC4 Not Detected (NOT DETECT); Human Metapneumovirus Not Detected (NOT DETECT); Human Rhinovirus/Enterovirus Not Detected (NOT DETECT); Influenza A Not Detected (NOT DETECT); Influenza A H1 Not Detected (NOT DETECT); Influenza A H1-2009 Not Detected (NOT DETECT); Influenza A H3 Not Detected (NOT DETECT); Influenza B Not Detected (NOT DETECT); Mycoplasma Pneumoniae Not Detected (NOT DETECT); Parainfluenza Virus Type 1 Not Detected (NOT DETECT); Parainfluenza Virus Type 2 Not Detected (NOT DETECT); Parainfluenza Virus Type 3 Not Detected (NOT DETECT); Parainfluenza Virus Type 4 Not Detected (NOT DETECT); Respiratory Syncytial Virus A Not Detected (NOT DETECT); Respiratory Syncytial Virus B Not Detected (NOT DETECT); SARS-COV-2 Not Detected (NOT DETECT)
[2022-10-10 21:51] LABS: Add Urine Microscopic? NO; Charge for UA Resulting for Rev
[2022-10-10 22:21] LABS: Bilirubin Urine Neg (Negative); Blood Urine Neg (Negative); Glucose Urine UA Norm (Normal); Ketones Urine Negative (Negative); Leukocyte Esterase Urine Negative (Negative); Nitrate Urine Negative (Negative); Protein Urine Neg (Negative); Urine Appearance Clear (CLEAR); Urine Color Colorless (Yellow); Urobilinogen Urine Neg (Negative); pH Urine 6 (5-7)
[2022-10-11] VITALS (12 sets, daily range): BP systolic 98–174; BP diastolic 55–77; PULSE 89–105; RESP 17–22; TEMP 37.5–39.4; O2SAT 89–94
[2022-10-11] MEDS: aztreonam 2,000 MG in sodium chloride 0.9% (plus) 100 ML 200 MG IV ×2 (00:28→13:09)
[2022-10-11] MEDS: acetaminophen 500 mg Tablet PO ×3 (03:52→17:36)
[2022-10-11 05:22] LABS: Basophils % 0.3 %; Hematocrit 40.2 % (37.0-47.0); Hemoglobin 12.5 g/dL (11.5-15.3); Lymphocytes # 1.9 10^3/uL (0.8-4.8); Lymphocytes % 32.7 %; Mean Corpuscular HGB Conc 31.1 g/dL (30.0-36.0); Mean Corpuscular Volume 80.4 fl (81-99); Mean Platelet Volume 9.5 fL (7.4-10.4); Monocytes # 0.2 10^3/uL (0.2-0.9); Monocytes % 3.7 %; Neutrophils # 3.69 10^3/uL (1.8-7.7); Neutrophils % 62.1 %; Nucleated Red Blood Cells % 0 %; Platelet Count 256 10^3/cmm (130-400); Red Cell Distribution Width 14.6 % (12.1-15.1); White Blood Count 5.9 10^3/uL (4.0-10.0)
[2022-10-11 05:48] LABS: Blood Urea Nitrogen 8 mg/dL (8-23); Calcium 7.7 mg/dL (8.5-10.5); Carbon Dioxide 20 mmol/L (22-29); Chloride 100 mmol/L (98-107); Glomerular Filtration Rate 71.1 mL/min (90-130); Glucose 90 mg/dL (65-115); Osmolality Calculated 274 mOsm/kg (285-295); Sodium 133 mmol/L (136-145)
[2022-10-11 05:51] LABS: Anion Gap 16.5 (5-19); Potassium 3.5 mmol/L (3.5-5.1)
[2022-10-11] MEDS: folic acid 1 mg Tablet PO (06:03)
[2022-10-11] MEDS: aspirin 81 mg EC Tablet PO (06:03)
--- NOTE | 2022-10-11 07:42 | USR_ITS ---
PROCEDURE INFORMATION: Exam: US Abdomen, Limited; Right Upper Quadrant Exam date and time: 10/11/2022 9:06 AM Age: 67 years old Clinical indication: Nausea and fever. TECHNIQUE: Imaging protocol: Real time ultrasound of the abdomen with image documentation. Limited exam focused on the right upper quadrant. COMPARISON: CT abdomen pelvis wo con [id number] 10/10/2022 3:12 PM FINDINGS: No focal hepatic lesion is identified. No biliary ductal dilatation. The common bile duct measures 0.3 cm. Mild gallbladder sludge without evidence of stone. No significant gallbladder wall thickening. The right kidney measures 10.5 cm. No suspicious mass or hydronephrosis. The pancreas is obscured by overlying bowel gas. US/US gall bladder [id number] IMPRESSION: Mild gallbladder sludge without evidence of stone. No significant gallbladder wall thickening.
[2022-10-11] MEDS: heparin 5,000 unit/mL INJ 1 mL 5000 UNIT SUBCUT ×2 (08:00→21:10)
[2022-10-11] MEDS: predniSONE 5 mg Tablet 7.5 MG PO (08:01)
[2022-10-11] MEDS: pantoprazole DR 40 mg Tablet PO ×2 (08:01→17:33)
[2022-10-11] MEDS: metoprolol tartrate 25 mg Tablet PO (08:01)
[2022-10-11] MEDS: losartan 50 mg Tablet PO (08:01)
--- NOTE | 2022-10-11 09:22 | PM.PN ---
Subjective Subjective: Febrile event productive sputum Back pain 3/10 Febrile events No sepsis Abdominal CT scan showing very sludge Patient is stating that she is feeling sick, endorsing nausea No signs of UTI UA unremarkable COVID-negative Potassium 3.5 sodium 133 Calcium 7.7 lactic 1.7 White count 5.9 No signs of tachycardia Vitals/I&O/Wt Last Vital Signs Temp 103.0 F H 10/11/22 08:00 Pulse 102 H 10/11/22 08:00 Resp 18 10/11/22 08:00 BP 174/72 10/11/22 08:00 Pulse Ox 91 10/11/22 08:00 O2 Del Method 10/11/22 08:00 O2 Flow Rate 3 10/11/22 08:00 10/10/22 10/11/22 10/11/22 22:59 06:59 14:59 Intake Total 840 / 3430 770 / 4200 Output Total 650 / 650 Balance 190 / 2780 770 / 3550 Weight last 48 hrs Weight 73.936 kg Physical Exam Narrative: Patient is laying supine lower extremity no swelling Laying supine No abdominal pain Negative Mott sign Clinically looks dehydrated No active signs of meningitis or focal deficits noted Back pain EOMI, PERRLA GCS 15 Pleasant and cooperative S1, S2 Currently doing well on 3 L nasal cannula Data 10/11/22 04:53 10/11/22 04:53 Micro: Microbiology 10/10/22 03:45 MRSA Culture - Final Nose 10/10/22 11:28 Blood Culture - Preliminary Blood SPECIMEN COLLECTED 10/10/22 11:28 Blood Culture - Preliminary Blood SPECIMEN COLLECTED A&P Assessment and plan (1) Bilateral pneumonia: (2) Syncope: (3) Fever: (4) Chronic diarrhea: (5) Dizziness: (6) Adrenal insufficiency: (7) Polymyositis: (8) Dizziness: (9) Chronic cystitis: Plan Syncope Syncope Orthostatics negative No signs of PE Echo unremarkable No arrhythmia noted Community-acquired pneumonia Started on vancomycin and aztreonam Patient is still febrile No signs of meningitis Requested sputum culture COVID PCR negative Requested PCP antigen as well She is immunocompromised, has been taking steroids, high risk for fungal and viral infections Biliary sludge Negative Mott sign Requested gallbladder ultrasound Chronic cystitis: No active signs of UTI UA is unremarkable Chronic hypoxia requires 2 L of oxygen at baseline Currently on 3 L Adrenal insufficiency: Continue prednisone As per the family her prednisone dose was increased to 7.5 mg daily Polymyositis patient took infliximab Full code Cardiac diet DVT prophylaxis on board Attestations Medical Necessity Statement*: Continue medical management Coding Level of Care Code 31770 Diagnoses Bilateral pneumonia J18.9 Syncope R55 Fever R50.9 Chronic diarrhea K52.9 Dizziness R42 Adrenal insufficiency E27.40 Polymyositis M33.20 Dizziness R42 Chronic cystitis N30.20
[2022-10-11] MEDS: ondansetron 2 mg/ML SDV 2 mL 4 MG IVP (09:32)
--- NOTE | 2022-10-11 09:32 | USR_ITS ---
PROCEDURE INFORMATION: Exam: US Duplex Lower Extremity Veins, Bilateral Exam date and time: 10/11/2022 11:31 AM Age: 67 years old Clinical indication: Other: Fever leg cramps TECHNIQUE: Imaging protocol: Real-time duplex ultrasound of the bilateral extremities with 2-D sandoval scale, color Doppler flow and spectral waveform analysis including responses to compression and other maneuvers (when performed) with image documentation. Complete exam focused on the lower extremity veins. COMPARISON: CT abdomen pelvis wo con [id number] 10/10/2022 3:12 PM FINDINGS: The common femoral, femoral, popliteal and posterior tibial veins are patent. There is appropriate compression and augmentation. Doppler interogation reveals venous blood flow. US/[place] [id number] IMPRESSION: No evidence of deep venous thrombosis.
[2022-10-11] MEDS: doxycycline 100 mg Tablet PO ×2 (10:09→17:32)
[2022-10-11] MEDS: sulfamethoxazole-trimeth DS 160-800 mg Tablet 1 TAB PO ×2 (10:09→17:33)
[2022-10-11] MEDS: amlodipine 10 mg Tablet PO (10:10)
[2022-10-11 11:12] LABS: Lactate Dehydrogenase 472 U/L (135-214)
[2022-10-11] MEDS: vancomycin 1,000 MG in sodium chloride 0.9% 250 ML 250 MG IV ×2 (12:01→23:08)
--- NOTE | 2022-10-11 16:27 | XRR_ITS ---
PROCEDURE INFORMATION: Exam: XR Chest Exam date and time: 10/11/2022 5:12 PM Age: 67 years old Clinical indication: Shortness of breath; Additional info: SOB TECHNIQUE: Imaging protocol: Radiologic exam of the chest. Views: 1 view. COMPARISON: CR XR chest 1V portable [id number] 10/09/2022 1:08 PM FINDINGS: Lungs: Stable interstitial fibrotic changes in both lungs. Increasing alveolar airspace disease in the right upper lobe. There is also interval development of patchy left upper lobe airspace disease. Pleural spaces: No pleural effusion. No pneumothorax. Heart/Mediastinum: Stable moderate enlargement of the cardiac silhouette. Mediastinal contours are unremarkable. Vasculature: Stable vascular calcifications in the aorta. Stable tortuosity of the aorta. Bones/joints: Multiple kyphoplasty procedures in the lower thoracic spine. Degenerative changes in the spine and shoulders. Bones are diffusely osteopenic. Osseous findings are stable. XR/XR chest 1V portable [id number] IMPRESSION: 1. Increasing alveolar airspace disease in the right upper lobe. There is also interval development of patchy left upper lobe airspace disease. Findings are concerning for worsening pneumonia. Recommend followup chest imaging to insure resolution of these findings. 2. Incidental/nonacute findings are listed in the report.
[2022-10-11 16:37] LABS: Alveolar-Arterial Oxygen Gradi 22.7 mmHg (5-10); Arterial Blood Gas Hematocrit 38.7 % (37-47); Base Excess ABG 0.7 mmol/L (-2.0-2.0); Blood Gas Allen Test Pos; Blood Gas Operator Identificat GD; Blood Gas Sample Site Radial, left; Blood Gas Sample Type Arterial; Carboxyhemoglobin 0.6 %THgb (0.4-20.1); HCO3 ABG 23.2 mmol/L (22-26); HGB O2 Sat 84.8 % (95-100); Ionized Calcium Level - ABG 1.1 mmol/L (1.1-1.4); Methemoglobin 0.6 % (0.4-1.5); Oxygen Device NC; Oxygen Saturation ABG 85.8; PO2 ABG 43.3 mmHg (80.0-100.0); Potassium Level - ABG 3.4 mmol/L (3.5-5.0); Total Hemoglobin 12.6 g/dL (12-16)
[2022-10-11] MEDS: cyclobenzaprine 10 mg Tablet PO (17:37)
[2022-10-11] MEDS: ipratropium-albuterol 3 mL Neb INHALATION (20:49)
[2022-10-11] MEDS: budesonide 0.5 mg/2 mL Neb INHALATION (20:49)
--- NOTE | 2022-10-11 21:18 | PC.NURSE ---
Patient is on HHF. Patients O2 levels were 88% when I walked in. Respiratory was behind me at bed 1. RT came to bed 2 and turned pts O2 up to 60%. Pts O2 went from 88%-89%, 89%-90%- 88% again. Patient seems to be mouth breathing. Nurse and RT is at bedside now.
[2022-10-11 22:33] LABS: Vancomycin Trough 7.3 ug/mL (10-15)
--- NOTE | 2022-10-11 22:59 | PC.NURSE ---
Pt's granddaughter remains at bedside. Pt O2 saturation 85-86% at this time. RT has already increased heated hi-flow 60/80. Contacted Leandra w/RT. RT to consult physician regarding need for bipap, and RT to come see pt. Awaiting RT, granddaughter aware.
--- NOTE | 2022-10-11 23:01 | PC.NURSE ---
Pharmacy notified of Vanc trough 7.3, instructed to administer Vanc dose now and pharmacy will adjust dosing.
--- NOTE | 2022-10-11 23:19 | PC.NURSE ---
Sharmin from RT at bedside. Pt placed on bipap per orders of Dr. Gil, family remains at bedside. Pt O2 sat is 94% and is currently tolerating bipap well.
[2022-10-12] VITALS (30 sets, daily range): BP systolic 84–148; BP diastolic 49–80; PULSE 78–119; RESP 13–30; TEMP 36.6–38.4; O2SAT 86–99
[2022-10-12] MEDS: aztreonam 2,000 MG in sodium chloride 0.9% (plus) 100 ML 200 MG IV ×2 (00:20→12:18)
[2022-10-12 04:16] LABS: ABG PCO2 31.1 mmHg (35-45); ABG PH Result 7.48 (7.35-7.45); Alveolar-Arterial Oxygen Gradi 47.9 mmHg (5-10); Blood Gas Allen Test Pos; Blood Gas Sample Site Radial, right; Blood Gas Sample Type Arterial; Carboxyhemoglobin < 0.0 %THgb (0.4-20.1); HCO3 ABG 23.2 mmol/L (22-26); HGB O2 Sat > 100.0 % (95-100); Ionized Calcium Level - ABG 1.1 mmol/L (1.1-1.4); Methemoglobin < 0.0 % (0.4-1.5); Oxygen Device BIPAP; Oxygen Saturation ABG 91.4; PO2 ABG 52.9 mmHg (80.0-100.0); Total Hemoglobin < 4.5 g/dL (12-16)
--- NOTE | 2022-10-12 04:57 | PC.NURSE ---
Pt referred to Dr. Gil for review of blood gas results. Awaiting orders.
[2022-10-12] MEDS: aspirin 81 mg EC Tablet PO (05:21)
[2022-10-12] MEDS: acetaminophen 500 mg Tablet PO ×2 (05:21→20:18)
[2022-10-12] MEDS: folic acid 1 mg Tablet PO (05:21)
[2022-10-12 05:39] LABS: Basophils % 0.2 %; Eosinophils % 0.3 %; Hematocrit 36.8 % (37.0-47.0); Hemoglobin 11.6 g/dL (11.5-15.3); Lymphocytes # 2.2 10^3/uL (0.8-4.8); Lymphocytes % 37.1 %; Mean Corpuscular HGB Conc 31.5 g/dL (30.0-36.0); Mean Corpuscular Hemoglobin 25.1 pg (28.0-34.0); Mean Corpuscular Volume 79.5 fl (81-99); Mean Platelet Volume 9.3 fL (7.4-10.4); Monocytes # 0.2 10^3/uL (0.2-0.9); Monocytes % 3.7 %; Neutrophils % 57.5 %; Nucleated Red Blood Cells % 0 %; Platelet Count 236 10^3/cmm (130-400); Red Blood Count 4.63 10^6/uL (4.1-5.3); Red Cell Distribution Width 14.6 % (12.1-15.1); White Blood Count 5.9 10^3/uL (4.0-10.0)
[2022-10-12 06:04] LABS: Anion Gap 15.2 (5-19); Blood Urea Nitrogen 11 mg/dL (8-23); Calcium 7.9 mg/dL (8.5-10.5); Carbon Dioxide 21 mmol/L (22-29); Chloride 95 mmol/L (98-107); Glomerular Filtration Rate 62.1 mL/min (90-130); Glucose 88 mg/dL (65-115); Osmolality Calculated 265 mOsm/kg (285-295); Potassium 3.2 mmol/L (3.5-5.1); Sodium 128 mmol/L (136-145)
[2022-10-12] MEDS: vancomycin 1,000 MG in sodium chloride 0.9% 250 ML 250 MG IV ×3 (06:43→22:46)
[2022-10-12] MEDS: potassium chloride ER 20 mEq Tablet 40 MEQ PO (06:47)
[2022-10-12] MEDS: budesonide 0.5 mg/2 mL Neb INHALATION ×2 (08:35→20:36)
[2022-10-12] MEDS: heparin 5,000 unit/mL INJ 1 mL 5000 UNIT SUBCUT ×2 (08:36→20:18)
[2022-10-12] MEDS: predniSONE 5 mg Tablet 7.5 MG PO (08:37)
[2022-10-12] MEDS: doxycycline 100 mg Tablet PO ×2 (08:37→17:30)
[2022-10-12] MEDS: pantoprazole DR 40 mg Tablet PO ×2 (08:38→17:30)
[2022-10-12 08:41] LABS: Lactate Dehydrogenase 387 U/L (135-214)
--- NOTE | 2022-10-12 08:42 | P.CONIM_ITS ---
Providers/Reason For Consult Consulting Physician/Specialty*: Preventative MD/pulmonary critical care Reason for Consult*: Hypoxic respiratory failure secondary to pneumonia Requesting Physician: Rhiannon Simms MD Attending Physician: Rhiannon Simms MD Primary Care Provider: Jasmin Petit NP History of Present Illness History of Present Illness Shanita Saleh is a 67 year old female with past medical history of polymyositis on rituximab infusion and chronic prednisone, COPD Gold class D on trilogy She initially came to hospital 10/04/2022, recently diagnosed with COVID-19 and recently completed Paxlovid, with fever spike 101.6, worsening fatigue and shortness of breath-admitted for possible COPD exacerbation recent COVID-19 pneumonia. Started on broad-spectrum antibiotics. She improved with tapering doses of steroid, antibiotics, nebulizations-she was discharged home with a course of levofloxacin. She was discharged home with 2 L oxygen. Patient had couple of episodes of syncope-and confused-so she came back to hospital on 10/09/2022. Her CTA ruled out PE but showed diffuse infiltrates in bilateral lower lobes and right hilar area. She was started on vancomycin, aztreonam-chest x-ray worsened next day-there were some low-grade temperature spikes with highest being 101.1 yesterday-and FiO2 requirement increased up to 65% on high flow. Antibiotic coverage was broadened with addition of Bactrim as well as doxycycline given her underlying immunosuppression for her polymyositis. Pulmonary consulted for evaluation of pneumonia. I have reviewed patient chart and learned that patient was followed by Dr. Watkins for COPD as outpatient previously. She follows rheumatology for polymyositis and was on rituximab infusions, chronic prednisone. Previous HRCT in August 2019-bilateral upper lobe predominant centrilobular emphysema some degree of paraseptal emphysema in lower lobe. No evidence of reticulation or groundglass. Her PFTs November 01, 2019 showed?FEV1 FVC ratio 56%, FEV1 1.75 L which is 83% of predicted, forced vital capacity 3.11 L, which is 116% of predicted.? The spirometry is consistent with mild airflow obstruction.? Her DLCO was mildly diminished at 64%. She has been taking her Trelegy 1 puff daily. She has some component of peripheral eosinophilia-possibility of asthma component. However Trelegy will take care of asthma COPD overlap syndrome. She has extensive history of smoking 1.5 pack/day for 35 years and quit in 2008. The CT chest and for now it looks like multilobar bacterial pneumonia. I agreed with the antibiotic coverage. We will plan for bronchoscopy if there is no clinical improvement. Okay to cover for PCP pneumonia. I have seen patient at bedside -Her at bedside; states her breathing is not good but looks good spirits -Currently she is on high flow nasal cannula 55 L and 70% FiO2 saturating 92% -ABG 7.4 04/29/52 with saturation 91% on high flow nasal cannula 65% -Other labs and imaging reviewed Medications/Allergies Home Medications Medication Instructions Recorded Confirmed Last Taken Type aspirin 81 mg tablet,delayed 81 mg PO QAM 09/04/19 10/09/22 10/09/22 History release (Adult Aspirin Regimen) folic acid 1 mg tablet 1 mg PO QAM 09/04/19 10/09/22 10/04/22 History albuterol sulfate 90 mcg/actuation 2 puff inhalation QID PRN 05/16/21 10/09/22 06/08/21 Rx aerosol inhaler (ProAir HFA) shortness of breath #8.5 grams fluticasone propionate 50 1 - 2 spray intranasal DAILY PRN 06/04/21 10/09/22 Unknown Rx mcg/actuation nasal Allergy Symptoms 30 days #16 grams spray,suspension lidocaine HCl 4 % topical cream 1 applic topical BID PRN Pain 09/22/21 10/09/22 Unknown History (Aspercreme (lidocaine HCl)) mecobalamin (vitamin B12) 1,000 1,000 mcg PO DAILY #30 tabs 11/19/21 10/09/22 10/04/22 Rx mcg chewable tablet (B12 Active) oxygen @ 2L per n/c #1 ea 04/15/22 10/09/22 Unknown Rx amlodipine 2.5 mg tablet 2.5 mg PO DAILY #90 tabs 07/02/22 10/09/22 Unknown Rx fluticasone fur. 100 mcg-umeclid 1 inh inhalation DAILY 30 days #60 07/14/22 10/09/22 10/09/22 Rx 62.5 mcg-vilant 25 mcg ea inhalat.powder (Trelegy Ellipta) loperamide 2 mg capsule (Imodium 2 mg PO Q4H PRN loose stool #30 08/10/22 10/09/22 Unknown Rx A-D) caps prednisone 5 mg tablet 7.5 mg PO DAILY 10/03/22 10/09/22 10/04/22 History cholecalciferol (vitamin D3) 25 25 mcg PO QPM 10/04/22 10/09/22 2 Days Ago History mcg (1,000 unit) capsule (Vitamin ~10/07/22 D3) metoprolol tartrate 25 mg tablet 25 mg PO BID 10/04/22 10/09/22 10/09/22 History pantoprazole 40 mg tablet,delayed 40 mg PO BID 10/04/22 10/09/22 10/09/22 History release ipratropium 0.5 mg-albuterol 3 mg 3 ml inhalation Q8H #180 mL 10/05/22 10/09/22 10/08/22 Rx (2.5 mg base)/3 mL nebulization soln prednisone 10 mg tablets in a dose See Taper PO DAILY #42 ea 10/05/22 10/09/22 10/09/22 Rx pack 30MG STARTS 20MG 2/1 L.acidophil-L.casei-B.bifid-B.longum-FOS 1 cap PO DAILY 10/09/22 10/09/22 2 Days Ago History 2 billion cell-50 mg capsule ~10/07/22 (Probiotic Blend) acetaminophen 500 mg tablet 1,000 mg PO Q4H PRN Pain 10/09/22 10/09/22 Unknown History albuterol sulfate 2.5 mg/3 mL 2.5 mg inhalation QID PRN 10/09/22 10/09/22 Unknown History (0.083 %) solution for nebulization Shortness Of Breath amoxicillin 500 mg-potassium 1 tab PO BID 10/09/22 10/09/22 10/09/22 History clavulanate 125 mg tablet cyclobenzaprine 10 mg tablet 10 mg PO TID PRN Muscle Spasm 10/09/22 10/09/22 Unknown History levofloxacin 500 mg tablet 500 mg PO DAILY 10/09/22 10/09/22 10/08/22 History losartan 50 mg tablet 50 mg PO BID 10/09/22 10/09/22 10/09/22 History methenamine hippurate 1 gram tablet 1 g PO BID 10/09/22 10/09/22 3 Weeks Ago History ~09/18/22 promethazine-DM 6.25 mg-15 mg/5 mL 5 - 10 ml PO Q6H PRN Cough 10/09/22 10/09/22 3 Days Ago History oral syrup ~10/06/22 Allergies Allergy/AdvReac Type Severity Reaction Status Date / Time azathioprine Allergy Intermediate ALGY-Difficulty Verified 10/03/22 10:37 Breathing nitrofurantoin Allergy Intermediate ALGY-Hives Verified 10/03/22 10:37 [From Macrobid] cephalexin Allergy Unknown ALGY-Hives Verified 10/03/22 10:37 lisinopril AdvReac Severe ADR-Cough Verified 10/03/22 10:37 Current Medications Generic Name Dose Route Start Last Admin Trade Name Freq PRN Reason Stop Dose Admin Acetaminophen 500 mg 10/09/22 19:52 10/12/22 05:21 Acetaminophen 500 Mg Tablet PO 500 mg Q4H PRN Administration Pain Albuterol/Ipratropium 3 ml 10/09/22 19:52 10/11/22 20:49 Ipratropium-Albuterol 3 Ml Neb INHALATION 3 ml Q6H PRN Administration SHORTNESS OF BREATH Amlodipine Besylate 10 mg 10/11/22 09:35 10/12/22 08:39 Amlodipine 10 Mg Tablet PO Not Given DAILY CAROLINE Aspirin 81 mg 10/10/22 06:00 10/12/22 05:21 Aspirin 81 Mg Ec Tablet PO 81 mg QAM CAROLINE Administration Budesonide 0.5 mg 10/11/22 20:00 10/12/22 08:35 Budesonide 0.5 Mg/2 Ml Neb INHALATION 0.5 mg BID.RESPIRATORY CAROLINE Administration Cyclobenzaprine HCl 10 mg 10/10/22 09:53 10/11/22 17:37 Cyclobenzaprine 10 Mg Tablet PO 10 mg TID PRN Administration MUSCLE SPASMS Doxycycline Monohydrate 100 mg 10/11/22 09:35 10/12/22 08:37 Doxycycline 100 Mg Tablet PO 100 mg BID CAROLINE Administration Protocol Folic Acid 1 mg 10/10/22 06:00 10/12/22 05:21 Folic Acid 1 Mg Tablet PO 1 mg QAM CAROLINE Administration Heparin Sodium (Porcine) 5,000 unit 10/09/22 20:00 10/12/22 08:36 Heparin 5,000 Unit/Ml Inj 1 Ml SUBCUT 5,000 unit Q12H CAROLINE Administration Aztreonam 2,000 mg/ Sodium 100 mls @ 200 mls/hr 10/10/22 12:00 10/12/22 01:11 Chloride IV Infused Q12H CAROLINE Infusion Protocol Trimethoprim/Sulfamethoxazole 531.25 mls @ 500 mls/hr 10/11/22 19:55 10/11/22 22:16 500 mg/ Dextrose IV Infused BID CAROLINE Infusion Vancomycin HCl 1,000 mg/ 250 mls @ 250 mls/hr 10/12/22 07:00 10/12/22 07:50 Sodium Chloride IV Infused Q8H CAROLINE Infusion Protocol Losartan Potassium 50 mg 10/11/22 09:00 10/12/22 08:39 Losartan 50 Mg Tablet PO Not Given DAILY [facility] Non-Formulary Medication 1 gm 10/10/22 09:00 10/11/22 17:32 Methenamine Hippurate PO Not Given BID CAROLINE Ondansetron HCl 4 mg 10/09/22 19:52 10/11/22 09:32 Ondansetron 2 Mg/Ml Sdv 2 Ml IVP 4 mg Q6H PRN Administration NAUSEA AND VOMITING Pantoprazole Sodium 40 mg 10/10/22 09:00 10/12/22 08:[address] 40 Mg Tablet PO 40 mg BID CAROLINE Administration Prednisone 7.5 mg 10/10/22 09:00 10/12/22 08:37 Prednisone 5 Mg Tablet PO 7.5 mg DAILY CAROLINE Administration PFSH Acute PFSH: Medical History Age related osteoporosis Anxiety Carotid bruit Cellulitis of left lower extremity CKD (chronic kidney disease) Community acquired pneumonia Compression fx, lumbar spine Compression fx, thoracic spine COPD (chronic obstructive pulmonary disease) Diverticulitis Family history of melanoma Generalized osteoarthritis GERD (gastroesophageal reflux disease) High risk medication use Hypertension Immunosuppression Leg cramps Medication monitoring encounter Osteoporosis Polymyositis Polymyositis PUD (peptic ulcer disease) Surgical History H/O colonoscopy 2016 H/O wrist surgery History of appendectomy History of back surgery History of lumpectomy of both breasts History of tubal ligation Family History Father , at age 84 Hypertension Cancer Prostate cancer and Kidney cancer Alzheimer disease Mother , at age 82 Hypertension Dementia Grandmother , unknown age of Cancer Breast Cancer Sister Cancer Kidney Social History Smoking and tobacco status: former smoker Quit status (tobacco): has quit using tobacco Year quit tobacco: 2009 - 1.5 PPD x 35 Years Second hand smoke exposure: No Alcohol intake: never Caregiver/support person: Yes Lives independently: Yes Household members: spouse Marital status: Marital status details: 54 years Number of children: 2 Current occupational status: retired and disabled History of recent travel: No Current gender identity: Female Special gonsalo needs: No Agree to transfusion: Yes Vitals/I&O/Wt Last Vital Signs Temp 97.8 F 10/12/22 08:00 Pulse 78 10/12/22 08:36 Resp 18 10/12/22 08:36 BP 92/59 10/12/22 08:39 Pulse Ox 93 10/12/22 08:36 O2 Del Method 10/12/22 08:36 O2 Flow Rate 50 10/11/22 20:49 FiO2 65 10/12/22 07:52 10/11/22 10/12/22 10/12/22 22:59 06:59 14:59 Intake Total 531.25 / 1001.25 350 / 1351.25 250 / 250 Output Total 250 / 250 Balance 531.25 / 1001.25 100 / 1101.25 250 / 250 Physical Exam Narrative: General: alert, NAD HEENT: conj clear, EOMI, PERRL, mmm, Neck: supple, no meningismus Heme: no cervical LAP Respiratory: Inspection: No visible deformity of the chest wall Palpation: Trachea is mildly deviated to the right, bilateral symmetric expansion Percussion: Bilateral tympanic percussion note both anterior and posteriorly Auscultation: Bilateral clear to auscultation both anterior and posteriorly, no crackles wheezing or rhonchi Cardiovascular: rrr, nl s1s2, no mrg Abdomen: soft, nt, nd, no r/g, bs+ Extremities: pulses +, no edema, no c/c : no CVA tenderness Skin: intact, no rash MSK: no back or neck pain Neurologic: grossly intact Data 10/12/22 05:19 10/12/22 05:19 Other Labs: Radiology Impressions Chest CTA 10/09/22 14:56 IMPRESSION: 1. No evidence for pulmonary embolus. 2. Shallow inspiration with RIGHT lower lobe pneumonia. A few patchy infiltrates in the LEFT lower lobe. 3. Hazy groundglass infiltrates about the RIGHT hilum. 4. Cluster of slightly prominent RIGHT hilar lymph nodes nonspecific but may be reactive. No other acute findings. Abdomen/Pelvis CT 10/10/22 11:45 IMPRESSION: 1. Bibasilar atelectasis and with either component of more prominent atelectasis and/or component of patchy infiltrate posterior right lung base. 2. Hyperdense appearance of the dependent aspect of the gallbladder with today's exam, which could indicate hyperdense sludge and/or component of small stones. No significant biliary ductal dilatation. Further evaluation with fasting gallbladder ultrasound could be performed. 3. Small umbilical hernia of fat. 4. Diffuse atherosclerotic vascular disease. 5. Mild scattered sigmoid colon diverticula. No focal inflammatory changes. 6. Chronic bony changes of the spine with prior vertebroplasties T10 and T11. Gallbladder Ultrasound 10/11/22 07:42 IMPRESSION: Mild gallbladder sludge without evidence of stone. No significant gallbladder wall thickening. Venous Duplex 10/11/22 09:32 IMPRESSION: No evidence of deep venous thrombosis. Chest X-Ray 10/11/22 16:27 IMPRESSION: 1. Increasing alveolar airspace disease in the right upper lobe. There is also interval development of patchy left upper lobe airspace disease. Findings are concerning for worsening pneumonia. Recommend followup chest imaging to insure resolution of these findings. 2. Incidental/nonacute findings are listed in the report. Laboratory Results WBC 5.9 10^3/uL (4.0-10.0) 10/12/22 05:19 RBC 4.63 10^6/uL (4.1-5.3) 10/12/22 05:19 Hgb 11.6 g/dL (11.5-15.3) 10/12/22 05:19 Hct 36.8 % (37.0-47.0) L 10/12/22 05:19 MCV 79.5 fl (81-99) L 10/12/22 05:19 MCH 25.1 pg (28.0-34.0) L 10/12/22 05:19 MCHC 31.5 g/dL (30.0-36.0) 10/12/22 05:19 RDW 14.6 % (12.1-15.1) 10/12/22 05:19 Plt Count 236 10^3/cmm (130-400) 10/12/22 05:19 MPV 9.3 fL (7.4-10.4) 10/12/22 05:19 Neut % (Auto) 57.5 % 10/12/22 05:19 Lymph % (Auto) 37.1 % 10/12/22 05:19 [place] % (Auto) 3.7 % 10/12/22 05:19 Eos % (Auto) 0.3 % 10/12/22 05:19 Baso % (Auto) 0.2 % 10/12/22 05:19 Neut # (Auto) 3.40 10^3/uL (1.8-7.7) 10/12/22 05:19 Lymph # (Auto) 2.2 10^3/uL (0.8-4.8) 10/12/22 05:19 [place] # (Auto) 0.2 10^3/uL (0.2-0.9) 10/12/22 05:19 Eos # (Auto) 0.0 10^3/uL (0.0-0.8) 10/12/22 05:19 Baso # (Auto) 0.0 10^3/uL (0.0-0.1) 10/12/22 05:19 Nucleated RBC % (auto) 0 % 10/12/22 05:19 Nucleated RBCs # 0.0 /100WBC 10/12/22 05:19 D-Dimer 1.57 ug/mIFEU (0-0.59) H 10/09/22 13:20 Specimen Type Arterial 10/12/22 04:05 Sample Site Radial, right 10/12/22 04:05 ABG pH 7.48 (7.35-7.45) H 10/12/22 04:05 ABG pCO2 31.1 mmHg (35-45) L 10/12/22 04:05 ABG pO2 52.9 mmHg (80.0-100.0) L 10/12/22 04:05 ABG HCO3 23.2 mmol/L (22-26) 10/12/22 04:05 ABG O2 Saturation 91.4 10/12/22 04:05 ABG Base Excess 0.7 mmol/L (-2.0-2.0) 10/11/22 16:20 Al Test Pos 10/12/22 04:05 A-a O2 Gradient 47.9 mmHg (5-10) H 10/12/22 04:05 Hematocrit 38.7 % (37-47) 10/11/22 16:20 Hgb O2 Saturation > 100.0 % (95-100) H 10/12/22 04:05 Carboxyhemoglobin < 0.0 %THgb (0.4-20.1) L 10/12/22 04:05 Methemoglobin < 0.0 % (0.4-1.5) L 10/12/22 04:05 Total Hemoglobin < 4.5 g/dL (12-16) L 10/12/22 04:05 Sodium 128.0 mmol/L (131-143) L 10/12/22 04:05 Potassium 3.0 mmol/L (3.5-5.0) L 10/12/22 04:05 Glucose 85.0 mg/dL (70-115) 10/12/22 04:05 Ionized Calcium 1.1 mmol/L (1.1-1.4) 10/12/22 04:05 O2 Delivery Device Bipap 10/12/22 04:05 O2 Liters/Min 4.0 % 10/11/22 16:20 FiO2 65.0 % 10/12/22 04:05 CPAP 8.0 cmH20 10/12/22 04:05 Dual Rate Supervisor ID [email or web address] 10/12/22 04:05 Sodium 128 mmol/L (136-145) L 10/12/22 05:19 Potassium 3.2 mmol/L (3.5-5.1) L 10/12/22 05:19 Chloride 95 mmol/L (98-107) L 10/12/22 05:19 Carbon Dioxide 21 mmol/L (22-29) L 10/12/22 05:19 Anion Gap 15.2 (5-19) 10/12/22 05:19 BUN 11 mg/dL (8-23) 10/12/22 05:19 Creatinine 0.9 mg/dL (0.5-0.9) 10/12/22 05:19 GFR Calculation 62.1 mL/min (90-130) L 10/12/22 05:19 Glucose 88 mg/dL (65-115) 10/12/22 05:19 POC Glucose 142 mg/dL (70-110) H 10/09/22 21:09 Calculated Osmolality 265 mOsm/kg (285-295) L 10/12/22 05:19 Lactate 1.0 mmol/L (0.5-2.2) 10/12/22 05:19 Calcium 7.9 mg/dL (8.5-10.5) L 10/12/22 05:19 Phosphorus 2.2 mg/dL (2.5-4.5) L 10/10/22 04:25 Magnesium 1.7 mg/dL (1.7-2.3) 10/10/22 04:25 Total Bilirubin 0.3 mg/dL (0.15-1.2) 10/09/22 13:20 AST 24 U/L (0-32) 10/09/22 13:20 ALT 24 U/L (0-33) 10/09/22 13:20 Alkaline Phosphatase 47 U/L (35-105) 10/09/22 13:20 Lactate Dehydrogenase 387 U/L (135-214) H 10/12/22 05:19 Troponin T Baseline 10 ng/L (0-10) 10/09/22 13:20 Troponin T 120 Minute 8.14 ng/L (0-10) 10/09/22 16:20 Delta Troponin T -1.86 ABS# (0-10) L 10/09/22 16:20 Troponin T Hi Sens 6Hr 8.12 ng/L (0-10) 10/09/22 19:40 Troponin T Hi Sens 6Hr Delta 0.02 ng/L (0-12) 10/09/22 19:40 C-Reactive Protein 104.0 mg/L (0.0-4.9) H 10/12/22 05:19 Total Protein 5.7 g/dL (6.6-8.7) L 10/09/22 13:20 Albumin 3.3 g/dL (3.5-5.2) L 10/09/22 13:20 Globulin 2.4 g/dL (1.3-4.6) 10/09/22 13:20 Vitamin B12 1226 pg/mL (232-1245) 10/09/22 19:40 Procalcitonin 0.16 ng/mL (0-0.5) 10/12/22 05:19 TSH 0.80 uIU/mL (0.27-4.20) 10/09/22 19:40 Urine Color Colorless (Yellow) 10/10/22 21:00 Urine Appearance Clear (CLEAR) 10/10/22 21:00 Urine pH 6 (5-7) 10/10/22 21:00 Ur Specific [place] 1.020 (1.005-1.030) 10/10/22 21:00 Urine Protein Neg (Negative) 10/10/22 21:00 Urine Glucose (UA) Norm (Normal) 10/10/22 21:00 Urine Ketones Negative (Negative) 10/10/22 21:00 Urine Blood Neg (Negative) 10/10/22 21:00 Urine Nitrate Negative (Negative) 10/10/22 21:00 Urine Bilirubin Neg (Negative) 10/10/22 21:00 Urine Urobilinogen Neg mg/dL (Negative) 10/10/22 21:00 Ur Leukocyte Esterase Negative (Negative) 10/10/22 21:00 Vancomycin Trough 7.3 ug/mL (10-15) L 10/11/22 22:02 Coronavirus 229E (PCR) Not detected (NOT DETECT) 10/10/22 16:58 SARS-CoV-2 (PCR) Not detected (NOT DETECT) 10/10/22 16:58 Micro: Microbiology 10/10/22 11:28 Blood Culture - Preliminary Blood NEGATIVE TO DATE 10/10/22 11:28 Blood Culture - Preliminary Blood NEGATIVE TO DATE A&P Assessment and plan (1) Acute exacerbation of chronic obstructive pulmonary disease: (2) Acute and chronic respiratory failure with hypoxia: (3) Immunosuppression: Plan #Acute on chronic respiratory failure with hypoxia-secondary to multilobar pneumonia #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-there is a concern for underlying PCP pneumonia as well as fungal pneumonias #Hypotension secondary adrenal insufficiency -Currently requiring high flow nasal cannula 55 L and 70% and persistent fever spikes-patient moved to ICU for close monitoring -No evidence of PE or DVT on imaging -CT chest showed hazy groundglass infiltrates along right hilum as well as patchy infiltrates in bilateral lower lobes -ABG on 65% FiO2-on nasal cannula showed PF ratio < 100 -She needs close monitoring in ICU and is at risk for intubation -So far MRSA nares negative, expectorated sputum cultures negative, low procalcitonin, COVID-19 PCR negative, -Recommended to send beta D glucan as well as induced sputum for PCP PCR -Agree with antibiotic coverage-currently on vancomycin, aztreonam, doxycycline -Agree to cover for PCP pneumonia given her risk due to immunosuppression- patient on Bactrim -She transiently required Levophed-however blood pressure improved after starting hydrocortisone -Continue close input output monitoring ICU CHECKLIST: Problem list updated Verbal orders reviewed and signed Analgesia: N/A Glycemic Control: N/A Nutrition: {post acb nutrition:[id number]} Restraint Renewal (within 24 hrs): Yes Ulcer Prophylaxis: PPI Chemical Thromboprophylaxis: Prophylaxis: Heparin Mechanical Thromboprophylaxis: SCDs Need for Central line: Pressors Need for Gomez catheter: For close urine output monitoring Critical Care Time (No Overlap): 57 min Consult Attestations Medical Necessity Statement: Continue close monitoring in ICU for impending intubation if respiratory status worsens Time Spent in Patient Care: Greater than 35 minutes (>than 50% of time spent in counselling and/or direct pt care on unit) . Critical Care Time: This patient has a high probability of sudden, clinically significant deterioration, which requires the highest level of physician preparedness to intervene urgently. I managed/supervised life or organ supporting interventions that required frequent physician assessment. I devoted my full attention in the ICU to the direct care of this patient for the period of time indicated above. Time I spent with family or surrogate(s) is included only if the patient was incapable of providing necessary information or participating in decision making. Time devoted to teaching and to any procedures I billed separately is not included. Services Provided: Telemetry review Mechanical Ventilation Hemodynamic interpretation, assessment and management Review and interpretation of CXR Review and interpretation of lab values Review and interpretation of microbiologic data and culture results Review of medications and administration Review and interpretation of Nutrition requirements and management Discussion of management with other consultants and services Clinical update to family members [x] Patient assessment, examination and intervention [x] Documentation [x] Medication orders and management Critical Care Time (min): 57 Coding Level of Care Code 72902 Diagnoses Acute exacerbation of chronic obstructive pulmonary disease J44.1 Acute and chronic respiratory failure with hypoxia J96.21 Immunosuppression D89.9 Time Spent (min) 57
--- NOTE | 2022-10-12 11:12 | PC.NURSE ---
Arrived from [facility], [place] at this time, slight SOB but improved with HHF
[2022-10-12] MEDS: ipratropium-albuterol 3 mL Neb INHALATION (11:37)
--- NOTE | 2022-10-12 12:48 | P.PN_ITS ---
Subjective Subjective: Patient will be patient will be transferred to ICU Requiring 65% FiO2 to keep O2 saturation above 90% AA gradient is very high Spoke with her family, Did review the dose of Bactrim with the pharmacist Patient is still febrile however she is not showing signs of sepsis no leukocytosis lactic acid is normal However blood pressure is low her appetite has been very poor sodium and chloride low, cultures negative to date, sputum culture has been obtained COVID-negative Vitals/I&O/Wt Last Vital Signs Temp 97.8 F 10/12/22 08:00 Pulse 89 10/12/22 11:40 Resp 20 H 10/12/22 11:40 BP 92/59 10/12/22 08:39 Pulse Ox 95 10/12/22 11:40 O2 Del Method 10/12/22 11:35 O2 Flow Rate 60 10/12/22 11:40 FiO2 65 10/12/22 11:40 10/11/22 10/12/22 10/12/22 22:59 06:59 14:59 Intake Total 531.25 / 1001.25 350 / 1351.25 1021.25 / 1021.25 Output Total 250 / 250 Balance 531.25 / 1001.25 100 / 1101.25 1021.25 / 1021.25 Physical Exam Narrative: Patient is awake and alert She was eating breakfast Currently on 65% FiO2 heated high flow Abdomen soft No sign of meningitis Nonfocal neuro exam S1, S2 Clinically very dry and dehydrated Pleasant and cooperative Family at the bedside Data 10/12/22 05:19 10/12/22 05:19 Micro: Microbiology 10/10/22 11:28 Blood Culture - Preliminary Blood Corynebacterium species 10/11/22 23:17 Gram Stain - Final Sputum - Expectorated Sputum 10/10/22 11:28 Blood Culture - Preliminary Blood NEGATIVE TO DATE A&P Assessment and plan (1) Bilateral pneumonia: (2) Acute exacerbation of chronic obstructive pulmonary disease: (3) Fever: (4) Adrenal insufficiency: (5) Polymyositis: (6) Immunosuppression: (7) Dizziness: (8) Chronic cystitis: (9) Cough syncope: Plan Syncopal event Echo unremarkable Orthostasis negative Vasovagal versus cough syncope No history of seizures Dehydration related shock Requiring IV fluids and Levophed Bilateral pneumonia Cover for PCP pneumonia with IV Bactrim, LDH is high We will consult document control coordinator Continue vancomycin, aztreonam and doxycycline Acute on chronic hypoxia/COPD exacerbation Currently on 65% FiO2 High AA gradient High risk for intubation History of adrenal insufficiency, requires prednisone 7.5 mg daily Because of low blood pressure I will start giving her stress dose steroids for now No active signs of sepsis She has history of polymyositis, received infliximab as well she is immunocompromised Full code DVT prophylaxis on board Physical deconditioning Attestations Medical Necessity Statement*: Transfer to ICU Coding Level of Care Code 08007 Diagnoses Bilateral pneumonia J18.9 Acute exacerbation of chronic obstructive pulmonary disease J44.1 Fever R50.9 Adrenal insufficiency E27.40 Polymyositis M33.20 Immunosuppression D89.9 Dizziness R42 Chronic cystitis N30.20 Cough syncope R55; R05.4
[2022-10-12] MEDS: hydrocortisone 100 mg/2 mL SDV IVP (13:34)
[2022-10-12] MEDS: calcium gluconate 0.9% NaCL 1 GM/50 ML PREMIX IV (13:34)
[2022-10-12 13:35] LABS: Procalcitonin 0.16 ng/mL (0-0.5)
[2022-10-12] MEDS: sodium chloride 0.9% 1,000 ML 75 ML IV (13:35)
[2022-10-12] MEDS: albuterol 2.5 mg/3 mL Neb INHALATION ×2 (14:07→20:36)
--- NOTE | 2022-10-12 17:19 | PC.NURSE ---
Dr. Moore came to bedside, gave v.o. for hydrocortisone 50 mg q4 hrs
--- NOTE | 2022-10-12 17:20 | PC.NURSE ---
Shift summary: uneventful shift, SOB improved while on HHF, worse with much movement but recovers fast
[2022-10-12] MEDS: hydrocortisone 100 mg/2 mL SDV 50 MG IVP (20:17)
[2022-10-12] MEDS: lidocaine 5% Patch 1 PATCH TOPICAL (20:19)
[2022-10-12] MEDS: benzonatate 100 mg Capsule 200 MG PO (22:47)
[2022-10-13] VITALS (37 sets, daily range): BP systolic 92–176; BP diastolic 47–113; PULSE 85–141; RESP 19–37; TEMP 36.5–37.5; O2SAT 80–96
[2022-10-13] MEDS: aztreonam 2,000 MG in sodium chloride 0.9% (plus) 100 ML 200 MG IV ×2 (00:24→12:07)
[2022-10-13] MEDS: hydrocortisone 100 mg/2 mL SDV 50 MG IVP ×4 (02:27→20:46)
[2022-10-13] MEDS: acetaminophen 500 mg Tablet PO ×3 (03:14→20:47)
[2022-10-13] MEDS: albuterol 2.5 mg/3 mL Neb INHALATION (03:16)
[2022-10-13] MEDS: benzonatate 100 mg Capsule 200 MG PO ×3 (04:57→21:39)
[2022-10-13] MEDS: aspirin 81 mg EC Tablet PO (05:41)
[2022-10-13] MEDS: folic acid 1 mg Tablet PO (05:41)
[2022-10-13 06:18] LABS: Basophils % 0.1 %; Hematocrit 34.7 % (37.0-47.0); Hemoglobin 11.1 g/dL (11.5-15.3); Lymphocytes # 1.4 10^3/uL (0.8-4.8); Lymphocytes % 14.9 %; Mean Corpuscular Hemoglobin 25.3 pg (28.0-34.0); Mean Corpuscular Volume 79.2 fl (81-99); Mean Platelet Volume 9.2 fL (7.4-10.4); Monocytes # 0.3 10^3/uL (0.2-0.9); Monocytes % 3.3 %; Neutrophils # 7.56 10^3/uL (1.8-7.7); Neutrophils % 80.7 %; Nucleated Red Blood Cells % 0 %; Platelet Count 255 10^3/cmm (130-400); Red Blood Count 4.38 10^6/uL (4.1-5.3); Red Cell Distribution Width 14.7 % (12.1-15.1); White Blood Count 9.4 10^3/uL (4.0-10.0)
[2022-10-13 06:37] LABS: Anion Gap 18.4 (5-19); Blood Urea Nitrogen 6 mg/dL (8-23); Calcium 7.6 mg/dL (8.5-10.5); Carbon Dioxide 19 mmol/L (22-29); Chloride 101 mmol/L (98-107); Glucose 149 mg/dL (65-115); Osmolality Calculated 280 mOsm/kg (285-295); Potassium 3.4 mmol/L (3.5-5.1); Sodium 135 mmol/L (136-145)
[2022-10-13 06:39] LABS: Vancomycin Trough 13.8 ug/mL (10-15)
[2022-10-13] MEDS: vancomycin 1,000 MG in sodium chloride 0.9% 250 ML 250 MG IV ×3 (06:56→22:59)
--- NOTE | 2022-10-13 07:06 | PM.PN ---
Subjective Subjective: Patient is on heated high flow I am not noticing any febrile events since midnight We will touch base with ICU nurse Appreciate pulmonary recommendations Beta D glucan PCP PCR pending No leukocytosis Blood pressure stable On heated high flow 70%, heated high flow 70% No fever since midnight Patient is able to produce more sputum endorsing feeling slightly better as compared to yesterday Eating breakfast Vitals/I&O/Wt Last Vital Signs Temp 98.4 F 10/13/22 03:00 Pulse 86 10/13/22 06:00 Resp 21 H 10/13/22 06:00 BP 113/57 10/13/22 06:00 Pulse Ox 95 10/13/22 06:00 O2 Del Method 10/12/22 20:36 O2 Flow Rate 55 10/13/22 03:17 FiO2 70 10/13/22 03:17 10/12/22 10/13/22 10/13/22 22:59 06:59 14:59 Intake Total 1048.237 / 2069.487 1233.5 / 3302.987 Output Total 2200 / 2200 1950 / 4150 Balance -1151.763 / -130.513 -716.5 / -847.013 Physical Exam Narrative: Patient fatigued and lethargic Adequate urine output Clinically looks dehydrated Heated high flow Awake and alert Nonfocal neuro exam No signs of meningitis No signs of edema of legs Pleasant and cooperative GCS 15 Eomi, PERRLA S1, S2 Urinary Catheter Management: Gomez: Cath Placed During This Visit: yes Reason for Continuing Indwelling Catheter: Accurate Measurement of Urinary Output in Critically Ill Patients Urinary Catheter Date of Insertion: 10/12/22 Urinary Catheter Time of Insertion: 14:50 Data 10/13/22 06:06 10/13/22 06:06 Micro: Microbiology 10/10/22 11:28 Blood Culture - Preliminary Blood Corynebacterium species 10/11/22 23:17 Gram Stain - Final Sputum - Expectorated Sputum A&P Assessment and plan (1) Acute and chronic respiratory failure with hypoxia: (2) Cough syncope: (3) Bilateral pneumonia: (4) Acute exacerbation of chronic obstructive pulmonary disease: (5) Syncope: (6) Fever: (7) Myalgia: (8) COPD (chronic obstructive pulmonary disease): Qualifiers: COPD type: unspecified COPD Qualified Code(s): J44.9 - Chronic obstructive pulmonary disease, unspecified (9) Chronic cystitis: (10) COPD exacerbation: Plan COPD exacerbation Acute on chronic hypoxia Currently on heated high flow Appreciate pulmonary recommendations Continue broad-spectrum antibiotics LDH high Started on PCP prophylactic regimen Patient will be considered immunocompromised because of her prednisone use She also took infliximab clinical signs of dehydration: Slightly improved Required Levophed on and off Carries history of adrenal insufficiency Added stress dose steroids, Hypovolemic shock: Resolved Febrile events: Afebrile since midnight, patient is endorsing feeling better, bringing up sputum easily Eating breakfast Syncope: No bradycardia noted no arrhythmia Echo unremarkable Full code Hypokalemia: Repleted Hypocalcemia: Repleted check mag level Attestations Medical Necessity Statement*: Continue ICU management Coding Level of Care Code 87508 Diagnoses Acute and chronic respiratory failure with hypoxia J96.21 Cough syncope R55; R05.4 Bilateral pneumonia J18.9 Acute exacerbation of chronic obstructive pulmonary disease J44.1 Syncope R55 Fever R50.9 Myalgia M79.10 COPD (chronic obstructive pulmonary disease) J44.9 COPD type: unspecified COPD Chronic cystitis N30.20 COPD exacerbation J44.1
[2022-10-13] MEDS: doxycycline 100 mg Tablet PO ×2 (08:59→17:42)
[2022-10-13] MEDS: pantoprazole DR 40 mg Tablet PO ×2 (08:59→17:42)
[2022-10-13] MEDS: lidocaine 5% Patch 1 PATCH TOPICAL (09:04)
[2022-10-13] MEDS: heparin 5,000 unit/mL INJ 1 mL 5000 UNIT SUBCUT ×2 (09:06→20:46)
--- NOTE | 2022-10-13 10:01 | PC.SOCIAL ---
Imm update Imm updated with patient at bedside. Copy of page 2 provided. Patient verbalized understanding. Copy in chart initialed, dated and timed.
[2022-10-13] MEDS: budesonide 0.5 mg/2 mL Neb INHALATION ×2 (10:06→19:46)
[2022-10-13] MEDS: ipratropium-albuterol 3 mL Neb INHALATION ×3 (10:06→19:46)
--- NOTE | 2022-10-13 10:13 | P.PN_ITS ---
Subjective Subjective: -No significant change in clinical status -Continues to require 55 L 70% FiO2 on high flow nasal cannula; desaturates with movement -Motivated to sit out of bed to chair -No fever spikes in last 24 hours -Good urine output -Other labs and imaging reviewed Medications: Reviewed: Yes Vitals/I&O/Wt Last Vital Signs Temp 98.4 F 10/13/22 03:00 Pulse 93 10/13/22 10:08 Resp 24 H 10/13/22 10:08 BP 113/57 10/13/22 06:00 Pulse Ox 92 10/13/22 10:08 O2 Del Method 10/13/22 10:06 O2 Flow Rate 55 10/13/22 10:08 FiO2 70 10/13/22 10:08 10/12/22 10/13/22 10/13/22 22:59 06:59 14:59 Intake Total 1048.237 / 2069.487 1233.5 / 3302.987 250 / 250 Output Total 2200 / 2200 1950 / 4150 Balance -1151.763 / -130.513 -716.5 / -847.013 250 / 250 Physical Exam Narrative: General: alert, NAD HEENT: conj clear, EOMI, PERRL, mmm, Neck: supple, no meningismus Heme: no cervical LAP Respiratory: Inspection: No visible deformity of the chest wall Palpation: Trachea is mildly deviated to the right, bilateral symmetric expansion Percussion: Bilateral tympanic percussion note both anterior and posteriorly Auscultation: Bilateral clear to auscultation both anterior and posteriorly, no crackles wheezing or rhonchi Cardiovascular: rrr, nl s1s2, no mrg Abdomen: soft, nt, nd, no r/g, bs+ Extremities: pulses +, no edema, no c/c : no CVA tenderness Skin: intact, no rash MSK: no back or neck pain Neurologic: grossly intact Urinary Catheter Management: Gomez: Cath Placed During This Visit: yes Reason for Continuing Indwelling Catheter: Accurate Measurement of Urinary Output in Critically Ill Patients Urinary Catheter Date of Insertion: 10/12/22 Urinary Catheter Time of Insertion: 14:50 Data 10/13/22 06:06 10/13/22 06:06 Other Labs: Radiology Impressions Chest CTA 10/09/22 14:56 IMPRESSION: 1. No evidence for pulmonary embolus. 2. Shallow inspiration with RIGHT lower lobe pneumonia. A few patchy infiltrates in the LEFT lower lobe. 3. Hazy groundglass infiltrates about the RIGHT hilum. 4. Cluster of slightly prominent RIGHT hilar lymph nodes nonspecific but may be reactive. No other acute findings. Abdomen/Pelvis CT 10/10/22 11:45 IMPRESSION: 1. Bibasilar atelectasis and with either component of more prominent atelectasis and/or component of patchy infiltrate posterior right lung base. 2. Hyperdense appearance of the dependent aspect of the gallbladder with today's exam, which could indicate hyperdense sludge and/or component of small stones. No significant biliary ductal dilatation. Further evaluation with fasting gallbladder ultrasound could be performed. 3. Small umbilical hernia of fat. 4. Diffuse atherosclerotic vascular disease. 5. Mild scattered sigmoid colon diverticula. No focal inflammatory changes. 6. Chronic bony changes of the spine with prior vertebroplasties T10 and T11. Gallbladder Ultrasound 10/11/22 07:42 IMPRESSION: Mild gallbladder sludge without evidence of stone. No significant gallbladder wall thickening. Venous Duplex 10/11/22 09:32 IMPRESSION: No evidence of deep venous thrombosis. Chest X-Ray 10/13/22 10:49 IMPRESSION: 1. Diffuse right upper lobe alveolar pneumonia increased since prior 2. Left hilar vascular congestion 3. Low lung volumes. 4. Osteopenia and kyphoplasty multiple dorsal spine vertebral bodies Laboratory Results WBC 9.4 10^3/uL (4.0-10.0) 10/13/22 06:06 RBC 4.38 10^6/uL (4.1-5.3) 10/13/22 06:06 Hgb 11.1 g/dL (11.5-15.3) L 10/13/22 06:06 Hct 34.7 % (37.0-47.0) L 10/13/22 06:06 MCV 79.2 fl (81-99) L 10/13/22 06:06 MCH 25.3 pg (28.0-34.0) L 10/13/22 06:06 MCHC 32.0 g/dL (30.0-36.0) 10/13/22 06:06 RDW 14.7 % (12.1-15.1) 10/13/22 06:06 Plt Count 255 10^3/cmm (130-400) 10/13/22 06:06 MPV 9.2 fL (7.4-10.4) 10/13/22 06:06 Neut % (Auto) 80.7 % 10/13/22 06:06 Lymph % (Auto) 14.9 % 10/13/22 06:06 Millard % (Auto) 3.3 % 10/13/22 06:06 Eos % (Auto) 0.0 % 10/13/22 06:06 Baso % (Auto) 0.1 % 10/13/22 06:06 Neut # (Auto) 7.56 10^3/uL (1.8-7.7) 10/13/22 06:06 Lymph # (Auto) 1.4 10^3/uL (0.8-4.8) 10/13/22 06:06 Millard # (Auto) 0.3 10^3/uL (0.2-0.9) 10/13/22 06:06 Eos # (Auto) 0.0 10^3/uL (0.0-0.8) 10/13/22 06:06 Baso # (Auto) 0.0 10^3/uL (0.0-0.1) 10/13/22 06:06 Nucleated RBC % (auto) 0 % 10/13/22 06:06 Nucleated RBCs # 0.0 /100WBC 10/13/22 06:06 D-Dimer 1.57 ug/mIFEU (0-0.59) H 10/09/22 13:20 Specimen Type Arterial 10/12/22 04:05 Sample Site Radial, right 10/12/22 04:05 ABG pH 7.48 (7.35-7.45) H 10/12/22 04:05 ABG pCO2 31.1 mmHg (35-45) L 10/12/22 04:05 ABG pO2 52.9 mmHg (80.0-100.0) L 10/12/22 04:05 ABG HCO3 23.2 mmol/L (22-26) 10/12/22 04:05 ABG O2 Saturation 91.4 10/12/22 04:05 ABG Base Excess 0.7 mmol/L (-2.0-2.0) 10/11/22 16:20 Al Test Pos 10/12/22 04:05 A-a O2 Gradient 47.9 mmHg (5-10) H 10/12/22 04:05 Hematocrit 38.7 % (37-47) 10/11/22 16:20 Hgb O2 Saturation > 100.0 % (95-100) H 10/12/22 04:05 Carboxyhemoglobin < 0.0 %THgb (0.4-20.1) L 10/12/22 04:05 Methemoglobin < 0.0 % (0.4-1.5) L 10/12/22 04:05 Total Hemoglobin < 4.5 g/dL (12-16) L 10/12/22 04:05 Sodium 128.0 mmol/L (131-143) L 10/12/22 04:05 Potassium 3.0 mmol/L (3.5-5.0) L 10/12/22 04:05 Glucose 85.0 mg/dL (70-115) 10/12/22 04:05 Ionized Calcium 1.1 mmol/L (1.1-1.4) 10/12/22 04:05 O2 Delivery Device Bipap 10/12/22 04:05 O2 Liters/Min 4.0 % 10/11/22 16:20 FiO2 65.0 % 10/12/22 04:05 CPAP 8.0 cmH20 10/12/22 04:05 Apron Worker ID [email or web address] 10/12/22 04:05 Sodium 135 mmol/L (136-145) L 10/13/22 06:06 Potassium 3.4 mmol/L (3.5-5.1) L 10/13/22 06:06 Chloride 101 mmol/L (98-107) 10/13/22 06:06 Carbon Dioxide 19 mmol/L (22-29) L 10/13/22 06:06 Anion Gap 18.4 (5-19) 10/13/22 06:06 BUN 6 mg/dL (8-23) L 10/13/22 06:06 Creatinine 0.7 mg/dL (0.5-0.9) 10/13/22 06:06 GFR Calculation 83.0 mL/min (90-130) L 10/13/22 06:06 Glucose 149 mg/dL (65-115) H 10/13/22 06:06 POC Glucose 142 mg/dL (70-110) H 10/09/22 21:09 Calculated Osmolality 280 mOsm/kg (285-295) L 10/13/22 06:06 Lactate 1.0 mmol/L (0.5-2.2) 10/12/22 05:19 Calcium 7.6 mg/dL (8.5-10.5) L 10/13/22 06:06 Phosphorus 2.2 mg/dL (2.5-4.5) L 10/10/22 04:25 Magnesium 1.7 mg/dL (1.7-2.3) 10/10/22 04:25 Total Bilirubin 0.3 mg/dL (0.15-1.2) 10/09/22 13:20 AST 24 U/L (0-32) 10/09/22 13:20 ALT 24 U/L (0-33) 10/09/22 13:20 Alkaline Phosphatase 47 U/L (35-105) 10/09/22 13:20 Lactate Dehydrogenase 387 U/L (135-214) H 10/12/22 05:19 Troponin T Baseline 10 ng/L (0-10) 10/09/22 13:20 Troponin T 120 Minute 8.14 ng/L (0-10) 10/09/22 16:20 Delta Troponin T -1.86 ABS# (0-10) L 10/09/22 16:20 Troponin T Hi Sens 6Hr 8.12 ng/L (0-10) 10/09/22 19:40 Troponin T Hi Sens 6Hr Delta 0.02 ng/L (0-12) 10/09/22 19:40 C-Reactive Protein 104.0 mg/L (0.0-4.9) H 10/12/22 05:19 Total Protein 5.7 g/dL (6.6-8.7) L 10/09/22 13:20 Albumin 3.3 g/dL (3.5-5.2) L 10/09/22 13:20 Globulin 2.4 g/dL (1.3-4.6) 10/09/22 13:20 Vitamin B12 1226 pg/mL (232-1245) 10/09/22 19:40 Procalcitonin 0.16 ng/mL (0-0.5) 10/12/22 05:19 TSH 0.80 uIU/mL (0.27-4.20) 10/09/22 19:40 Urine Color Colorless (Yellow) 10/10/22 21:00 Urine Appearance Clear (CLEAR) 10/10/22 21:00 Urine pH 6 (5-7) 10/10/22 21:00 Ur Specific Western 1.020 (1.005-1.030) 10/10/22 21:00 Urine Protein Neg (Negative) 10/10/22 21:00 Urine Glucose (UA) Norm (Normal) 10/10/22 21:00 Urine Ketones Negative (Negative) 10/10/22 21:00 Urine Blood Neg (Negative) 10/10/22 21:00 Urine Nitrate Negative (Negative) 10/10/22 21:00 Urine Bilirubin Neg (Negative) 10/10/22 21:00 Urine Urobilinogen Neg mg/dL (Negative) 10/10/22 21:00 Ur Leukocyte Esterase Negative (Negative) 10/10/22 21:00 Vancomycin Trough 13.8 ug/mL (10-15) 10/13/22 06:06 Coronavirus 229E (PCR) Not detected (NOT DETECT) 10/10/22 16:58 SARS-CoV-2 (PCR) Not detected (NOT DETECT) 10/10/22 16:58 Micro: Microbiology 10/10/22 11:28 Blood Culture - Preliminary Blood Corynebacterium species 10/11/22 23:17 Gram Stain - Final Sputum - Expectorated Sputum A&P Assessment and plan (1) Acute exacerbation of chronic obstructive pulmonary disease: (2) Acute and chronic respiratory failure with hypoxia: (3) Immunosuppression: Plan #Acute on chronic respiratory failure with hypoxia-secondary to multilobar pneumonia #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-there is a concern for underlying PCP pneumonia as well as fungal pneumonias #Hypotension secondary adrenal insufficiency versus septic shock -Currently requiring high flow nasal cannula 55 L and 70% and persistent fever spikes-continue in ICU for close monitoring -No evidence of PE or DVT on imaging -Chest x-ray today shows significant right upper lobe infiltrates -ABG on 65% FiO2-on nasal cannula showed PF ratio < 100 -She needs close monitoring in ICU and is at risk for intubation -So far MRSA nares negative, expectorated sputum cultures negative, low procalcitonin, COVID-19 PCR negative, pending beta D glucan as well as induced sputum for PCP PCR -Agree with antibiotic coverage-currently on vancomycin, aztreonam, doxycycline -Agree to cover for PCP pneumonia given her risk due to immunosuppression- patient on Bactrim -She transiently required Levophed-however blood pressure improved after starting hydrocortisone -Continue close input output monitoring -I will place her in airborne isolation and sent for AFB smears-TB QuantiFERON ordered ICU CHECKLIST: Problem list updated Verbal orders reviewed and signed Analgesia: N/A Glycemic Control: N/A Nutrition: Cardiac diet Restraint Renewal (within 24 hrs): Yes Ulcer Prophylaxis: PPI Chemical Thromboprophylaxis: Prophylaxis: Heparin Mechanical Thromboprophylaxis: SCDs Need for Central line: Pressors Need for Gomez catheter: For close urine output monitoring Critical Care Time (No Overlap): 48 min Attestations Medical Necessity Statement*: Continue close monitoring for hypoxic respiratory failure Time Spent in Patient Care: Greater than 35 minutes (>than 50% of time spent in counselling and/or direct pt care on unit) . Critical Care Time: This patient has a high probability of sudden, clinically significant deterioration, which requires the highest level of physician preparedness to intervene urgently. I managed/supervised life or organ supporting interventions that required frequent physician assessment. I devoted my full attention in the ICU to the direct care of this patient for the period of time indicated above. Time I spent with family or surrogate(s) is included only if the patient was incapable of providing necessary information or participating in decision making. Time devoted to teaching and to any procedures I billed separately is not included. Services Provided: Telemetry review Mechanical Ventilation Hemodynamic interpretation, assessment and management Review and interpretation of CXR Review and interpretation of lab values Review and interpretation of microbiologic data and culture results Review of medications and administration Review and interpretation of Nutrition requirements and management Discussion of management with other consultants and services Clinical update to family members [x] Patient assessment, examination and intervention [x] Documentation [x] Medication orders and management Coding Level of Care Code 84456 Diagnoses Acute exacerbation of chronic obstructive pulmonary disease J44.1 Acute and chronic respiratory failure with hypoxia J96.21 Immunosuppression D89.9 Time Spent (min) 48
--- NOTE | 2022-10-13 10:49 | XRR_ITS ---
PROCEDURE INFORMATION: Exam: XR Chest Exam date and time: 10/13/2022 11:17 AM Age: 67 years old Clinical indication: Condition or disease; Lung condition and disease; Pneumonia; Additional info: Pneumonia follow up TECHNIQUE: Imaging protocol: Radiologic exam of the chest. Views: 1 view. COMPARISON: CR (CHEST, ) 10/11/2022 5:12 PM FINDINGS: Lungs: Low lung volumes seen. There is diffuse parenchymal densities with air bronchograms involving the right upper lobe. This finding has increased since prior study and corresponds to pneumonia. There is left perihilar vascular congestion seen. The findings in the lungs have changed since prior examination Pleural spaces: Unremarkable. No pleural effusion. No pneumothorax. Heart/Mediastinum: Unremarkable. No cardiomegaly. Bones/joints: Generalized dorsal spine osteopenia. Evidence of kyphoplasty is seen at multiple levels in the lower dorsal spine. XR/XR chest 1V portable [id number] IMPRESSION: 1. Diffuse right upper lobe alveolar pneumonia increased since prior 2. Left hilar vascular congestion 3. Low lung volumes. 4. Osteopenia and kyphoplasty multiple dorsal spine vertebral bodies
[2022-10-13] MEDS: ondansetron 2 mg/ML SDV 2 mL 4 MG IVP (11:01)
[2022-10-13] MEDS: potassium chloride ER 20 mEq Tablet 40 MEQ PO (11:23)
[2022-10-13] MEDS: calcium gluconate 0.9% NaCL 1 GM/50 ML PREMIX IV (11:24)
[2022-10-13] MEDS: morphine 4 mg/mL SDV 1 mL 2 MG IVP ×2 (15:49→21:38)
--- NOTE | 2022-10-13 19:00 | PC.NURSE ---
Shift Note: No change in Pt's oxygen needs, HHF remains at 55L and 70%. She was able to tolerate getting out of bed to chair, her O2 did decreased with exertion but she was able to recover fairly quickly. Morphine was ordered for pain, her back pain was a problem, she stated it worked very well. Pt does have an appetite, she has ate 50% of breakfast and dinner and just a glucerna with family provided snacks at lunch. Family has been very attentive and at bedside throughout the shift. She had 1000ml of urine output. No BM today. Senna S ordered to help. Her chest xray looked worse, TB precautions started. Frequent safety and comfort rounds continue. Orders and/or nursing care completed as indicated. Patient monitored for response to intervention and treatment(s). Education provided includes morphine, Senna,ABx, plan of care and progress. . 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 Will continue to monitor.
--- NOTE | 2022-10-13 22:38 | XRR_ITS ---
PROCEDURE INFORMATION: Exam: XR Chest Exam date and time: 10/13/2022 10:49 PM Age: 67 years old Clinical indication: Shortness of breath; Additional info: SOB TECHNIQUE: Imaging protocol: Radiologic exam of the chest. Views: 1 view. COMPARISON: CR XR chest 1V portable [id number] 10/13/2022 11:17 AM FINDINGS: Lungs: No definite CHF/pulmonary edema. Continued right upper lung opacities, similar to slightly improved in the interval. Moderate left perihilar and lower lung opacities, significantly increased in the interval. The findings raise suspicion for pneumonia, please correlate clinically. Pleural spaces: No visible pneumothorax. Suspect a small left pleural effusion, increased in the interval. Heart/Mediastinum: Heart size is within normal limits. Bones/joints: As before, evidence for prior vertebroplasty procedures involving several lower thoracic vertebrae. XR/XR chest 1V portable [id number] IMPRESSION: 1. Bilateral lung opacities, worsening on the left. See above discussion. 2. Suspect a small left pleural effusion, increased in the interval. 3. Other findings discussed above.
[2022-10-13] MEDS: FUROsemide 10 mg/mL SDV 4mL 40 MG IVP (23:02)
[2022-10-14] VITALS (53 sets, daily range): BP systolic 92–193; BP diastolic 49–133; PULSE 88–157; RESP 14–43; TEMP 37.4; O2SAT 77–100
[2022-10-14] MEDS: aztreonam 2,000 MG in sodium chloride 0.9% (plus) 100 ML 200 MG IV ×2 (00:05→12:52)
[2022-10-14] MEDS: hydrocortisone 100 mg/2 mL SDV 50 MG IVP ×4 (01:39→20:21)
[2022-10-14 03:22] LABS: Basophils % 0.2 %; Hematocrit 36.9 % (37.0-47.0); Hemoglobin 11.4 g/dL (11.5-15.3); Lymphocytes # 1.3 10^3/uL (0.8-4.8); Lymphocytes % 11.7 %; Mean Corpuscular HGB Conc 30.9 g/dL (30.0-36.0); Mean Corpuscular Volume 80.9 fl (81-99); Mean Platelet Volume 9.3 fL (7.4-10.4); Monocytes # 0.4 10^3/uL (0.2-0.9); Monocytes % 3.6 %; Neutrophils % 82.9 %; Nucleated Red Blood Cells % 0 %; Platelet Count 319 10^3/cmm (130-400); Red Blood Count 4.56 10^6/uL (4.1-5.3); Red Cell Distribution Width 15.1 % (12.1-15.1)
[2022-10-14 03:37] LABS: Blood Urea Nitrogen 9 mg/dL (8-23); Calcium 7.9 mg/dL (8.5-10.5); Carbon Dioxide 21 mmol/L (22-29); Chloride 101 mmol/L (98-107); Glucose 112 mg/dL (65-115); Magnesium 1.9 mg/dL (1.7-2.3); Osmolality Calculated 281 mOsm/kg (285-295); Sodium 136 mmol/L (136-145)
[2022-10-14] MEDS: morphine 4 mg/mL SDV 1 mL 2 MG IVP ×3 (03:53→15:28)
[2022-10-14] MEDS: benzonatate 100 mg Capsule 200 MG PO (03:54)
--- NOTE | 2022-10-14 04:41 | P.MISC_ITS ---
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 Low threshold for Intubation.Family has been updated.
[2022-10-14 05:17] LABS: Alveolar-Arterial Oxygen Gradi 73.8 mmHg (5-10); Arterial Blood Gas Hematocrit 34.8 % (37-47); Base Excess ABG -1.8 mmol/L (-2.0-2.0); Blood Gas Allen Test Pos; Blood Gas Operator Identificat JB; Blood Gas Sample Site Radial, right; Blood Gas Sample Type Arterial; Carboxyhemoglobin 0.4 %THgb (0.4-20.1); HCO3 ABG 22.5 mmol/L (22-26); HGB O2 Sat 96.4 % (95-100); Ionized Calcium Level - ABG 1.1 mmol/L (1.1-1.4); Methemoglobin 0.7 % (0.4-1.5); Oxygen Device BIPAP; Oxygen Saturation ABG 97.5; Potassium Level - ABG 3.6 mmol/L (3.5-5.0); Total Hemoglobin 11.4 g/dL (12-16)
[2022-10-14] MEDS: aspirin 81 mg EC Tablet PO (05:35)
[2022-10-14] MEDS: folic acid 1 mg Tablet PO (05:35)
[2022-10-14] MEDS: vancomycin 1,000 MG in sodium chloride 0.9% 250 ML 250 MG IV ×3 (06:01→22:35)
[2022-10-14] MEDS: FUROsemide 10 mg/mL SDV 4mL 40 MG IVP (07:29)
[2022-10-14] MEDS: heparin 5,000 unit/mL INJ 1 mL 5000 UNIT SUBCUT ×2 (07:32→20:21)
--- NOTE | 2022-10-14 07:49 | XRR_ITS ---
PROCEDURE INFORMATION: Exam: XR Chest Exam date and time: 10/14/2022 7:56 AM Age: 67 years old Clinical indication: Shortness of breath; Additional info: Hypoxia TECHNIQUE: Imaging protocol: Radiologic exam of the chest. Views: 1 view. COMPARISON: CR (CHEST, ) 10/13/2022 10:49 PM FINDINGS: Lungs: Persistent bilateral airspace opacities, which have improved in the right upper lobe, and slightly worsened in the left lung. Pleural spaces: Small left pleural effusion is suspected. No pneumothorax. Heart/Mediastinum: Stable cardiomediastinal silhouette. Bones/joints: Degenerative changes of the spine seen. Vertebral augmentation cement noted in the lower thoracic spine. XR/XR chest 1V portable [id number] IMPRESSION: 1. Imaging findings concerning for multifocal pneumonia, slightly worsened on the left and mildly improved on the right. 2. Trace left pleural effusion suspected.
[2022-10-14] MEDS: ipratropium-albuterol 3 mL Neb INHALATION ×3 (08:38→19:53)
[2022-10-14] MEDS: budesonide 0.5 mg/2 mL Neb INHALATION ×2 (08:38→19:53)
[2022-10-14] MEDS: potassium chloride ER 20 mEq Tablet 40 MEQ PO (09:51)
[2022-10-14] MEDS: doxycycline 100 mg Tablet PO (09:51)
[2022-10-14] MEDS: sennosides-docusate Tablet 2 TAB PO (09:51)
[2022-10-14] MEDS: pantoprazole DR 40 mg Tablet PO (09:52)
[2022-10-14] MEDS: dexmedetomidine 400 MCG in sodium chloride 0.9% (100 ml) 100 ML IV (09:52)
[2022-10-14] MEDS: lidocaine 5% Patch 1 PATCH TOPICAL (10:27)
--- NOTE | 2022-10-14 11:47 | PM.PN ---
Subjective Subjective: Overnight events noted She is on 100% BiPAP however we were able to transition her down to 90% oxygen and on heated high flow 55 L, 90% She has low threshold to get intubated Patient is agreeable if intubation is needed Patient was examined along Dr. Moore today Sodium has dropped to 136 She has received adequate dose of Lasix Excellent urine output We will reevaluate around 4 PM Will request PICC line in case she becomes BiPAP dependent will need TPN Dr. Moore has recommended Mycobacterium tuberculosis investigation now Vitals/I&O/Wt Last Vital Signs Temp 99.0 F 10/13/22 20:00 Pulse 96 10/14/22 11:19 Resp 24 H 10/14/22 11:19 BP 133/88 10/14/22 10:00 Pulse Ox 94 10/14/22 11:19 O2 Del Method 10/14/22 10:00 O2 Flow Rate 55 10/14/22 11:19 FiO2 90 10/14/22 11:19 10/13/22 10/14/22 10/14/22 22:59 06:59 14:59 Intake Total 1393.5 / 4117.0 993.5 / 5110.5 250 / 250 Output Total 1000 / 1000 2150 / 3150 Balance 393.5 / 3117.0 -1156.5 / 1960.5 250 / 250 Physical Exam Narrative: Clinically patient is dehydrated Patient gets short of breath easily with just mild conversation She is very weak and lethargic Able to follow commands She wants to eat something as well Abdomen soft Bilateral breath sounds with rhonchi no active wheezing Nonfocal neuro exam is at the bedside Pleasant and cooperative S1, S2 GCS 15 Urinary Catheter Management: Gomez: Cath Placed During This Visit: yes Reason for Continuing Indwelling Catheter: Accurate Measurement of Urinary Output in Critically Ill Patients Urinary Catheter Date of Insertion: 10/12/22 Urinary Catheter Time of Insertion: 14:50 Data 10/14/22 02:27 10/14/22 02:27 Micro: Microbiology 10/11/22 23:17 Gram Stain - Final Sputum - Expectorated Sputum Sputum Culture - Final A&P Assessment and plan (1) ARDS (adult respiratory distress syndrome): (2) Acute and chronic respiratory failure with hypoxia: (3) Cough syncope: (4) Bilateral pneumonia: (5) Acute exacerbation of chronic obstructive pulmonary disease: (6) Syncope: (7) Fever: (8) Adrenal insufficiency: (9) Chronic cystitis: (10) COPD exacerbation: Plan Severe ARDS related to pneumonia Acute COPD exacerbation Acute on chronic hypoxic MRSA nares negative Clinically patient looks dehydrated Malnourished and fatigue Currently on heated high flow 90% 55 L She gets hypoxic on mild conversation We will reevaluate by 4 PM she is showing good response to diuresis Repeat x-ray showing mild improvement of right-sided Patient is agreeable for intubation if needed Mycobacterium tuberculosis test requested by helicopter engineer Continue broad-spectrum antibiotics Watch for any signs of hyponatremia with all the antibiotics After intubation she will need BAL Adrenal insufficiency patient is on stress dose steroids White count jumped up to 11,000 with neutrophils Syncope: Cough versus vasovagal EF is preserved No signs of PE COVID-negative Cultures negative to date Hypovolemic shock: Resolved currently on stress dose steroids Clinically very dehydrated and malnourished requested PICC line and TPN if she becomes BiPAP dependent Bradycardia on admission no more episodes metoprolol discontinued Electrolytes replenished Hypocalcemia: Replenished Full code Family updated Attestations Medical Necessity Statement*: Continue ICU management Coding Level of Care Code Acute Code for [facility] Diagnoses ARDS (adult respiratory distress syndrome) J80 Acute and chronic respiratory failure with hypoxia J96.21 Cough syncope R55; R05.4 Bilateral pneumonia J18.9 Acute exacerbation of chronic obstructive pulmonary disease J44.1 Syncope R55 Fever R50.9 Adrenal insufficiency E27.40 Chronic cystitis N30.20 COPD exacerbation J44.1
--- NOTE | 2022-10-14 13:37 | XR_ITS ---
WS: [id number] Portable AP upright chest, 10/14/2022, 1440 hours Clinical Data: Post PICC placement Comparison: Portable chest, 10/14/2022, 0803 hours Findings: The right PICC line ends in the mid superior vena cava. No pneumothorax is seen. The bilate ral patchy opacities throughout both lungs are again noted. XR/XR chest 1V portable [id number] Impression: 1. Satisfactory placement of right PICC line. 2. The report was called to Kristen, the ICU nurse at 1448 hours.
--- NOTE | 2022-10-14 13:40 | P.PN_ITS ---
Subjective Subjective: Patient was seen multiple times today at bedside Morning today morning she was requiring higher FiO2 than yesterday-on 90% high flow nasal cannula -Towards the evening her respiratory condition deteriorated and was intubated and connected to ventilator -Currently she has been sedated with fentanyl, propofol-however she is overbreathing the vent -Postintubation her ABG showed PaO2 74 on 100% FiO2 and PEEP to well-recommended to start Versed and paralytic-prone for tonight -I have performed bronchoscopy postintubation-there were no significant mucopurulent secretions in airways-I have taken BAL from right upper lobe and sent for cultures, PCP PCR, galactomannan Medications: Reviewed: Yes Vitals/I&O/Wt Last Vital Signs Temp 99.0 F 10/13/22 20:00 Pulse 96 10/14/22 11:19 Resp 24 H 10/14/22 11:19 BP 133/88 10/14/22 10:00 Pulse Ox 94 10/14/22 11:19 O2 Del Method 10/14/22 10:00 O2 Flow Rate 55 10/14/22 11:19 FiO2 90 10/14/22 11:19 10/13/22 10/14/22 10/14/22 22:59 06:59 14:59 Intake Total 1393.5 / 4117.0 993.5 / 5110.5 250.576 / 250.576 Output Total 1000 / 1000 2150 / 3150 Balance 393.5 / 3117.0 -1156.5 / 1960.5 250.576 / 250.576 Physical Exam Narrative: PHYSICAL EXAM: General: lying in bed, sedated and intubated. 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 SKIN: no rash LDA: # CVC: Right arm PICC line 10/14/2022 # A line: Right radial arterial line 10/14/2022 Urinary Catheter Management: Gomez: Cath Placed During This Visit: yes Reason for Continuing Indwelling Catheter: Accurate Measurement of Urinary Output in Critically Ill Patients Urinary Catheter Date of Insertion: 10/12/22 Urinary Catheter Time of Insertion: 14:50 Data 10/14/22 02:27 10/14/22 02:27 Other Labs: Radiology Impressions Chest CTA 10/09/22 14:56 IMPRESSION: 1. No evidence for pulmonary embolus. 2. Shallow inspiration with RIGHT lower lobe pneumonia. A few patchy infiltrates in the LEFT lower lobe. 3. Hazy groundglass infiltrates about the RIGHT hilum. 4. Cluster of slightly prominent RIGHT hilar lymph nodes nonspecific but may be reactive. No other acute findings. Abdomen/Pelvis CT 10/10/22 11:45 IMPRESSION: 1. Bibasilar atelectasis and with either component of more prominent atelectasis and/or component of patchy infiltrate posterior right lung base. 2. Hyperdense appearance of the dependent aspect of the gallbladder with today's exam, which could indicate hyperdense sludge and/or component of small stones. No significant biliary ductal dilatation. Further evaluation with fasting gallbladder ultrasound could be performed. 3. Small umbilical hernia of fat. 4. Diffuse atherosclerotic vascular disease. 5. Mild scattered sigmoid colon diverticula. No focal inflammatory changes. 6. Chronic bony changes of the spine with prior vertebroplasties T10 and T11. Gallbladder Ultrasound 10/11/22 07:42 IMPRESSION: Mild gallbladder sludge without evidence of stone. No significant gallbladder wall thickening. Venous Duplex 10/11/22 09:32 IMPRESSION: No evidence of deep venous thrombosis. Chest X-Ray 10/14/22 16:49 IMPRESSION: 1. Parenchymal densities right upper lobe and left perihilar improved aeration since prior. 2. Endotracheal tube is above the eugenie. 3. Right central line extends into the SVC. 4. NG tube extends into the stomach. 5. Kyphoplasty multiple levels lower dorsal spine Laboratory Results WBC 11.0 10^3/uL (4.0-10.0) H 10/14/22 02:27 RBC 4.56 10^6/uL (4.1-5.3) 10/14/22 02:27 Hgb 11.4 g/dL (11.5-15.3) L 10/14/22 02:27 Hct 36.9 % (37.0-47.0) L 10/14/22 02:27 MCV 80.9 fl (81-99) L 10/14/22 02: MCH 25.0 pg (28.0-34.0) L 10/14/22 02:27 MCHC 30.9 g/dL (30.0-36.0) 10/14/22 02: RDW 15.1 % (12.1-15.1) 10/14/22 02: Plt Count 319 10^3/cmm (130-400) 10/14/22 02: MPV 9.3 fL (7.4-10.4) 10/14/22 02: Neut % (Auto) 82.9 % 10/14/22 02: Lymph % (Auto) 11.7 % 10/14/22 02: [place] % (Auto) 3.6 % 10/14/22 02: Eos % (Auto) 0.0 % 10/14/22 02: Baso % (Auto) 0.2 % 10/14/22 02: Neut # (Auto) 9.10 10^3/uL (1.8-7.7) H 10/14/22 02: Lymph # (Auto) 1.3 10^3/uL (0.8-4.8) 10/14/22 02: [place] # (Auto) 0.4 10^3/uL (0.2-0.9) 10/14/22 02: Eos # (Auto) 0.0 10^3/uL (0.0-0.8) 10/14/22 02: Baso # (Auto) 0.0 10^3/uL (0.0-0.1) 10/14/22 02: Nucleated RBC % (auto) 0 % 10/14/22 02: Nucleated RBCs # 0.0 /100WBC 10/14/22 02: D-Dimer 1.57 ug/mIFEU (0-0.59) H 10/09/22 13:20 Specimen Type Arterial 10/14/22 17:04 Sample Site Not specified 10/14/22 17:04 O2 Sat Pulse Oximetry Cancelled 10/13/22 01:00 ABG pH 7.25 (7.35-7.45) L 10/14/22 17:04 ABG pCO2 60.2 mmHg (35-45) H* 10/14/22 17:04 ABG pO2 74.0 mmHg (80.0-100.0) L 10/14/22 17:04 ABG HCO3 26.3 mmol/L (22-26) H 10/14/22 17:04 ABG O2 Saturation 97.5 10/14/22 05:03 ABG Base Excess -2.0 mmol/L (-2.0-2.0) 10/14/22 17:04 Al Test Pos 10/14/22 17:04 A-a O2 Gradient 73.8 mmHg (5-10) H 10/14/22 05:03 Hematocrit 39.4 % (37-47) 10/14/22 17:04 Hgb O2 Saturation 96.4 % (95-100) 10/14/22 05:03 Carboxyhemoglobin 0.4 %THgb (0.4-20.1) 10/14/22 05:03 Methemoglobin 0.7 % (0.4-1.5) 10/14/22 05:03 Total Hemoglobin 11.4 g/dL (12-16) L 10/14/22 05:03 Sodium 132.0 mmol/L (131-143) 10/14/22 05:03 Potassium 3.6 mmol/L (3.5-5.0) 10/14/22 05:03 Glucose 178.0 mg/dL (70-115) H 10/14/22 05:03 Ionized Calcium 1.1 mmol/L (1.1-1.4) 10/14/22 05:03 Respiration Rate Cancelled 10/13/22 01:00 O2 Delivery Device Vent 10/14/22 17:04 O2 Liters/Min Cancelled 10/13/22 01:00 SIMV Cancelled 10/13/22 01:00 Vent Mode Cancelled 10/13/22 01:00 Mechanical Rate Cancelled 10/13/22 01:00 Spontaneous Rate Cancelled 10/13/22 01:00 FiO2 100.0 % 10/14/22 17:04 Tidal Volume 0.40 10/14/22 17:04 PEEP 12.0 cmH20 10/14/22 17:04 Pressure Support Cancelled 10/13/22 01:00 Pressure Control Cancelled 10/13/22 01:00 CPAP Cancelled 10/13/22 01:00 Mode BiPAP Cancelled 10/13/22 01:00 Specimen Drawn By Cancelled 10/13/22 01:00 [employer] Commerce Consultant ID Susan 10/14/22 17:04 Crit Value Read Back Cancelled 10/13/22 01:00 Blood Gas Notified Time Cancelled 10/13/22 01:00 Sodium 136 mmol/L (136-145) 10/14/22 02:27 Potassium 4.0 mmol/L (3.5-5.1) 10/14/22 02:27 Chloride 101 mmol/L (98-107) 10/14/22 02:27 Carbon Dioxide 21 mmol/L (22-29) L 10/14/22 02:27 Anion Gap 18.0 (5-19) 10/14/22 02:27 BUN 9 mg/dL (8-23) 10/14/22 02:27 Creatinine 0.7 mg/dL (0.5-0.9) 10/14/22 02:27 GFR Calculation 83.0 mL/min (90-130) L 10/14/22 02:27 Glucose 112 mg/dL (65-115) 10/14/22 02:27 POC Glucose 142 mg/dL (70-110) H 10/09/22 21:09 Calculated Osmolality 281 mOsm/kg (285-295) L 10/14/22 02:27 Lactate 1.0 mmol/L (0.5-2.2) 10/12/22 05:19 Calcium 7.9 mg/dL (8.5-10.5) L 10/14/22 02:27 Phosphorus 2.2 mg/dL (2.5-4.5) L 10/10/22 04:25 Magnesium 1.9 mg/dL (1.7-2.3) 10/14/22 02:27 Total Bilirubin 0.3 mg/dL (0.15-1.2) 10/09/22 13:20 AST 24 U/L (0-32) 10/09/22 13:20 ALT 24 U/L (0-33) 10/09/22 13:20 Alkaline Phosphatase 47 U/L (35-105) 10/09/22 13:20 Lactate Dehydrogenase 387 U/L (135-214) H 10/12/22 05:19 Troponin T Baseline 10 ng/L (0-10) 10/09/22 13:20 Troponin T 120 Minute 8.14 ng/L (0-10) 10/09/22 16:20 Delta Troponin T -1.86 ABS# (0-10) L 10/09/22 16:20 Troponin T Hi Sens 6Hr 8.12 ng/L (0-10) 10/09/22 19:40 Troponin T Hi Sens 6Hr Delta 0.02 ng/L (0-12) 10/09/22 19:40 C-Reactive Protein 104.0 mg/L (0.0-4.9) H 10/12/22 05:19 Total Protein 5.7 g/dL (6.6-8.7) L 10/09/22 13:20 Albumin 3.3 g/dL (3.5-5.2) L 10/09/22 13:20 Globulin 2.4 g/dL (1.3-4.6) 10/09/22 13:20 Vitamin B12 1226 pg/mL (232-1245) 10/09/22 19:40 Procalcitonin 0.16 ng/mL (0-0.5) 10/12/22 05:19 TSH 0.80 uIU/mL (0.27-4.20) 10/09/22 19:40 Urine Color Colorless (Yellow) 10/10/22 21:00 Urine Appearance Clear (CLEAR) 10/10/22 21:00 Urine pH 6 (5-7) 10/10/22 21:00 Ur Specific [place] 1.020 (1.005-1.030) 10/10/22 21:00 Urine Protein Neg (Negative) 10/10/22 21:00 Urine Glucose (UA) Norm (Normal) 10/10/22 21:00 Urine Ketones Negative (Negative) 10/10/22 21:00 Urine Blood Neg (Negative) 10/10/22 21:00 Urine Nitrate Negative (Negative) 10/10/22 21:00 Urine Bilirubin Neg (Negative) 10/10/22 21:00 Urine Urobilinogen Neg mg/dL (Negative) 10/10/22 21:00 Ur Leukocyte Esterase Negative (Negative) 10/10/22 21:00 Vancomycin Trough 13.8 ug/mL (10-15) 10/13/22 06:06 Coronavirus 229E (PCR) Not detected (NOT DETECT) 10/10/22 16:58 SARS-CoV-2 (PCR) Not detected (NOT DETECT) 10/10/22 16:58 Micro: Microbiology 10/10/22 11:28 Blood Culture - Final Blood Corynebacterium species 10/11/22 23:17 Gram Stain - Final Sputum - Expectorated Sputum Sputum Culture - Final A&P Assessment and plan (1) Acute exacerbation of chronic obstructive pulmonary disease: (2) Acute and chronic respiratory failure with hypoxia: (3) Immunosuppression: (4) ARDS (adult respiratory distress syndrome): (5) Bilateral pneumonia: Plan #Acute on chronic respiratory failure with hypoxia-secondary to multilobar pneumonia #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 -Recommended deep sedation by adding Versed and paralyzed with Nimbex -We will prone patient tonight PULM: #Acute on chronic respiratory failure secondary to ARDS secondary to underlying pneumonia #Given her significant underlying immunosuppression-suspect PCP pneumonia/nocardia/TB -Intubated and sedated-currently on CMV 400/16/PEEP 12/FiO2 100%-postintubation ABG 7.2 // -Continue scheduled nebulizations -As patient is requiring higher FiO2 and PEEP-I will prone patient -Follow ARDS protocol-low tidal volume and high PEEP -Chest x-ray showing diffuse infiltrates-despite diuresing adequately-suspect ARDS -S/p bronchoscopy 10/14/2022-scant secretions with normal mucosa-BAL taken from right upper lobe-sent for cultures, fluid analysis, fungal staining and cultures, galactomannan, PCP PCR, respiratory viral panel, -Discussed with lab sent for nocardia culture -We will continue coverage with vancomycin/meropenem to cover gram-negative's as well as nocardia/Bactrim-to cover PCP pneumonia -Although imaging does not quite suggestive of TB-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 RVSP 48. No change compared to previous studies in 2019 and 2017. -Continue to monitor GI: #Diet: N.p.o. for tonight-we will start her on tube feeding #GI prophylaxis: PPI #Previous LFTs are normal-we will repeat CMP #BR regimen-senna docusate RENAL: #Renal functions are normal -Patient has very good urine output and electrolytes are within normal limits -We will try to maintain even to net negative fluid balance -Continue to monitor urine output, renal parameters and electrolytes and supplement accordingly HEM: #Normal counts ENDO: #Sugars well controlled ID: #Persistent fevers with infiltrates on chest [id number] underlying pneumonia -Since she has been covered with vancomycin/aztreonam/doxycycline -Added Bactrim to cover PCP pneumonia as patient was on chronic steroid therapy and lytics 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; her PCP PCR is still pending -She is on hydrocortisone 50 every 6 hours as needed-which is equivalent to prednisone 50 Mg daily -Given her significant immunosuppression-and worsening respiratory status-there is concern for TB (family reported patient has TB several years ago)-currently on contact isolation, AFB smears pending -Other possibilities nocardia-so we will switch aztreonam to meropenem and patient is already covered with Bactrim -We will follow-up for BAL cultures, fungal stain and cultures, PCP PCR, galactomannan Code Status: Full code Disposition: Currently will stay in ICU Critically ill: Yes MD discussed with: RN, RT, hospitalist taking care of the patient, 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 Restraint Renewal (within 24 hrs): Yes Ulcer Prophylaxis: PPI Chemical Thromboprophylaxis: Prophylaxis: Heparin Mechanical Thromboprophylaxis: SCDs Need for Central line: PICC line for pressors Need for Gomez catheter: Yes for urine output Case discussed with RN, RT and family or surrogate(s) and hospitalist taking care of the patient Attestations Medical Necessity Statement*: Continue close monitoring for hypoxic respiratory failure Time Spent in Patient Care: Greater than 35 minutes (>than 50% of time spent in counselling and/or direct pt care on unit) . Critical Care Time: This patient has a high probability of sudden, clinically significant deterioration, which requires the highest level of physician preparedness to intervene urgently. I managed/supervised life or organ supporting interventions that required frequent physician assessment. I devoted my full attention in the ICU to the direct care of this patient for the period of time indicated above. Time I spent with family or surrogate(s) is included only if the patient was incapable of providing necessary information or participating in decision making. Time devoted to teaching and to any procedures I billed separately is not included. Services Provided: Telemetry review Mechanical Ventilation Hemodynamic interpretation, assessment and management Review and interpretation of CXR Review and interpretation of lab values Review and interpretation of microbiologic data and culture results Review of medications and administration Review and interpretation of Nutrition requirements and management Discussion of management with other consultants and services Clinical update to family members [x] Patient assessment, examination and intervention [x] Documentation [x] Medication orders and management and High Time for a total of 79 minutes, includes reviewing past or interval history, examining/interviewing patient, placing orders, updating patient/family/other support, discussing plan of care with staff, communicating with other healthcare providers, documenting encounter and coordinating care Other Coding Information Procedural care (documented in another note) Diagnoses Acute exacerbation of chronic obstructive pulmonary disease J44.1 Acute and chronic respiratory failure with hypoxia J96.21 Immunosuppression D89.9 ARDS (adult respiratory distress syndrome) J80 Bilateral pneumonia J18.9 Time Spent (min) 79
--- NOTE | 2022-10-14 14:30 | PC.NURSE ---
Triple lumen PICC to right brachial vein inserted without difficulty. Mid arm circumference measured 10 cm from right AC and noted at 27 cm. Trimmed length of catheter 38 cm with 2 cm external length noted. Report given to bedside nurseKristen.
--- NOTE | 2022-10-14 15:20 | PC.NURSE ---
Dr Simms notified of pt tachypniec, O2 sats 85%, were 79%, tachycardiac at 150's, BP very elevated. Pt struggling to breath. RT at bedside. Morphine 2mg admin for shortness of breath, no help. Pt just received 2 abx which was over 600m of fluid in 1 hour, PICC line placed shortly therreafter, before this event. Orders to put pt back on BIPa and give 20mg of IV Lasix.
[2022-10-14] MEDS: FUROsemide 10 mg/mL SDV 2mL 20 MG IVP (15:29)
[2022-10-14 15:35] LABS: ABG PCO2 41.5 mmHg (35-45); ABG PH Result 7.35 (7.35-7.45); Arterial Blood Gas Hematocrit 39.9 % (37-47); Base Excess ABG -2.6 mmol/L (-2.0-2.0); Blood Gas Allen Test Pos; Blood Gas Sample Type Arterial; HCO3 ABG 22.9 mmol/L (22-26); PO2 ABG 59.9 mmHg (80.0-100.0)
[2022-10-14 15:37] LABS: Blood Gas Operator Identificat MONRO; Blood Gas Sample Site Radial, right; Oxygen Device BIPAP
[2022-10-14] MEDS: propofol 1,000 MG/100 ML INJ 8.87 MG IV (16:01)
[2022-10-14] MEDS: rocuronium 10 mg/mL INJ 5mL 90 MG IVP (16:01)
[2022-10-14] MEDS: etomidate 2 mg/mL INJ SDV 10 mL 20 MG IVP (16:02)
--- NOTE | 2022-10-14 16:30 | PC.NURSE ---
Pt now intubated. OG placed. Art line placed. Awaiting confirmation form xray on placement. Propofol and fentanyl now infusing for sedation.
--- NOTE | 2022-10-14 16:43 | PM.ACPR ---
Acute Procedures Arterial Line: Time out performed: Yes Technique used: guide wire technique Post-Procedure: dry sterile dressing placed Patient tolerated procedure: well and no complications Complications: none Site: right and radial Additional comments: Artline was placed after intubation for closer monitoring, patient was prepped appropriately and sterile Estimated blood loss 2 mL Ultrasound-guided technique was used to locate arterial pulsation
--- NOTE | 2022-10-14 16:44 | PM.ACPR ---
Acute Procedures Intubation: Time out performed: Yes Sedative: etomidate Mg given: 20 Paralytic: rocuronium Mg given: 90 Laryngoscope: fiber optic video scope Assist device used: fiber optic device ET tube size: 8 ET tube uncuffed: Yes Tube secured depth (cm): 26 Tube secured location: lips Tube placement confirmation: visualized tube passing through cords, equal breath sounds bilaterally, no breath sounds over epigastrium, confirmation by capnometry and color change noted Patient tolerated procedure: well Intubation complications: none Additional comments: decision was made to intubate the patient because she was getting tachypneic in high 30s, hypoxic on 100% FiO2, patient and family agreed with intubation
--- NOTE | 2022-10-14 16:49 | XRR_ITS ---
PROCEDURE INFORMATION: Exam: XR Chest Exam date and time: 10/14/2022 4:57 PM Age: 67 years old Clinical indication: Device placement; Ett placement (vent status); Additional info: Et TECHNIQUE: Imaging protocol: Radiologic exam of the chest. Views: 1 view. COMPARISON: CR XR chest 1V portable [id number] 10/14/2022 2:36 PM FINDINGS: Tubes, catheters and devices: Endotracheal tube is 2.2 cm above the eugenie. NG tube extends into the stomach. A right side PICC line extends into the SVC. Lungs: Diffuse parenchymal densities seen in the right upper lobe and left perihilar region. These findings were present on prior examination and now in show improved aeration. Pleural spaces: Unremarkable. No pleural effusion. No pneumothorax. Heart/Mediastinum: Unremarkable. No cardiomegaly. Bones/joints: Evidence of kyphoplasty is seen in the lower dorsal spine. XR/XR chest 1V portable [id number] IMPRESSION: 1. Parenchymal densities right upper lobe and left perihilar improved aeration since prior. 2. Endotracheal tube is above the eugenie. 3. Right central line extends into the SVC. 4. NG tube extends into the stomach. 5. Kyphoplasty multiple levels lower dorsal spine
[2022-10-14 17:18] LABS: ABG PH Result 7.25 (7.35-7.45); Arterial Blood Gas Hematocrit 39.4 % (37-47); Blood Gas Allen Test Pos; Blood Gas Operator Identificat MONRO; Blood Gas Sample Site Not specified; Blood Gas Sample Type Arterial; HCO3 ABG 26.3 mmol/L (22-26); Oxygen Device VENT
[2022-10-14 17:21] LABS: ABG PCO2 60.2 mmHg (35-45)
[2022-10-14] MEDS: midazolam 1 mg/mL INJ 2 mL 2 MG IVP (18:00)
--- NOTE | 2022-10-14 18:30 | PC.NURSE ---
Dr Moore at bedside bronchoscopy completed. Versed IVP admin prior,along with Fentanyl gtt rate increased to 50mcg/min as ordered. BP became soft , Levophed ordered and started. Will continue to monitor.
--- NOTE | 2022-10-14 18:38 | PM.ACPR ---
Procedure/Consent Time out: Time Out Performed: Yes Consent: Consent for Procedure: Consent obtained from other (indicate) Procedure Narrative: Procedure done: 39562 Dx Bronchoscope w/Washings or airway inspection 23117 Dx Bronchoscope w/BAL Surgeon: Isrrael Moore MD [facility] Brief History: Ms. Shanita Saleh with past medical history on chronic immunosuppression for myositis is a 67-year-old female-now admitted for acute hypoxic respiratory failure-gradually deteriorated with increasing oxygen requirements and got intubated requiring mechanical ventilation. Today I am doing bronchoscopic inspection of airways and to obtain bronchoalveolar lavage samples from right upper lobe Bronchoscopy for airway inspection and obtaining bronchoalveolar lavage sample for various studies Pre-Operative Diagnosis: Bilateral infiltrates predominantly right upper lobe suspicious for pneumonia Post-Operative Diagnosis: Same Indication: Bilateral pulmonary infiltrates in patient with significant immunosuppression-suspicious for PCP pneumonia/TB/fungal pneumonia/nonresolving pneumonia Pre-procedure Evaluation:Patient was evaluated clinically and ancillary testing reviewed. ASA: 4 Malampati score: unable to evaluate due to presence of endotracheal tube Description of the procedure: The procedure was explained to the patient prior to getting intubated today morning and the verbal consent was obtained. Anesthesia: Patient is already on fentanyl GTT, propofol gtt.-I have given fentanyl 25 mcg IV push and Versed 2 Mg IV push to achieve adequate sedation; her maps were maintained above 60 with pressor support Local anesthesia: The Eugenie, right and left mainstem bronchi were anesthetized with 1% lidocaine, 3 mL. Once adequate sedation was achieved, patient hemodynamics were stable, the flexible bronchoscope was introduced through ET tube and used for?initial inspection (47070)..? The lower trachea mucosa appeared normal, no endotracheal lesion was seen.? The eugenie was sharp.? The eugenie, the right and left mainstem bronchi are anesthetized with 1% lidocaine.? In a systematic manner bilateral bronchial tree was then examined. ? The bronchoscope was then introduced into the right mainstem bronchus.? The right upper lobe, right middle lobe and right lower lobe bronchi were examined up to the third subsegmental level and no abnormalities were identified. ? There were clear secretions which was suctioned right away. The bronchoscope was advanced into the left mainstem bronchus.? The mucosa appeared normal with no endobronchial lesions.? Then the scope was advanced into left upper lobe, lingula and left lower lobe bronchi, and there was scant mucus with clear secretions were noted which were easily suctioned.? There were no endobronchial lesions.? The scope was further advanced into the third subsegmental level and mucosa appeared normal with no significant secretions..? After thorough suctioning, laid that the scope was then wedged in anterior segment of right upper lobe, instilled 40 cc normal saline, aspirated 15 cc bronchoalveolar lavage fluid.([id number]) After making sure there is no active bleeding bronchoscope was retracted and procedure terminated. ? ? Samples: 1.? Bronchoalveolar fluid from right upper lobe-sent for cell count, cytology, microbiology cultures, fungal stain and cultures, AFB cultures, PCP PCR, galactomannan, Legionella cultures, nocardia cultures Complications: None.The patient was kept intubated and plan is to paralyze and prone her in ICU Acute Procedures Epistaxis Control: Time out performed: Yes
[2022-10-14] MEDS: cisatracurium 2 mg/mL SDV 10mL IV (19:11)
[2022-10-14 19:18] LABS: Cyto Order Verification No Order
[2022-10-14] MEDS: cisatracurium 100 MG in sodium chloride 0.9% 50 ML IV (20:00)
[2022-10-14] MEDS: pantoprazole 40 mg SDV IVP (20:23)
[2022-10-14] MEDS: meropenem 1,000 MG in sodium chloride 0.9% (plus) 50 ML 100 MG IV (20:25)
--- NOTE | 2022-10-14 21:10 | PC.NURSE ---
Shift Note: Pt hs remained in bed trying to relax and breath throughout shift. She was on BiPap at beginning of shift resting with eyes closed. O2 sats improved enough to switch her to HHF at 90% and 55 liters. She tolerated that fairly well except for any exeertion which her O2 sats would decreased. She received Lasix in am. She was started on Precedex to help with anxiety. She was resting comfortably, lying on her side with eyes closed after Morphine was given prior to noon. PICC placement occurred in afternoon. Pt received IV antibiotics, over 600ml of fluid within an hour. She became short of breath , tachypniec and panicked. Rt at bedside adjusting HHF for maximum relief. Morphine admin again. Dr Notified. Lasix [id number], Biapa started. ABG results were poor, decision to intubate was made. She had Precedex, Fentanyl and propofol for sedation infusing. OG and art line now in place. Bronch completed at bedside by Dr Moore. Levophed started. Pt lung sounds very dimished and her oxygenation around 88%. Orders to paralyse and prone receive. Versed and Nimbex started. Precedex stopped as ordered. Family updated frequently, all questions answered. Family also at bedside throughout the day. Urine ouput for shift noted to be 2625ml. No Bm noted this shift. Frequent safety and comfort rounds continue. Orders and/or nursing care completed as indicated. Patient monitored for response to intervention and treatment(s). Education provided includes Precedex, Fentanyl, Propofol, Intubation, bronchoscopy, Nimbex and Versed, plan of care and progress. . 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 . Will continue to monitor.
[2022-10-14] MEDS: propofol 1,000 MG/100 ML INJ 17.75 MG IV (22:35)
[2022-10-14 23:39] LABS: ABG PH Result 7.22 (7.35-7.45); Arterial Blood Gas Hematocrit 36.3 % (37-47); Base Excess ABG -3.3 mmol/L (-2.0-2.0); Blood Gas Allen Test Pos; Blood Gas Operator Identificat JB; Blood Gas Sample Site Not specified; Blood Gas Sample Type Arterial; HCO3 ABG 25.3 mmol/L (22-26); Oxygen Device VENT
[2022-10-14 23:40] LABS: ABG PCO2 61.9 mmHg (35-45)
[2022-10-15] VITALS (85 sets, daily range): BP systolic 64–154; BP diastolic 39–74; PULSE 88–115; RESP 20–24; TEMP 36.4–36.6; O2SAT 91–99
[2022-10-15 00:16] LABS: Total Cells Counted Bronch 200
[2022-10-15 00:17] LABS: Apprearance, Bronch Wash Hazy (CLEAR); Bronch Source Right Upper Lobe; Color, Bronc Wash White; PATH Referral Yes
[2022-10-15] MEDS: hydrocortisone 100 mg/2 mL SDV 50 MG IVP ×4 (01:16→20:56)
[2022-10-15 03:34] LABS: Basophils % 0.1 %; Hematocrit 36.2 % (37.0-47.0); Hemoglobin 11.3 g/dL (11.5-15.3); Lymphocytes # 1.2 10^3/uL (0.8-4.8); Lymphocytes % 11.8 %; Mean Corpuscular HGB Conc 31.2 g/dL (30.0-36.0); Mean Corpuscular Hemoglobin 25.5 pg (28.0-34.0); Mean Corpuscular Volume 81.5 fl (81-99); Mean Platelet Volume 9.4 fL (7.4-10.4); Monocytes # 0.5 10^3/uL (0.2-0.9); Monocytes % 5.1 %; Neutrophils # 8.02 10^3/uL (1.8-7.7); Nucleated Red Blood Cells % 0 %; Platelet Count 375 10^3/cmm (130-400); Red Blood Count 4.44 10^6/uL (4.1-5.3); Red Cell Distribution Width 15.4 % (12.1-15.1); White Blood Count 9.9 10^3/uL (4.0-10.0)
[2022-10-15 03:47] LABS: Alanine Aminotransferase 54 U/L (0-33); Albumin Level 2.9 g/dL (3.5-5.2); Alkaline Phosphatase 53 U/L (35-105); Anion Gap 15.2 (5-19); Aspartate Amino Transferase 75 U/L (0-32); Blood Urea Nitrogen 12 mg/dL (8-23); Calcium 7.1 mg/dL (8.5-10.5); Carbon Dioxide 25 mmol/L (22-29); Chloride 92 mmol/L (98-107); Globulin 2.5 g/dL (1.3-4.6); Glucose 169 mg/dL (65-115); Osmolality Calculated 270 mOsm/kg (285-295); Potassium 4.2 mmol/L (3.5-5.1); Sodium 128 mmol/L (136-145); Total Bilirubin 0.2 mg/dL (0.15-1.2); Total Protein 5.4 g/dL (6.6-8.7)
[2022-10-15] MEDS: meropenem 1,000 MG in sodium chloride 0.9% (plus) 50 ML 50 MG IV (04:15)
[2022-10-15] MEDS: propofol 1,000 MG/100 ML INJ 17.75 MG IV (04:23)
[2022-10-15 04:34] LABS: ABG PCO2 54.9 mmHg (35-45); ABG PH Result 7.31 (7.35-7.45); HCO3 ABG 27.5 mmol/L (22-26); PO2 ABG 82.6 mmHg (80.0-100.0)
[2022-10-15 04:35] LABS: Base Excess ABG 0.3 mmol/L (-2.0-2.0); Blood Gas Operator Identificat BISJE; Oxygen Device VENT
[2022-10-15 04:36] LABS: Blood Gas Drawn By BISJE; Blood Gas Sample Site ARTLINE; Blood Gas Sample Type ARTERIAL; Blood Gas Vent Mode VC/AC
[2022-10-15 04:37] LABS: Arterial Blood Gas Hematocrit 36.2 % (37-47)
--- NOTE | 2022-10-15 04:42 | PC.NURSE ---
Proning 2200 Pt proned per MD order. Pt had some minimal vitals changes but overall tolerated well. Order for 16 hours. Plan to supinate at 1400.
[2022-10-15] MEDS: vancomycin 1,000 MG in sodium chloride 0.9% 250 ML 250 MG IV ×3 (06:12→23:38)
[2022-10-15] MEDS: aspirin 81 mg Chew Tablet PO (06:12)
[2022-10-15] MEDS: folic acid 1 mg Tablet PO (06:12)
--- NOTE | 2022-10-15 06:41 | PC.NURSE ---
TOF 1999-4 2200-2 0000-2 0200-1 [facility]400[facility]
[2022-10-15] MEDS: cisatracurium 100 MG in sodium chloride 0.9% 50 ML 7.1 MG IV (07:35)
[2022-10-15] MEDS: budesonide 0.5 mg/2 mL Neb INHALATION ×2 (08:13→20:17)
[2022-10-15] MEDS: propofol 1,000 MG/100 ML INJ 19.96 MG IV ×2 (09:39→15:14)
[2022-10-15] MEDS: lidocaine 5% Patch 1 PATCH TOPICAL (09:41)
[2022-10-15] MEDS: potassium chloride ER 20 mEq Tablet 40 MEQ PO (09:42)
[2022-10-15] MEDS: pantoprazole 40 mg SDV IVP ×2 (09:42→20:57)
[2022-10-15] MEDS: FUROsemide 10 mg/mL SDV 4mL 40 MG IVP (09:43)
[2022-10-15] MEDS: heparin 5,000 unit/mL INJ 1 mL 5000 UNIT SUBCUT ×2 (09:45→20:56)
[2022-10-15] MEDS: sennosides-docusate Tablet 2 TAB PO (11:03)
[2022-10-15] MEDS: meropenem 1,000 MG in sodium chloride 0.9% (plus) 50 ML 100 MG IV ×2 (12:19→20:57)
--- NOTE | 2022-10-15 12:57 | PM.PN ---
Subjective Subjective: Patient was seen multiple times today at bedside -Yesterday she was intubated-sedated and proned overnight-FiO2 down to 50% -Pressors down to Levophed 10 -We will plan for another proning session-in the interim while she is supine we will stop Versed and Nimbex -Patient is very good urine output Other labs and imaging reviewed Medications: Reviewed: Yes Vitals/I&O/Wt Last Vital Signs Temp 99.3 F 10/14/22 12:30 Pulse 100 10/15/22 08:00 Resp 22 H 10/15/22 11:40 BP 131/65 10/15/22 06:00 Pulse Ox 96 10/15/22 11:40 O2 Del Method 10/15/22 08:00 O2 Flow Rate 60 10/14/22 15:00 FiO2 60 10/15/22 11:40 10/14/22 10/15/22 10/15/22 22:59 06:59 14:59 Intake Total 1032.047 / 2166.518 1506.922 / 3673.440 511.127 / 511.127 Output Total 950 / 2625 800 / 3425 Balance 82.047 / -458.482 706.922 / 248.440 511.127 / 511.127 Physical Exam Narrative: PHYSICAL EXAM: General: lying in bed, sedated and intubated. 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 SKIN: no rash LDA: # CVC: Right arm PICC line 10/14/2022 # A line: Right radial arterial line 10/14/2022 Urinary Catheter Management: Gomez: Cath Placed During This Visit: yes Reason for Continuing Indwelling Catheter: Accurate Measurement of Urinary Output in Critically Ill Patients Urinary Catheter Date of Insertion: 10/12/22 Urinary Catheter Time of Insertion: 14:50 Data 10/15/22 03:12 10/15/22 03:12 Other Labs: Radiology Impressions Chest CTA 10/09/22 14:56 IMPRESSION: 1. No evidence for pulmonary embolus. 2. Shallow inspiration with RIGHT lower lobe pneumonia. A few patchy infiltrates in the LEFT lower lobe. 3. Hazy groundglass infiltrates about the RIGHT hilum. 4. Cluster of slightly prominent RIGHT hilar lymph nodes nonspecific but may be reactive. No other acute findings. Abdomen/Pelvis CT 10/10/22 11:45 IMPRESSION: 1. Bibasilar atelectasis and with either component of more prominent atelectasis and/or component of patchy infiltrate posterior right lung base. 2. Hyperdense appearance of the dependent aspect of the gallbladder with today's exam, which could indicate hyperdense sludge and/or component of small stones. No significant biliary ductal dilatation. Further evaluation with fasting gallbladder ultrasound could be performed. 3. Small umbilical hernia of fat. 4. Diffuse atherosclerotic vascular disease. 5. Mild scattered sigmoid colon diverticula. No focal inflammatory changes. 6. Chronic bony changes of the spine with prior vertebroplasties T10 and T11. Gallbladder Ultrasound 10/11/22 07:42 IMPRESSION: Mild gallbladder sludge without evidence of stone. No significant gallbladder wall thickening. Venous Duplex 10/11/22 09:32 IMPRESSION: No evidence of deep venous thrombosis. Chest X-Ray 10/14/22 16:49 IMPRESSION: 1. Parenchymal densities right upper lobe and left perihilar improved aeration since prior. 2. Endotracheal tube is above the eugenie. 3. Right central line extends into the SVC. 4. NG tube extends into the stomach. 5. Kyphoplasty multiple levels lower dorsal spine Laboratory Results WBC 9.9 10^3/uL (4.0-10.0) 10/15/22 03:12 RBC 4.44 10^6/uL (4.1-5.3) 10/15/22 03:12 Hgb 11.3 g/dL (11.5-15.3) L 10/15/22 03:12 Hct 36.2 % (37.0-47.0) L 10/15/22 03:12 MCV 81.5 fl (81-99) 10/15/22 03:12 MCH 25.5 pg (28.0-34.0) L 10/15/22 03:12 MCHC 31.2 g/dL (30.0-36.0) 10/15/22 03:12 RDW 15.4 % (12.1-15.1) H 10/15/22 03:12 Plt Count 375 10^3/cmm (130-400) 10/15/22 03:12 MPV 9.4 fL (7.4-10.4) 10/15/22 03:12 Neut % (Auto) 81.0 % 10/15/22 03:12 Lymph % (Auto) 11.8 % 10/15/22 03:12 [place] % (Auto) 5.1 % 10/15/22 03:12 Eos % (Auto) 0.0 % 10/15/22 03:12 Baso % (Auto) 0.1 % 10/15/22 03:12 Neut # (Auto) 8.02 10^3/uL (1.8-7.7) H 10/15/22 03:12 Lymph # (Auto) 1.2 10^3/uL (0.8-4.8) 10/15/22 03:12 [place] # (Auto) 0.5 10^3/uL (0.2-0.9) 10/15/22 03:12 Eos # (Auto) 0.0 10^3/uL (0.0-0.8) 10/15/22 03:12 Baso # (Auto) 0.0 10^3/uL (0.0-0.1) 10/15/22 03:12 Nucleated RBC % (auto) 0 % 10/15/22 03:12 Nucleated RBCs # 0.0 /100WBC 10/15/22 03:12 D-Dimer 1.57 ug/mIFEU (0-0.59) H 10/09/22 13:20 Specimen Type Arterial 10/15/22 04:13 Sample Site Artline 10/15/22 04:13 O2 Sat Pulse Oximetry Cancelled 10/13/22 01:00 ABG pH 7.31 (7.35-7.45) L 10/15/22 04:13 ABG pCO2 54.9 mmHg (35-45) H 10/15/22 04:13 ABG pO2 82.6 mmHg (80.0-100.0) 10/15/22 04:13 ABG HCO3 27.5 mmol/L (22-26) H 10/15/22 04:13 ABG O2 Saturation 97.5 10/14/22 05:03 ABG Base Excess 0.3 mmol/L (-2.0-2.0) 10/15/22 04:13 Al Test Na 10/15/22 04:13 A-a O2 Gradient 73.8 mmHg (5-10) H 10/14/22 05:03 Hematocrit 36.2 % (37-47) L 10/15/22 04:13 Hgb O2 Saturation 96.4 % (95-100) 10/14/22 05:03 Carboxyhemoglobin 0.4 %THgb (0.4-20.1) 10/14/22 05:03 Methemoglobin 0.7 % (0.4-1.5) 10/14/22 05:03 Total Hemoglobin 11.4 g/dL (12-16) L 10/14/22 05:03 Sodium 132.0 mmol/L (131-143) 10/14/22 05:03 Potassium 3.6 mmol/L (3.5-5.0) 10/14/22 05:03 Glucose 178.0 mg/dL (70-115) H 10/14/22 05:03 Ionized Calcium 1.1 mmol/L (1.1-1.4) 10/14/22 05:03 Respiration Rate 20.0 % 10/15/22 04:13 O2 Delivery Device Vent 10/15/22 04:13 O2 Liters/Min Cancelled 10/13/22 01:00 SIMV Cancelled 10/13/22 01:00 Vent Mode Vc/ac 10/15/22 04:13 Mechanical Rate Cancelled 10/13/22 01:00 Spontaneous Rate Cancelled 10/13/22 01:00 FiO2 75.0 % 10/15/22 04:13 Tidal Volume .40 10/15/22 04:13 PEEP 12.0 cmH20 10/15/22 04:13 Pressure Support Cancelled 10/13/22 01:00 Pressure Control Cancelled 10/13/22 01:00 CPAP Cancelled 10/13/22 01:00 Mode BiPAP Cancelled 10/13/22 01:00 Specimen Drawn By Emma 10/15/22 04:13 Carton Folder ID Emma 10/15/22 04:13 Crit Value Read Back Cancelled 10/13/22 01:00 Blood Gas Notified Time Cancelled 10/13/22 01:00 Sodium 128 mmol/L (136-145) L 10/15/22 03:12 Potassium 4.2 mmol/L (3.5-5.1) 10/15/22 03:12 Chloride 92 mmol/L (98-107) L 10/15/22 03:12 Carbon Dioxide 25 mmol/L (22-29) 10/15/22 03:12 Anion Gap 15.2 (5-19) 10/15/22 03:12 BUN 12 mg/dL (8-23) 10/15/22 03:12 Creatinine 1.0 mg/dL (0.5-0.9) H 10/15/22 03:12 GFR Calculation 55.0 mL/min (90-130) L 10/15/22 03:12 Glucose 169 mg/dL (65-115) H 10/15/22 03:12 POC Glucose 142 mg/dL (70-110) H 10/09/22 21:09 Calculated Osmolality 270 mOsm/kg (285-295) L 10/15/22 03:12 Lactate 1.0 mmol/L (0.5-2.2) 10/12/22 05:19 Calcium 7.1 mg/dL (8.5-10.5) L 10/15/22 03:12 Phosphorus 2.2 mg/dL (2.5-4.5) L 10/10/22 04:25 Magnesium 1.9 mg/dL (1.7-2.3) 10/14/22 02:27 Total Bilirubin 0.2 mg/dL (0.15-1.2) 10/15/22 03:12 AST 75 U/L (0-32) H 10/15/22 03:12 ALT 54 U/L (0-33) H 10/15/22 03:12 Alkaline Phosphatase 53 U/L (35-105) 10/15/22 03:12 Lactate Dehydrogenase 387 U/L (135-214) H 10/12/22 05:19 Troponin T Baseline 10 ng/L (0-10) 10/09/22 13:20 Troponin T 120 Minute 8.14 ng/L (0-10) 10/09/22 16:20 Delta Troponin T -1.86 ABS# (0-10) L 10/09/22 16:20 Troponin T Hi Sens 6Hr 8.12 ng/L (0-10) 10/09/22 19:40 Troponin T Hi Sens 6Hr Delta 0.02 ng/L (0-12) 10/09/22 19:40 C-Reactive Protein 104.0 mg/L (0.0-4.9) H 10/12/22 05:19 Total Protein 5.4 g/dL (6.6-8.7) L 10/15/22 03:12 Albumin 2.9 g/dL (3.5-5.2) L 10/15/22 03:12 Globulin 2.5 g/dL (1.3-4.6) 10/15/22 03:12 Vitamin B12 1226 pg/mL (232-1245) 10/09/22 19:40 Procalcitonin 0.16 ng/mL (0-0.5) 10/12/22 05:19 TSH 0.80 uIU/mL (0.27-4.20) 10/09/22 19:40 Urine Color Colorless (Yellow) 10/10/22 21:00 Urine Appearance Clear (CLEAR) 10/10/22 21:00 Urine pH 6 (5-7) 10/10/22 21:00 Ur Specific [place] 1.020 (1.005-1.030) 10/10/22 21:00 Urine Protein Neg (Negative) 10/10/22 21:00 Urine Glucose (UA) Norm (Normal) 10/10/22 21:00 Urine Ketones Negative (Negative) 10/10/22 21:00 Urine Blood Neg (Negative) 10/10/22 21:00 Urine Nitrate Negative (Negative) 10/10/22 21:00 Urine Bilirubin Neg (Negative) 10/10/22 21:00 Urine Urobilinogen Neg mg/dL (Negative) 10/10/22 21:00 Ur Leukocyte Esterase Negative (Negative) 10/10/22 21:00 Bronch Specimen Source Right upper lobe 10/14/22 18:20 Bronchial Fluid Color White 10/14/22 18:20 Bronchial Fluid Appearance Hazy (CLEAR) 10/14/22 18:20 Bronchial Fluid WBC 73 /uL 10/14/22 18:20 Bronchial Fluid RBC 150 10^3/uL 10/14/22 18:20 Bronch Cells Counted 200 10/14/22 18:20 Bronchial Neutrophils 19.00 % (0.9-2.3) H 10/14/22 18:20 Bronchial Lymphocytes 76.00 % (10.71-12.91) H 10/14/22 18:20 Bronchial Eosinophils 1.00 % (0.13-0.25) H 10/14/22 18:20 Bronchial Macrophages 4.00 % (83.6-86.8) L 10/14/22 18:20 Bronchial Diff Comment Yes 10/14/22 18:20 Vancomycin Trough 13.8 ug/mL (10-15) 10/13/22 06:06 Coronavirus 229E (PCR) Not detected (NOT DETECT) 10/10/22 16:58 Aspergillus Ag (EIA) Cancelled 10/14/22 18:20 A. galactomannan Ag Idx Cancelled 10/14/22 18:20 SARS-CoV-2 (PCR) Not detected (NOT DETECT) 10/10/22 16:58 Micro: Microbiology 10/10/22 11:28 Blood Culture - Final Blood NO GROWTH AFTER 5 DAYS 10/14/22 16:50 Gram Stain - Final Sputum - Endotracheal Tube Aspirate 10/10/22 11:28 Blood Culture - Final Blood Corynebacterium species 10/11/22 23:17 Gram Stain - Final Sputum - Expectorated Sputum Sputum Culture - Final A&P Assessment and plan (1) Acute exacerbation of chronic obstructive pulmonary disease: (2) ARDS (adult respiratory distress syndrome): (3) Bilateral pneumonia: (4) Acute and chronic respiratory failure with hypoxia: (5) Immunosuppression: Plan #Acute on chronic respiratory failure with hypoxia-secondary to multilobar pneumonia #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 -Recommended deep sedation by adding Versed and paralyzed with Nimbex -We will prone patient tonight-second session PULM: #Acute on chronic respiratory failure secondary to ARDS secondary to underlying pneumonia #Given her significant underlying immunosuppression-suspect PCP pneumonia/nocardia/TB -Intubated and sedated-currently on CMV 400/16/PEEP 12/FiO2 75 %-ABG 7.3 //27 -Continue scheduled nebulizations -We will continue with second proning session tonight -Follow ARDS protocol-low tidal volume and high PEEP -Chest x-ray showing diffuse infiltrates-despite diuresing adequately-suspect ARDS -S/p bronchoscopy 10/14/2022-scant secretions with normal mucosa-BAL taken from right upper lobe-sent for cultures, fluid analysis, fungal staining and cultures, galactomannan, PCP PCR, respiratory viral panel, -Discussed with lab sent for nocardia culture -We will continue coverage with vancomycin/meropenem to cover gram-negative's as well as nocardia/Bactrim-to cover PCP pneumonia -Although imaging does not quite suggestive of TB-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 RVSP 48. No change compared to previous studies in 2019 and 2017. -Continue to monitor GI: #Diet: We will give Ensure through the tube feed today-we will start her on tube feeding from tomorrow #GI prophylaxis: PPI #Previous LFTs are normal-we will repeat CMP #BR regimen-senna docusate RENAL: #Creatinine 1 #Hyponatremia-likely secondary to Bactrim -Patient has very good urine output and electrolytes are within normal limits -We will try to maintain even to net negative fluid balance -Continue to monitor urine output, renal parameters and electrolytes and supplement accordingly -We will give sodium chloride 1 g p.o. twice daily and closely monitor electrolytes ID: #Suspect underlying pneumonia -Since she has been covered with vancomycin/aztreonam/doxycycline -Added Bactrim to cover PCP pneumonia as patient was on chronic steroid therapy and Rituxan infusions for her myositis; her PCP PCR is still pending -She is on hydrocortisone 50 every 6 hours as needed-which is equivalent to prednisone 50 Mg daily -Given her significant immunosuppression-and worsening respiratory status-there is concern for TB (family reported patient has TB several years ago)-currently on contact isolation, AFB smears pending -Other possibilities nocardia-so we will switch aztreonam to meropenem and patient is already covered with Bactrim -We will follow-up for BAL cultures, fungal stain and cultures, PCP PCR, galactomannan Code Status: Full code Disposition: Currently will stay in ICU Critically ill: Yes discussed with: RN, RT, hospitalist taking care of the patient ICU CHECKLIST: Problem list updated Verbal orders reviewed and signed Analgesia: Fentanyl Glycemic Control: N/A Nutrition: N.p.o. Restraint Renewal (within 24 hrs): Yes Ulcer Prophylaxis: PPI Chemical Thromboprophylaxis: Prophylaxis: Heparin Mechanical Thromboprophylaxis: SCDs Need for Central line: PICC line for pressors Need for Gomez catheter: Yes for urine output Case discussed with RN, RT and family or surrogate(s) and hospitalist taking care of the patient Attestations Medical Necessity Statement*: Continue close monitoring for hypoxic respiratory failure Time Spent in Patient Care: Greater than 35 minutes (>than 50% of time spent in counselling and/or direct pt care on unit). Critical Care Time: This patient has a high probability of sudden, clinically significant deterioration, which requires the highest level of physician preparedness to intervene urgently. I managed/supervised life or organ supporting interventions that required frequent physician assessment. I devoted my full attention in the ICU to the direct care of this patient for the period of time indicated above. Time I spent with family or surrogate(s) is included only if the patient was incapable of providing necessary information or participating in decision making. Time devoted to teaching and to any procedures I billed separately is not included. Services Provided: Telemetry review Mechanical Ventilation Hemodynamic interpretation, assessment and management Review and interpretation of CXR Review and interpretation of lab values Review and interpretation of microbiologic data and culture results Review of medications and administration Review and interpretation of Nutrition requirements and management Discussion of management with other consultants and services Clinical update to family members [x] Patient assessment, examination and intervention [x] Documentation [x] Medication orders and management Coding Level of Care Code Acute Code for [facility] Fwd Diagnoses Acute exacerbation of chronic obstructive pulmonary disease J44.1 ARDS (adult respiratory distress syndrome) J80 Bilateral pneumonia J18.9 Acute and chronic respiratory failure with hypoxia J96.21 Immunosuppression D89.9 Time Spent (min) 63
--- NOTE | 2022-10-15 14:10 | PC.NURSE ---
Pt Un- proned. tolerated well. O2 sats remained WNL.
--- NOTE | 2022-10-15 14:22 | PC.NURSE ---
Spouse Requesting to stay the night with patient. Reports he is not able to where the green mask provided due to his state of health. DON and Critical lead care manager spoke with spouse and other family in waiting room They verbalized understanding spouse will be allowed to stay but will have to wear a mask when out of patients room to decrease risk to others. Family also verbalized understanding of risk they was in by visiting and not wearing proper PPE.
--- NOTE | 2022-10-15 15:12 | PC.SOCIAL ---
IMM updated IMM dated and initialed and copy given to patient
--- NOTE | 2022-10-15 16:20 | PC.NUTR ---
consult received for TPN. Recommend TPN of 1.4L/day, 55ml/hr; D20, AA5 to provide 280g CHO, 70g protein, and 1232kcal; Propofol provides lipids and additional 527kcal, totaling 1759kcal to meet at least 75% est needs. GIR 2.5mg/kg/min.
--- NOTE | 2022-10-15 17:09 | PM.PN ---
Subjective Subjective: Finished 4 cycles of proning No significant overnight events Low blood pressure Required Levophed during bronchoscopy Patient is intubated and sedated and paralyzed Around 2 PM she will be transition to supine state asked ICU nurse to turn off Versed and paralytics at that point to avoid rhabdomyolysis Spoke with Dr. Moore as well Plan is to continue 1 more cycle of proning Feed her tropical he threw NG tube while she is supine Judicious use of TPN because of immunocompromise state No fever in last 48 hours Vitals/I&O/Wt Last Vital Signs Temp 99.3 F 10/14/22 12:30 Pulse 100 10/15/22 08:00 Resp 22 H 10/15/22 14:28 BP 131/65 10/15/22 06:00 Pulse Ox 91 10/15/22 14:28 O2 Del Method 10/15/22 08:00 O2 Flow Rate 60 10/14/22 15:00 FiO2 50 10/15/22 14:28 10/15/22 10/15/22 10/15/22 06:59 14:59 22:59 Intake Total 1506.922 / 3673.440 915.127 / 915.127 867.667 / 1782.794 Output Total 800 / 3425 Balance 706.922 / 248.440 915.127 / 915.127 867.667 / 1782.794 Physical Exam Narrative: Patient was prone Crackles positive Intubated sedated and paralyzed Abdominal exam is limited No signs of skin necrosis Trace edema of legs Gomez catheter draining dilute urine Neuro exam is limited S1, S2 Urinary Catheter Management: Gomez: Cath Placed During This Visit: yes Reason for Continuing Indwelling Catheter: Accurate Measurement of Urinary Output in Critically Ill Patients Urinary Catheter Date of Insertion: 10/12/22 Urinary Catheter Time of Insertion: 14:50 Data 10/15/22 03:12 10/15/22 03:12 Micro: Microbiology 10/14/22 18:20 Gram Stain - Final Lung Right Upper Lobe Bronchoalveolar Lavage Culture - Preliminary 10/14/22 16:50 Gram Stain - Final Sputum - Endotracheal Tube Aspirate Sputum Culture - Preliminary 10/10/22 11:28 Blood Culture - Final Blood NO GROWTH AFTER 5 DAYS 10/10/22 11:28 Blood Culture - Final Blood Corynebacterium species 10/11/22 23:17 Gram Stain - Final Sputum - Expectorated Sputum Sputum Culture - Final A&P Assessment and plan (1) ARDS (adult respiratory distress syndrome): (2) Acute and chronic respiratory failure with hypoxia: (3) Cough syncope: (4) Bilateral pneumonia: (5) Acute exacerbation of chronic obstructive pulmonary disease: (6) Syncope: (7) Adrenal insufficiency: (8) Dizziness: (9) Polymyositis: (10) Chronic cystitis: Plan 67-year female who was admitted to the hospital for management evaluation of syncope, she was diagnosed with bilateral pneumonia, gradually her hypoxia worsened from 2 L eventually she required heated high flow and then was transitioned to BiPAP, she Getting worse on BiPAP hence intubated, art line was placed, status post bronchoscopy sputum sample, bronchoalveolar lavage sent for Mycobacterium tuberculosis, PCP pneumonia, has been afebrile for last 48 hours, completed 4 cycles of proning, pulmonary consulted Bilateral pneumonia Without active signs of sepsis On broad-spectrum antibiotics, aztreonam, vancomycin, doxycycline, Bactrim IV Severe ARDS Status post bronchoscopy bronchoalveolar lavage sent for Mycobacterium tuberculosis and PCP, nocardia Finish 1 more cycle of proning as per pulmonary She is responding well to proning cycle Turn off paralytics and Versed during supine phase and feed her through NG avoiding TPN because of review of compromise state to avoid fungal infections However she does have a PICC line in case that is needed Afebrile for last 48 hours Patient intubated 10/14 Art line placed 10/14 Bronchoscopy done 10/14 Bactrim induced hyponatremia Patient also have adrenal insufficiency Currently on stress dose steroids Add salt tablets 1 g twice daily She is getting Bactrim 15 mL/kg/day dosing done along pharmacy 1 bag is around 500 mL of fluid Positive fluid overload she has been requiring diuretics Syncope: Echo unremarkable, Orthostatics negative Carotid Doppler not done yet Likely vasovagal she fell and had syncopal events at home after she used the restroom Bradycardia noted on admission AV selwyn blocking agent discontinued, full code hyop natremia: Fluid overload, Bactrim induced Monitor closely Full code Spoke with Dr. Moore, updated ICU nurse Attestations Medical Necessity Statement*: Continue ICU management Coding Level of Care Code 01482 Diagnoses ARDS (adult respiratory distress syndrome) J80 Acute and chronic respiratory failure with hypoxia J96.21 Cough syncope R55; R05.4 Bilateral pneumonia J18.9 Acute exacerbation of chronic obstructive pulmonary disease J44.1 Syncope R55 Adrenal insufficiency E27.40 Dizziness R42 Polymyositis M33.20 Chronic cystitis N30.20
--- NOTE | 2022-10-15 18:00 | PC.NURSE ---
Train of four: 0800: 1/4 Right eye twitch.. Nimbex decreased to 1.6 1000: 1/4. Left eye twitch. No Nimbex rate change rate change.. Pt remains vent compliant 1200: 0/4 Left eye twitch. Nimbex decreased to 1.5. Pt remains vent complliant. 1400: Train not indicated. Nimbex and Versed stopped for postion change to supine.
[2022-10-15] MEDS: sodium chloride 1 gm Tablet PO (18:24)
[2022-10-15] MEDS: propofol 1,000 MG/100 ML INJ 13.31 MG IV (19:29)
[2022-10-15 20:04] LABS: Blood Urea Nitrogen 13 mg/dL (8-23); Calcium 7.5 mg/dL (8.5-10.5); Carbon Dioxide 24 mmol/L (22-29); Chloride 97 mmol/L (98-107); Glucose 155 mg/dL (65-115); Osmolality Calculated 277 mOsm/kg (285-295); Sodium 132 mmol/L (136-145)
[2022-10-15 20:10] LABS: Anion Gap 15.7 (5-19); Potassium 4.7 mmol/L (3.5-5.1)
[2022-10-15] MEDS: ipratropium-albuterol 3 mL Neb INHALATION (20:17)
--- NOTE | 2022-10-15 20:51 | PC.NURSE ---
Shift note: Pt remains intubated and sedate. She was in prone position until 1415. Nimbex and Versed stopped at 1400 to give patient a rest. Fentanyl remains infusing at areduced rate of 90mcg/min, she started at 150mcg/min. Propofol infusing , no rate change, 30mcg/kg/min. She was able to tolerate Levophed weaned from 12mcg/min to 9 mcg/min today. Lung sounds have more air movement this am. Her FIO2 decreased from 75% to 50%. She is tolerating well. She received Lasix today. Total urine output for shift is 2800 ml. No Bm this shift. family very attentive, at bedside. to stay the night. Family kept updated on her progress and plan of care, understanding verbalized.
[2022-10-15 21:14] LABS: Adenovirus Not Detected (NOT DETECT); Chlamydia Pneumoniae Not Detected (NOT DETECT); Coronavirus 229E,HKU1,NL63,OC4 Not Detected (NOT DETECT); Human Metapneumovirus Not Detected (NOT DETECT); Human Rhinovirus/Enterovirus Not Detected (NOT DETECT); Influenza A Not Detected (NOT DETECT); Influenza A H1 Not Detected (NOT DETECT); Influenza A H1-2009 Not Detected (NOT DETECT); Influenza A H3 Not Detected (NOT DETECT); Influenza B Not Detected (NOT DETECT); Mycoplasma Pneumoniae Not Detected (NOT DETECT); Parainfluenza Virus Type 1 Not Detected (NOT DETECT); Parainfluenza Virus Type 2 Not Detected (NOT DETECT); Parainfluenza Virus Type 3 Not Detected (NOT DETECT); Parainfluenza Virus Type 4 Not Detected (NOT DETECT); Respiratory Syncytial Virus A Not Detected (NOT DETECT); Respiratory Syncytial Virus B Not Detected (NOT DETECT); SARS-COV-2 Detected (NOT DETECT)
[2022-10-16] VITALS (102 sets, daily range): BP systolic 73–157; BP diastolic 44–72; PULSE 70–107; RESP 22–27; TEMP 35.9–36.4; O2SAT 91–98
[2022-10-16] MEDS: propofol 1,000 MG/100 ML INJ 13.31 MG IV ×3 (00:36→13:07)
[2022-10-16] MEDS: hydrocortisone 100 mg/2 mL SDV 50 MG IVP ×3 (01:14→13:26)
[2022-10-16] MEDS: meropenem 1,000 MG in sodium chloride 0.9% (plus) 50 ML 100 MG IV ×3 (04:36→20:08)
[2022-10-16 06:06] LABS: ABG PCO2 41.8 mmHg (35-45); ABG PH Result 7.41 (7.35-7.45); Arterial Blood Gas Hematocrit 31.5 % (37-47); Base Excess ABG 1.3 mmol/L (-2.0-2.0); Blood Gas Operator Identificat JB; Blood Gas Sample Site Not specified; Blood Gas Sample Type Arterial; HCO3 ABG 26.2 mmol/L (22-26); Oxygen Device VENT; PO2 ABG 91.7 mmHg (80.0-100.0)
[2022-10-16 06:14] LABS: Basophils % 0.1 %; Eosinophils % 0.1 %; Hematocrit 31.9 % (37.0-47.0); Hemoglobin 9.9 g/dL (11.5-15.3); Lymphocytes % 11.2 %; Mean Corpuscular Hemoglobin 24.8 pg (28.0-34.0); Mean Corpuscular Volume 79.9 fl (81-99); Mean Platelet Volume 9.4 fL (7.4-10.4); Monocytes # 0.4 10^3/uL (0.2-0.9); Monocytes % 5.1 %; Neutrophils # 7.03 10^3/uL (1.8-7.7); Neutrophils % 81.9 %; Nucleated Red Blood Cells % 0 %; Platelet Count 369 10^3/cmm (130-400); Red Blood Count 3.99 10^6/uL (4.1-5.3); Red Cell Distribution Width 15.6 % (12.1-15.1); White Blood Count 8.6 10^3/uL (4.0-10.0)
[2022-10-16 06:43] LABS: Vancomycin Trough 25.7 ug/mL (10-15)
[2022-10-16 06:57] LABS: Alanine Aminotransferase 38 U/L (0-33); Albumin Level 2.6 g/dL (3.5-5.2); Alkaline Phosphatase 45 U/L (35-105); Aspartate Amino Transferase 35 U/L (0-32); Blood Urea Nitrogen 14 mg/dL (8-23); Carbon Dioxide 23 mmol/L (22-29); Chloride 98 mmol/L (98-107); Globulin 1.8 g/dL (1.3-4.6); Glomerular Filtration Rate 49.2 mL/min (90-130); Glucose 196 mg/dL (65-115); Osmolality Calculated 284 mOsm/kg (285-295); Sodium 134 mmol/L (136-145); Total Bilirubin 0.2 mg/dL (0.15-1.2); Total Protein 4.4 g/dL (6.6-8.7)
[2022-10-16 06:59] LABS: Anion Gap 17.5 (5-19); Potassium 4.5 mmol/L (3.5-5.1)
[2022-10-16] MEDS: FUROsemide 10 mg/mL SDV 4mL 40 MG IVP (08:10)
[2022-10-16] MEDS: heparin 5,000 unit/mL INJ 1 mL 5000 UNIT SUBCUT ×2 (08:10→20:08)
[2022-10-16] MEDS: pantoprazole 40 mg SDV IVP ×2 (08:10→20:08)
[2022-10-16] MEDS: ipratropium-albuterol 3 mL Neb INHALATION ×2 (08:12→19:46)
[2022-10-16] MEDS: budesonide 0.5 mg/2 mL Neb INHALATION ×2 (08:12→19:46)
--- NOTE | 2022-10-16 08:18 | XR_ITS ---
WS: [id number] Portable AP upright chest, 10/16/2022 Clinical Data: sob Comparison: Portable chest, 10/14/2022 Findings: The endotracheal tube, nasogastric tube and right PICC line remain in the same position. Th e bilateral pulmonary upper lobe opacities remain the same. The lower lobes show an increase in pulmo nary vascular congestion. The heart is enlarged. The aortic arch shows calcification and tortuosity. There are monitor leads on the chest wall. XR/XR chest 1V portable [id number] Impression: 1. Probable pulmonary vascular congestion with cardiomegaly. 2. No change in bilateral upper lobe pulmonary opacities. 3. No change in nasogastric tube, endotracheal tube and right PICC line.
--- NOTE | 2022-10-16 08:31 | PC.NUTR ---
Agree with previous Nutrition note. Recommend TPN beginning at 15 mls/hr and increasing 10 mls/hr Q8H til infusing at 55 mls/hr along with MV 10 mls/day and standard electrolytes. Propofol provides lipids and additionsl 351 kcals so no Fat Emulsion at this time. Details in RD assessment.
[2022-10-16] MEDS: AA-Dex 5%-20% w/Lytes 1,000 ML with multivitamin inj 10 ML 15 ML IV (09:40)
[2022-10-16 15:44] LABS: P. Jirovecii DNA QL PCR NOT DETECTED; P. Jirovecii DNA QL PCR Source induced sputum
--- NOTE | 2022-10-16 16:09 | PC.NURSE ---
SUPINE. Patient turned supine at 1600. All pressors off at this time, see MAR for times. Paralytic stopped, started to wean sedation down. TPN stopped per Dr. Giang. Trickle tube feeding started per Dr. Giang and Dr. Moore at 15mL/hr.
--- NOTE | 2022-10-16 16:10 | PC.NURSE ---
Continue to wean sedation to possibly wake patient up tomorrow
--- NOTE | 2022-10-16 16:12 | PC.NUTR ---
10/16: Consult for TF received. Current orders are Pulmocare 1.5 @ 15 cc/hr, trickle feeds. Recommend increasing to 25 cc/hr when tolerated and medically appropriate, with freshwater flushes of 120 cc Q4H or per MD discretion. Details in RD assessment.
--- NOTE | 2022-10-16 16:27 | P.PN_ITS ---
Subjective Subjective: Patient was seen this morning, currently she is proned, 50% FiO2's on 6 of Levophed, currently on Nimbex, sedated with Versed Levophed propofol, Gomez catheter in place, art line in place, patient's COVID came back positive last night, patient's was near bedside, I was able to have an extensive discussion with him, plan is to complete his last session of proning, hopefully wean sedation, and will see how she does tomorrow, she is COVID-positive, we will switch her to Decadron, will start her on trickle tube feeds tonight wean sedation, continue to follow her cultures he voiced understanding all questions answered, in addition I had a discussion with Dr. Moore about the case, continue plan as above Vitals/I&O/Wt Last Vital Signs Temp 97.2 F L 10/16/22 07:30 Pulse 90 10/16/22 16:00 Resp 22 H 10/16/22 15:42 BP 91/49 10/16/22 16:00 Pulse Ox 91 10/16/22 16:00 O2 Del Method 10/16/22 08:00 O2 Flow Rate 50 10/16/22 08:00 FiO2 50 10/16/22 15:42 10/16/22 10/16/22 10/16/22 06:59 14:59 22:59 Intake Total 1966.510 / 4171.947 646.824 / 646.824 611.756 / 1258.580 Output Total 800 / 3600 Balance 1166.510 / 571.947 646.824 / 646.824 611.756 / 1258.580 Physical Exam Const: COMMON NORMALS: no acute distress OTHER: Intubated sedated, on paralytics Oral gastric tube in place Central line in place Arterial line in place Currently prone Resp: COMMON NORMALS: normal respiratory effort, No retractions, No use of accessory muscles and clear to auscultation bilaterally AUSCULTATION: clear to auscultation bilaterally Cardio: COMMON NORMALS: regular rate, regular rhythm, S1 normal heart sound present and S2 normal heart sound present RATE: regular rate RHYTHM: regular rhythm HEART SOUNDS: S1 normal heart sound present and S2 normal heart sound present GI: COMMON NORMALS: Normal to inspection, nondistended, normoactive bowel sounds present Extremity: COMMON NORMALS: no pedal edema Urinary Catheter Management: Gomez: Cath Placed During This Visit: yes Reason for Continuing Indwelling Catheter: Accurate Measurement of Urinary Output in Critically Ill Patients Urinary Catheter Date of Insertion: 10/12/22 Urinary Catheter Time of Insertion: 14:50 Data 10/16/22 06:03 10/16/22 06:03 Micro: Microbiology 10/14/22 18:20 Gram Stain - Final Lung Right Upper Lobe Bronchoalveolar Lavage Culture - Final 10/14/22 16:50 Gram Stain - Final Sputum - Endotracheal Tube Aspirate Sputum Culture - Preliminary 10/10/22 11:28 Blood Culture - Final Blood NO GROWTH AFTER 5 DAYS A&P Assessment and plan (1) ARDS (adult respiratory distress syndrome): (2) Acute and chronic respiratory failure with hypoxia: (3) Cough syncope: (4) Bilateral pneumonia: (5) Acute exacerbation of chronic obstructive pulmonary disease: (6) Syncope: (7) Adrenal insufficiency: (8) Dizziness: (9) Polymyositis: (10) Chronic cystitis: (11) COVID-19: (12) On deep vein thrombosis (DVT) prophylaxis: Plan 67-year female who was admitted to the hospital for management evaluation of syncope, she was diagnosed with bilateral pneumonia, gradually her hypoxia worsened from 2 L eventually she required heated high flow and then was transitioned to BiPAP, she Getting worse on BiPAP hence intubated, art line was placed, status post bronchoscopy sputum sample, bronchoalveolar lavage sent for Mycobacterium tuberculosis, PCP pneumonia, has been afebrile for last 48 hours, completed 4 cycles of proning, pulmonary consulted Acute hypoxic respiratory failure With acute respiratory distress syndrome -Finishing second session of proning COVID-19 positivity Bilateral pneumonia Without active signs of sepsis On broad-spectrum antibiotics, aztreonam, vancomycin, doxycycline, Bactrim IV Severe ARDS Status post bronchoscopy bronchoalveolar lavage sent for Mycobacterium tuberculosis and PCP, nocardia Finish 1 more cycle of proning as per pulmonary She is responding well to proning cycle Turn off paralytics and Versed during supine phase and feed her through NG avoiding TPN because of review of compromise state to avoid fungal infections However she does have a PICC line in case that is needed Afebrile for last 48 hours Patient intubated 10/14 Art line placed 10/14 Bronchoscopy done 2/15 Bactrim induced hyponatremia, current sodium 134 Patient also have adrenal insufficiency Currently on stress dose steroids, switching to Decadron Continue salt tablets 1 g twice daily She is getting Bactrim 15 mL/kg/day dosing done along pharmacy 1 bag is around 500 mL of fluid Positive fluid overload she has been requiring diuretics Pulmonary vascular congestion on chest x-ray, order BMP for tomorrow, consider Lasix in the morning Syncope: Echo unremarkable, Orthostatics negative Carotid Doppler not done yet Likely vasovagal she fell and had syncopal events at home after she used the restroom Bradycardia noted on admission AV selwyn blocking agent discontinued, full code Elevated vancomycin trough, 25.7, vancomycin dose adjusted to 1 g every 12 hours, recheck vancomycin trough on fourth dose, monitor creatinine, monitor vancomycin trough hyopnatremia: Fluid overload, Bactrim induced Monitor closely Full code Spoke with Dr. Moore, updated ICU nurse, patient's Plan for today, hold TPN, complete session of proning, once supine start trickle tube feeds Pulmocare at 15 cc an hour, hold free water flushes due to concerns for hyponatremia, wean off Nimbex, wean off Versed, come down on fentanyl monitor respiratory status closely, I am going to hold her Lasix for now, continue oral salt tablets, await PCP, await cultures, plan on tomorrow morning giving her a dose of of IV Lasix as her chest x-ray shows pulm vascular congestion, bank trough 25.7, will need to be adjusted, for her COVID-19 positivity continue isolation, switch to Decadron, stops hydrocortisone, come down on Levophed Attestations Medical Necessity Statement*: Patient requires hospitalization for bilateral pneumonia, acute hypoxic respiratory failure, acute respiratory distress syndrome, Bactrim DS hyponatremia,, COVID-19 Critical Care Time: Critical care time spent 60 minutes Coding Level of Care Code Critical Care >/= 30 minutes Critical care time (in minutes): 60 The high probability of a clinically significant, sudden or life threatening deterioration, as referenced in this documentation, required my full and direct attention, intervention and personal management. The critical care time shown is in addition to time spent performing any reported separately billable procedures and includes the following: [x] Data and vital sign review and interpretation [x ] Patient assessment, examination and intervention [x] Medication orders and management [x] Patient/Family updates as able [x] Care Coordination and Documentation. Other Coding Information Focused coding review requested Diagnoses ARDS (adult respiratory distress syndrome) J80 Acute and chronic respiratory failure with hypoxia J96.21 Cough syncope R55; R05.4 Bilateral pneumonia J18.9 Acute exacerbation of chronic obstructive pulmonary disease J44.1 Syncope R55 Adrenal insufficiency E27.40 Dizziness R42 Polymyositis M33.20 Chronic cystitis N30.20 COVID-19 U07.1 On deep vein thrombosis (DVT) prophylaxis Z79.899
[2022-10-16] MEDS: sodium chloride 1 gm Tablet PO (17:01)
[2022-10-16] MEDS: vancomycin 1,000 MG in sodium chloride 0.9% 250 ML 250 MG IV (17:01)
[2022-10-16] MEDS: propofol 1,000 MG/100 ML INJ 6.65 MG IV (22:19)
--- NOTE | 2022-10-16 22:42 | P.PN_ITS ---
Subjective Subjective: -Patient seen at bedside today -Her respiratory viral panel from BAL positive for SARS-CoV-2 virus, other testing is still pending -She will complete her second proning today -FiO2 down to 50% and Levophed down to 2 mcg -After completing proning session-we will taper down her paralytic and sedation and will reassess tomorrow morning -We will switch hydrocortisone to dexamethasone -TPN initiated-we will hold on and once patient completes her prone exertion we will start trophic feeding through NG tube -Other labs and imaging reviewed Medications: Reviewed: Yes Vitals/I&O/Wt Last Vital Signs Temp 96.7 F L 10/16/22 17:00 Pulse 92 10/16/22 19:46 Resp 26 H 10/16/22 19:47 BP 87/52 10/16/22 18:00 Pulse Ox 92 10/16/22 19:47 O2 Del Method 10/16/22 19:46 O2 Flow Rate 45 10/16/22 19:46 FiO2 45 10/16/22 19:47 10/16/22 10/16/22 10/16/22 06:59 14:59 22:59 Intake Total 1966.510 / 4171.947 646.824 / 544.972 3192.132 / 1718.956 Output Total 800 / 3600 750 / 750 Balance 1166.510 / 571.947 646.824 / 646.824 322.132 / 968.956 Physical Exam Narrative: PHYSICAL EXAM: General: lying in bed, sedated and intubated., Proned HEENT:NCAT, PERRLA, EOMI Neck: Supple Lungs: Bilateral diffuse infiltrates Heart: s1/s2, RRR Abd: soft, NT, ND, BS + Normoactive Extremities: No edema ART PSYCHOTHERAPIST OR THERAPIST: sedated and limited ART PSYCHOTHERAPIST OR THERAPIST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 SKIN: no rash LDA: # CVC: Right arm PICC line 10/14/2022 # A line: Right radial arterial line 10/14/2022 Urinary Catheter Management: Gomez: Cath Placed During This Visit: yes Reason for Continuing Indwelling Catheter: Accurate Measurement of Urinary Output in Critically Ill Patients Urinary Catheter Date of Insertion: 10/12/22 Urinary Catheter Time of Insertion: 14:50 Data 10/16/22 06:03 10/16/22 06:03 Other Labs: Radiology Impressions Chest CTA 10/09/22 14:56 IMPRESSION: 1. No evidence for pulmonary embolus. 2. Shallow inspiration with RIGHT lower lobe pneumonia. A few patchy infiltrates in the LEFT lower lobe. 3. Hazy groundglass infiltrates about the RIGHT hilum. 4. Cluster of slightly prominent RIGHT hilar lymph nodes nonspecific but may be reactive. No other acute findings. Abdomen/Pelvis CT 10/10/22 11:45 IMPRESSION: 1. Bibasilar atelectasis and with either component of more prominent atelectasis and/or component of patchy infiltrate posterior right lung base. 2. Hyperdense appearance of the dependent aspect of the gallbladder with today's exam, which could indicate hyperdense sludge and/or component of small stones. No significant biliary ductal dilatation. Further evaluation with fasting gallbladder ultrasound could be performed. 3. Small umbilical hernia of fat. 4. Diffuse atherosclerotic vascular disease. 5. Mild scattered sigmoid colon diverticula. No focal inflammatory changes. 6. Chronic bony changes of the spine with prior vertebroplasties T10 and T11. Gallbladder Ultrasound 10/11/22 07:42 IMPRESSION: Mild gallbladder sludge without evidence of stone. No significant gallbladder wall thickening. Venous Duplex 10/11/22 09:32 IMPRESSION: No evidence of deep venous thrombosis. Chest X-Ray 10/16/22 08:18 Impression: 1. Probable pulmonary vascular congestion with cardiomegaly. 2. No change in bilateral upper lobe pulmonary opacities. 3. No change in nasogastric tube, endotracheal tube and right PICC line. Laboratory Results WBC 8.6 10^3/uL (4.0-10.0) 10/16/22 06:03 RBC 3.99 10^6/uL (4.1-5.3) L 10/16/22 06:03 Hgb 9.9 g/dL (11.5-15.3) L 10/16/22 06:03 Hct 31.9 % (37.0-47.0) L 10/16/22 06:03 MCV 79.9 fl (81-99) L 10/16/22 06:03 MCH 24.8 pg (28.0-34.0) L 10/16/22 06:03 MCHC 31.0 g/dL (30.0-36.0) 10/16/22 06:03 RDW 15.6 % (12.1-15.1) H 10/16/22 06:03 Plt Count 369 10^3/cmm (130-400) 10/16/22 06:03 MPV 9.4 fL (7.4-10.4) 10/16/22 06:03 Neut % (Auto) 81.9 % 10/16/22 06:03 Lymph % (Auto) 11.2 % 10/16/22 06:03 [place] % (Auto) 5.1 % 10/16/22 06:03 Eos % (Auto) 0.1 % 10/16/22 06:03 Baso % (Auto) 0.1 % 10/16/22 06:03 Neut # (Auto) 7.03 10^3/uL (1.8-7.7) 10/16/22 06:03 Lymph # (Auto) 1.0 10^3/uL (0.8-4.8) 10/16/22 06:03 [place] # (Auto) 0.4 10^3/uL (0.2-0.9) 10/16/22 06:03 Eos # (Auto) 0.0 10^3/uL (0.0-0.8) 10/16/22 06:03 Baso # (Auto) 0.0 10^3/uL (0.0-0.1) 10/16/22 06:03 Nucleated RBC % (auto) 0 % 10/16/22 06:03 Nucleated RBCs # 0.0 /100WBC 10/16/22 06:03 D-Dimer 1.57 ug/mIFEU (0-0.59) H 10/09/22 13:20 Specimen Type Arterial 10/16/22 05:55 Sample Site Not specified 10/16/22 05:55 O2 Sat Pulse Oximetry Cancelled 10/13/22 01:00 ABG pH 7.41 (7.35-7.45) 10/16/22 05:55 ABG pCO2 41.8 mmHg (35-45) 10/16/22 05:55 ABG pO2 91.7 mmHg (80.0-100.0) 10/16/22 05:55 ABG HCO3 26.2 mmol/L (22-26) H 10/16/22 05:55 ABG O2 Saturation 97.5 10/14/22 05:03 ABG Base Excess 1.3 mmol/L (-2.0-2.0) 10/16/22 05:55 Al Test N/a 10/16/22 05:55 A-a O2 Gradient 73.8 mmHg (5-10) H 10/14/22 05:03 Hematocrit 31.5 % (37-47) L 10/16/22 05:55 Hgb O2 Saturation 96.4 % (95-100) 10/14/22 05:03 Carboxyhemoglobin 0.4 %THgb (0.4-20.1) 10/14/22 05:03 Methemoglobin 0.7 % (0.4-1.5) 10/14/22 05:03 Total Hemoglobin 11.4 g/dL (12-16) L 10/14/22 05:03 Sodium 132.0 mmol/L (131-143) 10/14/22 05:03 Potassium 3.6 mmol/L (3.5-5.0) 10/14/22 05:03 Glucose 178.0 mg/dL (70-115) H 10/14/22 05:03 Ionized Calcium 1.1 mmol/L (1.1-1.4) 10/14/22 05:03 Respiration Rate 20.0 % 10/15/22 04:13 O2 Delivery Device Vent 10/16/22 05:55 O2 Liters/Min Cancelled 10/13/22 01:00 SIMV Cancelled 10/13/22 01:00 Vent Mode Vc/ac 10/15/22 04:13 Mechanical Rate Cancelled 10/13/22 01:00 Spontaneous Rate Cancelled 10/13/22 01:00 FiO2 50.0 % 10/16/22 05:55 Tidal Volume 0.40 10/16/22 05:55 PEEP 12.0 cmH20 10/16/22 05:55 Pressure Support Cancelled 10/13/22 01:00 Pressure Control Cancelled 10/13/22 01:00 CPAP Cancelled 10/13/22 01:00 Mode BiPAP Cancelled 10/13/22 01:00 Specimen Drawn By Emma 10/15/22 04:13 Orthotist Prosthetist ID [place] 10/16/22 05:55 Crit Value Read Back Cancelled 10/13/22 01:00 Blood Gas Notified Time Cancelled 10/13/22 01:00 Sodium 134 mmol/L (136-145) L 10/16/22 06:03 Potassium 4.5 mmol/L (3.5-5.1) 10/16/22 06:03 Chloride 98 mmol/L (98-107) 10/16/22 06:03 Carbon Dioxide 23 mmol/L (22-29) 10/16/22 06:03 Anion Gap 17.5 (5-19) 10/16/22 06:03 BUN 14 mg/dL (8-23) 10/16/22 06:03 Creatinine 1.1 mg/dL (0.5-0.9) H 10/16/22 06:03 GFR Calculation 49.2 mL/min (90-130) L 10/16/22 06:03 Glucose 196 mg/dL (65-115) H 10/16/22 06:03 POC Glucose 142 mg/dL (70-110) H 10/09/22 21:09 Calculated Osmolality 284 mOsm/kg (285-295) L 10/16/22 06:03 Lactate 1.0 mmol/L (0.5-2.2) 10/12/22 05:19 Calcium 7.0 mg/dL (8.5-10.5) L 10/16/22 06:03 Phosphorus 2.2 mg/dL (2.5-4.5) L 10/10/22 04:25 Magnesium 2.0 mg/dL (1.7-2.3) 10/15/22 19:20 Total Bilirubin 0.2 mg/dL (0.15-1.2) 10/16/22 06:03 AST 35 U/L (0-32) H 10/16/22 06:03 ALT 38 U/L (0-33) H 10/16/22 06:03 Alkaline Phosphatase 45 U/L (35-105) 10/16/22 06:03 Lactate Dehydrogenase 387 U/L (135-214) H 10/12/22 05:19 Troponin T Baseline 10 ng/L (0-10) 10/09/22 13:20 Troponin T 120 Minute 8.14 ng/L (0-10) 10/09/22 16:20 Delta Troponin T -1.86 ABS# (0-10) L 10/09/22 16:20 Troponin T Hi Sens 6Hr 8.12 ng/L (0-10) 10/09/22 19:40 Troponin T Hi Sens 6Hr Delta 0.02 ng/L (0-12) 10/09/22 19:40 C-Reactive Protein 104.0 mg/L (0.0-4.9) H 10/12/22 05:19 Total Protein 4.4 g/dL (6.6-8.7) L 10/16/22 06:03 Albumin 2.6 g/dL (3.5-5.2) L 10/16/22 06:03 Globulin 1.8 g/dL (1.3-4.6) 10/16/22 06:03 Vitamin B12 1226 pg/mL (232-1245) 10/09/22 19:40 Procalcitonin 0.16 ng/mL (0-0.5) 10/12/22 05:19 TSH 0.80 uIU/mL (0.27-4.20) 10/09/22 19:40 Urine Color Colorless (Yellow) 10/10/22 21:00 Urine Appearance Clear (CLEAR) 10/10/22 21:00 Urine pH 6 (5-7) 10/10/22 21:00 Ur Specific [place] 1.020 (1.005-1.030) 10/10/22 21:00 Urine Protein Neg (Negative) 10/10/22 21:00 Urine Glucose (UA) Norm (Normal) 10/10/22 21:00 Urine Ketones Negative (Negative) 10/10/22 21:00 Urine Blood Neg (Negative) 10/10/22 21:00 Urine Nitrate Negative (Negative) 10/10/22 21:00 Urine Bilirubin Neg (Negative) 10/10/22 21:00 Urine Urobilinogen Neg mg/dL (Negative) 10/10/22 21:00 Ur Leukocyte Esterase Negative (Negative) 10/10/22 21:00 Nasal Influ A H1 2008 PCR Not detected (NOT DETECT) 10/15/22 17:21 Bronch Specimen Source Right upper lobe 10/14/22 18:20 Bronchial Fluid Color White 10/14/22 18:20 Bronchial Fluid Appearance Hazy (CLEAR) 10/14/22 18:20 Bronchial Fluid WBC 73 /uL 10/14/22 18:20 Bronchial Fluid RBC 150 10^3/uL 10/14/22 18:20 Bronch Cells Counted 200 10/14/22 18:20 Bronchial Neutrophils 19.00 % (0.9-2.3) H 10/14/22 18:20 Bronchial Lymphocytes 76.00 % (10.71-12.91) H 10/14/22 18:20 Bronchial Eosinophils 1.00 % (0.13-0.25) H 10/14/22 18:20 Bronchial Macrophages 4.00 % (83.6-86.8) L 10/14/22 18:20 Bronchial Diff Comment Yes 10/14/22 18:20 Vancomycin Trough 25.7 ug/mL (10-15) H* 10/16/22 06:03 Adenovirus (PCR) Not detected (NOT DETECT) 10/15/22 17:21 C. pneumoniae DNA (PCR) Not detected (NOT DETECT) 10/15/22 17:21 Coronavirus 229E (PCR) Not detected (NOT DETECT) 10/15/22 17:21 Human Metapneumovir PCR Not detected (NOT DETECT) 10/15/22 17:21 Influenza A (H1) PCR Not detected (NOT DETECT) 10/15/22 17:21 Influenza A (H3) PCR Not detected (NOT DETECT) 10/15/22 17:21 Influenza Type A (PCR) Not detected (NOT DETECT) 10/15/22 17:21 Influenza Type B (PCR) Not detected (NOT DETECT) 10/15/22 17:21 M. pneumoniae (PCR) Not detected (NOT DETECT) 10/15/22 17:21 Parainfluenza 1 (PCR) Not detected (NOT DETECT) 10/15/22 17:21 Parainfluenza 2 (PCR) Not detected (NOT DETECT) 10/15/22 17:21 Parainfluenza 3 (PCR) Not detected (NOT DETECT) 10/15/22 17:21 Parainfluenza 4 (PCR) Not detected (NOT DETECT) 10/15/22 17:21 Pneumocystis Source induced sputum 10/13/22 04:15 Pneumocyst jirovecii PCR Not detected 10/13/22 04:15 Aspergillus Ag (EIA) Cancelled 10/14/22 18:20 A. galactomannan Ag Idx Cancelled 10/14/22 18:20 RSV Type A (PCR) Not detected (NOT DETECT) 10/15/22 17:21 RSV Type B (PCR) Not detected (NOT DETECT) 10/15/22 17:21 Entero/Rhino (PCR) Not detected (NOT DETECT) 10/15/22 17:21 SARS-CoV-2 (PCR) Detected (NOT DETECT) A 10/15/22 17:21 Micro: Microbiology 10/14/22 18:20 Gram Stain - Final Lung Right Upper Lobe Bronchoalveolar Lavage Culture - Final A&P Assessment and plan (1) Acute exacerbation of chronic obstructive pulmonary disease: (2) ARDS (adult respiratory distress syndrome): (3) Bilateral pneumonia: (4) Acute and chronic respiratory failure with hypoxia: (5) Immunosuppression: (6) COVID-19: Plan #Acute on chronic respiratory failure with hypoxia-secondary to multilobar pneumonia-respiratory viral panel positive for COVID-19 PCR #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-there is a concern for underlying PCP pneumonia as well as fungal pneumonias #Hypotension secondary adrenal insufficiency versus septic shock NEURO: #Sedation-Fentanyl gtt., propofol gtt, Versed 3 Mg gtt. #Paralytic-Nimbex -After completion of second proning session-we will taper off Nimbex, Versed, fentanyl PULM: #Acute on chronic respiratory failure secondary to ARDS secondary to underlying pneumonia-respiratory viral panel positive for COVID-19 #Given her significant underlying immunosuppression-suspect PCP pne umonia/nocardia/TB -Intubated and sedated-7.4 / on CMV 400/12 PEEP/50%-improving PF ratio -Continue scheduled nebulizations -After second proning session-we will reassess tomorrow morning if she needs third proning session or not -Follow ARDS protocol-low tidal volume and high PEEP -Chest x-ray showing diffuse infiltrates-despite diuresing adequately-suspect ARDS -S/p bronchoscopy 10/14/2022-scant secretions with normal mucosa-BAL taken from right upper lobe-sent for cultures, fluid analysis, fungal staining and cultures, galactomannan, PCP PCR, nocardia culture -We will continue coverage with vancomycin/meropenem to cover gram-negative's as well as nocardia/Bactrim-to cover PCP pneumonia until we get final results -Although imaging does not quite suggestive of TB-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 RVSP 48. No change compared to previous studies in 2019 and 2018. -Continue to monitor GI: #Diet: We will give Ensure through the tube feed today-we will start her on tube feeding from tomorrow #GI prophylaxis: PPI #Deranged LFTs-we will monitor for now #BR regimen-senna docusate RENAL: #Creatinine 1 #Hyponatremia-likely secondary to Bactrim -Patient has good urine output and electrolytes are within normal limits currently receiving Lasix 40 Mg daily -We will try to maintain even to net negative fluid balance -Continue to monitor urine output, renal parameters and electrolytes and supple ment accordingly -We will give sodium chloride 1 g p.o. twice daily and closely monitor electrolytes ID: #Multilobar pneumonia causing ARDS-today COVID-19 PCR positive -Since she has been covered with vancomycin/meropenem/Bactrim for possible PCP pneumonia -Added Bactrim to cover PCP pneumonia as patient was on chronic steroid therapy and Rituxan infusions for her myositis; induced to sputum PCP PCR is negative, BAL PCP PCR is still pending -We will switch hydrocortisone to dexamethasone 6 mg p.o. daily -Given her significant immunosuppression-and worsening respiratory status-there is concern for TB (family reported patient has TB several years ago)-currently on contact isolation, AFB smears pending -Other possibilities nocardia-currently covered with meropenem and Bactrim -We will follow-up for BAL cultures, fungal stain and cultures, PCP PCR, galactomannan Code Status: Full code Disposition: Currently will stay in ICU Critically ill: Yes MD discussed with: RN, RT, hospitalist taking care of the patient ICU CHECKLIST: Problem list updated Verbal orders reviewed and signed Analgesia: Fentanyl Glycemic Control: N/A Nutrition: Tube feeding once proning session is completed Restraint Renewal (within 24 hrs): Yes Ulcer Prophylaxis: PPI Chemical Thromboprophylaxis: Prophylaxis: Heparin Mechanical Thromboprophylaxis: SCDs Need for Central line: PICC line for pressors Need for Gomez catheter: Yes for urine output Case discussed with RN, RT and family or surrogate(s) and hospitalist taking care of the patient Attestations Medical Necessity Statement*: Continue close monitoring for hypoxic r espiratory failure Time Spent in Patient Care: Greater than 35 minutes (>than 50% of time spent in counselling and/or direct pt care on unit) . Critical Care Time: This patient has a high probability of sudden, clinically significant deterioration, which requires the highest level of physician preparedness to intervene urgently. I managed/supervised life or organ supporting interventions that required frequent physician assessment. I devoted my full attention in the ICU to the direct care of this patient for the period of time indicated above. Time I spent with family or surrogate(s) is included only if the patient was incapable of providing necessary information or participating in decision making. Time devoted to teaching and to any procedures I billed separately is not included. Services Provided: Telemetry review Mechanical Ventilation Hemodynamic interpretation, assessment and management Review and interpretation of CXR Review and interpretation of lab values Review and interpretation of microbiologic data and culture results Review of medications and administration Review and interpretation of Nutrition requirements and management Discussion of management with other consultants and services Clinical update to family members [x] Patient assessment, examination and intervention [x] Documentation [x] Medication orders and management and High Time for a total of 51 minutes, includes examining/interviewing patient, discussing plan of care with staff, communicating with other healthcare providers, documenting encounter and coordinating care Diagnoses Acute exacerbation of chronic obstructive pulmonary disease J44.1 ARDS (adult respiratory distress syndrome) J80 Bilateral pneumonia J18.9 Acute and chronic respiratory failure with hypoxia J96.21 Immunosuppression D89.9 COVID-19 U07.1 Time Spent (min) 51
[2022-10-17] VITALS (101 sets, daily range): BP systolic 78–144; BP diastolic 47–75; PULSE 90–127; RESP 13–28; TEMP 36.6–37.3; O2SAT 90–96
[2022-10-17] MEDS: vancomycin 1,000 MG in sodium chloride 0.9% 250 ML 250 MG IV ×2 (04:13→17:51)
[2022-10-17] MEDS: meropenem 1,000 MG in sodium chloride 0.9% (plus) 50 ML 100 MG IV ×2 (04:13→13:49)
[2022-10-17 04:51] LABS: ABG PCO2 41.2 mmHg (35-45); ABG PH Result 7.41 (7.35-7.45); Arterial Blood Gas Hematocrit 23.7 % (37-47); Base Excess ABG 1.2 mmol/L (-2.0-2.0); Blood Gas Operator Identificat JB; Blood Gas Sample Site Not specified; Blood Gas Sample Type Arterial; Oxygen Device VENT; PO2 ABG 70.3 mmHg (80.0-100.0)
[2022-10-17] MEDS: dexamethasone 10 mg/mL INJ 6 MG IVP (05:26)
[2022-10-17] MEDS: aspirin 81 mg Chew Tablet PO (05:26)
[2022-10-17] MEDS: folic acid 1 mg Tablet PO (05:26)
[2022-10-17 05:34] LABS: Basophils % 0.1 %; Eosinophils # 0.2 10^3/uL (0.0-0.8); Eosinophils % 2.3 %; Hematocrit 31.1 % (37.0-47.0); Hemoglobin 9.4 g/dL (11.5-15.3); Lymphocytes # 1.4 10^3/uL (0.8-4.8); Lymphocytes % 14.5 %; Mean Corpuscular HGB Conc 30.2 g/dL (30.0-36.0); Mean Corpuscular Hemoglobin 24.7 pg (28.0-34.0); Mean Corpuscular Volume 81.6 fl (81-99); Mean Platelet Volume 9.8 fL (7.4-10.4); Monocytes # 0.6 10^3/uL (0.2-0.9); Monocytes % 6.2 %; Neutrophils # 7.16 10^3/uL (1.8-7.7); Neutrophils % 75.8 %; Nucleated Red Blood Cells % 0 %; Platelet Count 345 10^3/cmm (130-400); Red Blood Count 3.81 10^6/uL (4.1-5.3); Red Cell Distribution Width 15.9 % (12.1-15.1); White Blood Count 9.5 10^3/uL (4.0-10.0)
[2022-10-17 05:48] LABS: INR 0.91 (0.8-1.2)
[2022-10-17 05:53] LABS: Lactate (Lactic Acid level) 2.2 mmol/L (0.5-2.2)
[2022-10-17 06:08] LABS: NT Pro B Type Natriuretic Pept 7077 pg/mL (0-125); Procalcitonin 0.12 ng/mL (0-0.5)
[2022-10-17 06:20] LABS: Alanine Aminotransferase 31 U/L (0-33); Albumin Level 2.5 g/dL (3.5-5.2); Alkaline Phosphatase 46 U/L (35-105); Aspartate Amino Transferase 27 U/L (0-32); Blood Urea Nitrogen 22 mg/dL (8-23); C Reactive Protein 14.5 mg/L (0.0-4.9); Calcium 7.1 mg/dL (8.5-10.5); Carbon Dioxide 23 mmol/L (22-29); Chloride 93 mmol/L (98-107); Globulin 2.3 g/dL (1.3-4.6); Glomerular Filtration Rate 37.3 mL/min (90-130); Glucose 82 mg/dL (65-115); Magnesium 2.5 mg/dL (1.7-2.3); Osmolality Calculated 266 mOsm/kg (285-295); Phosphorus 2.8 mg/dL (2.5-4.5); Sodium 127 mmol/L (136-145); Total Bilirubin 0.2 mg/dL (0.15-1.2); Total Protein 4.8 g/dL (6.6-8.7)
[2022-10-17 06:24] LABS: Anion Gap 15.3 (5-19)
[2022-10-17 06:25] LABS: Potassium 4.3 mmol/L (3.5-5.1)
--- NOTE | 2022-10-17 07:00 | XRR_ITS ---
PROCEDURE INFORMATION: Exam: XR Chest Exam date and time: 10/17/2022 7:24 AM Age: 67 years old Clinical indication: Shortness of breath; Additional info: SOB TECHNIQUE: Imaging protocol: Radiologic exam of the chest. Views: 1 view. COMPARISON: CR XR chest 1V portable [id number] 10/16/2022 8:39 AM FINDINGS: Tubes, catheters and devices: Endotracheal tube is in satisfactory position. Feeding tube is in satisfactory position. Right PICC is in satisfactory position, with distal tip at the level of the SVC/RA junction. Lungs: Low lung volumes. There is increased interstitial markings and haziness of the lungs, which in the setting of cardiomegaly is suggestive of pulmonary congestion. Pneumonia should be excluded clinically. Pleural spaces: Unremarkable. No pleural effusion. No pneumothorax. Heart/Mediastinum: Stable cardiomediastinal silhouette. Bones/joints: Degenerative changes of the spine and evidence of vertebral augmentation cement noted. XR/XR chest 1V portable [id number] IMPRESSION: Imaging findings suggestive of pulmonary congestion. Pneumonia should be excluded clinically.
[2022-10-17] MEDS: heparin 5,000 unit/mL INJ 1 mL 5000 UNIT SUBCUT ×2 (07:21→21:41)
[2022-10-17] MEDS: budesonide 0.5 mg/2 mL Neb INHALATION ×2 (07:49→20:33)
[2022-10-17] MEDS: ipratropium-albuterol 3 mL Neb INHALATION ×3 (07:49→20:33)
[2022-10-17] MEDS: propofol 1,000 MG/100 ML INJ 11.09 MG IV ×2 (08:54→15:43)
[2022-10-17] MEDS: lidocaine 5% Patch 1 PATCH TOPICAL (09:28)
[2022-10-17] MEDS: pantoprazole 40 mg SDV IVP ×2 (09:28→21:41)
[2022-10-17] MEDS: sennosides-docusate Tablet 2 TAB PO (09:29)
[2022-10-17] MEDS: sodium chloride 1 gm Tablet PO ×2 (09:29→17:14)
[2022-10-17] MEDS: albumin 25 G/100 ML BAG 60 G IV (09:32)
[2022-10-17] MEDS: FUROsemide 10 mg/mL SDV 4mL 40 MG IVP (09:38)
[2022-10-17] MEDS: lactulose oral liq 20 gm/30 mL UDC 10 GM PO (09:38)
--- NOTE | 2022-10-17 12:24 | PC.SOCIAL ---
IMM Updated Updated pt's spouse on IMM. No questions voiced. Provided pt a copy. Initialed, dated, & timed copy in chart.
--- NOTE | 2022-10-17 12:57 | PM.PN ---
Subjective Subjective: -Patient seen at bedside today -Completed 2 proning sessions by yesterday-currently FiO2 40% saturating 95% on SIMV mode -Discontinued paralytic, Versed yesterday-currently tapered down fentanyl to 25 mcg, propofol to 20 Mg-patient is opening eyes, drowsy, following commands, and squeezing fingers-although appeared weak -She is +1.2 L last 24 hours-Will give 1 dose of albumin as well as Lasix 40 Mg, creatinine up to 1.4 -Review of labs showed sodium 127 may be due to Bactrim-she is on oral supplementation -Once BAL PCP PCR negative-we will discontinue Bactrim -We will increase tube feeding to 20 cc/hour and give lactulose as she did not have any bowel movements -Other labs and imaging reviewed Medications: Reviewed: Yes Vitals/I&O/Wt Last Vital Signs Temp 98.5 F 10/17/22 10:00 Pulse 106 H 10/17/22 11:15 Resp 16 10/17/22 10:18 BP 124/63 10/17/22 11:15 Pulse Ox 96 10/17/22 11:15 O2 Del Method 10/17/22 11:15 O2 Flow Rate 40 10/17/22 07:50 FiO2 40 10/17/22 11:15 10/16/22 10/17/22 10/17/22 22:59 06:59 14:59 Intake Total 1595.743 / 2242.567 966.275 / 3208.842 366.436 / 366.436 Output Total 750 / 750 450 / 1200 850 / 850 Balance 845.743 / 1492.567 516.275 / 2008.842 -483.564 / -483.564 Physical Exam Narrative: PHYSICAL EXAM: General: lying in bed, sedated and intubated, barely opens eyes and follows commands HEENT:NCAT, PERRLA, EOMI Neck: Supple Lungs: Bilateral diffuse crepitations Heart: s1/s2, RRR Abd: soft, NT, ND, BS + Normoactive Extremities: No edema 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 SKIN: no rash LDA: # CVC: Right arm PICC line 10/14/2022 # A line: Right radial arterial line 10/14/2022 Urinary Catheter Management: Gomez: Cath Placed During This Visit: yes Reason for Continuing Indwelling Catheter: Accurate Measurement of Urinary Output in Critically Ill Patients Urinary Catheter Date of Insertion: 10/12/22 Urinary Catheter Time of Insertion: 14:50 Data 10/17/22 04:40 10/17/22 04:40 Other Labs: Radiology Impressions Chest CTA 10/09/22 14:56 IMPRESSION: 1. No evidence for pulmonary embolus. 2. Shallow inspiration with RIGHT lower lobe pneumonia. A few patchy infiltrates in the LEFT lower lobe. 3. Hazy groundglass infiltrates about the RIGHT hilum. 4. Cluster of slightly prominent RIGHT hilar lymph nodes nonspecific but may be reactive. No other acute findings. Abdomen/Pelvis CT 10/10/22 11:45 IMPRESSION: 1. Bibasilar atelectasis and with either component of more prominent atelectasis and/or component of patchy infiltrate posterior right lung base. 2. Hyperdense appearance of the dependent aspect of the gallbladder with today's exam, which could indicate hyperdense sludge and/or component of small stones. No significant biliary ductal dilatation. Further evaluation with fasting gallbladder ultrasound could be performed. 3. Small umbilical hernia of fat. 4. Diffuse atherosclerotic vascular disease. 5. Mild scattered sigmoid colon diverticula. No focal inflammatory changes. 6. Chronic bony changes of the spine with prior vertebroplasties T10 and T11. Gallbladder Ultrasound 10/11/22 07:42 IMPRESSION: Mild gallbladder sludge without evidence of stone. No significant gallbladder wall thickening. Venous Duplex 10/11/22 09:32 IMPRESSION: No evidence of deep venous thrombosis. Chest X-Ray 10/17/22 07:00 IMPRESSION: Imaging findings suggestive of pulmonary congestion. Pneumonia should be excluded clinically. Laboratory Results WBC 9.5 10^3/uL (4.0-10.0) 10/17/22 04:40 RBC 3.81 10^6/uL (4.1-5.3) L 10/17/22 04:40 Hgb 9.4 g/dL (11.5-15.3) L 10/17/22 04:40 Hct 31.1 % (37.0-47.0) L 10/17/22 04:40 MCV 81.6 fl (81-99) 10/17/22 04:40 MCH 24.7 pg (28.0-34.0) L 10/17/22 04:40 MCHC 30.2 g/dL (30.0-36.0) 10/17/22 04:40 RDW 15.9 % (12.1-15.1) H 10/17/22 04:40 Plt Count 345 10^3/cmm (130-400) 10/17/22 04:40 MPV 9.8 fL (7.4-10.4) 10/17/22 04:40 Neut % (Auto) 75.8 % 10/17/22 04:40 Lymph % (Auto) 14.5 % 10/17/22 04:40 Bates % (Auto) 6.2 % 10/17/22 04:40 Eos % (Auto) 2.3 % 10/17/22 04:40 Baso % (Auto) 0.1 % 10/17/22 04:40 Neut # (Auto) 7.16 10^3/uL (1.8-7.7) 10/17/22 04:40 Lymph # (Auto) 1.4 10^3/uL (0.8-4.8) 10/17/22 04:40 Bates # (Auto) 0.6 10^3/uL (0.2-0.9) 10/17/22 04:40 Eos # (Auto) 0.2 10^3/uL (0.0-0.8) 10/17/22 04:40 Baso # (Auto) 0.0 10^3/uL (0.0-0.1) 10/17/22 04:40 Nucleated RBC % (auto) 0 % 10/17/22 04:40 Nucleated RBCs # 0.0 /100WBC 10/17/22 04:40 PT 12.50 SECONDS (12.1-14.9) 10/17/22 04:40 INR 0.91 (0.8-1.2) 10/17/22 04:40 D-Dimer 1.57 ug/mIFEU (0-0.59) H 10/09/22 13:20 Specimen Type Arterial 10/17/22 04:36 Sample Site Not specified 10/17/22 04:36 O2 Sat Pulse Oximetry Cancelled 10/13/22 01:00 ABG pH 7.41 (7.35-7.45) 10/17/22 04:36 ABG pCO2 41.2 mmHg (35-45) 10/17/22 04:36 ABG pO2 70.3 mmHg (80.0-100.0) L 10/17/22 04:36 ABG HCO3 26.0 mmol/L (22-26) 10/17/22 04:36 ABG O2 Saturation 97.5 10/14/22 05:03 ABG Base Excess 1.2 mmol/L (-2.0-2.0) 10/17/22 04:36 Al Test N/a 10/17/22 04:36 A-a O2 Gradient 73.8 mmHg (5-10) H 10/14/22 05:03 Hematocrit 23.7 % (37-47) L 10/17/22 04:36 Hgb O2 Saturation 96.4 % (95-100) 10/14/22 05:03 Carboxyhemoglobin 0.4 %THgb (0.4-20.1) 10/14/22 05:03 Methemoglobin 0.7 % (0.4-1.5) 10/14/22 05:03 Total Hemoglobin 11.4 g/dL (12-16) L 10/14/22 05:03 Sodium 132.0 mmol/L (131-143) 10/14/22 05:03 Potassium 3.6 mmol/L (3.5-5.0) 10/14/22 05:03 Glucose 178.0 mg/dL (70-115) H 10/14/22 05:03 Ionized Calcium 1.1 mmol/L (1.1-1.4) 10/14/22 05:03 Respiration Rate 20.0 % 10/15/22 04:13 O2 Delivery Device Vent 10/17/22 04:36 O2 Liters/Min Cancelled 10/13/22 01:00 SIMV Cancelled 10/13/22 01:00 Vent Mode Vc/ac 10/15/22 04:13 Mechanical Rate Cancelled 10/13/22 01:00 Spontaneous Rate Cancelled 10/13/22 01:00 FiO2 45.0 % 10/17/22 04:36 Tidal Volume 0.40 10/17/22 04:36 PEEP 10.0 cmH20 10/17/22 04:36 Pressure Support Cancelled 10/13/22 01:00 Pressure Control Cancelled 10/13/22 01:00 CPAP Cancelled 10/13/22 01:00 Mode BiPAP Cancelled 10/13/22 01:00 Specimen Drawn By Emma 10/15/22 04:13 [employer] Consultant ID Pelon 10/17/22 04:36 Crit Value Read Back Cancelled 10/13/22 01:00 Blood Gas Notified Time Cancelled 10/13/22 01:00 Sodium 127 mmol/L (136-145) L 10/17/22 04:40 Potassium 4.3 mmol/L (3.5-5.1) 10/17/22 04:40 Chloride 93 mmol/L (98-107) L 10/17/22 04:40 Carbon Dioxide 23 mmol/L (22-29) 10/17/22 04:40 Anion Gap 15.3 (5-19) 10/17/22 04:40 BUN 22 mg/dL (8-23) 10/17/22 04:40 Creatinine 1.4 mg/dL (0.5-0.9) H 10/17/22 04:40 GFR Calculation 37.3 mL/min (90-130) L 10/17/22 04:40 Glucose 82 mg/dL (65-115) 10/17/22 04:40 POC Glucose 142 mg/dL (70-110) H 10/09/22 21:09 Calculated Osmolality 266 mOsm/kg (285-295) L 10/17/22 04:40 Lactate 2.2 mmol/L (0.5-2.2) 10/17/22 04:40 Calcium 7.1 mg/dL (8.5-10.5) L 10/17/22 04:40 Phosphorus 2.8 mg/dL (2.5-4.5) 10/17/22 04:40 Magnesium 2.5 mg/dL (1.7-2.3) H 10/17/22 04:40 Total Bilirubin 0.2 mg/dL (0.15-1.2) 10/17/22 04:40 AST 27 U/L (0-32) 10/17/22 04:40 ALT 31 U/L (0-33) 10/17/22 04:40 Alkaline Phosphatase 46 U/L (35-105) 10/17/22 04:40 Lactate Dehydrogenase 387 U/L (135-214) H 10/12/22 05:19 Troponin T Baseline 10 ng/L (0-10) 10/09/22 13:20 Troponin T 120 Minute 8.14 ng/L (0-10) 10/09/22 16:20 Delta Troponin T -1.86 ABS# (0-10) L 10/09/22 16:20 Troponin T Hi Sens 6Hr 8.12 ng/L (0-10) 10/09/22 19:40 Troponin T Hi Sens 6Hr Delta 0.02 ng/L (0-12) 10/09/22 19:40 C-Reactive Protein 14.5 mg/L (0.0-4.9) H 10/17/22 04:40 NT-Pro-B Natriuret Pep 7077 pg/mL (0-125) H 10/17/22 04:40 Total Protein 4.8 g/dL (6.6-8.7) L 10/17/22 04:40 Albumin 2.5 g/dL (3.5-5.2) L 10/17/22 04:40 Globulin 2.3 g/dL (1.3-4.6) 10/17/22 04:40 Vitamin B12 1226 pg/mL (232-1245) 10/09/22 19:40 Procalcitonin 0.12 ng/mL (0-0.5) 10/17/22 04:40 TSH 0.80 uIU/mL (0.27-4.20) 10/09/22 19:40 Urine Color Colorless (Yellow) 10/10/22 21:00 Urine Appearance Clear (CLEAR) 10/10/22 21:00 Urine pH 6 (5-7) 10/10/22 21:00 Ur Specific [place] 1.020 (1.005-1.030) 10/10/22 21:00 Urine Protein Neg (Negative) 10/10/22 21:00 Urine Glucose (UA) Norm (Normal) 10/10/22 21:00 Urine Ketones Negative (Negative) 10/10/22 21:00 Urine Blood Neg (Negative) 10/10/22 21:00 Urine Nitrate Negative (Negative) 10/10/22 21:00 Urine Bilirubin Neg (Negative) 10/10/22 21:00 Urine Urobilinogen Neg mg/dL (Negative) 10/10/22 21:00 Ur Leukocyte Esterase Negative (Negative) 10/10/22 21:00 Nasal Influ A H1 2009 PCR Not detected (NOT DETECT) 10/15/22 17:21 Bronch Specimen Source Right upper lobe 10/14/22 18:20 Bronchial Fluid Color White 10/14/22 18:20 Bronchial Fluid Appearance Hazy (CLEAR) 10/14/22 18:20 Bronchial Fluid WBC 73 /uL 10/14/22 18:20 Bronchial Fluid RBC 150 10^3/uL 10/14/22 18:20 Bronch Cells Counted 200 10/14/22 18:20 Bronchial Neutrophils 19.00 % (0.9-2.3) H 10/14/22 18:20 Bronchial Lymphocytes 76.00 % (10.71-12.91) H 10/14/22 18:20 Bronchial Eosinophils 1.00 % (0.13-0.25) H 10/14/22 18:20 Bronchial Macrophages 4.00 % (83.6-86.8) L 10/14/22 18:20 Bronchial Diff Comment Yes 10/14/22 18:20 Vancomycin Trough 25.7 ug/mL (10-15) H* 10/16/22 06:03 Adenovirus (PCR) Not detected (NOT DETECT) 10/15/22 17:21 C. pneumoniae DNA (PCR) Not detected (NOT DETECT) 10/15/22 17:21 Coronavirus 229E (PCR) Not detected (NOT DETECT) 10/15/22 17:21 Human Metapneumovir PCR Not detected (NOT DETECT) 10/15/22 17:21 Influenza A (H1) PCR Not detected (NOT DETECT) 10/15/22 17:21 Influenza A (H3) PCR Not detected (NOT DETECT) 10/15/22 17:21 Influenza Type A (PCR) Not detected (NOT DETECT) 10/15/22 17:21 Influenza Type B (PCR) Not detected (NOT DETECT) 10/15/22 17:21 M. pneumoniae (PCR) Not detected (NOT DETECT) 10/15/22 17:21 Parainfluenza 1 (PCR) Not detected (NOT DETECT) 10/15/22 17:21 Parainfluenza 2 (PCR) Not detected (NOT DETECT) 10/15/22 17:21 Parainfluenza 3 (PCR) Not detected (NOT DETECT) 10/15/22 17:21 Parainfluenza 4 (PCR) Not detected (NOT DETECT) 10/15/22 17:21 Pneumocystis Source induced sputum 10/13/22 04:15 Pneumocyst jirovecii PCR Not detected 10/13/22 04:15 Aspergillus Ag (EIA) Cancelled 10/14/22 18:20 A. galactomannan Ag Idx Cancelled 10/14/22 18:20 RSV Type A (PCR) Not detected (NOT DETECT) 10/15/22 17:21 RSV Type B (PCR) Not detected (NOT DETECT) 10/15/22 17:21 Entero/Rhino (PCR) Not detected (NOT DETECT) 10/15/22 17:21 SARS-CoV-2 (PCR) Detected (NOT DETECT) A 10/15/22 17:21 Micro: Microbiology 10/14/22 18:20 Gram Stain - Final Lung Right Upper Lobe Bronchoalveolar Lavage Culture - Final A&P Assessment and plan (1) Acute exacerbation of chronic obstructive pulmonary disease: (2) ARDS (adult respiratory distress syndrome): (3) Bilateral pneumonia: (4) Acute and chronic respiratory failure with hypoxia: (5) Immunosuppression: (6) COVID-19: (7) MILLER (acute kidney injury): Plan #Acute on chronic respiratory failure with hypoxia-secondary to ARDS due to COVID-19 PCR #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-there is a concern for underlying PCP pneumonia as well as fungal pneumonias #Hypotension secondary adrenal insufficiency versus septic shock NEURO: #Sedation-Fentanyl 25 mcg gtt., propofol 20 gtt, -Discontinued paralytic as well as Versed --Recommended to adjust sedation to maintain RASS -2 -She opens eyes and follows commands but extremely weak-need at least 24 more hours to come off sedation PULM: #Acute on chronic respiratory failure secondary to ARDS secondary to underlying pneumonia-respiratory viral panel positive for COVID-19 #Given her significant underlying immunosuppression-suspect PCP pneumonia/nocardia/TB -Intubated and sedated-7.4 , / on CMV 400/ 10 PEEP/45 %-PF ratio close to 150 -Continue scheduled nebulizations -Completed 2 proning sessions -Follow ARDS protocol-low tidal volume and high PEEP -Chest x-ray showing diffuse infiltrates-despite diuresing adequately-suspect ARDS -S/p bronchoscopy 10/14/2022-scant secretions with normal mucosa-BAL taken from right upper lobe-cultures negative, fluid analysis lymphocyte predominant suggestive of viral pneumonia,, fungal staining and cultures, galactomannan, PCP PCR, nocardia culture -We will continue coverage with vancomycin/meropenem to cover gram-negative's as well as nocardia/Bactrim-to cover PCP pneumonia until we get final results; vancomycin held due to high trough level -Although imaging does not quite suggestive of TB-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 RVSP 48. No change compared to previous studies in 2019 and 2017. -Continue to monitor GI: #Diet: Continue tube feeding at 20 cc/hour #GI prophylaxis: PPI #Deranged LFTs-normalized now #BR regimen-senna docusate RENAL: #MILLER #Creatinine 1 #Hyponatremia-likely secondary to Bactrim-on oral supplement -Patient has good urine output and electrolytes are within normal limits currently receiving Lasix 40 Mg daily, will give albumin 1 dose -We will try to maintain even to net negative fluid balance -Continue to monitor urine output, renal parameters and electrolytes and supplement accordingly -Continue sodium chloride 1 g p.o. 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 and did not finish her treatment due to hepatotoxicity)-currently on contact isolation, AFB smears pending -Other possibilities nocardia-currently covered with meropenem and Bactrim -BAL cultures negative, still pending or fungal stain and cultures, PCP PCR, galactomannan Code Status: Full code Disposition: Currently will stay in ICU Critically ill: Yes MD discussed with: RN, RT, hospitalist taking care of the patient ICU CHECKLIST: Problem list updated Verbal orders reviewed and signed Analgesia: Fentanyl Glycemic Control: N/A Nutrition: Tube feeding Restraint Renewal (within 24 hrs): Yes Ulcer Prophylaxis: PPI Chemical Thromboprophylaxis: Prophylaxis: Heparin Mechanical Thromboprophylaxis: SCDs Need for Central line: PICC line for pressors Need for Gomez catheter: Yes for urine output Case discussed with RN, RT and family or surrogate(s) and hospitalist taking care of the patient Attestations Medical Necessity Statement*: Continue close monitoring for hypoxic respiratory failure secondary to ARDS due to COVID-19 pneumonia Time Spent in Patient Care: Greater than 35 minutes (>than 50% of time spent in counselling and/or direct pt care on unit). Critical Care Time: This patient has a high probability of sudden, clinically significant deterioration, which requires the highest level of physician preparedness to intervene urgently. I managed/supervised life or organ supporting interventions that required frequent physician assessment. I devoted my full attention in the ICU to the direct care of this patient for the period of time indicated above. Time I spent with family or surrogate(s) is included only if the patient was incapable of providing necessary information or participating in decision making. Time devoted to teaching and to any procedures I billed separately is not included. Services Provided: Telemetry review Mechanical Ventilation Hemodynamic interpretation, assessment and management Review and interpretation of CXR Review and interpretation of lab values Review and interpretation of microbiologic data and culture results Review of medications and administration Review and interpretation of Nutrition requirements and management Discussion of management with other consultants and services Clinical update to family members [x] Patient assessment, examination and intervention [x] Documentation [x] Medication orders and management Coding Level of Care Code Critical Care >/= 30 minutes Critical care time (in minutes): 47 The high probability of a clinically significant, sudden or life threatening deterioration, as referenced in this documentation, required my full and direct attention, intervention and personal management. The critical care time shown is in addition to time spent performing any reported separately billable procedures and includes the following: [x] Data and vital sign review and interpretation [x] Patient assessment, examination and intervention [x] Medication orders and management [x] Patient/Family updates as able [x] Care Coordination and Documentation. Diagnoses Acute exacerbation of chronic obstructive pulmonary disease J44.1 ARDS (adult respiratory distress syndrome) J80 Bilateral pneumonia J18.9 Acute and chronic respiratory failure with hypoxia J96.21 Immunosuppression D89.9 COVID-19 U07.1 MILLER (acute kidney injury) N17.9 Time Spent (min) 47
--- NOTE | 2022-10-17 13:12 | P.PN_ITS ---
Subjective Subjective: Patient was seen this morning, currently supine, off Levophed, no fever episodes overnight, she is on propofol and Levophed for sedation, she does arouse, but does not follow commands, pupils dilated, reactive to light, she is on 4% FiO2, good urine output, family members at bedside, discussed the case with patient's at bedside, discussed case with Dr. Moore, Vitals/I&O/Wt Last Vital Signs Temp 98.5 F 10/17/22 10:00 Pulse 106 H 10/17/22 11:15 Resp 16 10/17/22 10:18 BP 124/63 10/17/22 11:15 Pulse Ox 96 10/17/22 11:15 O2 Del Method 10/17/22 11:15 O2 Flow Rate 40 10/17/22 07:50 FiO2 40 10/17/22 11:15 10/16/22 10/17/22 10/17/22 22:59 06:59 14:59 Intake Total 1595.743 / 2242.567 966.275 / 3208.842 366.436 / 366.436 Output Total 750 / 750 450 / 1200 850 / 850 Balance 845.743 / 1492.567 516.275 / 2008.842 -483.564 / -483.564 Physical Exam Urinary Catheter Management: Gomez: Cath Placed During This Visit: yes Reason for Continuing Indwelling Catheter: Accurate Measurement of Urinary Outp ut in Critically Ill Patients Urinary Catheter Date of Insertion: 10/12/22 Urinary Catheter Time of Insertion: 14:50 Data 10/17/22 04:40 10/17/22 04:40 Micro: Microbiology 10/14/22 18:20 Gram Stain - Final Lung Right Upper Lobe Bronchoalveolar Lavage Culture - Final A&P Assessment and plan (1) ARDS (adult respiratory distress syndrome): (2) Acute and chronic respiratory failure with hypoxia: (3) Cough syncope: (4) Bilateral pneumonia: (5) Acute exacerbation of chronic obstructive pulmonary disease: (6) Syncope: (7) Adrenal insufficiency: (8) Dizziness: (9) Polymyositis: (10) Chronic cystitis: (11) COVID-19: (12) On deep vein thrombosis (DVT) prophylaxis: (13) Septic shock: Plan 67-year female who was admitted to the hospital for management evaluation of syncope, she was diagnosed with bilateral pneumonia, gradually her hypoxia worsened from 2 L eventually she required heated high flow and then was transitioned to BiPAP, she Getting worse on BiPAP hence intubated, art line was placed, status post bronchoscopy sputum sample, bronchoalveolar lavage sent for Mycobacterium tuberculosis, PCP pneumonia, has been afebrile for last 48 hours, completed 4 cycles of proning, pulmonary consulted Acute hypoxic respiratory failure With acute respiratory distress syndrome -Finishing second session of proning -40% FiO2 Septic shock, off Levophed COVID-19 positivity Bilateral pneumonia Without active signs of sepsis On broad-spectrum antibiotics, aztreonam, vancomycin, doxycycline, Bactrim IV Severe ARDS Status post bronchoscopy bronchoalveolar lavage sent for Mycobacterium tub erculosis and PCP, nocardia Finish 1 more cycle of proning as per pulmonary She is responding well to proning cycle Turn off paralytics and Versed during supine phase and feed her through NG avoiding TPN because of review of compromise state to avoid fungal infections However she does have a PICC line in case that is needed Afebrile for last 48 hours Patient intubated 10/14 Art line placed 10/14 Bronchoscopy done 10/14 Bactrim induced hyponatremia, current sodium 127 Patient also have adrenal insufficiency Currently on stress dose steroids, switching to Decadron Continue salt tablets 1 g twice daily She is getting Bactrim 15 mL/kg/day dosing done along pharmacy 1 bag is around 500 mL of fluid Positive fluid overload she has been requiring diuretics Pulmonary vascular congestion on chest x-ray, order BMP for tomorrow, consider Lasix in the morning Syncope: Echo unremarkable, Orthostatics negative Carotid Doppler not done yet Likely vasovagal she fell and had syncopal events at home after she used? the restroom Bradycardia noted on admission AV selwyn blocking agent discontinued, full code Elevated vancomycin trough, 25.7, vancomycin dose adjusted to 1 g every 12 hours, recheck vancomycin trough on fourth dose, monitor creatinine, monitor vancomycin trough hyopnatremia: Fluid overload, Bactrim induced Acute kidney injury, creatinine 1.4 monitor Monitor closely Full code Spoke with Dr. Moore, updated ICU nurse, patient's -Plan for today minimize sedation, minimize fentanyl, continue SIMV, 1 dose Lasix this morning, monitor creatinine, repeat BMP monitor serum sodium, await PCP PCR, continue antibiotic therapy, Attestations Medical Necessity Statement*: Critical care time spent over 60 minutes Patient requires hospitalization for septic shock, acute respiratory distress syndrome, hyponatremia, bilateral pneumonia Other Coding Information Procedural care (documented in this note), Procedural care (documented in a nother note) and Prolonged care (total time indicated above or notated here) Critical care time spent over 60 minutes Diagnoses ARDS (adult respiratory distress syndrome) J80 Acute and chronic respiratory failure with hypoxia J96.21 Cough syncope R55; R05.4 Bilateral pneumonia J18.9 Acute exacerbation of chronic obstructive pulmonary disease J44.1 Syncope R55 Adrenal insufficiency E27.40 Dizziness R42 Polymyositis M33.20 Chronic cystitis N30.20 COVID-19 U07.1 On deep vein thrombosis (DVT) prophylaxis Z79.899 Septic shock A41.9; R65.21 Critical care time (in minutes): 60
[2022-10-17 15:12] LABS: Anion Gap 15.3 (5-19); Blood Urea Nitrogen 23 mg/dL (8-23); Calcium 7.3 mg/dL (8.5-10.5); Carbon Dioxide 24 mmol/L (22-29); Chloride 93 mmol/L (98-107); Glomerular Filtration Rate 40.6 mL/min (90-130); Glucose 129 mg/dL (65-115); Osmolality Calculated 271 mOsm/kg (285-295); Potassium 4.3 mmol/L (3.5-5.1); Sodium 128 mmol/L (136-145)
[2022-10-17] MEDS: dexmedetomidine 400 MCG in sodium chloride 0.9% (100 ml) 100 ML IV (17:41)
--- NOTE | 2022-10-17 18:10 | PC.NURSE ---
Shift Summary: Uneventfu shift. Sedation reduced in the morning and patient was able to follow commands (open/close eyes, squeeze hands), and shook head no when asked if in pain. DUe to increaed agitation near end of shift, sedation was increased and precedex started. Lactulose was given, but no bowel movement today. Total urine output during shift has been 1650mL
[2022-10-17 18:44] LABS: Fungitell 1-3-B Glucan Assay <31 pg/mL; Interpretation NEGATIVE
[2022-10-17] MEDS: propofol 1,000 MG/100 ML INJ 13.31 MG IV (21:42)
[2022-10-18] VITALS (75 sets, daily range): BP systolic 86–188; BP diastolic 49–92; PULSE 94–141; RESP 20–24; TEMP 37–38.7; O2SAT 89–100
[2022-10-18] MEDS: meropenem 1,000 MG in sodium chloride 0.9% (plus) 50 ML 100 MG IV ×2 (01:16→13:10)
[2022-10-18] MEDS: amiodarone 50 mg/mL SDV 3 mL 150 MG IVP (01:17)
[2022-10-18] MEDS: midazolam 1 mg/mL INJ 2 mL 2 MG IV (01:55)
[2022-10-18] MEDS: albuterol 2.5 mg/3 mL Neb INHALATION ×4 (02:09→20:38)
[2022-10-18] MEDS: FUROsemide 10 mg/mL SDV 10mL 60 MG IVP (03:20)
[2022-10-18] MEDS: enoxaparin 100 mg/mL Syringe 70 MG SUBCUT ×2 (03:20→15:38)
[2022-10-18 03:43] LABS: ABG PCO2 29.1 mmHg (35-45); ABG PH Result 7.51 (7.35-7.45); Arterial Blood Gas Hematocrit 27.5 % (37-47); Base Excess ABG 0.7 mmol/L (-2.0-2.0); Blood Gas Allen Test Pos; Blood Gas Sample Site Radial, right; Blood Gas Sample Type Arterial; HCO3 ABG 23.3 mmol/L (22-26); Oxygen Device VENT; PO2 ABG 61.1 mmHg (80.0-100.0)
[2022-10-18] MEDS: dexmedetomidine 400 MCG in sodium chloride 0.9% (100 ml) 100 ML 9.61 MCG IV (04:34)
[2022-10-18] MEDS: propofol 1,000 MG/100 ML INJ 24.4 MG IV (05:13)
[2022-10-18] MEDS: folic acid 1 mg Tablet PO (05:13)
[2022-10-18] MEDS: aspirin 81 mg Chew Tablet PO (05:13)
[2022-10-18] MEDS: dexamethasone 10 mg/mL INJ 6 MG IVP (05:13)
[2022-10-18 05:37] LABS: Basophils % 0.2 %; Eosinophils # 0.2 10^3/uL (0.0-0.8); Eosinophils % 1.3 %; Hemoglobin 9.6 g/dL (11.5-15.3); Lymphocytes # 1.1 10^3/uL (0.8-4.8); Lymphocytes % 9.4 %; Mean Corpuscular Hemoglobin 25.5 pg (28.0-34.0); Mean Corpuscular Volume 79.6 fl (81-99); Mean Platelet Volume 9.5 fL (7.4-10.4); Monocytes # 0.3 10^3/uL (0.2-0.9); Monocytes % 2.8 %; Neutrophils # 9.37 10^3/uL (1.8-7.7); Neutrophils % 83.2 %; Nucleated Red Blood Cells % 0 %; Platelet Count 361 10^3/cmm (130-400); Red Blood Count 3.77 10^6/uL (4.1-5.3); Red Cell Distribution Width 15.7 % (12.1-15.1); White Blood Count 11.3 10^3/uL (4.0-10.0)
--- NOTE | 2022-10-18 05:47 | XRR_ITS ---
PROCEDURE INFORMATION: Exam: XR Chest Exam date and time: 10/18/2022 6:06 AM Age: 67 years old Clinical indication: Shortness of breath; Additional info: SOB TECHNIQUE: Imaging protocol: Radiologic exam of the chest. Views: 1 view. COMPARISON: CR (CHEST, ) 10/18/2022 2:46 AM FINDINGS: Tubes, catheters and devices: Endotracheal tube is in satisfactory position. Feeding tube is in satisfactory position. Right sided PICC is in satisfactory position, with distal tip in the SVC, approximately two cm above the SVC/RA junction. Lungs: There is redistribution and indistinctness of the pulmonary vasculature, in association with haziness of the lungs and small bilateral pleural effusions, which in the setting of cardiomegaly is consistent with pulmonary edema. Pneumonia should be excluded clinically. No pneumothorax. Pleural spaces: See Lungs finding. Heart/Mediastinum: Stable cardiomediastinal silhouette. Bones/joints: Degenerative changes and vertebral augmentation cement in the lower thoracic spine noted. XR/XR chest 1V portable [id number] IMPRESSION: Imaging findings of pulmonary edema with small bilateral pleural effusions. Pneumonia should be excluded clinically.
[2022-10-18] MEDS: cisatracurium 100 MG in sodium chloride 0.9% 50 ML IV (05:50)
[2022-10-18 06:02] LABS: NT Pro B Type Natriuretic Pept 9232 pg/mL (0-125)
[2022-10-18 06:11] LABS: Vancomycin Trough 20.2 ug/mL (10-15)
[2022-10-18] MEDS: rocuronium 10 mg/mL INJ 5mL 50 MG IVP (06:13)
[2022-10-18 06:14] LABS: Alanine Aminotransferase 30 U/L (0-33); Albumin Level 2.8 g/dL (3.5-5.2); Alkaline Phosphatase 51 U/L (35-105); Blood Urea Nitrogen 25 mg/dL (8-23); C Reactive Protein 37.6 mg/L (0.0-4.9); Calcium 7.4 mg/dL (8.5-10.5); Carbon Dioxide 21 mmol/L (22-29); Chloride 93 mmol/L (98-107); Globulin 2.5 g/dL (1.3-4.6); Glomerular Filtration Rate 44.5 mL/min (90-130); Glucose 93 mg/dL (65-115); Magnesium 2.6 mg/dL (1.7-2.3); Osmolality Calculated 270 mOsm/kg (285-295); Phosphorus 2.3 mg/dL (2.5-4.5); Sodium 128 mmol/L (136-145); Total Bilirubin 0.2 mg/dL (0.15-1.2); Total Protein 5.3 g/dL (6.6-8.7)
[2022-10-18] MEDS: midazolam 1 mg/mL INJ 2 mL 2 MG IVP (06:42)
--- NOTE | 2022-10-18 06:48 | P.PN_ITS ---
Subjective Subjective: I was called by ICU night nurse at 4:30 AM As per night nurse patient at the start of the shift-patient was following commands but appeared uncomfortable on fentanyl 50, propofol 25 and Precedex 0 .3 and so sedation was being adjusted. However at around midnight she developed atrial fibrillation with RVR with rate 160 bpm and she became tachypneic and more congested in her lungs-she received amiodarone bolus and started on amnio drip-she converted to sinus rhythm.Patient granddaughter reported she has history of irregular heart rhythm for which she was taking metoprolol previously but stopped due to low blood pressure. By the time I arrived at 5:30 AM, she remained tachypneic and vent changes were made and had to restart Versed gtt., increase fentanyl to 150, propofol to 40 and start her on paralytic Nimbex. She received additional dose of Lasix 60 Mg was given. Anticoagulation was increased to full dose as there is concern for underlying PE. She received nebulizations as well. Medications: Reviewed: Yes Vitals/I&O/Wt Last Vital Signs Temp 99.0 F 10/18/22 03:00 Pulse 99 10/18/22 03:45 Resp 24 H 10/18/22 05:50 BP 110/62 10/18/22 03:45 Pulse Ox 98 10/18/22 05:50 O2 Del Method 10/17/22 20:33 O2 Flow Rate 40 10/17/22 17:15 FiO2 40 10/18/22 05:50 10/17/22 10/17/22 10/18/22 14:59 22:59 06:59 Intake Total 366.436 / 158.097 3594.208 / 1915.644 296.435 / 2212.079 Output Total 1225 / 1225 425 / 1650 750 / 2400 Balance -858.564 / -675.495 3541.208 / 265.644 -453.565 / -187.921 Physical Exam Narrative: PHYSICAL EXAM: General: lying in bed, sedated and intubated, barely opens eyes and follows commands HEENT:NCAT, PERRLA, EOMI Neck: Supple Lungs: Bilateral diffuse crackles Heart: s1/s2, RRR Abd: soft, NT, ND, BS + Normoactive Extremities: No edema BOAT DISPATCHER: sedated and limited BOAT DISPATCHER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 SKIN: no rash LDA: # CVC: Right arm PICC line 10/14/2022 # A line: Right radial arterial line 10/14/2022 Urinary Catheter Management: Gomez: Cath Placed During This Visit: yes Reason for Continuing Indwelling Catheter: Accurate Measurement of Urinary Output in Critically Ill Patients Urinary Catheter Date of Insertion: 10/12/22 Urinary Catheter Time of Insertion: 14:50 Data 10/18/22 05:00 10/18/22 05:00 Other Labs: Radiology Impressions Chest CTA 10/09/22 14:56 IMPRESSION: 1. No evidence for pulmonary embolus. 2. Shallow inspiration with RIGHT lower lobe pneumonia. A few patchy infiltrates in the LEFT lower lobe. 3. Hazy groundglass infiltrates about the RIGHT hilum. 4. Cluster of slightly prominent RIGHT hilar lymph nodes nonspecific but may be reactive. No other acute findings. Abdomen/Pelvis CT 10/10/22 11:45 IMPRESSION: 1. Bibasilar atelectasis and with either component of more prominent atelectasis and/or component of patchy infiltrate posterior right lung base. 2. Hyperdense appearance of the dependent aspect of the gallbladder with today's exam, which could indicate hyperdense sludge and/or component of small stones. No significant biliary ductal dilatation. Further evaluation with fasting gallbladder ultrasound could be performed. 3. Small umbilical hernia of fat. 4. Diffuse atherosclerotic vascular disease. 5. Mild scattered sigmoid colon diverticula. No focal inflammatory changes. 6. Chronic bony changes of the spine with prior vertebroplasties T10 and T11. Gallbladder Ultrasound 10/11/22 07:42 IMPRESSION: Mild gallbladder sludge without evidence of stone. No significant gallbladder wall thickening. Venous Duplex 10/11/22 09:32 IMPRESSION: No evidence of deep venous thrombosis. Chest X-Ray 10/18/22 07:00 IMPRESSION: Mild prominence and indistinctness of the pulmonary vasculature and increased interstitial opacities present in the right lower hemithorax and left mid and lower hemithorax, findings that could represent pulmonary edema although superimposed interstitial pneumonia cannot be entirely excluded. Laboratory Results WBC 11.3 10^3/uL (4.0-10.0) H 10/18/22 05:00 RBC 3.77 10^6/uL (4.1-5.3) L 10/18/22 05:00 Hgb 9.6 g/dL (11.5-15.3) L 10/18/22 05:00 Hct 30.0 % (37.0-47.0) L 10/18/22 05:00 MCV 79.6 fl (81-99) L 10/18/22 05:00 MCH 25.5 pg (28.0-34.0) L 10/18/22 05:00 MCHC 32.0 g/dL (30.0-36.0) D 10/18/22 05:00 RDW 15.7 % (12.1-15.1) H 10/18/22 05:00 Plt Count 361 10^3/cmm (130-400) 10/18/22 05:00 MPV 9.5 fL (7.4-10.4) 10/18/22 05:00 Neut % (Auto) 83.2 % 10/18/22 05:00 Lymph % (Auto) 9.4 % 10/18/22 05:00 [place] % (Auto) 2.8 % 10/18/22 05:00 Eos % (Auto) 1.3 % 10/18/22 05:00 Baso % (Auto) 0.2 % 10/18/22 05:00 Neut # (Auto) 9.37 10^3/uL (1.8-7.7) H 10/18/22 05:00 Lymph # (Auto) 1.1 10^3/uL (0.8-4.8) 10/18/22 05:00 [place] # (Auto) 0.3 10^3/uL (0.2-0.9) 10/18/22 05:00 Eos # (Auto) 0.2 10^3/uL (0.0-0.8) 10/18/22 05:00 Baso # (Auto) 0.0 10^3/uL (0.0-0.1) 10/18/22 05:00 Nucleated RBC % (auto) 0 % 10/18/22 05:00 Nucleated RBCs # 0.0 /100WBC 10/18/22 05:00 PT 13.50 SECONDS (12.1-14.9) 10/18/22 05:00 INR 1.00 (0.8-1.2) 10/18/22 05:00 D-Dimer 1.57 ug/mIFEU (0-0.59) H 10/09/22 13:20 Specimen Type Arterial 10/18/22 04:00 Sample Site Radial, right 10/18/22 04:00 O2 Sat Pulse Oximetry Cancelled 10/13/22 01:00 ABG pH 7.51 (7.35-7.45) H 10/18/22 04:00 ABG pCO2 29.1 mmHg (35-45) L 10/18/22 04:00 ABG pO2 61.1 mmHg (80.0-100.0) L 10/18/22 04:00 ABG HCO3 23.3 mmol/L (22-26) 10/18/22 04:00 ABG O2 Saturation 97.5 10/14/22 05:03 ABG Base Excess 0.7 mmol/L (-2.0-2.0) 10/18/22 04:00 Al Test Pos 10/18/22 04:00 A-a O2 Gradient 73.8 mmHg (5-10) H 10/14/22 05:03 Hematocrit 27.5 % (37-47) L 10/18/22 04:00 Hgb O2 Saturation 96.4 % (95-100) 10/14/22 05:03 Carboxyhemoglobin 0.4 %THgb (0.4-20.1) 10/14/22 05:03 Methemoglobin 0.7 % (0.4-1.5) 10/14/22 05:03 Total Hemoglobin 11.4 g/dL (12-16) L 10/14/22 05:03 Sodium 132.0 mmol/L (131-143) 10/14/22 05:03 Potassium 3.6 mmol/L (3.5-5.0) 10/14/22 05:03 Glucose 178.0 mg/dL (70-115) H 10/14/22 05:03 Ionized Calcium 1.1 mmol/L (1.1-1.4) 10/14/22 05:03 Respiration Rate 20.0 % 10/15/22 04:13 O2 Delivery Device Vent 10/18/22 04:00 O2 Liters/Min Cancelled 10/13/22 01:00 SIMV Cancelled 10/13/22 01:00 Vent Mode Vc/ac 10/15/22 04:13 Mechanical Rate Cancelled 10/13/22 01:00 Spontaneous Rate Cancelled 10/13/22 01:00 FiO2 40.0 % 10/18/22 04:00 Tidal Volume 0.40 10/18/22 04:00 PEEP 10.0 cmH20 10/18/22 04:00 Pressure Support Cancelled 10/13/22 01:00 Pressure Control Cancelled 10/13/22 01:00 CPAP Cancelled 10/13/22 01:00 Mode BiPAP Cancelled 10/13/22 01:00 Specimen Drawn By Emma 10/15/22 04:13 Station Examiner ID johann 10/18/22 04:00 Crit Value Read Back Cancelled 10/13/22 01:00 Blood Gas Notified Time Cancelled 10/13/22 01:00 Sodium 128 mmol/L (136-145) L 10/18/22 05:00 Potassium 4.8 mmol/L (3.5-5.1) 10/18/22 05:00 Chloride 93 mmol/L (98-107) L 10/18/22 05:00 Carbon Dioxide 21 mmol/L (22-29) L 10/18/22 05:00 Anion Gap 18.8 (5-19) 10/18/22 05:00 BUN 25 mg/dL (8-23) H 10/18/22 05:00 Creatinine 1.2 mg/dL (0.5-0.9) H 10/18/22 05:00 GFR Calculation 44.5 mL/min (90-130) L 10/18/22 05:00 Glucose 93 mg/dL (65-115) 10/18/22 05:00 POC Glucose 142 mg/dL (70-110) H 10/09/22 21:09 Calculated Osmolality 270 mOsm/kg (285-295) L 10/18/22 05:00 Lactate 3.0 mmol/L (0.5-2.2) H 10/18/22 05:00 Calcium 7.4 mg/dL (8.5-10.5) L 10/18/22 05:00 Phosphorus 2.3 mg/dL (2.5-4.5) L 10/18/22 05:00 Magnesium 2.6 mg/dL (1.7-2.3) H 10/18/22 05:00 Total Bilirubin 0.2 mg/dL (0.15-1.2) 10/18/22 05:00 AST 39 U/L (0-32) H 10/18/22 05:00 ALT 30 U/L (0-33) 10/18/22 05:00 Alkaline Phosphatase 51 U/L (35-105) 10/18/22 05:00 Lactate Dehydrogenase 387 U/L (135-214) H 10/12/22 05:19 Troponin T Baseline 10 ng/L (0-10) 10/09/22 13:20 Troponin T 120 Minute 8.14 ng/L (0-10) 10/09/22 16:20 Delta Troponin T -1.86 ABS# (0-10) L 10/09/22 16:20 Troponin T Hi Sens 6Hr 8.12 ng/L (0-10) 10/09/22 19:40 Troponin T Hi Sens 6Hr Delta 0.02 ng/L (0-12) 10/09/22 19:40 C-Reactive Protein 37.6 mg/L (0.0-4.9) H 10/18/22 05:00 NT-Pro-B Natriuret Pep 9232 pg/mL (0-125) H 10/18/22 05:00 Total Protein 5.3 g/dL (6.6-8.7) L 10/18/22 05:00 Albumin 2.8 g/dL (3.5-5.2) L 10/18/22 05:00 Globulin 2.5 g/dL (1.3-4.6) 10/18/22 05:00 Vitamin B12 1226 pg/mL (232-1245) 10/09/22 19:40 Procalcitonin 0.10 ng/mL (0-0.5) 10/18/22 05:00 TSH 0.80 uIU/mL (0.27-4.20) 10/09/22 19:40 Urine Color Colorless (Yellow) 10/10/22 21:00 Urine Appearance Clear (CLEAR) 10/10/22 21:00 Urine pH 6 (5-7) 10/10/22 21:00 Ur Specific [place] 1.020 (1.005-1.030) 10/10/22 21:00 Urine Protein Neg (Negative) 10/10/22 21:00 Urine Glucose (UA) Norm (Normal) 10/10/22 21:00 Urine Ketones Negative (Negative) 10/10/22 21:00 Urine Blood Neg (Negative) 10/10/22 21:00 Urine Nitrate Negative (Negative) 10/10/22 21:00 Urine Bilirubin Neg (Negative) 10/10/22 21:00 Urine Urobilinogen Neg mg/dL (Negative) 10/10/22 21:00 Ur Leukocyte Esterase Negative (Negative) 10/10/22 21:00 Nasal Influ A H1 2009 PCR Not detected (NOT DETECT) 10/15/22 17:21 Bronch Specimen Source Right upper lobe 10/14/22 18:20 Bronchial Fluid Color White 10/14/22 18:20 Bronchial Fluid Appearance Hazy (CLEAR) 10/14/22 18:20 Bronchial Fluid WBC 73 /uL 10/14/22 18:20 Bronchial Fluid RBC 150 10^3/uL 10/14/22 18:20 Bronch Cells Counted 200 10/14/22 18:20 Bronchial Neutrophils 19.00 % (0.9-2.3) H 10/14/22 18:20 Bronchial Lymphocytes 76.00 % (10.71-12.91) H 10/14/22 18:20 Bronchial Eosinophils 1.00 % (0.13-0.25) H 10/14/22 18:20 Bronchial Macrophages 4.00 % (83.6-86.8) L 10/14/22 18:20 Bronchial Diff Comment Yes 10/14/22 18:20 Vancomycin Trough 20.2 ug/mL (10-15) H 10/18/22 05:00 Adenovirus (PCR) Not detected (NOT DETECT) 10/15/22 17:21 C. pneumoniae DNA (PCR) Not detected (NOT DETECT) 10/15/22 17:21 Coronavirus 229E (PCR) Not detected (NOT DETECT) 10/15/22 17:21 Human Metapneumovir PCR Not detected (NOT DETECT) 10/15/22 17:21 Influenza A (H1) PCR Not detected (NOT DETECT) 10/15/22 17:21 Influenza A (H3) PCR Not detected (NOT DETECT) 10/15/22 17:21 Influenza Type A (PCR) Not detected (NOT DETECT) 10/15/22 17:21 Influenza Type B (PCR) Not detected (NOT DETECT) 10/15/22 17:21 M. pneumoniae (PCR) Not detected (NOT DETECT) 10/15/22 17:21 Parainfluenza 1 (PCR) Not detected (NOT DETECT) 10/15/22 17:21 Parainfluenza 2 (PCR) Not detected (NOT DETECT) 10/15/22 17:21 Parainfluenza 3 (PCR) Not detected (NOT DETECT) 10/15/22 17:21 Parainfluenza 4 (PCR) Not detected (NOT DETECT) 10/15/22 17:21 Pneumocystis Source induced sputum 10/13/22 04:15 Pneumocyst jirovecii PCR Not detected 10/13/22 04:15 Aspergillus Ag (EIA) Cancelled 10/14/22 18:20 A. galactomannan Ag Idx Cancelled 10/14/22 18:20 RSV Type A (PCR) Not detected (NOT DETECT) 10/15/22 17:21 RSV Type B (PCR) Not detected (NOT DETECT) 10/15/22 17:21 Entero/Rhino (PCR) Not detected (NOT DETECT) 10/15/22 17:21 SARS-CoV-2 (PCR) Detected (NOT DETECT) A 10/15/22 17:21 Beta-(1,3)-D-Glucan <31 pg/mL 10/13/22 06:06 B-(1,3)-D-Glucan Intrp Negative 10/13/22 06:06 A&P Assessment and plan (1) Acute exacerbation of chronic obstructive pulmonary disease: (2) ARDS (adult respiratory distress syndrome): (3) Bilateral pneumonia: (4) Acute and chronic respiratory failure with hypoxia: (5) Immunosuppression: (6) COVID-19: (7) MILLER (acute kidney injury): Plan #Acute on chronic respiratory failure with hypoxia-secondary to ARDS due to COVID-19 PCR #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 She received stat doses of rocuronium 50, fentanyl 50 and Versed 2 --Recommended to adjust sedation to maintain RASS -2 PULM: #Acute on chronic respiratory failure secondary to ARDS secondary to underlying COVID-19 pneumonia #Given her significant underlying immunosuppression-suspect PCP pneumonia/nocardia/TB -Intubated and sedated-7.5 09/27/ on SIMV 400/40%/PEEP 10, rate will-but patient was significantly tachypneic after episode of A-fib RVR and hypoxic saturating 87%-switch back to CMV 400/60%/PEEP 12/rate 16-we will repeat ABG in 2 hours -Continue scheduled nebulizations -Completed 2 proning sessions -Follow ARDS protocol-low tidal volume and high PEEP -Chest x-ray showing worsening bilateral lower lobe infiltrates-suspect fluid post A-fib RVR episode -S/p bronchoscopy 10/14/2022-scant secretions with normal mucosa-BAL taken from right upper lobe-cultures negative, fluid analysis lymphocyte predominant suggestive of viral pneumonia,, fungal staining and cultures, galactomannan, PCP PCR, nocardia culture -We will continue coverage with vancomycin/meropenem to cover gram-negative's as well as nocardia/Bactrim-to cover PCP pneumonia until we get final results; vancomycin held due to high trough level -Although imaging does not quite suggestive of TB-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 RVSP 48. No change compared to previous studies in 2019 and 2018. -Continue to monitor GI: #Diet: Continue tube feeding at 20 cc/hour #GI prophylaxis: PPI #Deranged LFTs-normalized now #BR regimen-senna docusate RENAL: #MILLER #Creatinine 1 #Hyponatremia-likely secondary to Bactrim-on oral supplement -Patient has good urine output and electrolytes are within normal limits currently receiving Lasix 40 Mg daily, she received albumin 1 dose yesterday as well as Lasix 60 Mg today early hours -We will try to maintain even to net negative fluid balance -Continue to monitor urine output, renal parameters and electrolytes and supplement accordingly -Continue sodium chloride 1 g p.o. 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 and did not finish her treatment due to hepatotoxicity)-currently on airborne/contact isolation, 3 AFB smears pending -Other possibilities nocardia-currently covered with meropenem and Bactrim -BAL cultures negative, still pending or fungal stain and cultures, PCP PCR, galactomannan; beta D glucan negative Code Status: Full code Disposition: Currently will stay in ICU Critically ill: Yes MD discussed with: RN, RT, hospitalist taking care of the patient ICU CHECKLIST: Problem list updated Verbal orders reviewed and signed Analgesia: Fentanyl Glycemic Control: N/A Nutrition: Tube feeding Restraint Renewal (within 24 hrs): Yes Ulcer Prophylaxis: PPI Chemical Thromboprophylaxis: Prophylaxis: Lovenox Mechanical Thromboprophylaxis: SCDs Need for Central line: PICC line for pressors Need for Gomez catheter: Yes for urine output Case discussed with RN, RT and family or surrogate(s) and hospitalist taking care of the patient Attestations Medical Necessity Statement*: Continue close monitoring for hypoxic respiratory failure secondary to ARDS due to COVID-19 pneumonia Time Spent in Patient Care: Greater than 35 minutes (>than 50% of time spent in counselling and/or direct pt care on unit) . Critical Care Time: This patient has a high probability of clinically significant, sudden or life threatening deterioration of the patient's (neurological, pulmonary, cardiac, renal) systems required my full, direct attention, the highest level of physician preparedness for urgent intervention and personal management. I managed/supervised life or organ supporting interventions that required frequent physician assessment. I devoted my full attention in the ICU to the direct care of this patient for the period of time indicated above. Time I spent with family or surrogate(s) is included only if the patient was incapable of providing necessary information or participating in decision making. This time includes the following services provided: Telemetry review Mechanical Ventilation Hemodynamic interpretation, assessment and management Review and interpretation of CXR Review and interpretation of lab values Review and interpretation of microbiologic data and culture results Review of medications and administration Review and interpretation of Nutrition requirements and management Discussion of management with other consultants and services Clinical update to family members [x] Data and vital sign review and interpretation [x] Patient assessment, examination and intervention [x] Documentation [x] Medication orders and management Time spent for teaching as well as performing procedures are billed separately and is not included in this note Critical Care Time (min): 81 Coding Level of Care Code Acute Code for Chg Fwd Diagnoses Acute exacerbation of chronic obstructive pulmonary disease J44.1 ARDS (adult respiratory distress syndrome) J80 Bilateral pneumonia J18.9 Acute and chronic respiratory failure with hypoxia J96.21 Immunosuppression D89.9 COVID-19 U07.1 MILLER (acute kidney injury) N17.9 Time Spent (min) 81
[2022-10-18 06:53] LABS: Anion Gap 18.8 (5-19); Aspartate Amino Transferase 39 U/L (0-32); Potassium 4.8 mmol/L (3.5-5.1)
--- NOTE | 2022-10-18 07:00 | XRR_ITS ---
PROCEDURE INFORMATION: Exam: XR Chest Exam date and time: 10/18/2022 2:46 AM Age: 67 years old Clinical indication: Shortness of breath; Patient HX: Covid positive. Ventilated. R/O tb; Additional info: SOB TECHNIQUE: Imaging protocol: Radiologic exam of the chest. Views: 1 view. COMPARISON: CR (CHEST, ) 10/17/2022 7:24 AM FINDINGS: Tubes, catheters and devices: An endotracheal tube is placed with its tip 2.5 cm from the eugenie. A nasogastric tube is present with its tip at least in the proximal stomach. A PICC line is placed via the right upper extremity with its tip at the level of the superior vena cava. EKG leads overlie the chest. Lungs: There is mild prominence and indistinctness of the pulmonary vasculature, findings that could represent background of mild pulmonary edema. There are increased interstitial opacity seen in the right lower hemithorax and left mid and lower hemithorax, findings that may represent pulmonary edema as well although an interstitial pneumonitis cannot be entirely excluded. Pleural spaces: Unremarkable. No pleural effusion. No pneumothorax. Heart/Mediastinum: Unremarkable. No cardiomegaly. Bones/joints: Status post vertebroplasty T9-T11. XR/XR chest 1V portable [id number] IMPRESSION: Mild prominence and indistinctness of the pulmonary vasculature and increased interstitial opacities present in the right lower hemithorax and left mid and lower hemithorax, findings that could represent pulmonary edema although superimposed interstitial pneumonia cannot be entirely excluded.
--- NOTE | 2022-10-18 08:05 | PC.NURSE ---
0045 Patient had a rhythm change. Heart rate 140-160. Dr. Layton notified. 0055 Dr. Layton at patient's bedside. Amio ordered per protocol. [address] Layton to report patient's increased work of breathing and change in lung sounds from clear to wheezing and coarse. Orders for chest x ray. 0300 Dr. Layton at bedside to assess patient and review x ray results. Lasix ordered. [address] Moore. Updated on overall status change. Orders to restart Versed drip and increase Fentynal drip to 150 mcg/hr. Vent changes were given to RT per Dr. Moore. [address] Moore to report patient's continued labored breathing. Orders to restart Nimbex drip. [address] Moore and Dr. Layton to request them to the patient's bedside for evaluation. 0550 Dr. Layton at bedside. 0600 Dr. Moore at bedside. Orders for Rocuronium IVP. RT at bedside to make vent changes.
[2022-10-18] MEDS: budesonide 0.5 mg/2 mL Neb INHALATION ×2 (08:15→20:38)
[2022-10-18] MEDS: pantoprazole 40 mg SDV IVP ×2 (08:16→21:34)
[2022-10-18] MEDS: sennosides-docusate Tablet 2 TAB PO (08:16)
[2022-10-18] MEDS: sodium chloride 1 gm Tablet PO ×2 (08:16→17:02)
[2022-10-18 08:36] LABS: ABG PCO2 59.1 mmHg (35-45); ABG PH Result 7.26 (7.35-7.45); Alveolar-Arterial Oxygen Gradi 35.4 mmHg (5-10); Arterial Blood Gas Hematocrit 31.2 % (37-47); Base Excess ABG -1.2 mmol/L (-2.0-2.0); Blood Gas Allen Test Pos; Blood Gas Operator Identificat CAK; Blood Gas Sample Site Radial, left; Blood Gas Sample Type Arterial; Carboxyhemoglobin 0.9 %THgb (0.4-20.1); HCO3 ABG 26.5 mmol/L (22-26); HGB O2 Sat 91.7 % (95-100); Ionized Calcium Level - ABG 1.1 mmol/L (1.1-1.4); Methemoglobin 1.6 % (0.4-1.5); Oxygen Device VENT; Potassium Level - ABG 4.6 mmol/L (3.5-5.0); Total Hemoglobin 10.2 g/dL (12-16)
[2022-10-18] MEDS: propofol 1,000 MG/100 ML INJ 17.75 MG IV ×2 (11:05→16:06)
--- NOTE | 2022-10-18 11:38 | PM.PN ---
Subjective Subjective: Patient was seen this morning, overnight she developed A-fib with RVR, placed on amiodarone, she converted to normal sinus rhythm, she was also given Lasix, she had evidence of distress, was placed on sedation, placed back on Nimbex, currently seen, patient's granddaughter at bedside, currently is on sedation, paralytics, is off Levophed, amiodarone, according to nursing staff, yesterday, when she Uhlmann on sedation she would wake up, follows some commands, this morning, is sedated, he has not had a bowel movement, remains intubated, mechanical ventilation, on SIMV, 60% FiO2 Vitals/I&O/Wt Last Vital Signs Temp 101.7 F H 10/18/22 08:00 Pulse 112 H 10/18/22 10:30 Resp 22 H 10/18/22 11:27 BP 118/57 10/18/22 10:30 Pulse Ox 93 10/18/22 11:27 O2 Del Method 10/18/22 08:00 O2 Flow Rate 40 10/17/22 17:15 FiO2 60 10/18/22 11:27 10/17/22 10/18/22 10/18/22 22:59 06:59 14:59 Intake Total 1549.208 / 1915.644 857.874 / 2773.518 362.491 / 362.491 Output Total 425 / 1650 2150 / 3800 Balance 1124.208 / 265.644 -1292.126 / -1026.482 362.491 / 362.491 Physical Exam Const: COMMON NORMALS: no acute distress Neck/C-Spine: COMMON NORMALS: no JVD Resp: COMMON NORMALS: normal respiratory effort, No retractions, No use of accessory muscles and clear to auscultation bilaterally AUSCULTATION: clear to auscultation bilaterally Cardio: COMMON NORMALS: no JVD, regular rate, regular rhythm, S1 normal heart sound present and S2 normal heart sound present RATE: regular rate RHYTHM: regular rhythm HEART SOUNDS: S1 normal heart sound present and S2 normal heart sound present GI: COMMON NORMALS: Normal to inspection, nondistended, normoactive bowel sounds present and non-tender Extremity: COMMON NORMALS: no pedal edema Psych: OTHER: Endotracheal tube in place Orogastric tube in place Right arterial line in place Gomez catheter in place PICC line in place right Urinary Catheter Management: Gomez: Cath Placed During This Visit: yes Reason for Continuing Indwelling Catheter: Accurate Measurement of Urinary Output in Critically Ill Patients Urinary Catheter Date of Insertion: 10/12/22 Urinary Catheter Time of Insertion: 14:50 Data 10/18/22 05:00 10/18/22 05:00 Micro: Microbiology 10/14/22 16:50 Gram Stain - Final Sputum - Endotracheal Tube Aspirate Sputum Culture - Final A&P Assessment and plan (1) ARDS (adult respiratory distress syndrome): (2) Acute and chronic respiratory failure with hypoxia: (3) Cough syncope: (4) Bilateral pneumonia: (5) Acute exacerbation of chronic obstructive pulmonary disease: (6) Syncope: (7) Adrenal insufficiency: (8) Dizziness: (9) Polymyositis: (10) Chronic cystitis: (11) COVID-19: (12) On deep vein thrombosis (DVT) prophylaxis: (13) Septic shock: (14) Atrial fibrillation with RVR: (15) Difficulty weaning from ventilator: Plan 67-year female who was admitted to the hospital for management evaluation of syncope, she was diagnosed with bilateral pneumonia, gradually her hypoxia worsened from 2 L eventually she required heated high flow and then was transitioned to BiPAP, she Getting worse on BiPAP hence intubated, art line was placed, status post bronchoscopy sputum sample, bronchoalveolar lavage sent for Mycobacterium tuberculosis, PCP pneumonia, has been afebrile for last 48 hours, completed 4 cycles of proning, pulmonary consulted Acute hypoxic respiratory failure With acute respiratory distress syndrome -Finishing second session of proning - currently 60% FiO2, SIMV, difficulty weaning off ventilator -Intubated, sedated, on paralytics, propofol, fentanyl, Versed -We will order CT angiogram of the chest A-fib with RVR, converted to normal sinus rhythm Fluid overload, has received 60 of Lasix early in the morning, 40 again this morning, monitor fluid status, will consider additional doses of Lasix Septic shock, off Levophed COVID-19 positivity Bilateral pneumonia Without active signs of sepsis On broad-spectrum antibiotics, aztreonam, vancomycin, doxycycline, Bactrim IV Severe ARDS Status post bronchoscopy bronchoalveolar lavage sent for Mycobacterium tuberculosis and PCP, nocardia Finish 1 more cycle of proning as per pulmonary She is responding well to proning cycle Turn off paralytics and Versed during supine phase and feed her through NG avoiding TPN because of review of compromise state to avoid fungal infections However she does have a PICC line in case that is needed Afebrile for last 48 hours Patient intubated 10/14 Art line placed 10/14 Bronchoscopy done 10/14 Bactrim induced hyponatremia, current sodium 127 Patient also have adrenal insufficiency Currently on stress dose steroids, switching to Decadron Continue salt tablets 1 g twice daily She is getting Bactrim 15 mL/kg/day dosing done along pharmacy 1 bag is around 500 mL of fluid Positive fluid overload she has been requiring diuretics Pulmonary vascular congestion on chest x-ray, order BMP for tomorrow, consider Lasix in the morning Syncope: Echo unremarkable, Orthostatics negative Carotid Doppler not done yet Likely vasovagal she fell and had syncopal events at home after she used? the restroom Bradycardia noted on admission AV selwyn blocking agent discontinued, full code Elevated vancomycin trough, 20, vancomycin dose adjusted to 1 g every 12 hours, recheck vancomycin trough on fourth dose, monitor creatinine, monitor vancomycin trough hyopnatremia: Fluid overload, Bactrim induced Acute kidney injury, creatinine 1.2 monitor Monitor closely Full code Spoke with Dr. Moore, updated ICU nurse, patient's -Plan for today continue SIMV, continue sedation, continue paralytics, diuresis, continue amiodarone, monitor heart rates, CT angiogram of the chest, Attestations Medical Necessity Statement*: Patient requires hospitalization for due to acute respiratory failure, difficulty weaning off ventilator, now with fluid overload, A-fib Critical Care Time: Critical care time spent over 60 minutes Diagnoses ARDS (adult respiratory distress syndrome) J80 Acute and chronic respiratory failure with hypoxia J96.21 Cough syncope R55; R05.4 Bilateral pneumonia J18.9 Acute exacerbation of chronic obstructive pulmonary disease J44.1 Syncope R55 Adrenal insufficiency E27.40 Dizziness R42 Polymyositis M33.20 Chronic cystitis N30.20 COVID-19 U07.1 On deep vein thrombosis (DVT) prophylaxis Z79.899 Septic shock A41.9; R65.21 Atrial fibrillation with RVR I48.91 Difficulty weaning from ventilator Z99.11
--- NOTE | 2022-10-18 11:49 | CTR_ITS ---
PROCEDURE INFORMATION: Exam: CTA Chest With Contrast Exam date and time: 10/19/2022 12:43 AM Age: 67 years old Clinical indication: Shortness of breath; Patient HX: Covid pos, R/O tb, pna; Additional info: SOB TECHNIQUE: Imaging protocol: Computed tomographic angiography of the chest with contrast. 3D rendering (Not supervised by radiologist): MIP and/or 3D reconstructed images were created by the technologist. Radiation optimization: All CT scans at this facility use at least one of these dose optimization techniques: automated exposure control; mA and/or kV adjustment per patient size (includes targeted exams where dose is matched to clinical indication); or iterative reconstruction. Contrast material: OMNI 350; Contrast volume: 100 ml; Contrast route: INTRAVENOUS (IV); Other protocol: This patient has received 5 known CTs and 0 known cardiac nuclear medicine studies in the 12 months prior to the current study. COMPARISON: CT angio chest PE protcl [id number] 10/09/2022 3:18 PM RADIATION DOSE METRICS: Total DLP (mGy-cm): 437.56 FINDINGS: Tubes, catheters and devices: An endotracheal tube is placed with its tip approximately 2.1 cm from the eugenie. A nasogastric tube is present with its tip at least in the proximal stomach. Pulmonary arteries: Normal. No pulmonary emboli. Aorta: Unremarkable. No aortic aneurysm. No aortic dissection. Lungs: There is a background severe centrilobular emphysema, bronchiectasis and pulmonary fibrosis. There are patchy ground-glass opacity seen in the right apex, adjacent to the major fissure within the right upper lobe within the left upper lobe and strandy and patchy opacities and some consolidation seen in the posterior hemithoraces and right middle lobe. These findings likely represent superimposed interstitial pneumonia and atelectasis. Pleural spaces: There are small bilateral pleural effusions present. Heart: Unremarkable. No cardiomegaly. No pericardial effusion. Lymph nodes: Unremarkable. No enlarged lymph nodes. Bones/joints: There is mild anterior compression of T7 and T8 vertebral bodies. Status post vertebroplasty T9-T11. There is mild compression of the superior endplates of T12. Soft tissues: Diffuse haziness seen in the fat and fascia within the lucho hepatis. CT/CT angio chest PE protcl [id number] IMPRESSION: 1. There is no evidence for pulmonary emboli. 2. There are small bilateral pleural effusions. 3. Background of severe centrilobular emphysema, bronchiectasis and pulmonary fibrosis. 4. There are patchy ground-glass opacities that superimposed over the emphysematous changes within the right apical region, along the major fissure on the right upper lobe, within the left upper lobe suggesting an interstitial infiltrate. Additionally, there are strandy and patchy opacities and some consolidation seen in the posterior hemithoraces and within the right middle lobe compatible with atelectasis versus consolidated pneumonia. 5. There is diffuse haziness seen in the fat and fascia within the lucho hepatis. COMMENTS: In the absence of a history or active diagnosis of lung cancer, it is recommended that this patient with emphysema be evaluated for enrollment in a low dose CT lung cancer screening program.
[2022-10-18] MEDS: lactulose oral liq 20 gm/30 mL UDC 30 GM PO (13:10)
[2022-10-18] MEDS: chlorhexidine gluconate 0.12% Btl 473 mL 15 ML MUCOUS MEM (17:01)
--- NOTE | 2022-10-18 18:29 | PC.NURSE ---
TO4 9000-4 1300-4 1700-4 BIS remained <60
[2022-10-18 20:52] LABS: Anion Gap 15.6 (5-19); Blood Urea Nitrogen 29 mg/dL (8-23); Calcium 7.5 mg/dL (8.5-10.5); Carbon Dioxide 27 mmol/L (22-29); Chloride 94 mmol/L (98-107); Glomerular Filtration Rate 49.2 mL/min (90-130); Glucose 100 mg/dL (65-115); Osmolality Calculated 278 mOsm/kg (285-295); Potassium 5.6 mmol/L (3.5-5.1); Sodium 131 mmol/L (136-145)
[2022-10-18] MEDS: propofol 1,000 MG/100 ML INJ 22.18 MG IV (21:33)
[2022-10-18] MEDS: lidocaine 5% Patch 1 PATCH TOPICAL (21:39)
[2022-10-18] MEDS: cisatracurium 100 MG in sodium chloride 0.9% 50 ML 6.65 MG IV (23:12)
[2022-10-19] VITALS (71 sets, daily range): BP systolic 88–133; BP diastolic 40–65; PULSE 87–104; RESP 22; TEMP 36.8–37.3; O2SAT 89–97
[2022-10-19] MEDS: iohexol 350 mg/mL 500 mL Btl (per mL) IV (00:30)
[2022-10-19] MEDS: propofol 1,000 MG/100 ML INJ 22.18 MG IV ×2 (01:32→05:18)
[2022-10-19] MEDS: meropenem 1,000 MG in sodium chloride 0.9% (plus) 50 ML 100 MG IV ×2 (02:11→13:15)
[2022-10-19] MEDS: sodium polystyrene sulfonate 15 gm/60 mL Btl 30 GM PR (02:11)
[2022-10-19] MEDS: enoxaparin 100 mg/mL Syringe 70 MG SUBCUT (02:12)
[2022-10-19 04:17] LABS: ABG PH Result 7.27 (7.35-7.45); Arterial Blood Gas Hematocrit 31.4 % (37-47); Base Excess ABG 1.2 mmol/L (-2.0-2.0); Blood Gas Allen Test Pos; Blood Gas Sample Site Radial, left; Blood Gas Sample Type Arterial; HCO3 ABG 29.1 mmol/L (22-26); Oxygen Device VENT; PO2 ABG 58.8 mmHg (80.0-100.0)
[2022-10-19 04:19] LABS: ABG PCO2 63.3 mmHg (35-45)
[2022-10-19] MEDS: aspirin 81 mg Chew Tablet PO (05:17)
[2022-10-19] MEDS: dexamethasone 10 mg/mL INJ 6 MG IVP (05:17)
[2022-10-19] MEDS: folic acid 1 mg Tablet PO (05:17)
[2022-10-19 05:34] LABS: INR 0.92 (0.8-1.2)
[2022-10-19 05:42] LABS: Basophils % 0.3 %; Eosinophils # 0.1 10^3/uL (0.0-0.8); Hematocrit 36.9 % (37.0-47.0); Hemoglobin 10.8 g/dL (11.5-15.3); Lymphocytes # 0.9 10^3/uL (0.8-4.8); Lymphocytes % 6.7 %; Mean Corpuscular HGB Conc 29.3 g/dL (30.0-36.0); Mean Corpuscular Hemoglobin 25.2 pg (28.0-34.0); Mean Platelet Volume 9.6 fL (7.4-10.4); Monocytes # 0.2 10^3/uL (0.2-0.9); Monocytes % 1.3 %; Neutrophils # 11.51 10^3/uL (1.8-7.7); Neutrophils % 86.2 %; Nucleated Red Blood Cells % 0 %; Platelet Count 313 10^3/cmm (130-400); Red Blood Count 4.29 10^6/uL (4.1-5.3); Red Cell Distribution Width 17.2 % (12.1-15.1); White Blood Count 13.4 10^3/uL (4.0-10.0)
[2022-10-19 05:56] LABS: Lactate (Lactic Acid level) 1.7 mmol/L (0.5-2.2)
[2022-10-19 05:59] LABS: Vancomycin Trough 8.6 ug/mL (10-15)
[2022-10-19 06:06] LABS: NT Pro B Type Natriuretic Pept 22775 pg/mL (0-125); Procalcitonin 0.65 ng/mL (0-0.5)
[2022-10-19 06:17] LABS: Alanine Aminotransferase 42 U/L (0-33); Albumin Level 2.6 g/dL (3.5-5.2); Alkaline Phosphatase 153 U/L (35-105); Anion Gap 17.6 (5-19); Aspartate Amino Transferase 40 U/L (0-32); Blood Urea Nitrogen 27 mg/dL (8-23); C Reactive Protein 171.1 mg/L (0.0-4.9); Calcium 7.5 mg/dL (8.5-10.5); Carbon Dioxide 23 mmol/L (22-29); Chloride 96 mmol/L (98-107); Globulin 2.8 g/dL (1.3-4.6); Glomerular Filtration Rate 49.2 mL/min (90-130); Glucose 84 mg/dL (65-115); Magnesium 3.2 mg/dL (1.7-2.3); Osmolality Calculated 276 mOsm/kg (285-295); Phosphorus 4.1 mg/dL (2.5-4.5); Potassium 5.6 mmol/L (3.5-5.1); Sodium 131 mmol/L (136-145); Total Bilirubin 0.2 mg/dL (0.15-1.2); Total Protein 5.4 g/dL (6.6-8.7)
[2022-10-19] MEDS: sodium chloride 1 gm Tablet PO ×2 (08:14→17:38)
[2022-10-19] MEDS: polyethylene glycol 3350 Pkt 17 gm PO (08:14)
[2022-10-19] MEDS: pantoprazole 40 mg SDV IVP ×2 (08:14→20:35)
[2022-10-19] MEDS: sennosides-docusate Tablet 2 TAB PO (08:14)
[2022-10-19] MEDS: FUROsemide 10 mg/mL SDV 10mL 60 MG IVP ×2 (08:15→17:37)
[2022-10-19] MEDS: chlorhexidine gluconate 0.12% Btl 473 mL 15 ML MUCOUS MEM ×2 (08:17→17:39)
[2022-10-19] MEDS: budesonide 0.5 mg/2 mL Neb INHALATION ×2 (08:28→20:05)
[2022-10-19] MEDS: albuterol 2.5 mg/3 mL Neb INHALATION ×3 (08:28→20:05)
--- NOTE | 2022-10-19 08:48 | P.PN_ITS ---
Subjective Subjective: -No acute overnight events-mild dyspnea noted and so Nimbex was increased as per night nurse -Otherwise she is +1.5 L and ABG showed respiratory acidosis-FiO2 increased to 80% and PEEP of 12-tidal volume increased to 450 to increase ventilation -Labs-BNP significantly increased to 22 K,-we will start on Lasix 60 Mg twice daily -Chemistry revealed potassium 5.6-likely secondary to Bactrim, I think hyperkalemia and fluid overload secondary to Bactrim infusions; BAL PCP PCR is still pending however her induce sputum is negative so we will hold off Bactrim for now: Called lab to report BAL PCP PCR as it was sent on 10/14/2022-as it is a send out test to [facility]-hydraulic technician reported they will find out and let us know -CTA yesterday did not show PE, showed bibasilar atelectasis and pleural eff usions with background of severe emphysema and pulmonary fibrosis-we will discontinue full dose and switch to prophylactic dose Lovenox -Plan today is to continue sedation and paralytic-diurese her-and once her FiO2 and respiratory acidosis improves-we will slowly taper off sedation-if there is no improvement will prone her -Other labs and imaging reviewed Medications: Reviewed: Yes Vitals/I&O/Wt Last Vital Signs Temp 98.3 F 10/19/22 05:00 Pulse 99 10/19/22 08:46 Resp 22 H 10/19/22 08:33 BP 106/52 10/19/22 06:30 Pulse Ox 94 10/19/22 08:33 O2 Del Method 10/19/22 08:30 O2 Flow Rate 40 10/17/22 17:15 FiO2 80 10/19/22 08:33 10/18/22 10/19/22 10/19/22 22:59 06:59 14:59 Intake Total 1306.561 / 3548.021 0377.324 / 4102.376 109.757 / 109.757 Output Total 1700 / 1700 900 / 2600 Balance -393.439 / -30.948 1533.324 / 1502.376 109.757 / 109.757 Physical Exam Narrative: PHYSICAL EXAM: General: lying in bed, sedated and intubated, barely opens eyes and follows commands HEENT:NCAT, PERRLA, EOMI Neck: Supple Lungs: Bilateral diffuse crackles Heart: s1/s2, RRR Abd: soft, NT, ND, BS + Normoactive Extremities: No 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 SKIN: no rash LDA: # CVC: Right arm PICC line 10/14/2022 # A line: Right radial arterial line 10/14/2022 Urinary Catheter Management: Gomez: Cath Placed During This Visit: yes Reason for Continuing Indwelling Catheter: Accurate Measurement of Urinary Output in Critically Ill Patients Urinary Catheter Date of Insertion: 10/12/22 Urinary Catheter Time of Insertion: 14:50 Data 10/19/22 04:20 10/19/22 04:20 Other Labs: Radiology Impressions Abdomen/Pelvis CT 10/10/22 11:45 IMPRESSION: 1. Bibasilar atelectasis and with either component of more prominent atelectasis and/or component of patchy infiltrate posterior right lung base. 2. Hyperdense appearance of the dependent aspect of the gallbladder with today's exam, which could indicate hyperdense sludge and/or component of small stones. No significant biliary ductal dilatation. Further evaluation with fasting gallbladder ultrasound could be performed. 3. Small umbilical hernia of fat. 4. Diffuse atherosclerotic vascular disease. 5. Mild scattered sigmoid colon diverticula. No focal inflammatory changes. 6. Chronic bony changes of the spine with prior vertebroplasties T10 and T11. Gallbladder Ultrasound 10/11/22 07:42 IMPRESSION: Mild gallbladder sludge without evidence of stone. No significant gallbladder wall thickening. Venous Duplex 10/11/22 09:32 IMPRESSION: No evidence of deep venous thrombosis. Chest X-Ray 10/18/22 07:00 IMPRESSION: Mild prominence and indistinctness of the pulmonary vasculature and increased interstitial opacities present in the right lower hemithorax and left mid and lower hemithorax, findings that could represent pulmonary edema although superimposed interstitial pneumonia cannot be entirely excluded. Chest CTA 10/18/22 11:49 IMPRESSION: 1. There is no evidence for pulmonary emboli. 2. There are small bilateral pleural effusions. 3. Background of severe centrilobular emphysema, bronchiectasis and pulmonary fibrosis. 4. There are patchy ground-glass opacities that superimposed over the emphysematous changes within the right apical region, along the major fissure on the right upper lobe, within the left upper lobe suggesting an interstitial infiltrate. Additionally, there are strandy and patchy opacities and some consolidation seen in the posterior hemithoraces and within the right middle lobe compatible with atelectasis versus consolidated pneumonia. 5. There is diffuse haziness seen in the fat and fascia within the lucho hepatis. COMMENTS: In the absence of a history or active diagnosis of lung cancer, it is recommended that this patient with emphysema be evaluated for enrollment in a low dose CT lung cancer screening program. Laboratory Results WBC 13.4 10^3/uL (4.0-10.0) H 10/19/22 04:20 RBC 4.29 10^6/uL (4.1-5.3) 10/19/22 04:20 Hgb 10.8 g/dL (11.5-15.3) L 10/19/22 04:20 Hct 36.9 % (37.0-47.0) L 10/19/22 04:20 MCV 86.0 fl (81-99) D 10/19/22 04:20 MCH 25.2 pg (28.0-34.0) L 10/19/22 04:20 MCHC 29.3 g/dL (30.0-36.0) L D 10/19/22 04:20 RDW 17.2 % (12.1-15.1) H 10/19/22 04:20 Plt Count 313 10^3/cmm (130-400) 10/19/22 04:20 MPV 9.6 fL (7.4-10.4) 10/19/22 04:20 Neut % (Auto) 86.2 % 10/19/22 04:20 Lymph % (Auto) 6.7 % 10/19/22 04:20 Whiteside % (Auto) 1.3 % 10/19/22 04:20 Eos % (Auto) 1.0 % 10/19/22 04:20 Baso % (Auto) 0.3 % 10/19/22 04:20 Neut # (Auto) 11.51 10^3/uL (1.8-7.7) H 10/19/22 04:20 Lymph # (Auto) 0.9 10^3/uL (0.8-4.8) 10/19/22 04:20 Whiteside # (Auto) 0.2 10^3/uL (0.2-0.9) 10/19/22 04:20 Eos # (Auto) 0.1 10^3/uL (0.0-0.8) 10/19/22 04:20 Baso # (Auto) 0.0 10^3/uL (0.0-0.1) 10/19/22 04:20 Nucleated RBC % (auto) 0 % 10/19/22 04:20 Nucleated RBCs # 0.0 /100WBC 10/19/22 04:20 PT 12.60 SECONDS (12.1-14.9) 10/19/22 04:20 INR 0.92 (0.8-1.2) 10/19/22 04:20 D-Dimer 1.57 ug/mIFEU (0-0.59) H 10/09/22 13:20 Specimen Type Arterial 10/19/22 04:00 Sample Site Radial, left 10/19/22 04:00 O2 Sat Pulse Oximetry Cancelled 10/13/22 01:00 ABG pH 7.27 (7.35-7.45) L 10/19/22 04:00 ABG pCO2 63.3 mmHg (35-45) H* 10/19/22 04:00 ABG pO2 58.8 mmHg (80.0-100.0) L 10/19/22 04:00 ABG HCO3 29.1 mmol/L (22-26) H 10/19/22 04:00 ABG O2 Saturation 94.0 10/18/22 08:24 ABG Base Excess 1.2 mmol/L (-2.0-2.0) 10/19/22 04:00 Al Test Pos 10/19/22 04:00 A-a O2 Gradient 35.4 mmHg (5-10) H 10/18/22 08:24 Hematocrit 31.4 % (37-47) L 10/19/22 04:00 Hgb O2 Saturation 91.7 % (95-100) L 10/18/22 08:24 Carboxyhemoglobin 0.9 %THgb (0.4-20.1) 10/18/22 08:24 Methemoglobin 1.6 % (0.4-1.5) H 10/18/22 08:24 Total Hemoglobin 10.2 g/dL (12-16) L 10/18/22 08:24 Sodium 131.0 mmol/L (131-143) 10/18/22 08:24 Potassium 4.6 mmol/L (3.5-5.0) 10/18/22 08:24 Glucose 142.0 mg/dL (70-115) H 10/18/22 08:24 Ionized Calcium 1.1 mmol/L (1.1-1.4) 10/18/22 08:24 Respiration Rate 20.0 % 10/15/22 04:13 O2 Delivery Device Vent 10/19/22 04:00 O2 Liters/Min Cancelled 10/13/22 01:00 SIMV Cancelled 10/13/22 01:00 Vent Mode Vc/ac 10/15/22 04:13 Mechanical Rate Cancelled 10/13/22 01:00 Spontaneous Rate Cancelled 10/13/22 01:00 FiO2 60.0 % 10/19/22 04:00 Tidal Volume 0.40 10/19/22 04:00 PEEP 12.0 cmH20 10/19/22 04:00 Pressure Support Cancelled 10/13/22 01:00 Pressure Control Cancelled 10/13/22 01:00 CPAP Cancelled 10/13/22 01:00 Mode BiPAP Cancelled 10/13/22 01:00 Specimen Drawn By Emma 10/15/22 04:13 Pipe Washer ID [email or web address] 10/19/22 04:00 Crit Value Read Back Cancelled 10/13/22 01:00 Blood Gas Notified Time Cancelled 10/13/22 01:00 Sodium 131 mmol/L (136-145) L 10/19/22 04:20 Sodium Cancelled 10/19/22 04:20 Potassium 5.6 mmol/L (3.5-5.1) H 10/19/22 04:20 Potassium Cancelled 10/19/22 04:20 Chloride 96 mmol/L (98-107) L 10/19/22 04:20 Chloride Cancelled 10/19/22 04:20 Carbon Dioxide 23 mmol/L (22-29) 10/19/22 04:20 Carbon Dioxide Cancelled 10/19/22 04:20 Anion Gap 17.6 (5-19) 10/19/22 04:20 Anion Gap Cancelled 10/19/22 04:20 BUN 27 mg/dL (8-23) H 10/19/22 04:20 BUN Cancelled 10/19/22 04:20 Creatinine 1.1 mg/dL (0.5-0.9) H 10/19/22 04:20 Creatinine Cancelled 10/19/22 04:20 GFR Calculation 49.2 mL/min (90-130) L 10/19/22 04:20 GFR Calculation Cancelled 10/19/22 04:20 Glucose 84 mg/dL (65-115) 10/19/22 04:20 Glucose Cancelled 10/19/22 04:20 POC Glucose 142 mg/dL (70-110) H 10/09/22 21:09 Calculated Osmolality 276 mOsm/kg (285-295) L 10/19/22 04:20 Calculated Osmolality Cancelled 10/19/22 04:20 Lactate 1.7 mmol/L (0.5-2.2) 10/19/22 04:20 Calcium 7.5 mg/dL (8.5-10.5) L 10/19/22 04:20 Calcium Cancelled 10/19/22 04:20 Phosphorus 4.1 mg/dL (2.5-4.5) D 10/19/22 04:20 Magnesium 3.2 mg/dL (1.7-2.3) H 10/19/22 04:20 Total Bilirubin 0.2 mg/dL (0.15-1.2) 10/19/22 04:20 Total Bilirubin Cancelled 10/19/22 04:20 AST 40 U/L (0-32) H 10/19/22 04:20 AST Cancelled 10/19/22 04:20 ALT 42 U/L (0-33) H 10/19/22 04:20 ALT Cancelled 10/19/22 04:20 Alkaline Phosphatase 153 U/L (35-105) H 10/19/22 04:20 Alkaline Phosphatase Cancelled 10/19/22 04:20 Lactate Dehydrogenase 387 U/L (135-214) H 10/12/22 05:19 Troponin T Baseline 10 ng/L (0-10) 10/09/22 13:20 Troponin T 120 Minute 8.14 ng/L (0-10) 10/09/22 16:20 Delta Troponin T -1.86 ABS# (0-10) L 10/09/22 16:20 Troponin T Hi Sens 6Hr 8.12 ng/L (0-10) 10/09/22 19:40 Troponin T Hi Sens 6Hr Delta 0.02 ng/L (0-12) 10/09/22 19:40 C-Reactive Protein 171.1 mg/L (0.0-4.9) H 10/19/22 04:20 NT-Pro-B Natriuret Pep 41497 pg/mL (0-125) H 10/19/22 04:20 NT-Pro-B Natriuret Pep Cancelled 10/19/22 04:20 Total Protein 5.4 g/dL (6.6-8.7) L 10/19/22 04:20 Total Protein Cancelled 10/19/22 04:20 Albumin 2.6 g/dL (3.5-5.2) L 10/19/22 04:20 Albumin Cancelled 10/19/22 04:20 Globulin 2.8 g/dL (1.3-4.6) 10/19/22 04:20 Globulin Cancelled 10/19/22 04:20 Vitamin B12 1226 pg/mL (232-1245) 10/09/22 19:40 Procalcitonin 0.65 ng/mL (0-0.5) H 10/19/22 04:20 Procalcitonin Cancelled 10/19/22 04:20 TSH 0.80 uIU/mL (0.27-4.20) 10/09/22 19:40 Urine Color Colorless (Yellow) 10/10/22 21:00 Urine Appearance Clear (CLEAR) 10/10/22 21:00 Urine pH 6 (5-7) 10/10/22 21:00 Ur Specific [place] 1.020 (1.005-1.030) 10/10/22 21:00 Urine Protein Neg (Negative) 10/10/22 21:00 Urine Glucose (UA) Norm (Normal) 10/10/22 21:00 Urine Ketones Negative (Negative) 10/10/22 21:00 Urine Blood Neg (Negative) 10/10/22 21:00 Urine Nitrate Negative (Negative) 10/10/22 21:00 Urine Bilirubin Neg (Negative) 10/10/22 21:00 Urine Urobilinogen Neg mg/dL (Negative) 10/10/22 21:00 Ur Leukocyte Esterase Negative (Negative) 10/10/22 21:00 Nasal Influ A H1 2009 PCR Not detected (NOT DETECT) 10/15/22 17:21 Bronch Specimen Source Right upper lobe 10/14/22 18:20 Bronchial Fluid Color White 10/14/22 18:20 Bronchial Fluid Appearance Hazy (CLEAR) 10/14/22 18:20 Bronchial Fluid WBC 73 /uL 10/14/22 18:20 Bronchial Fluid RBC 150 10^3/uL 10/14/22 18:20 Bronch Cells Counted 200 10/14/22 18:20 Bronchial Neutrophils 19.00 % (0.9-2.3) H 10/14/22 18:20 Bronchial Lymphocytes 76.00 % (10.71-12.91) H 10/14/22 18:20 Bronchial Eosinophils 1.00 % (0.13-0.25) H 10/14/22 18:20 Bronchial Macrophages 4.00 % (83.6-86.8) L 10/14/22 18:20 Bronchial Diff Comment Yes 10/14/22 18:20 Vancomycin Trough 8.6 ug/mL (10-15) L 10/19/22 04:20 Adenovirus (PCR) Not detected (NOT DETECT) 10/15/22 17:21 C. pneumoniae DNA (PCR) Not detected (NOT DETECT) 10/15/22 17:21 Coronavirus 229E (PCR) Not detected (NOT DETECT) 10/15/22 17:21 Human Metapneumovir PCR Not detected (NOT DETECT) 10/15/22 17:21 Influenza A (H1) PCR Not detected (NOT DETECT) 10/15/22 17:21 Influenza A (H3) PCR Not detected (NOT DETECT) 10/15/22 17:21 Influenza Type A (PCR) Not detected (NOT DETECT) 10/15/22 17:21 Influenza Type B (PCR) Not detected (NOT DETECT) 10/15/22 17:21 M. pneumoniae (PCR) Not detected (NOT DETECT) 10/15/22 17:21 Parainfluenza 1 (PCR) Not detected (NOT DETECT) 10/15/22 17:21 Parainfluenza 2 (PCR) Not detected (NOT DETECT) 10/15/22 17:21 Parainfluenza 3 (PCR) Not detected (NOT DETECT) 10/15/22 17:21 Parainfluenza 4 (PCR) Not detected (NOT DETECT) 10/15/22 17:21 Pneumocystis Source induced sputum 10/13/22 04:15 Pneumocyst jirovecii PCR Not detected 10/13/22 04:15 Aspergillus Ag (EIA) Cancelled 10/14/22 18:20 A. galactomannan Ag Idx Cancelled 10/14/22 18:20 RSV Type A (PCR) Not detected (NOT DETECT) 10/15/22 17:21 RSV Type B (PCR) Not detected (NOT DETECT) 10/15/22 17:21 Entero/Rhino (PCR) Not detected (NOT DETECT) 10/15/22 17:21 SARS-CoV-2 (PCR) Detected (NOT DETECT) A 10/15/22 17:21 Beta-(1,3)-D-Glucan <31 pg/mL 10/13/22 06:06 B-(1,3)-D-Glucan Intrp Negative 10/13/22 06:06 Micro: Microbiology 10/14/22 18:20 Fungal Smear - Preliminary Ankle - Bronchial 10/14/22 18:20 Mycobacterial Smear - Preliminary Body Fluids - Bronchial 10/14/22 18:20 Mycobacterial Smear - Preliminary Sputum - Endotracheal Wash 10/14/22 16:50 Gram Stain - Final Sputum - Endotracheal Tube Aspirate Sputum Culture - Final A&P Assessment and plan (1) Acute exacerbation of chronic obstructive pulmonary disease: (2) ARDS (adult respiratory distress syndrome): (3) Bilateral pneumonia: (4) Acute and chronic respiratory failure with hypoxia: (5) Immunosuppression: (6) COVID-19: (7) MILLER (acute kidney injury): Plan #Acute on chronic respiratory failure with hypoxia-secondary to ARDS due to COVID-19 PCR #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-there is a concern for underlying PCP pneumonia NEURO: #Sedation-and paralytic -Currently sedated with fentanyl 150, propofol 40, Versed 4, and paralytic Nimbex 1.5 --Recommended to adjust sedation to maintain RASS -2 PULM: #Acute on chronic respiratory failure secondary to ARDS secondary to underlying COVID-19 pneumonia #Given her significant underlying immunosuppression-suspect PCP pneumonia/n ocardia/TB -Intubated and sedated-7.2 /58/29 on CMV 400/FiO2 60%/PEEP 12-increased t idal volume to 450 and FiO2 to 80%-repeat ABG in 4 hours -Completed 2 proning sessions-if there is no improvement in ABG-we will prone her -Continue scheduled nebulizations -Follow ARDS protocol-low tidal volume and high PEEP -CTA-did not show PE, showed bilateral pleural effusions with compressive atelectasis in the background of severe emphysema and pulmonary fibrosis -S/p bronchoscopy 10/14/2022-scant secretions with normal mucosa-BAL taken from right upper lobe-cultures negative, fluid analysis lymphocyte predominant suggestive of viral pneumonia, pending results for fungal staining and cultures, galactomannan, PCP PCR, nocardia culture -We will continue coverage with meropenem to cover gram-negative for 2 more days (she received aztreonam for 3 days and meropenem for 5 days so far); DC vancomycin as MRSA nares negative; DC Bactrim- induced sputum PCP PCR is negative and BAL PCP PCR is pending but patient is becoming hyperkalemic and volume overloaded with Bactrim infusions; contacted lab to report BAL PCP PCR as it was sent out 6 days ago 10/14/2022 -Although imaging does not quite suggestive of TB-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 RVSP 48. No change compared to previous studies in 2020 and 2018. -BNP today is 22,000-we will repeat echocardiogram to check for LV and RV function -Continue to monitor GI: #Diet: Continue tube feeding at 20 cc/hour #GI prophylaxis: PPI #Deranged LFTs-will monitor for now #BR regimen-senna docusate RENAL: #MILLER #Creatinine 1 #Hyponatremia-likely secondary to Bactrim #Hyperkalemia secondary to Bactrim induced -Patient has good urine output and electrolytes are within normal limits but though overall net negative in last 24 hours +1.5 L -We will increase Lasix to 60 Mg twice daily and repeat BMP in the afternoon -Hyperkalemia-secondary to Bactrim, she received cocktail and-we will hold off Bactrim -We will try to maintain even to net negative fluid balance -Continue to monitor urine output, renal parameters and electrolytes and supplement accordingly -I will discontinue sodium chloride oral supplementation ID: #Multilobar pneumonia causing ARDS-today COVID-19 PCR positive -DC vancomycin as MRSA nares negative continue -Continue meropenem -She is on Bactrim for possible PCP pneumonia as patient was on chronic steroid therapy and 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 and did not finish her treatment due to hepatotoxicity)-currently on airborne/contact isolation for COVID-pneumonia, 2 AFB smears pending-we will send third AFB smear today and TB QuantiFERON pending -Other possibilities nocardia-currently covered with meropenem -BAL cultures negative, beta D glucan negative, still pending are fungal stain and cultures, PCP PCR, galactomannan; Code Status: Full code Disposition: Currently will stay in ICU Critically ill: Yes MD discussed with: RN, RT, hospitalist taking care of the patient ICU CHECKLIST: Problem list updated Verbal orders reviewed and signed Analgesia: Fentanyl Glycemic Control: N/A Nutrition: Tube feeding Restraint Renewal (within 24 hrs): Yes Ulcer Prophylaxis: PPI Chemical Thromboprophylaxis: Prophylaxis: Lovenox Mechanical Thromboprophylaxis: SCDs Need for Central line: PICC line for pressors Need for Gomez catheter: Yes for urine output Case discussed with RN, RT and family or surrogate(s) and hospitalist taking care of the patient Attestations Medical Necessity Statement*: Continue close monitoring for hypoxic respiratory failure secondary to ARDS due to COVID-19 pneumonia Time Spent in Patient Care: Greater than 35 minutes (>than 50% of time spent in counselling and/or direct pt care on unit) . Critical Care Time: This patient has a high probability of clinically significant, sudden or life threatening deterioration of the patient's (neurological, pulmonary, cardiac, renal) systems required my full, direct attention, the highest level of physici an preparedness for urgent intervention and personal management. I managed/supervised life or organ supporting interventions that required frequent physician assessment. I devoted my full attention in the ICU to the direct care of this patient for the period of time indicated above. Time I spent with family or surrogate(s) is included only if the patient was incapable of providing necessary information or participating in decision making. This time includes the following services provided: Telemetry review Mechanical Ventilation Hemodynamic interpretation, assessment and management Review and interpretation of CXR Review and interpretation of lab values Review and interpretation of microbiologic data and culture results Review of medications and administration Review and interpretation of Nutrition requirements and management Discussion of management with other consultants and services Clinical update to family members [x] Data and vital sign review and interpretation [x] Patient assessment, examination and intervention [x] Documentation [x] Medication orders and management Time spent for teaching as well as performing procedures are billed separately and is not included in this note Critical Care Time (min): 51 Coding Level of Care Code Acute Code for [facility] Fwd Diagnoses Acute exacerbation of chronic obstructive pulmonary disease J44.1 ARDS (adult respiratory distress syndrome) J80 Bilateral pneumonia J18.9 Acute and chronic respiratory failure with hypoxia J96.21 Immunosuppression D89.9 COVID-19 U07.1 MILLER (acute kidney injury) N17.9 Time Spent (min) 51
--- NOTE | 2022-10-19 08:49 | USCV_ITS ---
Shanita Saleh Age: 67 Gender: F : 1955 Exam Date: 10/19/2022 10:05 Ordering Phys: Syed Ginag MD Technologist: Victor Manuel Contreras Exam Location: [facility] [place] Indication: ? ejection fraction BP: 97 / 52 HR: 96 Rhythm: Sinus Technical Quality: Technically difficult study MEASUREMENTS (Male / Female) Normal Values 2D ECHO LV Ejection Fraction MOD 2C 73.1 % LV Ejection Fraction 2C AL 72.8 % IVC Diameter 2.1 cm FINDINGS Left Ventricle Right Ventricle Right Atrium Left Atrium Mitral Valve Aortic Valve Tricuspid Valve Pulmonic Valve Pericardium Aorta IVC CONCLUSIONS Limited echocardiogram performed to assess LV systolic function. LV systolic function is normal with EF of 60 to 65%. No regional wall motion abnormalities are seen. Arnulfo Deal MD (Electronically Signed) Final Date: 19 October 2022 14:49 S
--- NOTE | 2022-10-19 08:49 | USCV_ITS ---
Shanita Saleh Age: 67 Gender: F : 1955 Exam Date: 10/19/2022 09:44 Ordering Phys: Syed Giang MD Technologist: Victor Manuel Contreras [place] [facility] [place] Indication: ? pe PROCEDURES: The venous duplex Doppler examination of both lower extremities was performed in the standard fashion. The following venous structures were evaluated: common femoral vein, profunda vein, proximal portion of the greater saphenous vein, superficial femoral vein, and the popliteal vein. In addition, the posterior tibial and peroneal trunk were evaluated. FINDINGS: Normal 2-D Doppler and augmentation and compressibility throughout the lower extremity venous structures. Additional imaging through the proximal calf veins also reveals no thrombus. Limited evaluation of the greater saphenous vein is patent with no thrombus. CONCLUSIONS No DVT bilateral lower extremities. Dr. Sheri Molina DO (Electronically Signed) Final Date: 19 October 2022 10:48 S
--- NOTE | 2022-10-19 08:52 | US_ITS ---
WS: [id number] ULTRASOUND ABDOMEN LIMITED CLINICAL INFORMATION: elevated alk phos COMPARISON: Ultrasound to 10/11/22 FINDINGS: Technically limited examination due to patient on ventilator Liver Size: Enlarged Craniocaudal length: 17.0 cm. Echogenicity: Normal. Surface nodularity: None. Mass (size and location): None. Bile ducts Intrahepatic ducts: Normal. Common bile duct diameter: 0.5 cm. Gallbladder Mild fluid distention Gallstones: None. Gallbladder sludge: None. Gallbladder wall thickening: None. Pericholecystic fluid: None. Sonographic Mott sign: Absent. Pancreas Normal as visualized. Right kidney: Normal. Hydronephrosis: None. Size: 11.1 cm x 5.7 cm x 5.3 cm. Abdominal aorta and IVC Visualized portions are normal. Ascites: None. US/US gall bladder [id number] IMPRESSION: 1. Hepatomegaly. 2. Mild fluid distention of the gallbladder which is otherwise normal. No gall bladder wall thickening. Normal common bile duct. No cholelithiasis. 3. No hydronephrosis in RIGHT kidney.
--- NOTE | 2022-10-19 08:52 | XR_ITS ---
WS: [id number] Exam: XR KUB portable [id number] Date/Time of Exam: 10/19/2022 9:52 AM Reason For Exam: obstructin Comparison 06/12/2014. The lateral left abdomen is out of the [id number]. An enteric tube is noted in the left abdomen extending to the upper pelvis. No bowel obstruction or f ree air identified. Organ margins are obscured. Signs of lower thoracic vertebral plasty. Monitoring leads superimpose the lower chest and abdomen. XR/XR KUB portable [id number] IMPRESSION: 1. Enteric tube noted in the left abdomen ending in the region of the upper pel vis. 2. No acute bowel obstruction or obvious pneumoperitoneum.
--- NOTE | 2022-10-19 10:23 | ECG_ITS ---
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 Measurements Intervals [place] Rate: 95 P: 50 AL: 136 QRS: 53 QRSD: 75 T: 39 QT: 332 QTc: 418 Interpretive Statements SINUS RHYTHM Poor R wave progression Compared to ECG 10/09/2022 19:20:24 No significant changes Electronically Signed On 10-19-2022 19:16:54 VEGETABLE CUTTER by Rena Victoria M.D. [id number]
[2022-10-19 10:43] LABS: Troponin(5th) Baseline 99 ng/L (0-10)
[2022-10-19 10:56] LABS: ABG PCO2 56.8 mmHg (35-45); ABG PH Result 7.31 (7.35-7.45); Base Excess ABG 1.2 mmol/L (-2.0-2.0); HCO3 ABG 28.3 mmol/L (22-26); PO2 ABG 85.4 mmHg (80.0-100.0)
[2022-10-19 10:57] LABS: Oxygen Saturation ABG 95.9; Potassium Level - ABG 5.4 mmol/L (3.5-5.0)
[2022-10-19 10:58] LABS: Blood Gas Allen Test POS; Blood Gas Tidal Volume 450; Oxygen Device VENT
[2022-10-19 10:59] LABS: Alveolar-Arterial Oxygen Gradi 402.8 mmHg (5-10); Arterial Blood Gas Hematocrit 30.7 % (37-47); Blood Gas Sample Site LEFT RAD; Blood Gas Sample Type ARTERIAL
[2022-10-19 11:00] LABS: Carboxyhemoglobin 0.9 %THgb (0.4-20.1); HGB O2 Sat 93.9 % (95-100); Ionized Calcium Level - ABG 1.1 mmol/L (1.1-1.4); Methemoglobin 1.2 % (0.4-1.5)
[2022-10-19] MEDS: propofol 1,000 MG/100 ML INJ 19.96 MG IV ×2 (11:02→15:27)
--- NOTE | 2022-10-19 12:05 | PC.CHAP ---
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 visit [] Patient/Family/Request visit [] Outpatient visit [] Follow-up visit [] Physician referral [] Code/Alert [x] Routine visit [] Staff referral [] Actively dying [] Patient sleeping [x] Family support [] [] Out of room [] Palliative care [] [] Receiving care in room [] Pre-surgical visit [] Trauma [] Long length of stay [x] ICU visit [x] Other: isolated Relational/Emotional Strength [] Patient feels connected with others/family/visitors/staff [] Distress [] Loneliness/isolation [] Abandonment Spirituality of Patient [] Person of Lita [] Attends Buddhist of their Lita [] Believes in Prayer [] Reads Bible or Baptism materials [] There are Spiritual issues to be addressed Shift Production Supervisor Interventions [x] Prayer [] Active listening [] Non-anxious presence [] Spiritual/emotional support [] Crisis/trauma care [] Spiritual counseling [] Bereavement support [] Provided bereavement packet [] Provided Bible/devotional materials [] Provided toy/stuffed animal, coloring book to patient or family member [] Provided Communion [] Anointing/[place] [] Salvation [x] Completed spiritual assessment [] Other: Impact on Illness or Injury [] Angry [] Fearful [] Anxious [] Often cries [] Exhaustion [] Unable to work [] Unable to attend pentecostal [] Unable to walk/stand [] Unable to read [] Unable to drive [] Unable to eat/drink [] Unable to sleep [] Unable to be with family [] Patient intubated [] Other: Summary Time spent with patient
[2022-10-19 12:27] LABS: Troponin 5 2HR 91.35 ng/L (0-10); Troponin 5 2HR Delta -7.65 ABS# (0-10)
[2022-10-19 12:28] LABS: Blood Urea Nitrogen 30 mg/dL (8-23); Calcium 7.3 mg/dL (8.5-10.5); Carbon Dioxide 23 mmol/L (22-29); Chloride 95 mmol/L (98-107); Glomerular Filtration Rate 40.6 mL/min (90-130); Glucose 150 mg/dL (65-115); Osmolality Calculated 277 mOsm/kg (285-295); Sodium 129 mmol/L (136-145)
[2022-10-19 12:31] LABS: Anion Gap 16.7 (5-19); Potassium 5.7 mmol/L (3.5-5.1)
[2022-10-19] MEDS: insulin regular-human 10 UNIT in SYRINGE 1 EACH IVP (13:15)
--- NOTE | 2022-10-19 13:55 | PC.SOCIAL ---
IMM Updated Updated pt's spouse on IMM. No questions voiced. Provided pt a copy. Initialed, dated, & timed copy in chart.
--- NOTE | 2022-10-19 14:49 | P.PN_ITS ---
Subjective Subjective: Patient was seen this morning, she remains intubated, on paralytics, sedation, her FiO2 has increased to 80%, remains off Levophed, her diuresis was increased, she had had a fever yesterday morning, WBC has slightly increased, spoke to respiratory therapy, spoke to Dr. Moore, spoke to nursing staff Vitals/I&O/Wt Last Vital Signs Temp 98.7 F 10/19/22 08:00 Pulse 97 10/19/22 14:43 Resp 22 H 10/19/22 14:33 BP 89/51 10/19/22 13:30 Pulse Ox 95 10/19/22 14:33 O2 Del Method 10/19/22 14:30 O2 Flow Rate 40 10/17/22 17:15 FiO2 80 10/19/22 14:33 10/18/22 10/19/22 10/19/22 22:59 06:59 14:59 Intake Total 1306.561 / 1678.008 2416.324 / 4102.376 156.525 / 156.525 Output Total 1700 / 1700 900 / 2600 Balance -393.439 / -30.948 1533.324 / 1502.376 156.525 / 156.525 Physical Exam Const: COMMON NORMALS: no acute distress OTHER: Intubated, sedated, on paralytics, orogastric tube in place, endotracheal tube in place Eye: OTHER: Pupils dilated, reactive to light Resp: COMMON NORMALS: normal respiratory effort, No retractions, No use of accessory muscles and clear to auscultation bilaterally AUSCULTATION: clear to auscultation bilaterally Cardio: COMMON NORMALS: regular rate, regular rhythm, S1 normal heart sound present and S2 normal heart sound present RATE: regular rate RHYTHM: regular rhythm HEART SOUNDS: S1 normal heart sound present and S2 normal heart sound present GI: COMMON NORMALS: Normal to inspection, nondistended, normoactive bowel sounds present and non-tender : OTHER: Gomez catheter in place Extremity: COMMON NORMALS: no pedal edema NARRATIVE EXTREMITY EXAM: Right PICC line in place Urinary Catheter Management: Gomez: Cath Placed During This Visit: yes Reason for Continuing Indwelling Catheter: Accurate Measurement of Urinary Output in Critically Ill Patients Urinary Catheter Date of Insertion: 10/12/22 Urinary Catheter Time of Insertion: 14:50 Data 10/19/22 04:20 10/19/22 11:55 Micro: Microbiology 10/18/22 17:07 MRSA Culture - Final Nose 10/19/22 10:08 Blood Culture - Preliminary Blood SPECIMEN COLLECTED 10/19/22 10:07 Blood Culture - Preliminary Blood SPECIMEN COLLECTED 10/14/22 18:20 Fungal Smear - Preliminary Ankle - Bronchial 10/14/22 18:20 Mycobacterial Smear - Preliminary Body Fluids - Bronchial 10/14/22 18:20 Mycobacterial Smear - Preliminary Sputum - Endotracheal Wash 10/14/22 16:50 Gram Stain - Final Sputum - Endotracheal Tube Aspirate Sputum Culture - Final A&P Assessment and plan (1) ARDS (adult respiratory distress syndrome): (2) Acute and chronic respiratory failure with hypoxia: (3) Cough syncope: (4) Bilateral pneumonia: (5) Acute exacerbation of chronic obstructive pulmonary disease: (6) Syncope: (7) Adrenal insufficiency: (8) Dizziness: (9) Polymyositis: (10) Chronic cystitis: (11) COVID-19: (12) On deep vein thrombosis (DVT) prophylaxis: (13) Septic shock: (14) Atrial fibrillation with RVR: (15) Difficulty weaning from ventilator: (16) Hyperkalemia: Plan 67-year female who was admitted to the hospital for management evaluation of syncope, she was diagnosed with bilateral pneumonia, gradually her hypoxia worsened from 2 L eventually she required heated high flow and then was transitioned to BiPAP, she Getting worse on BiPAP hence intubated, art line was placed, status post bronchoscopy sputum sample, bronchoalveolar lavage sent for Mycobacterium tuberculosis, PCP pneumonia, has been afebrile for last 48 hours, completed 4 cycles of proning, pulmonary consulted Acute hypoxic respiratory failure With acute respiratory distress syndrome -Finished second session of proning -Difficulty weaning off ventilator - currently 80% FiO2, has increased, -Intubated, sedated, on paralytics, propofol, fentanyl, Versed -We will order CT angiogram of the chest A-fib with RVR, converted to normal sinus rhythm, currently on amiodarone wean off Fluid overload, Lasix 60 IV twice daily Septic shock, off Levophed COVID-19 positivity, Decadron Bilateral pneumonia Without active signs of sepsis On broad-spectrum antibiotics, aztreonam, vancomycin, doxycycline, Bactrim IV Severe ARDS Status post bronchoscopy bronchoalveolar lavage sent for Mycobacterium tuberculosis and PCP, nocardia PCP PCR sputum is negative Awaiting bronchiolar lavage specimens 2 cycles of proning She has spondee well to proning cycles Turn off paralytics and Versed during supine phase and feed her through NG avoiding TPN because of review of compromise state to avoid fungal infections However she does have a PICC line in case that is needed Afebrile for last 48 hours Patient intubated 10/14 Art line placed 10/14 Bronchoscopy done 10/14 Bactrim induced hyponatremia, stop Bactrim for now Patient also have adrenal insufficiency Currently on Decadron Continue salt tablets 1 g twice daily She is getting Bactrim 15 mL/kg/day dosing done along pharmacy 1 bag is around 500 mL of fluid Positive fluid overload she has been requiring diuretics Hyperkalemia, likely secondary to Bactrim, received Kayexalate overnight, persistently hyperkalemic, stop Bactrim, insulin D50 Pulmonary vascular congestion on chest x-ray, on Lasix Syncope: Echo unremarkable,, repeat echo Orthostatics negative Carotid Doppler not done yet Likely vasovagal she fell and had syncopal events at home after she used? the restroom Bradycardia noted on admission AV selwyn blocking agent discontinued, full code Off vancomycin hyopnatremia: Fluid overload, Bactrim induced Hyperkalemia Acute kidney injury, creatinine 1.2 monitor Monitor closely Full code Spoke with Dr. Moore, spoke to ICU nurse, -Plan for today as patient CRP is elevated white blood cell count elevated repeat blood cultures, sputum cultures, urine cultures, await bronchiolar lavage specimen, will do a right upper quadrant ultrasound, KUB CT angiogram of the chest was performed yesterday, receiving diuresis therapy, repeat blood work, monitor potassium, will consider third round of proning this afternoon Attestations Medical Necessity Statement*: Patient requires hospitalization, for acute respiratory distress syndrome, now with elevated inflammatory markers, white blood cell count, hyperkalemia, worsening respiratory failure Coding Level of Care Code Critical Care >/= 30 minutes Critical care time (in minutes): 60 The high probability of a clinically significant, sudden or life threatening deterioration, as referenced in this documentation, required my full and direct attention, intervention and personal management. The critical care time shown is in addition to time spent performing any reported separately billable procedures and includes the following: [x] Data and vital sign review and interpretation [x ] Patient assessment, examination and intervention [x] Medication orders and management [x] Patient/Family updates as able [x] Care Coordination and Documentation. Diagnoses ARDS (adult respiratory distress syndrome) J80 Acute and chronic respiratory failure with hypoxia J96.21 Cough syncope R55; R05.4 Bilateral pneumonia J18.9 Acute exacerbation of chronic obstructive pulmonary disease J44.1 Syncope R55 Adrenal insufficiency E27.40 Dizziness R42 Polymyositis M33.20 Chronic cystitis N30.20 COVID-19 U07.1 On deep vein thrombosis (DVT) prophylaxis Z79.899 Septic shock A41.9; R65.21 Atrial fibrillation with RVR I48.91 Difficulty weaning from ventilator Z99.11 Hyperkalemia E87.5
[2022-10-19 17:21] LABS: Troponin 5 6HR 76.13 ng/L (0-10)
[2022-10-19 17:30] LABS: Quantiferon Nil 1.41 IU/mL; Quantiferon Plus TB1 0.01 IU/mL; Quantiferon Plus TB2 0.01 IU/mL; Quantiferon TB Gold NEGATIVE (NEGATIVE)
[2022-10-19] MEDS: albumin 12.5 GM/50 ML VIAL IV (17:37)
[2022-10-19] MEDS: cisatracurium 100 MG in sodium chloride 0.9% 50 ML 5.55 MG IV (18:57)
[2022-10-19] MEDS: propofol 1,000 MG/100 ML INJ 17.75 MG IV (20:35)
[2022-10-19] MEDS: lidocaine 5% Patch 1 PATCH TOPICAL (21:23)
[2022-10-20] VITALS (60 sets, daily range): BP systolic 94–149; BP diastolic 46–72; PULSE 0–137; RESP 22–24; TEMP 36.6–36.9; O2SAT 19–95
--- NOTE | 2022-10-20 01:29 | PC.NURSE ---
Hospital/Store Room out of Pulmoc[facility] tube feed. Dr. Duarte made aware. New order to switch tube feed to Jevity 1.2 until Pulm[facility] becomes available.
[2022-10-20] MEDS: meropenem 1,000 MG in sodium chloride 0.9% (plus) 50 ML 100 MG IV (01:35)
[2022-10-20] MEDS: enoxaparin 40 mg/0.4 mL Syringe SUBCUT (02:48)
[2022-10-20] MEDS: propofol 1,000 MG/100 ML INJ 17.75 MG IV ×2 (02:49→08:23)
[2022-10-20] MEDS: albuterol 2.5 mg/3 mL Neb INHALATION ×2 (03:31→09:06)
[2022-10-20 03:42] LABS: ABG PCO2 51.3 mmHg (35-45); ABG PH Result 7.39 (7.35-7.45); Base Excess ABG 5.7 mmol/L (-2.0-2.0); Blood Gas Allen Test Pos; Blood Gas Sample Site Radial, left; Blood Gas Sample Type Arterial; Blood Gas Tidal Volume 0.45; HCO3 ABG 31.3 mmol/L (22-26); Oxygen Device VENT; PO2 ABG 75.3 mmHg (80.0-100.0)
[2022-10-20 03:47] LABS: Basophils % 0.1 %; Eosinophils # 0.1 10^3/uL (0.0-0.8); Eosinophils % 1.2 %; Hematocrit 26.8 % (37.0-47.0); Hemoglobin 8.1 g/dL (11.5-15.3); Lymphocytes # 0.7 10^3/uL (0.8-4.8); Lymphocytes % 7.8 %; Mean Corpuscular HGB Conc 30.2 g/dL (30.0-36.0); Mean Corpuscular Hemoglobin 25.1 pg (28.0-34.0); Mean Platelet Volume 9.8 fL (7.4-10.4); Monocytes # 0.2 10^3/uL (0.2-0.9); Monocytes % 2.3 %; Neutrophils # 7.18 10^3/uL (1.8-7.7); Neutrophils % 83.7 %; Nucleated Red Blood Cells % 0 %; Platelet Count 297 10^3/cmm (130-400); Red Blood Count 3.23 10^6/uL (4.1-5.3); Red Cell Distribution Width 16.5 % (12.1-15.1); White Blood Count 8.6 10^3/uL (4.0-10.0)
[2022-10-20 04:13] LABS: NT Pro B Type Natriuretic Pept 13181 pg/mL (0-125); Procalcitonin 0.65 ng/mL (0-0.5)
[2022-10-20 04:26] LABS: Alanine Aminotransferase 29 U/L (0-33); Albumin Level 2.8 g/dL (3.5-5.2); Alkaline Phosphatase 98 U/L (35-105); Anion Gap 15.5 (5-19); Aspartate Amino Transferase 31 U/L (0-32); Blood Urea Nitrogen 40 mg/dL (8-23); C Reactive Protein 148.7 mg/L (0.0-4.9); Calcium 7.7 mg/dL (8.5-10.5); Carbon Dioxide 28 mmol/L (22-29); Chloride 98 mmol/L (98-107); Creatine Phosphokinase 57 U/L (26-192); Globulin 2.2 g/dL (1.3-4.6); Glomerular Filtration Rate 40.6 mL/min (90-130); Glucose 102 mg/dL (65-115); Magnesium 3.2 mg/dL (1.7-2.3); Osmolality Calculated 292 mOsm/kg (285-295); Potassium 5.5 mmol/L (3.5-5.1); Sodium 136 mmol/L (136-145); Total Bilirubin 0.2 mg/dL (0.15-1.2)
--- NOTE | 2022-10-20 04:59 | PC.NURSE ---
TO4 2000: 12/01 0000: 12/01 0400: 12/01 Bis was less than 60, greater than 35.
[2022-10-20] MEDS: aspirin 81 mg Chew Tablet PO (05:30)
[2022-10-20] MEDS: folic acid 1 mg Tablet PO (05:30)
[2022-10-20] MEDS: dexamethasone 10 mg/mL INJ 6 MG IVP (05:35)
--- NOTE | 2022-10-20 07:00 | XR_ITS ---
WS: [id number] Exam: XR chest 1V portable [id number] Date/Time of Exam: 10/20/2022 5:37 AM Reason For Exam: sob Comparison 10/18/2022. Bilateral interstitial and airspace infiltrates noted. Infiltrates on the left have improved. There i s slightly more infiltrate in the right lower lung zone than noted previously. Bibasal pleural effusi ons. The heart is top limits normal size. ET tube ends about 4 cm above the eugenie in good position. An enteric tube is noted in the stomach. A right-sided PICC line ends in the lower one third of the S VC. The mediastinum is normal in contour. No pneumothorax. 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 XR/XR chest 1V portable [id number] IMPRESSION: 1. Right-sided pulmonary infiltrates slightly improved. Slightly increased infi ltrate in the right lower lung zone since prior study. 2. Bibasal pleural effusions slightly increased. 3. ET tube and enteric tube both appear to be in satisfactory location. Right P ICC line ending in the lower one third of the SVC.
[2022-10-20] MEDS: FUROsemide 10 mg/mL SDV 10mL 60 MG IVP (07:51)
[2022-10-20] MEDS: polyethylene glycol 3350 Pkt 17 gm PO (07:51)
[2022-10-20] MEDS: sodium chloride 1 gm Tablet PO (07:52)
[2022-10-20] MEDS: pantoprazole 40 mg SDV IVP (07:52)
[2022-10-20] MEDS: sennosides-docusate Tablet 2 TAB PO (07:52)
[2022-10-20] MEDS: chlorhexidine gluconate 0.12% Btl 473 mL 15 ML MUCOUS MEM (07:54)
[2022-10-20] MEDS: budesonide 0.5 mg/2 mL Neb INHALATION (09:06)
[2022-10-20] MEDS: insulin regular-human 10 UNIT in SYRINGE 1 EACH IVP (09:32)
--- NOTE | 2022-10-20 10:03 | ECG_ITS ---
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 Measurements Intervals [place] Rate: 138 P: 0 CO: 0 QRS: 50 QRSD: 78 T: -68 QT: 263 QTc: 399 Interpretive Statements ATRIAL FIBRILLATION WITH RAPID VENTRICULAR RESPONSE NONSPECIFIC ST & T-WAVE ABNORMALITY Compared to ECG 10/19/2022 10:23:59 T-wave abnormality now present Sinus rhythm no longer present Poor R-wave progression no longer present Electronically Signed On 10-20-2022 17:36:20 CENTERLESS GRINDER TENDER by Arnulfo Deal M.D. [id number]
--- NOTE | 2022-10-20 10:55 | P.PN_ITS ---
Subjective Subjective: Patient seen today morning -Still requiring 70% on ventilator and PF ratio less than 110 -Has good urine output with Lasix -She is on fentanyl, propofol, Versed 4 Mg, Nimbex 1.5 gtt-any attempts to wean off Nimbex patient is hyperventilating -He had episodes of A-fib RVR today morning and required amiodarone bolus and drip again -Clinically unchanged and given her significant underlying pulmonary emphysema as well as fibrosis and superimposing COVID-19 pneumonia-she appears to be vent-dependent for several days to come and it will be very slow process to extubate or worst-case scenario may be life-support dependent. Hospitalist has a karlie and open discussion with the help family members at bedside and her who is the next of kin reported that she would never want to be on long-term life support. Respecting their wishes patient was made comfort care Medications: Reviewed: Yes Vitals/I&O/Wt Last Vital Signs Temp 97.9 F 10/20/22 04:45 Pulse 103 H 10/20/22 09:21 Resp 22 H 10/20/22 10:25 BP 107/52 10/20/22 09:00 Pulse Ox 94 10/20/22 10:25 O2 Del Method 10/20/22 09:06 O2 Flow Rate 70 10/19/22 20:05 FiO2 65 10/20/22 10:25 10/19/22 10/20/22 10/20/22 22:59 06:59 14:59 Intake Total 1375.390 / 1531.915 372.265 / 1904.180 130.021 / 130.021 Output Total 975 / 975 750 / 1725 Balance 400.390 / 556.915 -377.735 / 179.180 130.021 / 130.021 Physical Exam Narrative: PHYSICAL EXAM: General: lying in bed, sedated and intubated, barely opens eyes and follows commands HEENT:NCAT, PERRLA, EOMI Neck: Supple Lungs: Bilateral diffuse crackles Heart: s1/s2, RRR Abd: soft, NT, ND, BS + Normoactive Extremities: No edema PRINCIPAL TECHNOLOGIST: sedated and limited PRINCIPAL TECHNOLOGIST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 SKIN: no rash LDA: # CVC: Right arm PICC line 10/14/2022 # A line: Right radial arterial line 10/14/2022 Urinary Catheter Management: Gomez: Cath Placed During This Visit: yes Reason for Continuing Indwelling Catheter: Accurate Measurement of Urinary Output in Critically Ill Patients Urinary Catheter Date of Insertion: 10/12/22 Urinary Catheter Time of Insertion: 14:50 Data 10/20/22 03:30 10/20/22 03:30 Other Labs: Radiology Impressions Abdomen/Pelvis CT 10/10/22 11:45 IMPRESSION: 1. Bibasilar atelectasis and with either component of more prominent atelectasis and/or component of patchy infiltrate posterior right lung base. 2. Hyperdense appearance of the dependent aspect of the gallbladder with today's exam, which could indicate hyperdense sludge and/or component of small stones. No significant biliary ductal dilatation. Further evaluation with fasting gallbladder ultrasound could be performed. 3. Small umbilical hernia of fat. 4. Diffuse atherosclerotic vascular disease. 5. Mild scattered sigmoid colon diverticula. No focal inflammatory changes. 6. Chronic bony changes of the spine with prior vertebroplasties T10 and T11. Chest CTA 10/18/22 11:49 IMPRESSION: 1. There is no evidence for pulmonary emboli. 2. There are small bilateral pleural effusions. 3. Background of severe centrilobular emphysema, bronchiectasis and pulmonary fibrosis. 4. There are patchy ground-glass opacities that superimposed over the emphysematous changes within the right apical region, along the major fissure on the right upper lobe, within the left upper lobe suggesting an interstitial infiltrate. Additionally, there are strandy and patchy opacities and some consolidation seen in the posterior hemithoraces and within the right middle lobe compatible with atelectasis versus consolidated pneumonia. 5. There is diffuse haziness seen in the fat and fascia within the lucho hepatis. COMMENTS: In the absence of a history or active diagnosis of lung cancer, it is recommended that this patient with emphysema be evaluated for enrollment in a low dose CT lung cancer screening program. Gallbladder Ultrasound 10/19/22 08:52 IMPRESSION: 1. Hepatomegaly. 2. Mild fluid distention of the gallbladder which is otherwise normal. No gallbladder wall thickening. Normal common bile duct. No cholelithiasis. 3. No hydronephrosis in RIGHT kidney. KUB X-Ray 10/19/22 08:52 IMPRESSION: 1. Enteric tube noted in the left abdomen ending in the region of the upper pelvis. 2. No acute bowel obstruction or obvious pneumoperitoneum. Chest X-Ray 10/20/22 07:00 IMPRESSION: 1. Right-sided pulmonary infiltrates slightly improved. Slightly increased infiltrate in the right lower lung zone since prior study. 2. Bibasal pleural effusions slightly increased. 3. ET tube and enteric tube both appear to be in satisfactory location. Right PICC line ending in the lower one third of the SVC. Laboratory Results WBC 8.6 10^3/uL (4.0-10.0) 10/20/22 03:30 RBC 3.23 10^6/uL (4.1-5.3) L 10/20/22 03:30 Hgb 8.1 g/dL (11.5-15.3) L 10/20/22 03:30 Hct 26.8 % (37.0-47.0) L 10/20/22 03:30 MCV 83.0 fl (81-99) 10/20/22 03:30 MCH 25.1 pg (28.0-34.0) L 10/20/22 03:30 MCHC 30.2 g/dL (30.0-36.0) 10/20/22 03:30 RDW 16.5 % (12.1-15.1) H 10/20/22 03:30 Plt Count 297 10^3/cmm (130-400) 10/20/22 03:30 MPV 9.8 fL (7.4-10.4) 10/20/22 03:30 Neut % (Auto) 83.7 % 10/20/22 03:30 Lymph % (Auto) 7.8 % 10/20/22 03:30 [place] % (Auto) 2.3 % 10/20/22 03:30 Eos % (Auto) 1.2 % 10/20/22 03:30 Baso % (Auto) 0.1 % 10/20/22 03:30 Neut # (Auto) 7.18 10^3/uL (1.8-7.7) 10/20/22 03:30 Lymph # (Auto) 0.7 10^3/uL (0.8-4.8) L 10/20/22 03:30 [place] # (Auto) 0.2 10^3/uL (0.2-0.9) 10/20/22 03:30 Eos # (Auto) 0.1 10^3/uL (0.0-0.8) 10/20/22 03:30 Baso # (Auto) 0.0 10^3/uL (0.0-0.1) 10/20/22 03:30 Nucleated RBC % (auto) 0 % 10/20/22 03:30 Nucleated RBCs # 0.0 /100WBC 10/20/22 03:30 PT 12.60 SECONDS (12.1-14.9) 10/19/22 04:20 INR 0.92 (0.8-1.2) 10/19/22 04:20 D-Dimer 1.57 ug/mIFEU (0-0.59) H 10/09/22 13:20 Specimen Type Arterial 10/20/22 04:00 Sample Site Radial, left 10/20/22 04:00 O2 Sat Pulse Oximetry Cancelled 10/13/22 01:00 ABG pH 7.39 (7.35-7.45) 10/20/22 04:00 ABG pCO2 51.3 mmHg (35-45) H 10/20/22 04:00 ABG pO2 75.3 mmHg (80.0-100.0) L 10/20/22 04:00 ABG HCO3 31.3 mmol/L (22-26) H 10/20/22 04:00 ABG O2 Saturation 95.9 10/19/22 10:24 ABG Base Excess 5.7 mmol/L (-2.0-2.0) H 10/20/22 04:00 Al Test Pos 10/20/22 04:00 A-a O2 Gradient 402.8 mmHg (5-10) H 10/19/22 10:24 Hematocrit 25.0 % (37-47) L 10/20/22 04:00 Hgb O2 Saturation 93.9 % (95-100) L 10/19/22 10:24 Carboxyhemoglobin 0.9 %THgb (0.4-20.1) 10/19/22 10:24 Methemoglobin 1.2 % (0.4-1.5) 10/19/22 10:24 Total Hemoglobin 10.0 g/dL (12-16) L 10/19/22 10:24 Sodium 132.0 mmol/L (131-143) 10/19/22 10:24 Potassium 5.4 mmol/L (3.5-5.0) H 10/19/22 10:24 Glucose 132.0 mg/dL (70-115) H 10/19/22 10:24 Ionized Calcium 1.1 mmol/L (1.1-1.4) 10/19/22 10:24 Respiration Rate 22.0 % 10/19/22 10:24 O2 Delivery Device Vent 10/20/22 04:00 O2 Liters/Min Cancelled 10/13/22 01:00 SIMV Cancelled 10/13/22 01:00 Vent Mode Vc/ac 10/15/22 04:13 Mechanical Rate Cancelled 10/13/22 01:00 Spontaneous Rate Cancelled 10/13/22 01:00 FiO2 70.0 % 10/20/22 04:00 Tidal Volume 0.45 10/20/22 04:00 PEEP 12.0 cmH20 10/20/22 04:00 Pressure Support Cancelled 10/13/22 01:00 Pressure Control Cancelled 10/13/22 01:00 CPAP Cancelled 10/13/22 01:00 Mode BiPAP Cancelled 10/13/22 01:00 Specimen Drawn By [email or web address] 10/19/22 10:24 Compass Operator ID [email or web address] 10/20/22 04:00 Crit Value Read Back Cancelled 10/13/22 01:00 Blood Gas Notified Time Cancelled 10/13/22 01:00 Sodium 136 mmol/L (136-145) 10/20/22 03:30 Potassium 5.5 mmol/L (3.5-5.1) H 10/20/22 03:30 Chloride 98 mmol/L (98-107) 10/20/22 03:30 Carbon Dioxide 28 mmol/L (22-29) 10/20/22 03:30 Anion Gap 15.5 (5-19) 10/20/22 03:30 BUN 40 mg/dL (8-23) H 10/20/22 03:30 Creatinine 1.3 mg/dL (0.5-0.9) H 10/20/22 03:30 GFR Calculation 40.6 mL/min (90-130) L 10/20/22 03:30 Glucose 102 mg/dL (65-115) 10/20/22 03:30 POC Glucose 142 mg/dL (70-110) H 10/09/22 21:09 Calculated Osmolality 292 mOsm/kg (285-295) 10/20/22 03:30 Lactate 1.0 mmol/L (0.5-2.2) 10/20/22 03:30 Calcium 7.7 mg/dL (8.5-10.5) L 10/20/22 03:30 Phosphorus 4.0 mg/dL (2.5-4.5) 10/20/22 03:30 Magnesium 3.2 mg/dL (1.7-2.3) H 10/20/22 03:30 Total Bilirubin 0.2 mg/dL (0.15-1.2) 10/20/22 03:30 AST 31 U/L (0-32) 10/20/22 03:30 ALT 29 U/L (0-33) 10/20/22 03:30 Alkaline Phosphatase 98 U/L (35-105) 10/20/22 03:30 Lactate Dehydrogenase 387 U/L (135-214) H 10/12/22 05:19 Creatine Kinase 57 U/L (26-192) 10/20/22 03:30 Troponin T Baseline 99 ng/L (0-10) H 10/19/22 10:07 Troponin T 120 Minute 91.35 ng/L (0-10) H 10/19/22 11:55 Delta Troponin T -7.65 ABS# (0-10) L 10/19/22 11:55 Troponin T Hi Sens 6Hr 76.13 ng/L (0-10) H 10/19/22 16:50 Troponin T Hi Sens 6Hr Delta -22.87 ng/L (0-12) L 10/19/22 16:50 C-Reactive Protein 148.7 mg/L (0.0-4.9) H 10/20/22 03:30 NT-Pro-B Natriuret Pep 28603 pg/mL (0-125) H 10/20/22 03:30 Total Protein 5.0 g/dL (6.6-8.7) L 10/20/22 03:30 Albumin 2.8 g/dL (3.5-5.2) L 10/20/22 03:30 Globulin 2.2 g/dL (1.3-4.6) 10/20/22 03:30 Vitamin B12 1226 pg/mL (232-1245) 10/09/22 19:40 Procalcitonin 0.65 ng/mL (0-0.5) H 10/20/22 03:30 TSH 0.80 uIU/mL (0.27-4.20) 10/09/22 19:40 Urine Color Colorless (Yellow) 10/10/22 21:00 Urine Appearance Clear (CLEAR) 10/10/22 21:00 Urine pH 6 (5-7) 10/10/22 21:00 Ur Specific [place] 1.020 (1.005-1.030) 10/10/22 21:00 Urine Protein Neg (Negative) 10/10/22 21:00 Urine Glucose (UA) Norm (Normal) 10/10/22 21:00 Urine Ketones Negative (Negative) 10/10/22 21:00 Urine Blood Neg (Negative) 10/10/22 21:00 Urine Nitrate Negative (Negative) 10/10/22 21:00 Urine Bilirubin Neg (Negative) 10/10/22 21:00 Urine Urobilinogen Neg mg/dL (Negative) 10/10/22 21:00 Ur Leukocyte Esterase Negative (Negative) 10/10/22 21:00 Fluid Source Bal 10/14/22 18:20 Nasal Influ A H1 2008 PCR Not detected (NOT DETECT) 10/15/22 17:21 Bronch Specimen Source Right upper lobe 10/14/22 18:20 Bronchial Fluid Color White 10/14/22 18:20 Bronchial Fluid Appearance Hazy (CLEAR) 10/14/22 18:20 Bronchial Fluid WBC 73 /uL 10/14/22 18:20 Bronchial Fluid RBC 150 10^3/uL 10/14/22 18:20 Bronch Cells Counted 200 10/14/22 18:20 Bronchial Neutrophils 19.00 % (0.9-2.3) H 10/14/22 18:20 Bronchial Lymphocytes 76.00 % (10.71-12.91) H 10/14/22 18:20 Bronchial Eosinophils 1.00 % (0.13-0.25) H 10/14/22 18:20 Bronchial Macrophages 4.00 % (83.6-86.8) L 10/14/22 18:20 Bronchial Diff Comment Yes 10/14/22 18:20 Vancomycin Trough 8.6 ug/mL (10-15) L 10/19/22 04:20 Adenovirus (PCR) Not detected (NOT DETECT) 10/15/22 17:21 C. pneumoniae DNA (PCR) Not detected (NOT DETECT) 10/15/22 17:21 Coronavirus 229E (PCR) Not detected (NOT DETECT) 10/15/22 17:21 Human Metapneumovir PCR Not detected (NOT DETECT) 10/15/22 17:21 Influenza A (H1) PCR Not detected (NOT DETECT) 10/15/22 17:21 Influenza A (H3) PCR Not detected (NOT DETECT) 10/15/22 17:21 Influenza Type A (PCR) Not detected (NOT DETECT) 10/15/22 17:21 Influenza Type B (PCR) Not detected (NOT DETECT) 10/15/22 17:21 M. pneumoniae (PCR) Not detected (NOT DETECT) 10/15/22 17:21 Parainfluenza 1 (PCR) Not detected (NOT DETECT) 10/15/22 17:21 Parainfluenza 2 (PCR) Not detected (NOT DETECT) 10/15/22 17:21 Parainfluenza 3 (PCR) Not detected (NOT DETECT) 10/15/22 17:21 Parainfluenza 4 (PCR) Not detected (NOT DETECT) 10/15/22 17:21 Pneumocystis Source Right upper lobe bal 10/14/22 18:20 Pneumocystis DNA (PCR) Not detected copies/mL 10/14/22 18:20 Pneumocyst Special Info Not detected Log cps/mL 10/14/22 18:20 Pneumocyst jirovecii PCR Not detected 10/14/22 18:20 Aspergillus Ag (EIA) Cancelled 10/14/22 18:20 A. galactomannan Ag Idx Cancelled 10/14/22 18:20 RSV Type A (PCR) Not detected (NOT DETECT) 10/15/22 17:21 RSV Type B (PCR) Not detected (NOT DETECT) 10/15/22 17:21 Entero/Rhino (PCR) Not detected (NOT DETECT) 10/15/22 17:21 SARS-CoV-2 (PCR) Detected (NOT DETECT) A 10/15/22 17:21 TB (QFT) Gold In Tube Negative (NEGATIVE) 10/13/22 17:25 TB Test (QFT) Nil 1.41 IU/mL 10/13/22 17:25 TB Test (QFT) Mitogen 7.00 IU/mL 10/13/22 17:25 TB Test Mitogen - Nil 0.01 IU/mL 10/13/22 17:25 TB Test TB -Nil 0.01 IU/mL 10/13/22 17:25 Beta-(1,3)-D-Glucan <31 pg/mL 10/13/22 06:06 B-(1,3)-D-Glucan Intrp Negative 10/13/22 06:06 Micro: Microbiology 10/19/22 10:08 Blood Culture - Preliminary Blood NEGATIVE TO DATE 10/19/22 10:07 Blood Culture - Preliminary Blood NEGATIVE TO DATE 10/19/22 11:25 Gram Stain - Final Sputum - Endotracheal Tube Aspirate 10/18/22 17:07 MRSA Culture - Final Nose A&P Assessment and plan (1) Acute exacerbation of chronic obstructive pulmonary disease: (2) ARDS (adult respiratory distress syndrome): (3) Bilateral pneumonia: (4) Acute and chronic respiratory failure with hypoxia: (5) Immunosuppression: (6) COVID-19: (7) MILLER (acute kidney injury): Plan #Acute on chronic respiratory failure with hypoxia-secondary to ARDS due to COVID-19 PCR #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-currently acute hypoxic respiratory failure secondary to COVID- 19 pneumonia NEURO: #Sedation-and paralytic -Currently sedated with fentanyl 150, propofol 40, Versed 4, and paralytic Nimbex 1.5 -Any attempts to taper off paralytic-patient is hyperventilating PULM: #Acute on chronic respiratory failure secondary to ARDS secondary to underlying COVID-19 pneumonia #Given her significant underlying immunosuppression-suspect PCP pneumonia/nocardia/TB -Intubated and sedated--still requiring 70% FiO2 and PaO2 75-with a PF ratio less than 110-currently vent dependent -Completed 2 proning sessions with improvement in her FiO2 -Continue scheduled nebulizations -Follow ARDS protocol-low tidal volume and high PEEP -CTA-did not show PE, showed bilateral pleural effusions with compressive atelectasis in the background of severe emphysema and pulmonary fibrosis -S/p bronchoscopy 10/14/2022-scant secretions with normal mucosa-BAL taken from right upper lobe-cultures negative, fluid analysis lymphocyte predominant sugg estive of viral pneumonia, PCP PCR negative TB QuantiFERON negative -Patient is adequately covered with vancomycin which was discontinued after MRSA nares negative, she received aztreonam and later meropenem for total of close to 10 days, was on empiric Bactrim until PCP PCR was negative-today family decided to go for comfort care \; antibiotics were discontinued CVS: #Intermittent episodes of A-fib with RVR -She received amiodarone bolus a -Off pressors -Echocardiogram 10/10/2022 normal LV systolic function with grade 1 diastolic dysfunction. RVSP 48. No change compared to previous studies in 2019 and 2017. -BNP today is 13,000-repeat echocardiogram grossly normal -Family chooses comfort care GI: #Diet: Family choose comfort care #GI prophylaxis: Comfort care #Deranged LFTs-comfort care #BR regimen-comfort care RENAL: #MILLER #Creatinine 1 #Hyponatremia-likely secondary to Bactrim #Hyperkalemia secondary to Bactrim induced -Patient has good urine output -Family chose comfort care ID: #Multilobar pneumonia causing ARDS-today COVID-19 PCR positive --Patient is adequately covered with vancomycin which was discontinued after MRSA nares negative, she received aztreonam and later meropenem for total of close to 10 days, was on empiric Bactrim until PCP PCR was negative-today family decided to go for comfort care \; antibiotics were discontinued Code Status: Comfort care Disposition: Currently will stay in ICU Critically ill: Yes-family choose comfort care MD discussed with: RN, RT, hospitalist taking care of the patient Attestations Medical Necessity Statement*: Based on patient wishes-her next of kin opted comfort care Coding Level of Care Code Critical Care >/= 30 minutes Diagnoses Acute exacerbation of chronic obstructive pulmonary disease J44.1 ARDS (adult respiratory distress syndrome) J80 Bilateral pneumonia J18.9 Acute and chronic respiratory failure with hypoxia J96.21 Immunosuppression D89.9 COVID-19 U07.1 MILLER (acute kidney injury) N17.9 Time Spent (min) 35
--- NOTE | 2022-10-20 11:02 | PM.PN ---
Subjective Subjective: - Patient was seen this morning -Currently she is on 70% FiO2, at times nursing staff tells me that she has agonal breathing, breathing over vent, she is on sedation on paralytics, -She has had good urine output, remains normotensive -Afebrile overnight -Remains ventilator dependent, difficulty weaning ventilator, diuresing -She also had episodes of A-fib with RVR early this morning placed on amiodarone -I had an extensive discussion with Dr. 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 -With that, she is developed acute hypoxic respiratory failure, with acute respiratory distress syndrome, secondary to pneumonia, with COVID, with pulmonary edema -She remains ventilator dependent, difficulty weaning off ventilator, she is dependent on paralytics, we have done proning sessions however O2 requirements remain high and she has difficulty weaning off the ventilator trouble coming off sedating medications due to overbreathing vent -This is likely due to severe acute respiratory distress syndrome, with damage to the lungs pulmonary fibrosis, and noncompliant lungs and stiff lungs -We are doing the best we can with diuresis, and optimizing her oxygen status, she does have evidence of CKD, she does have evidence of pulm edema requiring diuresis, has evidence of transaminitis -In terms her neuro status, on Wednesday and into Wednesday when she was taken off sedation she at times would wake up, would follow nursing commands, but has been put back on sedation and paralyzed due to worsening respiratory status -But the central issue is her pulmonary status, in my opinion, opinion of pulmonary she already has underlying lung damage which is moderate to severe, now with her new damage to her lungs, I do not think that her lungs will likely recover, she will likely need a trach or PEG, and remained on a ventilator until we can give her time at a long-term care facility to see you could see how she does with weaning sedation, and weaning her oxygen requirements but this might take weeks and might take months it might be years and she might be dependent on a ventilator for the rest of her life -I gave the family 2 options -First option would be to continue our medical interventions, and transfer to a long-term care facility where she would have sedation trials but likely would have a tracheostomy placed a PEG tube placed, be under 24-hour care physicians nursing staff, and we could give her time to see if she could ever recover, and what quality of life she would have -The second option would be to make her comfortable ease her pain ease her suffering, allow her to pass away comfortably -I was very honest the family the reason I am having this discussion with her is to manage her expectations, and to have an extensive discussion -The most important point is is that they know Shanita well knowing all this information, if Shanita was sitting here in this meeting what would she say what would her wishes to be what would she want to be done to her life her body, what more her decision be -Her was adamant that she would not want this, she would not want to remain on a ventilator she would not want to be placed at a LTAC she would not want a trach or PEG she would not want artificial life support she would just want to be comfortable -Any repeated this multiple times with all family members present and nursing staff present -The son concurred, that it was her wish of her mother to be at home, to remain independent and she would not want to remain on artificial life support for any period of time -After discussing the risks and benefits of comfort care, all family voiced understanding, all questions answered, agreed to proceed with comfort care, agreed to proceed with comfort care -We will start with comfort care process, plan on terminal extubation, I will give family time to spend with Shanita, see their goodbyes, they also want other family members to come and say their goodbyes Vitals/I&O/Wt Last Vital Signs Temp 97.9 F 10/20/22 04:45 Pulse 103 H 10/20/22 09:21 Resp 22 H 10/20/22 10:25 BP 107/52 10/20/22 09:00 Pulse Ox 94 10/20/22 10:25 O2 Del Method 10/20/22 09:06 O2 Flow Rate 70 10/19/22 20:05 FiO2 65 10/20/22 10:25 10/19/22 10/20/22 10/20/22 22:59 06:59 14:59 Intake Total 1375.390 / 1531.915 372.265 / 1904.180 130.021 / 130.021 Output Total 975 / 975 750 / 1725 Balance 400.390 / 556.915 -377.735 / 179.180 130.021 / 130.021 Physical Exam Const: COMMON NORMALS: no acute distress OTHER: Intubated, sedated, on paralytics, on mechanical ventilation Despite this, she is fighting the ventilator, agonal breathing Resp: COMMON NORMALS: normal respiratory effort, No retractions and No use of accessory muscles Cardio: COMMON NORMALS: S1 normal heart sound present and S2 normal heart sound present RATE: tachycardic RHYTHM: abnormal rhythm HEART SOUNDS: S1 normal heart sound present and S2 normal heart sound present GI: COMMON NORMALS: Normal to inspection, nondistended, normoactive bowel sounds present and non-tender Extremity: COMMON NORMALS: no pedal edema Urinary Catheter Management: Gomez: Cath Placed During This Visit: yes Reason for Continuing Indwelling Catheter: Accurate Measurement of Urinary Output in Critically Ill Patients Urinary Catheter Date of Insertion: 10/12/22 Urinary Catheter Time of Insertion: 14:50 Data 10/20/22 03:30 10/20/22 03:30 Micro: Microbiology 10/19/22 11:25 Gram Stain - Final Sputum - Endotracheal Tube Aspirate Sputum Culture - Preliminary Yeast species 10/19/22 10:08 Blood Culture - Preliminary Blood NEGATIVE TO DATE 10/19/22 10:07 Blood Culture - Preliminary Blood NEGATIVE TO DATE 10/18/22 17:07 MRSA Culture - Final Nose A&P Assessment and plan (1) ARDS (adult respiratory distress syndrome): (2) Acute and chronic respiratory failure with hypoxia: (3) Cough syncope: (4) Bilateral pneumonia: (5) Acute exacerbation of chronic obstructive pulmonary disease: (6) Syncope: (7) Adrenal insufficiency: (8) Dizziness: (9) Polymyositis: (10) Chronic cystitis: (11) COVID-19: (12) On deep vein thrombosis (DVT) prophylaxis: (13) Septic shock: (14) Atrial fibrillation with RVR: (15) Difficulty weaning from ventilator: (16) Hyperkalemia: (17) Need for comfort care: Plan 67-year female who was admitted to the hospital for management evaluation of syncope, she was diagnosed with bilateral pneumonia, gradually her hypoxia worsened from 2 L eventually she required heated high flow and then was transitioned to BiPAP, she Getting worse on BiPAP hence intubated, art line was placed, status post bronchoscopy sputum sample, bronchoalveolar lavage sent for Mycobacterium tuberculosis, PCP pneumonia, has been afebrile for last 48 hours, completed 4 cycles of proning, pulmonary consulted Proceeding with comfort care, Acute hypoxic respiratory failure With acute respiratory distress syndrome -Finished second session of proning -Difficulty weaning off ventilator - currently 80% FiO2, has increased, -Intubated, sedated, on paralytics, propofol, fentanyl, Versed -We will order CT angiogram of the chest A-fib with RVR, converted to normal sinus rhythm, currently on amiodarone wean off Fluid overload, Lasix 60 IV twice daily Septic shock, off Levophed COVID-19 positivity, Decadron Bilateral pneumonia Without active signs of sepsis On broad-spectrum antibiotics, aztreonam, vancomycin, doxycycline, Bactrim IV Severe ARDS Status post bronchoscopy bronchoalveolar lavage sent for Mycobacterium tuberculosis and PCP, nocardia PCP PCR sputum is negative Awaiting bronchiolar lavage specimens 2 cycles of proning She has spondee well to proning cycles Turn off paralytics and Versed during supine phase and feed her through NG avoiding TPN because of review of compromise state to avoid fungal infections However she does have a PICC line in case that is needed Afebrile for last 48 hours Patient intubated 10/14 Art line placed 10/14 Bronchoscopy done 10/14 Bactrim induced hyponatremia, stop Bactrim for now Patient also have adrenal insufficiency Currently on Decadron Continue salt tablets 1 g twice daily She is getting Bactrim 15 mL/kg/day dosing done along pharmacy 1 bag is around 500 mL of fluid Positive fluid overload she has been requiring diuretics Hyperkalemia, likely secondary to Bactrim, received Kayexalate overnight, persistently hyperkalemic, stop Bactrim, insulin D50 Pulmonary vascular congestion on chest x-ray, on Lasix Syncope: Echo unremarkable,, repeat echo Orthostatics negative Carotid Doppler not done yet Likely vasovagal she fell and had syncopal events at home after she used? the restroom Bradycardia noted on admission AV selwyn blocking agent discontinued, full code Off vancomycin hyopnatremia: Fluid overload, Bactrim induced Hyperkalemia Acute kidney injury, creatinine 1.2 monitor Monitor closely Full code Spoke with Dr. Moore, spoke to ICU nurse, -Plan for today as patient CRP is elevated white blood cell count elevated repeat blood cultures, sputum cultures, urine cultures, await bronchiolar lavage specimen, will do a right upper quadrant ultrasound, KUB CT angiogram of the chest was performed yesterday, receiving diuresis therapy, repeat blood work, monitor potassium, will consider third round of proning this afternoon Attestations Medical Necessity Statement*: Patient requires hospitalization for acute respiratory distress syndrome acute respiratory failure, difficulty weaning off ventilator pneumonia, COVID, pulm edema, A-fib, acute kidney injury, proceeding to comfort care Critical Care Time: 70 Coding Level of Care Code Acute Code for [facility] Fwd Diagnoses ARDS (adult respiratory distress syndrome) J80 Acute and chronic respiratory failure with hypoxia J96.21 Cough syncope R55; R05.4 Bilateral pneumonia J18.9 Acute exacerbation of chronic obstructive pulmonary disease J44.1 Syncope R55 Adrenal insufficiency E27.40 Dizziness R42 Polymyositis M33.20 Chronic cystitis N30.20 COVID-19 U07.1 On deep vein thrombosis (DVT) prophylaxis Z79.899 Septic shock A41.9; R65.21 Atrial fibrillation with RVR I48.91 Difficulty weaning from ventilator Z99.11 Hyperkalemia E87.5 Need for comfort care
[2022-10-20] MEDS: morphine 4 mg/mL SDV 1 mL IVP ×10 (14:00→18:34)
[2022-10-20] MEDS: LORazepam 2 mg/mL INJ 1 mL IVP ×4 (14:10→17:52)
[2022-10-20 16:05] LABS: Pneumocystis Jirovecii DNA PCR NOT DETECTED Log cps/mL; Pneumocystis Jirovecii DNA PCR NOT DETECTED copies/mL; Pneumocystis Jirovecii Source BAL
[2022-10-20 16:08] LABS: P. Jirovecii DNA QL PCR NOT DETECTED
--- NOTE | 2022-10-20 17:50 | PC.NURSE ---
Pt was extubated to comfort care at 1350. Family at bedside shortly after. PRN medications being given per orders.
--- NOTE | 2022-10-20 20:42 | PC.NURSE ---
Addendum entered by Elizabeth Martinez RN 10/20/22 21:17: Fentanyl 67.5ml, Versed 61.5ml, Propofol 35ml, and Nimbex 5.5ml wasted in the sink with DEAN Joe. Addendum entered by Florentino Mixon RN 10/20/22 21:04: This nurse auscultated patient for 1min with no audible or palpable heart sounds/pulses. Original Note: Asystole on monitor @1912. This RN listened for heart sounds for a full minute, none auscultated. Florentino Mixon RN listened for heart sounds for a full minute, none auscultated. 2 rhythm strips printed and placed in chart. [facility] contacted @1918, Spoke to Jonh Ashford, [facility] reports, pt is not a candidate for us or [facility], you are clear to release the body . Referral Number: [id number] Dre Saleh () gave permission to deliver the body of Shanita Saleh to [facility] @1938, witnessed by Tatyana Stephenson RN. Paper copy placed in chart. Post mortem care preformed @1944. Fentanyl 67.5ml, Versed 61.5ml, Propofol 35ml, and Nimbex 5.5ml was removed from the room and wasted in the sink w/ DEAN Johnson.
[2022-10-20 21:30] LABS: Aspergillus AG,EIA,Serum NOT DETECTED; Aspergillus Galactomannan Inde <0.50
[2022-10-20 21:30] LABS: Aspergillus AG,EIA NOT DETECTED; Aspergillus AG,EIA, Index <0.50
[2022-10-21 04:38] LABS: MTB Complex Respiratory PCR NOT DETECTED; MTB Source SPUTUM
[2022-10-21 04:38] LABS: MTB Complex Respiratory PCR NOT DETECTED; MTB Source SPUTUM
[2022-10-21 16:54] LABS: Histoplasma Antigen (Quant) NONE DETECTED; Histoplasma Antigen Interpreta NEGATIVE; Histoplasma Antigen Specimen URINE
--- NOTE | 2022-11-03 10:56 | P.DES_ITS ---
Discharge Providers DDS Date of Admission: 10/10/22 11:09 Date Summary Completed: 11/03/22 Attending Provider at Admission: Rhiannon Simms MD Attending Provider at Discharge: Syed Giang MD Primary Care Provider: TOÑA Echavarria Diagnoses Hospital Diagnoses (1) Acute exacerbation of chronic obstructive pulmonary disease: (2) ARDS (adult respiratory distress syndrome): (3) Bilateral pneumonia: (4) Acute and chronic respiratory failure with hypoxia: (5) Immunosuppression: (6) COVID-19: (7) MILLER (acute kidney injury): Reason for Visit Reason for Visit Syncope Summary Summary Summary: Shanita Saleh is a 67 year old female who was recently discharged from the hospital after management of pneumonia she was discharged on antibiotics, qualified for 2 L of oxygen, she has history of polymyositis received prednisone infliximab presented back with syncopal event.? Patient is stating that she felt sick to her stomach and passed out when she woke up she did not realize that she had syncopal event, she was confused for a bit, as per the niece she had a bowel movement as well, patient stating that before this event she had a bowel movement.? Patient had another syncopal event when was taking care of her trying to adjust her position in the couch Patient admitted to [facility] for acute on chronic respiratory failure secondary to acute respiratory distress syndrome, underlying COVID-19 pneumonia, multilobar pneumonia, with underlying immunosuppression. Patient was intubated, sedated, received 2 proning session, following ARDS protocol, received broad-spectrum antibiotic therapy, steroid therapy, pulmonary was consulted CT of her chest showed background of severe emphysema and pulmonary fibrosis. She had a bronchoscopy during hospitalization, bronchiolar lavage so far cultures were unremarkable, PCP PCR negative, TB QuantiFERON negative. During her hospitalization she also developed hyponatremia likely secondary to Bactrim. Hyperkalemia secondary to Bactrim. As her PCP PCR came back negative Bactrim was discontinued. She also had episodes of intermittent A-fib with RVR during the hospitalization, requiring medical management. Also required intermittent pressors during hospitalization secondary to septic shock. Due to persistent acute respiratory distress syndrome, persistent high oxygen requirements, difficulty to wean off ventilator, I had an extensive discussion about goals of care with patient's family and next of kin. After discussing goals of care, patient's family pursued comfort care. Patient was terminally extubated, time of 10/20/2022 at 1913. Additional Data Advance directives?: No Discharge Plan Discharge Patient Disposition: At Medical Facility Condition: Stable Prescriptions: No Action albuterol sulfate [ProAir HFA] 90 mcg/actuation HFA aerosol inhaler 2 puff INHALATION QID PRN (Reason: shortness of breath) Qty: 8.5 0RF B12 Active 1,000 mcg tablet,chewable 1,000 mcg PO DAILY Qty: 30 0RF folic acid 1 mg tablet 1 mg PO QAM aspirin [Adult Aspirin Regimen] 81 mg tablet,delayed release (DR/EC) 81 mg PO QAM fluticasone propionate 50 mcg/actuation spray,suspension 1 - 2 spray intranasal DAILY PRN (Reason: Allergy Symptoms) 30 Days Qty: 16 6RF lidocaine HCl [Aspercreme (lidocaine HCl)] 4 % cream 1 applic topical BID PRN (Reason: Pain) (DME) oxygen @ 2L per n/c See Rx Instructions .Route .MEDSUPPLY Qty: 1 0RF Rx Instructions: please supply conserving device, portable and concentrator amlodipine 2.5 mg tablet 2.5 mg PO DAILY Qty: 90 3RF Rx Instructions: PT STATES NOT STARTED OF 10/09/22 prednisone 5 mg tablet 7.5 mg PO DAILY Rx Instructions: part of taper loperamide [Imodium A-D] 2 mg capsule 2 mg PO Q4H PRN (Reason: loose stool) Qty: 30 0RF Rx Instructions: 1 after each loose stool until symptoms resolved;do not exceed 8 mg per 24 hrs Trelegy Ellipta 100-62.5-25 mcg blister with device 1 inh inhalation DAILY 30 Days Qty: 60 4RF pantoprazole 40 mg tablet,delayed release (DR/EC) 40 mg PO BID cholecalciferol (vitamin D3) [Vitamin D3] 25 mcg (1,000 unit) Capsule 25 mcg PO QPM metoprolol tartrate 25 mg tablet 25 mg PO BID prednisone 10 mg tablets,dose pack See Taper PO DAILY Qty: 42 0RF Taper: predniSONE 60-10 40 mg Daily for 2 Days and 0 Hour 30 mg Daily for 2 Days and 0 Hour 20 mg Daily for 2 Days and 0 Hour 10 mg Daily for 2 Days and 0 Hour ipratropium-albuterol 0.5 mg-3 mg(2.5 mg base)/3 mL solution for nebulization 3 ml inhalation Q8H Qty: 180 0RF Flexeril 10 mg Tablet 10 mg PO TID PRN (Reason: Muscle Spasm) promethazine-DM 6.25-15 mg/5 mL syrup 5 - 10 ml PO Q6H PRN (Reason: Cough) Tylenol Ex Str Rapid Release 500 mg Tablet 1,000 mg PO Q4H PRN (Reason: Pain) levofloxacin 500 mg tablet 500 mg PO DAILY Rx Instructions: RX FILLED 10/05/22 7D/S amoxicillin-pot clavulanate 500-125 mg tablet 1 tab PO BID Rx Instructions: RX FILLED 10/05/22 7D/S Probiotic Blend 2 billion cell-50 mg Capsule 1 cap PO DAILY Rx Instructions: give with meal/snack losartan 50 mg tablet 50 mg PO BID albuterol sulfate 2.5 mg /3 mL (0.083 %) solution for nebulization 2.5 mg inhalation QID PRN (Reason: Shortness Of Breath) methenamine hippurate 1 gram tablet 1 g PO BID Referrals: Jasmin Petit, TOÑA [Primary Care Provider] - Patient Instructions: Opioid Safety Probable Cause of Probable cause of : Cardiac arrest DS Attestations Time Spent in /Discharge Care*: greater than 30 min Quality - AMI: AMI present?: No Quality - Stroke: CVA present?: No Quality - VTE: VTE present?: No Coding Level of Care Code 76365 Total time (in minutes) for Discharge: 50 Diagnoses Acute exacerbation of chronic obstructive pulmonary disease J44.1 ARDS (adult respiratory distress syndrome) J80 Bilateral pneumonia J18.9 Acute and chronic respiratory failure with hypoxia J96.21 Immunosuppression D89.9 COVID-19 U07.1 MILLER (acute kidney injury) N17.9
== END 2022-10-20 19:13 | disposition expired | DRG 207 ==
LOC: ER 17:50 → MEDSURG 21:29 → ICU 10-12 10:56
PROVIDERS: Internal Medicine; Internal Medicine Pulmonary Disease; Student in an Organized Health Care Education/Training Program; Admitting Provider Internal Medicine; Emergency Provider Emergency Medicine; PCP Nurse Practitioner Family; Visit Provider Family Medicine
DX: J18.9 Pneumonia, unspecified organism (principal); A41.9 Sepsis, unspecified organism; R65.21 Severe sepsis with septic shock; J80 Acute respiratory distress syndrome; U07.1 COVID-19; J12.82 Pneumonia due to coronavirus disease 2019; D84.821 Immunodeficiency due to drugs; M33.20 Polymyositis, organ involvement unspecified; I50.32 Chronic diastolic (congestive) heart failure; E87.1 Hypo-osmolality and hyponatremia; E27.40 Unspecified adrenocortical insufficiency; N17.9 Acute kidney failure, unspecified; J43.9 Emphysema, unspecified; J84.10 Pulmonary fibrosis, unspecified; E87.5 Hyperkalemia; I48.91 Unspecified atrial fibrillation; Z51.5 Encounter for palliative care; Z66 Do not resuscitate; I95.9 Hypotension, unspecified; E83.51 Hypocalcemia; E87.6 Hypokalemia; R57.1 Hypovolemic shock; Z79.52 Long term (current) use of systemic steroids; Z99.81 Dependence on supplemental oxygen; N30.20 Other chronic cystitis without hematuria; K52.9 Noninfective gastroenteritis and colitis, unspecified; Z87.440 Personal history of urinary (tract) infections; E86.0 Dehydration; Z87.891 Personal history of nicotine dependence; Z87.11 Personal history of peptic ulcer disease; K21.9 Gastro-esophageal reflux disease without esophagitis; N18.9 Chronic kidney disease, unspecified; F41.9 Anxiety disorder, unspecified; M81.0 Age-related osteoporosis without current pathological fracture; I46.9 Cardiac arrest, cause unspecified
CPT/HCPCS: 31622; 36415; 36416; 36569; 36592; 36600; 51702; 71045; 71275; 74018; 74176; 76705; 80048; 80051; 80053; 80202; 80503; 81003; 82330; 82550; 82607; 82803; 82805; 82962; 83605; 83615; 83735; 83880; 84100; 84145; 84443; 84484; 85025; 85378; 85610; 86140; 86480; 87015; 87040; 87070; 87081; 87086; 87102; 87116; 87205; 87206; 87305; 87385; 87449; 87486; 87556; 87581; 87633; 87635; 87641; 87798; 87799; 87801; 89050; 93005; 93306; 93308; 93970; 94002; 94003; 94640; 94660; 94664; 94799; 96365; 96372; 96376; 97116; 97161; 97530; 99284; 99285; A4570; C1751; C9113; G0378; J0282; J0610; J1100; J1644; J1650; J1720; J1815; J1885; J1940; J1956; J2060; J2185; J2250; J2270; J2405; J2704; J3010; J3370; J3490; J7030; J7050; J7060; J7512; J7613; J7626; P9046; P9047; Q9967